=== PATIENT | female | born 1930 | race Caucasian/White ===

== ENCOUNTER → 2017-06-05 | Outpatient (CLI) | payer MEDICARE ==
[~2017-06-05] MED LIST: BIOTCAP PO; D31000CA3 PO; ESTR1TAB PO; FOLI800T PO; FURO20TA PO; LEVO125T4 PO; LISI-519 PO; LORTA5 PO; METH2.5 PO; MOBI7.5T PO; MONT10TA4 PO; NORV2.5T11 PO; PANT40TA3 PO; POTA-267 PO; PRED10 PO; PRED5 PO; VIST25CA PO; [UNRECOGNIZED DRUG - CODE] PO
[2017-06-05 09:43] LABS: AUTOMATED NEUTROPHIL # 5.2 TH/MM3 (1.8-7.7); BASOPHIL % 0.4 % (0.0-2.0); EOSINOPHIL # 0.1 TH/MM3 (0-0.4); EOSINOPHIL % 1.5 % (0.0-4.0); HEMATOCRIT 36.5 % (35.0-46.0); LYMPH % 14.7 % (9.0-44.0); MEAN CELL VOLUME 89.9 FL (80.0-100.0); MEAN CORPUSCULAR HEMOGLOBIN 29.9 PG (27.0-34.0); MEAN CORPUSCULAR HGB CONC 33.3 % (32.0-36.0); MONO % 10.5 % (0.0-8.0); NEUT % 72.9 % (16.0-70.0); PLATELET COUNT 346 TH/MM3 (150-450); RED BLOOD COUNT 4.06 MIL/MM3 (4.00-5.30); RED CELL DISTRIBUTION WIDTH 15.2 % (11.6-17.2); WHITE BLOOD COUNT 7.1 TH/MM3 (4.0-11.0)
[2017-06-05 09:45] LABS: HEMO FLAGS DIFF FINAL; PROTHROMBIN TIME - PATIENT 10.5 SEC (9.8-11.6)
[2017-06-05 10:02] LABS: ANION GAP 7 MEQ/L (5-15); AST (GOT) 12 U/L (15-37); BICARBONATE 29.3 MEQ/L (21.0-32.0); BLOOD UREA NITROGEN 15 MG/DL (7-18); CHLORIDE 105 MEQ/L (98-107); GLOMERULAR FILTRATION RATE 84 ML/MIN (>89); GLUCOSE,FASTING 89 MG/DL (74-99); POTASSIUM 4.3 MEQ/L (3.5-5.1); SODIUM (NA) 141 MEQ/L (136-145)
[2017-06-05 10:06] LABS: ALKALINE PHOSPHATASE 58 U/L (45-117); ALT (GPT) 16 U/L (10-53); TOTAL BILIRUBIN ADULT 0.5 MG/DL (0.2-1.0)
[2017-06-05 11:11] LABS: BLOOD, URINE NEG (NEG); GLUCOSE,URINE NEG (NEG); KETONE, URINE TRACE mg/dL (NEG); MUCUS URINE FEW /lpf (OCC); NITRITE,URINE NEG (NEG); PH, URINE 6.5 (5.0-8.5); URINE COLOR YELLOW (YELLW/STRAW)
[2017-06-05 11:12] LABS: COMMENT (UR) CULT NOT INDICATED; CULTURE IF INDICATED CULT NOT INDICATED
--- NOTE | 2017-06-05 11:56 | RADRPT ---
EXAM DATE/TIME: 06/05/2017 10:32 [place] COMPARISON: No previous studies available for comparison. INDICATIONS : Evaluate for pneumonia, pneumothorax or communicable disease. pre op colon surgery 06-11-17 MEDICAL HISTORY : None. SURGICAL HISTORY : None. ENCOUNTER: Initial ACUITY: 1 day PAIN SCORE: 0/10 LOCATION: Bilateral chest FINDINGS: PA and lateral views of the chest demonstrate the lungs to be symmetrically aerated without evidence of mass, infiltrate or effusion. The cardiomediastinal contours are unremarkable. Osseous structure s are intact. 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 CONCLUSION: No acute disease. Abraham Laguna MD on June 05, 2017 at 11:54 Board Certified Radiologist. This report was verified electronically.
--- NOTE | 2017-06-05 18:48 | EKG ---
Date Performed: 06/05/2017 Time Performed: 09:21:38 PTAGE: 87 years EKG: Sinus rhythm LOW QRS VOLTAGE IN PRECORDIAL LEADS BORDERLINE ECG Compared to prior tracing no significant change PREVIOUS TRACING : 07/14/2003 09.37.14 DOCTOR: Naomy Ontiveros Interpretating Date/Time 06/05/2017 18:47:39
== END ==
LOC: CPRE 08:52
PROVIDERS: ATTEND Colon & Rectal Surgery
DX: Z01.812 Encounter for preprocedural laboratory examination (principal); Z01.810 Encounter for preprocedural cardiovascular examination; Z01.811 Encounter for preprocedural respiratory examination; C20 Malignant neoplasm of rectum; R94.31 Abnormal electrocardiogram [ECG] [EKG]
CPT/HCPCS: 36415; 71020; 80053; 81001; 82378; 85025; 85610; 85730; 93005

== ENCOUNTER 2017-06-11 08:56 | Inpatient (IN) | payer MEDICARE ==
[~2017-06-11] VITALS: Ht 149.9 cm; Wt 56.0 kg
[~2017-06-11 08:56] MED LIST changes: -ESTR1TAB PO; -FURO20TA PO; -LORTA5 PO; -METH2.5 PO; -MOBI7.5T PO; -NORV2.5T11 PO; -POTA-267 PO; -PRED5 PO; -VIST25CA PO; -[UNRECOGNIZED DRUG - CODE] PO
[2017-06-11] MEDS ORDERED: [UNRECOGNIZED DRUG - CODE] PO (11:58)
[2017-06-11] MEDS ORDERED: ONDANSETRON HCL 4 MG/2 ML VIAL IV PUSH ONE (12:00)
[2017-06-11] MEDS ORDERED: PHENYLEPH/NS 1000 MCG/10 ML SYR IV ONE (12:00)
[2017-06-11] MEDS ORDERED: MIDAZOLAM HCL 2 MG/2 ML VIAL IV ONE (12:00)
[2017-06-11] MEDS ORDERED: PROPOFOL 200 MG/20 ML AMP IV ONE (12:00)
[2017-06-11] MEDS ORDERED: ROCURONIUM INJ 50 MG/5 ML SYRINGE IV PUSH ONE (12:00)
[2017-06-11] MEDS ORDERED: SODIUM CHLORID 0.9% 500 ML IV PRN (12:00)
[2017-06-11] MEDS ORDERED: LABETALOL HCL 100 MG/20 ML VIAL IV ONE (12:00)
[2017-06-11] MEDS ORDERED: VECURONIUM BROMIDE 20 MG VIAL IV ONE (12:00)
[2017-06-11] MEDS ORDERED: NEOSTIGMINE 3 MG/3 ML SYR IV ONE (12:00)
[2017-06-11] MEDS ORDERED: CHLORHEXIDINE GLUCONATE 2 % 1 PACK (2 CLOTHS) TOPICAL PRN (12:00)
[2017-06-11] MEDS ORDERED: LACTATED RINGER'S 1000 ML IV PRN (12:00)
[2017-06-11] MEDS ORDERED: POVIDONE IODINE 5% (ANTISEPSIS KIT) 4 APPLICATIONS EACH NARE PRN (12:00)
[2017-06-11] MEDS ORDERED: LIDOCAINE HCL 1% PF 5 ML AMPULE OTHER ONE (12:00)
[2017-06-11] MEDS ORDERED: GLYCOPYRROLATE 1 MG/5 ML SYRINGE IV PUSH ONE (12:00)
[2017-06-11] MEDS ORDERED: DEXAMETHASONE SOD PHOS 4 MG/ML VIAL IV ONE (12:00)
[2017-06-11] MEDS ORDERED: METOPROLOL TARTRATE 25 MG TAB PO PRN (12:00)
[2017-06-11] MEDS ORDERED: DEXT 5%-NACL 0.9% 1000 ML INJ 1,000 ML IV SCH (12:30)
[2017-06-11] MEDS ORDERED: METRONIDAZOLE 500 MG/100 ML ISONTONIC SOLN IV SCH (12:30)
[2017-06-11] MEDS ORDERED: HYDROCORTISONE SOD SUCCINATE 100 MG VIAL ONE (12:49)
[2017-06-11] MEDS ORDERED: VANCOMYCIN 500 MG VIAL ONE (12:53)
[2017-06-11] MEDS ORDERED: methylPREDNISolone SOD SUCC 125 MG/2 ML VIAL ONE (13:46)
[2017-06-11] MEDS ORDERED: ACETAMINOPHEN 1000 MG/100 ML 100 ML IV ONE (13:46)
[2017-06-11] MEDS ORDERED: VANCOMYCIN 500 MG/NS 100 ML IV SCH ×2 (14:00)
--- NOTE | 2017-06-11 14:44 | PD.OP ---
Operative Report Date of Surgery: Jun 11, 2017 Preoperative Diagnosis: Rectal cancer Postoperative Diagnosis: Same Procedure: Cystoscopy with bilateral ureteral catheter placement Anesthesia: JOE Surgeon: Chung Maynard Lime Supervisor(s): None Resident Surgeon: None Operation and Findings: And year-old female with history of rectal cancer admitted to undergo resection by Dr. Ryan. Request for made for bilateral ureteral catheter placement. Patient was brought to the operating room and placed in dorsal lithotomy position. She was prepped and draped in usual sterile fashion, preprocedure antibiotics were given and general endotracheal tube anesthesia was administered. 22 [place] cystoscope was inserted in the bladder cystoscopy did not reveal any abnormalities. The left ureteral orifice was identified and a 5 [place] catheter was inserted up the left ureter without difficulty. This was repeated on the right side without difficulty. A 16 [place] Rasmussen catheter was then inserted and the catheters were secured to the Rasmussen. She tolerated the procedure well. Chung Maynard DO Jun 11, 2017 14:44
[2017-06-11] MEDS ORDERED: ACETAMINOPHEN 325 MG TAB PO PRN (18:30)
[2017-06-11] MEDS ORDERED: ONDANSETRON HCL 4 MG/2 ML VIAL IV PUSH PRN (18:30)
[2017-06-11] MEDS ORDERED: Post-op Orders (for Pharmacy) MISC XX ONE (18:30)
[2017-06-11] MEDS ORDERED: diphenhydrAMINE HCL 50 MG/ML VIAL IV PUSH PRN (18:30)
[2017-06-11] MEDS ORDERED: SODIUM CHLORIDE 0.9% FLUSH 5 ML FLUSH IVF PRN (18:30)
[2017-06-11] MEDS ORDERED: BENZOCAINE 6 MG/MENTHOL 10 MG LOZENGE BUCCAL PRN (18:30)
[2017-06-11] MEDS ORDERED: POTASSIUM CHLOR 40 MEQ PREMIX 100 ML IV PRN (18:30)
[2017-06-11] MEDS ORDERED: ENALAPRILAT 2.5 MG/2 ML VIAL IV PUSH PRN (18:30)
[2017-06-11] MEDS ORDERED: NALOXONE HCL 0.4 MG/ML AMP IV PUSH PRN (18:30)
[2017-06-11] MEDS ORDERED: ENALAPRILAT 1.25 MG/ML VIAL IV PUSH PRN (18:30)
[2017-06-11] MEDS ORDERED: POTASSIUM CHLOR 20 MEQ PREMIX 100 ML IV PRN (18:30)
[2017-06-11] MEDS ORDERED: ACETAMINOPHEN/HYDROcodone 325 MG/5 MG TAB PO PRN (18:30)
[2017-06-11] MEDS ORDERED: DO NOT ADM ANY ANTICOAGULANT DRUGS PRN (18:36)
[2017-06-11] MEDS: D5-NS + KCL 20 MEQ INJ 1,000 ML IV SCH (19:31)
[2017-06-11] MEDS: MORPHINE SULFATE 30 MG/30 ML PCA IV SCH (19:33)
[2017-06-11 20:17] LABS: AUTOMATED NEUTROPHIL # 13.4 TH/MM3 (1.8-7.7); BASOPHIL % 0.1 % (0.0-2.0); HEMATOCRIT 40.1 % (35.0-46.0); HEMO FLAGS DIFF FINAL; LYMPH % 2.3 % (9.0-44.0); LYMPHOCYTE # 0.3 TH/MM3 (1.0-4.8); MEAN CELL VOLUME 90.6 FL (80.0-100.0); MEAN CORPUSCULAR HEMOGLOBIN 28.6 PG (27.0-34.0); MEAN CORPUSCULAR HGB CONC 31.6 % (32.0-36.0); MONO % 3.7 % (0.0-8.0); NEUT % 93.9 % (16.0-70.0); PLATELET COUNT 357 TH/MM3 (150-450); RED BLOOD COUNT 4.43 MIL/MM3 (4.00-5.30); WHITE BLOOD COUNT 14.3 TH/MM3 (4.0-11.0)
[2017-06-11 20:24] LABS: POTASSIUM 3.8 MEQ/L (3.5-5.1)
[2017-06-11 20:30] VITALS: BP 134/69; PULSE 72; RESP 16; TEMP 97.5; O2SAT 95
[2017-06-11 21:00] VITALS: PULSE 74
[2017-06-11] MEDS: SODIUM CHLORIDE 0.9% FLUSH 5 ML FLUSH IVF SCH (21:00)
[2017-06-11] MEDS: PCA - TOTAL MG MORPHINE DELIVERED PER SHIFT SCH (21:08)
[2017-06-11] MEDS: MONTELUKAST SODIUM 10 MG TAB PO SCH (21:48)
[2017-06-11] MEDS: metroNIDAZOLE 500 MG INJ 100 ML IV SCH (21:51)
[2017-06-11] MEDS: methylPREDNISolone SOD SUCC 40 MG/1 ML VIAL IV PUSH SCH (21:51)
[2017-06-11 22:00] VITALS: PULSE 82
[2017-06-11 22:51] VITALS: PULSE 167
[2017-06-11 23:10] VITALS: PULSE 95
[2017-06-11 23:55] VITALS: O2SAT 95
[2017-06-12] VITALS (27 sets, daily range): BP systolic 93–131; BP diastolic 50–70; PULSE 71–95; RESP 16–18; TEMP 97.5–98.2; O2SAT 95–97
[2017-06-12] MEDS ORDERED: VANCOMYCIN INJ 1,000 MG in SODIUM CHLOR 0.9% 250 ML INJ 250 ML IV SCH (01:00)
[2017-06-12] MEDS: D5-NS + KCL 20 MEQ INJ 1,000 ML IV SCH (02:50)
[2017-06-12 05:04] LABS: AUTOMATED NEUTROPHIL # 12.6 TH/MM3 (1.8-7.7); BASOPHIL % 0.2 % (0.0-2.0); HEMATOCRIT 32.8 % (35.0-46.0); HEMO FLAGS DIFF FINAL; LYMPH % 2.7 % (9.0-44.0); LYMPHOCYTE # 0.4 TH/MM3 (1.0-4.8); MEAN CORPUSCULAR HGB CONC 32.2 % (32.0-36.0); MONO % 5.9 % (0.0-8.0); NEUT % 91.2 % (16.0-70.0); PLATELET COUNT 292 TH/MM3 (150-450); RED BLOOD COUNT 3.64 MIL/MM3 (4.00-5.30); RED CELL DISTRIBUTION WIDTH 14.8 % (11.6-17.2); WHITE BLOOD COUNT 13.8 TH/MM3 (4.0-11.0)
[2017-06-12] MEDS: metroNIDAZOLE 500 MG INJ 100 ML IV SCH ×2 (05:11→14:20)
[2017-06-12] MEDS: methylPREDNISolone SOD SUCC 40 MG/1 ML VIAL IV PUSH SCH ×3 (05:11→21:38)
[2017-06-12 05:27] LABS: BICARBONATE 23.2 MEQ/L (21.0-32.0); POTASSIUM 4.5 MEQ/L (3.5-5.1)
[2017-06-12] MEDS: LEVOTHYROXINE SODIUM 125 MCG TAB PO SCH (05:35)
[2017-06-12 05:40] LABS: CALCIUM-PROTEIN CORRECTED 8.3 MG/DL (8.5-10.1)
[2017-06-12] MEDS: PCA - TOTAL MG MORPHINE DELIVERED PER SHIFT SCH ×3 (06:00→22:00)
[2017-06-12] MEDS: SODIUM CHLORIDE 0.9% FLUSH 5 ML FLUSH IVF SCH ×2 (08:34→21:00)
[2017-06-12] MEDS: PANTOPRAZOLE SODIUM 40 MG VIAL IVP SCH (08:34)
[2017-06-12] MEDS: LISINOPRIL 5 MG TAB PO SCH (08:34)
--- NOTE | 2017-06-12 09:19 | MP ---
cc: OG MARINA,DAHIANA HOOVER MD DATE OF SURGERY 06/11/2017 PREOPERATIVE DIAGNOSIS 1. Rectal cancer 2. Umbilical hernia 3. Abdominal wall nevus POSTOPERATIVE DIAGNOSIS 1. Rectal cancer 2. Umbilical hernia 3. Abdominal wall nevus PROCEDURE 1. Robotic low anterior resection with diverting loop ileostomy 2. Umbilical hernia repair 3. Excision of nevus SURGEON Eugenia Ryan MD BONDING EQUIPMENT OPERATOR Juan ANESTHESIA General per ET tube ESTIMATED BLOOD LOSS 100 cc OPERATIVE INDICATIONS The patient is an 87-year-old female with a cancer in her mid rectum. OPERATIVE FINDINGS The patient had a large 6-8 cm tumor in her mid to low rectal actually. There were no visible abnormalities noted within the liver or the remainder of the peritoneal cavity. She had a small 3 cm umbilical hernia easily reducible and a 4 or 5 cm superficial nevus just inside the left anterior superior iliac spine. OPERATIVE COURSE The patient was brought to the operating room, placed in the supine position. After induction of general anesthesia, the patient was placed in Tiago stirrups and all bony prominences were carefully padded. Dr. Maynard then came in and performed cystoscopy and placement of bilateral ureteral catheters, please see his operative note for details. A site was then chosen for the assist port being located just under the right costal margin. A #5 port was placed at this location under direct vision. CO2 insufflation was then undertaken and nothing was noted that would preclude the abdominal approach. The umbilical hernia was then easily visualized and had no sign of any scar tissue or anything else in that area that would interfere with anything. With this finding, we elected to proceed with putting the camera port right through the umbilical hernia. A 1-1/2 cm curvilinear incision was made in the lower part of the umbilicus and the long 10/12 port was placed at this location under direct vision. The right lower quadrant 10/12 port was then placed just inside the right anterior superior iliac spine under direct vision using the laparoscope. The patient was hydroplaned with the head down and to the right and the omentum was brought up-and-over the transverse colon to visualize the liver at this point. The small bowel was brought up and out of the pelvis. It was somewhat slippery and we spent quite a bit of the case pulling it back out of the pelvis. The patient was noted have plenty of descending colon and sigmoid colon and the tumor was visualized a little bit lower than I had expected. The remainder of the ports were placed as follows. The #3 port was placed in line with the umbilicus in the left anterior axillary line and the #2 port was placed just above the umbilical left anterior midclavicular line. The robot was then docked. The sigmoid colon retracted down and to the left and the mesentery on the right was scored. She had many many small ectatic vessels everywhere so there was quite a bit of oozing throughout the dissection. Dissection continued posterior to the vessels, but I was not getting a very good visualization due to little bits of oozing here and there so I elected to proceed with a lateral approach. The lateral adhesions of the sigmoid colon to the lateral peroneal wall was then dissected free using the cautery. Dissection continued in this plane. Eventually we were able to identify the left ureter and sweep it away from the specimen. Dissection then continued posterior to the rectum down to level mid rectum and up and around the right and left side. Eventually we were able to dissect out the vessels very carefully due to the many ectatic side branches. A white load of the Fithian endovascular stapler was placed across the vessels at this level, it was closed, held for 30 seconds, fired and removed. Additional tissue was then divided using a harmonic scalpel until we had free mobility of the sigmoid colon and proximal rectum. Dissection then continued posteriorly down to the level of the pelvic floor and up and around the right and left side anteriorly. The peritoneal reflection was opened and dissection continued down onto the anterior rectum. A finger was then placed into the rectum until we had verify the location of the tumor which was significantly lower than I had previously anticipated at her office visit a month or so ago. The Da Bhupendra stapler was then brought onto the field. This was placed across the rectum 2-3 cm distal to the tumor. The stapler was closed, held for 30 seconds, fired and removed. A second load of the stapler was necessary to transect the bowel. Hemostasis was then obtained with electrocautery. The posterior attachments to the descending colon were then dissected free at this point. The patient was noted have a small serosal tear distal to the ascending colon. This was repaired in an interrupted fashion using 3-0 Vicryl and a small fatty epiploic was then sutured overlaying the repair. The robot was then undocked. An 8-10 cm transverse incision was made in the suprapubic area and using electrocautery dissection was carried down to the fascia of the anterior abdominal wall. This was divided and the bowel. The medial fibers of rectus abdominis were divided and the posterior fascia of the peritoneum was then divided the length of the skin incision. A wound protector was then placed. The proximal stapler in the bowel was grasped, pulled up and out through the incision. A site was then chosen for division of bowel where it lay nicely without tension and the mesentery at this level was dividing and ligated using 0 Vicryl ties. Unfortunately quite a bit of the bowel had a lot of diverticular area. There was not a lot of perfectly healthy bowel, but we did find an area that was relatively free of diverticula. The pursestring stapling device was placed across the proximal bowel so the distal bowel was occluded with Jarred clamp and the bowel was divided sharply. The anvil from the 28 EEA stapler was brought onto the field, but it did not fit into the cut end of the bowel so a 25 EEA stapler was brought onto the field. This was placed in the cut end of the bowel. The previously placed pursestring suture was then secured. There was one small diverticulum which was sutured back around the shaft of the stapler. The 25 EEA stapler was then advanced through the anus and up to the rectal stump without difficulty. The spike was advanced posterior to the stapler, the anvil was to the spike being careful the stapler was not twisted. The stapler was closed, held for 30 seconds, fired and removed thus creating an anterior enterotomy. The resulting enterotomy appeared pink and healthy circumferentially. The anastomotic rings were noted to be complete. A small amount warm normal saline was placed into the pelvis and air was insufflated in the rectum with proximal occlusion until tension was noted at the anastomosis with no sign of any leakage. Noted, the anastomosis lay in a nice orientation with no tension and the hemostasis was obtained in the pelvis using electrocautery. A site was then chosen after discussion, including her age and the more proximal extent of the resection, I did elect to proceed with a temporary diverting loop ileostomy. A site was chosen for the ileostomy approximately 12-15 cm proximal to the ileocecal valve. A defect was created in the mesentery using electrocautery. The posterior fascia at the suprapubic incision was closed in running fashion using #1 PDS and the anterior fascia was closed in a running fashion using #1 PDS. The wound was copiously irrigated warm normal saline and the skin was closed in interrupted subcuticular fashion using 3-0 Vicryl. CO2 insufflation was then resumed and the anastomosis was noted to lay in a nice orientation without tension. The fascia at the right lower quadrant trocar site was then closed using the crossbow stapler and an 0-Vicryl suture. This was held, but not secured. The umbilical hernia was then closed in interrupted fashion using #1 PDS. A site was chosen for the stoma being located 1[address] the umbilicus to the right anterior superior iliac spine. A 1-1/2 cm ellipse of skin was removed sharply and the preperitoneal fat was removed using electrocautery. A 1 cm incision was made in the fascia and the fibers of the rectus abdominis muscle were carefully teased apart. The posterior fascia was then incised the length of the skin incision. The bowel was then grasped and pulled up and out through the stoma being careful that the distal end was in the cephalad position. The distal bowel was then stapled closed using a TA-30 stapling device. The air was desufflated as best possible. The right lower quadrant fascial suture was secured. The wounds were copiously irrigated with warm normal saline and closed with interrupted subcuticular fashion using 3-0 Vicryl. The stoma was then matured in a typical Erica fashion using 3-0 Vicryl. A stomal appliance and sterile dressings were applied. The right ureteral stent was removed. All sponge, needle and sponge counts were correct. The patient was returned to the post anesthesia care in stable condition. MD SUKHWINDER oMrris/MARY /6:33 PM /8:45 AM
--- NOTE | 2017-06-12 09:56 | HHI.PR ---
Subjective Remarks POD#1 s/p robotic LAR/diverting ileostomy, repair umbilical hernia, excision nevus Comfortable, thirsty Objective Vital Signs Date Time Temp Pulse Resp B/P (MAP) Pulse Ox O2 Delivery O2 Flow Rate FiO2 06/12/17 08:30 98.1 78 18 104/56 (72) 96 06/12/17 06:18 93 06/12/17 06:00 16 06/12/17 05:00 89 06/12/17 04:02 95 06/12/17 03:00 95 06/12/17 03:00 98.1 87 16 131/70 (90) 95 06/12/17 02:02 89 06/12/17 01:09 93 06/12/17 00:00 82 06/11/17 23:55 95 Nasal Cannula 2.00 06/11/17 23:10 95 06/11/17 22:51 167 06/11/17 22:00 82 06/11/17 21:08 16 06/11/17 21:05 16 06/11/17 21:00 74 06/11/17 20:30 97.5 72 16 134/69 (90) 95 06/11/17 19:45 98.0 73 20 135/68 (90) 98 Nasal Cannula 2 06/11/17 19:33 18 06/11/17 19:30 75 20 136/67 (90) 97 Nasal Cannula 2 06/11/17 19:15 71 20 134/63 (86) 95 Nasal Cannula 2 06/11/17 19:00 71 20 140/67 (91) 96 Nasal Cannula 2 06/11/17 18:45 79 20 133/68 (89) 97 Nasal Cannula 2 06/11/17 18:37 97.5 79 20 133/70 (91) 97 Nasal Cannula 2 06/11/17 11:30 98.0 85 18 110/62 (78) 95 I/O 06/11/17 06/11/17 06/11/17 06/12/17 06/12/17 06/12/17 07:00 15:00 23:00 07:00 15:00 23:00 Intake Total 1503 ml 2596 ml Output Total 300 ml 525 ml Balance 1203 ml 2071 ml Intake Oral 720 ml IV Total 3 ml 1876 ml Other 1500 ml Output Urine Total 200 ml 525 ml Other 100 ml Result Diagram: 06/12/17 0445 06/12/17 0445 Objective Remarks Abdomen soft, mild distension, tender Dressings c/d/i Stoma pink Assessment and Plan Assessment and Plan Glucose high, change to NS PT consult ET consult Mobilize Clears as tolerated Eugenia Ryan MD Jun 12, 2017 09:56
[2017-06-12] MEDS: NS + KCL 20 MEQ INJ 1,000 ML IV SCH ×2 (10:00→21:39)
--- NOTE | 2017-06-12 16:34 | PD.WCN.NOT ---
Wound Consult Description: Consult for new ileostomy in RLQ per Dr Ryan Communicated with: Patient Additional Information: Patient seen on for Ostomy assessment and teaching Ostomy Type: Ileostomy Surgeon: Eugenia Ryan MD Date of Surgery: Jun 11, 2017 Complete: Other (supplies ordered from [facility]) Educated patient on: Stoma Appliance Additional information Patient seen on for Ostomy assessment and teaching. Stoma is located on the right lower quadrant of the abdomen measuring 1 3/16" indicating that the patient will need an ileostomy appliance in size 1 3/4". Supplies ordered from [facility] for when appliance needs to be changed. Stoma is red, oval, mildly edematous , moist, moderately protruding with lumen noted in center towards 8 o'clock. There is minimal green liquid effluent noted in pouch that was closed to ensure no leaks from the pouch. Wafer is intact and noted without leaks as well. Patient was speaking with Case Management during assessment. Patient will be seen again on Sunday06/13/17 for further teaching and assessment. [facility] Jun 12, 2017 16:34
[2017-06-12] MEDS: HEPARIN SODIUM - SQ 10,000 UNITS/ML VIAL SQ SCH (17:28)
[2017-06-12] MEDS: MORPHINE SULFATE 30 MG/30 ML PCA IV SCH (17:32)
[2017-06-12] MEDS: MONTELUKAST SODIUM 10 MG TAB PO SCH (21:38)
[2017-06-13] VITALS (24 sets, daily range): BP systolic 106–137; BP diastolic 53–69; PULSE 68–111; RESP 14–18; TEMP 97.7–98.5; O2SAT 90–98
[2017-06-13 05:16] LABS: AUTOMATED NEUTROPHIL # 13.7 TH/MM3 (1.8-7.7); BASOPHIL % 0.1 % (0.0-2.0); HEMATOCRIT 33.4 % (35.0-46.0); HEMO FLAGS DIFF FINAL; LYMPH % 3.3 % (9.0-44.0); LYMPHOCYTE # 0.5 TH/MM3 (1.0-4.8); MEAN CELL VOLUME 90.7 FL (80.0-100.0); MEAN CORPUSCULAR HEMOGLOBIN 28.6 PG (27.0-34.0); MEAN CORPUSCULAR HGB CONC 31.5 % (32.0-36.0); MONO % 3.9 % (0.0-8.0); NEUT % 92.7 % (16.0-70.0); PLATELET COUNT 283 TH/MM3 (150-450); RED BLOOD COUNT 3.69 MIL/MM3 (4.00-5.30); RED CELL DISTRIBUTION WIDTH 14.9 % (11.6-17.2); WHITE BLOOD COUNT 14.8 TH/MM3 (4.0-11.0)
[2017-06-13 05:45] LABS: BICARBONATE 23.9 MEQ/L (21.0-32.0)
[2017-06-13] MEDS: LEVOTHYROXINE SODIUM 125 MCG TAB PO SCH (05:48)
[2017-06-13] MEDS: HEPARIN SODIUM - SQ 10,000 UNITS/ML VIAL SQ SCH ×2 (05:48→18:17)
[2017-06-13] MEDS: methylPREDNISolone SOD SUCC 40 MG/1 ML VIAL IV PUSH SCH ×4 (05:48→22:23)
[2017-06-13] MEDS: PCA - TOTAL MG MORPHINE DELIVERED PER SHIFT SCH (06:00)
[2017-06-13] MEDS: NS + KCL 20 MEQ INJ 1,000 ML IV SCH ×2 (06:06→22:23)
--- NOTE | 2017-06-13 07:07 | HHI.PR ---
Subjective Remarks POD#2 s/p robotic LAR/diverting ileostomy, repair umbilical hernia, excision nevus Sore at incision, itchy Objective Vital Signs Date Time Temp Pulse Resp B/P (MAP) Pulse Ox O2 Delivery O2 Flow Rate FiO2 06/13/17 06:00 72 06/13/17 06:00 16 06/13/17 05:00 68 06/13/17 04:00 68 06/13/17 03:00 74 14 107/55 (72) 98 06/13/17 03:00 68 06/13/17 02:00 70 06/13/17 01:00 72 06/13/17 00:00 74 06/12/17 23:00 98.2 75 16 110/55 (73) 97 06/12/17 23:00 80 06/12/17 22:00 74 06/12/17 22:00 16 06/12/17 21:00 78 06/12/17 20:00 78 06/12/17 20:00 97.5 78 16 103/58 (73) 96 06/12/17 19:00 78 06/12/17 18:01 80 06/12/17 17:32 18 06/12/17 17:00 82 06/12/17 16:01 88 06/12/17 15:30 98.1 75 18 102/56 (71) 95 06/12/17 15:00 83 06/12/17 14:00 81 06/12/17 14:00 18 06/12/17 13:00 82 06/12/17 12:01 78 06/12/17 11:45 98.2 71 18 93/50 (64) 96 06/12/17 11:00 74 06/12/17 10:00 74 06/12/17 09:00 74 06/12/17 08:30 98.1 78 18 104/56 (72) 96 06/12/17 08:00 80 I/O 06/12/17 06/12/17 06/12/17 06/13/17 06/13/17 06/13/17 07:00 15:00 23:00 07:00 15:00 23:00 Intake Total 2596 ml 940 ml 690 ml Output Total 525 ml 750 ml 900 ml Balance 2071 ml 190 ml -210 ml Intake Oral 720 ml 840 ml 690 ml IV Total 1876 ml 100 ml Output Urine Total 525 ml 750 ml 600 ml Stool Total 300 ml # Bowel Movements 0 Result Diagram: 06/13/17 0456 06/13/17 0456 Objective Remarks Abdomen soft, mild distension, tender wounds clean Stoma pink No visible rash Assessment and Plan Assessment and Plan Removed stent - remove lopez later today Up in chair D/C Morphine Advance diet Case Management Eugenia Ryan MD Jun 13, 2017 07:07
[2017-06-13] MEDS: SODIUM CHLORIDE 0.9% FLUSH 5 ML FLUSH IVF SCH ×2 (09:00→21:00)
[2017-06-13] MEDS: LISINOPRIL 5 MG TAB PO SCH (09:22)
[2017-06-13] MEDS: PANTOPRAZOLE SODIUM 40 MG VIAL IVP SCH (09:22)
--- NOTE | 2017-06-13 17:25 | PD.WCN.NOT ---
Wound Consult Description: Consult for new ileostomy in [facility] per Dr Ryan Communicated with: Patient Patient daughter Katarina, RN Recommendation: Empty pouch of effluent when 1/3-1/2 full and before bedtime Ensure the pouch is closed to avoid leaks Change appliance every 3-5 days and PRN Additional Information: Patient seen on for Ostomy assessment and teaching. Ostomy Type: Ileostomy Surgeon: Eugenia Ryan MD Date of Surgery: Jun 11, 2017 Complete: Education materials Educated patient on: How often to empty the pouch Opening and closing the pouch When and how to remove the appliance How to cleanse the skin around the stoma Additional information Patient seen on for Ostomy assessment and teaching. Patient was very emotional when her daughter arrived and all the teaching that had been done was reiterated for education purposes. The patient was able to answer and explain most of her daughter questions. Patient demonstrated opening and closing practice supplies provided in the box from [facility]. Stoma noted to right side abdomen is red, oval, moist, moderately protruding, mildly edematous, lumen noted @9 o'clock and functioning with dark green liquid noted to pouch that was emptied by story writer. Patient expressed concern with being able to care for her stoma independently. It was explained to the patient that story writer would be seeing her daily until discharge and that we would be changing it together before she is discharged and would be going over any questions and concerns she may have. Tonia Caraballo [facility] Jun 13, 2017 17:25
[2017-06-13] MEDS: ACETAMINOPHEN/HYDROcodone 325 MG/5 MG TAB PO PRN (18:17)
[2017-06-13] MEDS: MONTELUKAST SODIUM 10 MG TAB PO SCH (22:23)
[2017-06-14] VITALS (29 sets, daily range): BP systolic 127–146; BP diastolic 60–78; PULSE 62–92; RESP 18–20; TEMP 97.3–98.4; O2SAT 93–98
[2017-06-14 05:31] LABS: AUTOMATED NEUTROPHIL # 11.9 TH/MM3 (1.8-7.7); BASOPHIL % 0.2 % (0.0-2.0); HEMATOCRIT 32.9 % (35.0-46.0); HEMO FLAGS DIFF FINAL; LYMPH % 4.6 % (9.0-44.0); LYMPHOCYTE # 0.6 TH/MM3 (1.0-4.8); MEAN CELL VOLUME 89.8 FL (80.0-100.0); MEAN CORPUSCULAR HEMOGLOBIN 29.1 PG (27.0-34.0); MEAN CORPUSCULAR HGB CONC 32.4 % (32.0-36.0); NEUT % 92.2 % (16.0-70.0); PLATELET COUNT 284 TH/MM3 (150-450); RED BLOOD COUNT 3.67 MIL/MM3 (4.00-5.30); RED CELL DISTRIBUTION WIDTH 14.9 % (11.6-17.2); WHITE BLOOD COUNT 12.9 TH/MM3 (4.0-11.0)
[2017-06-14 05:54] LABS: BICARBONATE 25.8 MEQ/L (21.0-32.0); POTASSIUM 5.2 MEQ/L (3.5-5.1)
[2017-06-14] MEDS: LEVOTHYROXINE SODIUM 125 MCG TAB PO SCH (06:38)
[2017-06-14] MEDS: HEPARIN SODIUM - SQ 10,000 UNITS/ML VIAL SQ SCH ×2 (06:38→16:46)
[2017-06-14] MEDS: SODIUM CHLORIDE 0.9% FLUSH 5 ML FLUSH IVF SCH ×2 (09:00→20:22)
[2017-06-14] MEDS: LISINOPRIL 5 MG TAB PO SCH (10:37)
[2017-06-14] MEDS: ACETAMINOPHEN/HYDROcodone 325 MG/5 MG TAB PO PRN ×2 (10:37→20:22)
[2017-06-14] MEDS: methylPREDNISolone SOD SUCC 40 MG/1 ML VIAL IV PUSH SCH ×2 (10:37→23:15)
[2017-06-14] MEDS: PANTOPRAZOLE SODIUM 40 MG VIAL IVP SCH (10:48)
[2017-06-14] MEDS: NS + KCL 20 MEQ INJ 1,000 ML IV SCH (17:29)
--- NOTE | 2017-06-14 18:09 | PD.WCN.NOT ---
Wound Consult Description: Consult for new ileostomy in [facility] per Dr Ryan Communicated with: Patient EllyRN Recommendation: * Occupational Therapy Empty pouch of effluent when 1/3-1/2 full and before bedtime Ensure the pouch is closed to avoid leaks Change appliance every 3-5 days and PRN Additional Information: Patient seen on for ostomy assessment and teaching. Ostomy Type: Ileostomy Surgeon: Eugenia Ryan MD Date of Surgery: Jun 11, 2017 Complete: [facility] ([facility] room with the booklet "What to expect after ileostomy surgery" on her bedside table), Rx (Left on chart), Other (Supplies ordered for ostomy appliance change and available at bedside) Educated patient on: Patient seen on for ostomy teaching and assessment. Stoma is located in the right lower quadrant of the abdomen measuring 1 1/4" red, round, moist, moderately protruding, lumen noted @ 9 o'clock and functioning with green liquid effluent noted to pouch that was emptied by proposal manager writer. Appliance is intact, however will need to be changed tomorrow 06/15/17. Patient states being concern regarding the care associated with the stoma and says that she will need help when she leaves here. Patient cannot demonstrate effectively closing the pouch on her own due to dexterity issues in her fingers. O.T is recommended or will require a rehab vs SNF placement after discharge. Tonia Caraballo [facility] Jun 14, 2017 18:09
[2017-06-14] MEDS: MONTELUKAST SODIUM 10 MG TAB PO SCH (20:22)
[2017-06-15] VITALS (28 sets, daily range): BP systolic 119–149; BP diastolic 58–71; PULSE 61–102; RESP 16–18; TEMP 97.9–98.4; O2SAT 94–97
[2017-06-15] MEDS: LEVOTHYROXINE SODIUM 125 MCG TAB PO SCH (05:36)
[2017-06-15] MEDS: HEPARIN SODIUM - SQ 10,000 UNITS/ML VIAL SQ SCH ×2 (05:37→17:24)
[2017-06-15] MEDS: LISINOPRIL 5 MG TAB PO SCH (09:00)
[2017-06-15] MEDS: SODIUM CHLORIDE 0.9% FLUSH 5 ML FLUSH IVF SCH ×2 (09:00→21:00)
[2017-06-15] MEDS: PANTOPRAZOLE SODIUM 40 MG VIAL IVP SCH (09:00)
--- NOTE | 2017-06-15 09:30 | HHI.PR ---
Subjective Remarks POD#4 s/p robotic LAR/diverting ileostomy, repair umbilical hernia, excision nevus Anxious, comfortable Objective Vital Signs Date Time Temp Pulse Resp B/P (MAP) Pulse Ox O2 Delivery O2 Flow Rate FiO2 06/15/17 06:23 73 06/15/17 05:08 62 06/15/17 04:09 62 06/15/17 03:36 97 Nasal Cannula 2.00 06/15/17 03:36 67 18 146/70 (95) 97 06/15/17 03:00 69 06/15/17 02:07 64 06/15/17 01:00 64 06/15/17 00:00 68 06/14/17 23:36 97.5 70 18 135/67 (89) 98 06/14/17 23:36 98 Blow By 2.00 06/14/17 23:00 74 06/14/17 22:00 70 06/14/17 21:00 68 06/14/17 20:15 97.6 76 18 146/70 (95) 96 06/14/17 20:15 96 Blow By 2.00 06/14/17 20:00 76 06/14/17 19:00 70 06/14/17 18:02 82 06/14/17 17:12 82 06/14/17 16:16 92 06/14/17 15:19 76 06/14/17 15:17 97 Nasal Cannula 2.00 06/14/17 15:17 98.3 73 18 127/60 (82) 97 06/14/17 14:13 80 06/14/17 13:13 91 06/14/17 12:01 80 06/14/17 11:58 84 06/14/17 11:50 97 Room Air 06/14/17 11:50 98.2 80 18 144/67 (92) 97 06/14/17 11:49 18 06/14/17 10:23 94 Room Air 06/14/17 10:14 98.4 77 18 146/78 (100) 93 06/14/17 10:00 84 I/O 06/14/17 06/14/17 06/14/17 06/15/17 06/15/17 06/15/17 07:00 15:00 23:00 07:00 15:00 23:00 Intake Total 685 ml 640 ml 240 ml Output Total 1300 ml 2100 ml 2150 ml Balance -615 ml -1460 ml -1910 ml Intake Oral 180 ml 640 ml 240 ml IV Total 505 ml Output Urine Total 850 ml 900 ml 1100 ml Stool Total 450 ml 1200 ml 1050 ml # Voids 2 Result Diagram: 06/14/1751706/14/17517 Objective Remarks Abdomen soft, mild distension, tender wounds clean Stoma pink Assessment and Plan Assessment and Plan Stoma output too high Add imodium Continue IVF Eugenia Ryan MD Jun 15, 2017 09:30
[2017-06-15] MEDS: ACETAMINOPHEN/HYDROcodone 325 MG/5 MG TAB PO PRN (09:50)
[2017-06-15] MEDS: methylPREDNISolone SOD SUCC 40 MG/1 ML VIAL IV PUSH SCH (12:00)
[2017-06-15] MEDS: LOPERAMIDE HCL 2 MG CAP PO SCH ×2 (12:00→21:57)
[2017-06-15 13:05] LABS: BICARBONATE 24.7 MEQ/L (21.0-32.0); POTASSIUM 4.3 MEQ/L (3.5-5.1)
[2017-06-15] MEDS: NS + KCL 20 MEQ INJ 1,000 ML IV SCH (17:29)
--- NOTE | 2017-06-15 18:34 | PD.WCN.NOT ---
Wound Consult Description: Consult for new ileostomy in RLQ per Dr Ryan Communicated with: Patient HELP DESK SUPERVISOR Recommendation: * Occupational Therapy Empty pouch of effluent when 1/3-1/2 full, before bedtime, and when you wake up Ensure the pouch is closed to avoid leaks Change appliance every 3-5 days and PRN Additional Information: Patient seen on [address] [place] sitting up in chair picking at her dinner. Ostomy Type: Ileostomy Surgeon: Eugenia Ryan MD Date of Surgery: Jun 11, 2017 Complete: [facility] with the booklet "What to expect after ileostomy surgery" on her bedside table), Rx (Left on chart), Other (Supplies ordered for ostomy appliance change and available at bedside) Educated patient on: Eating Additional information Patient states that she "is afraid to eat". It was explained to the patient that she needs nutrition to get stronger. Barrier is intact on lower right abdomen with ~30ml of soft yellow/brown effluent noted in pouch. Spoke with patient at great length regarding the pouch and wafer. Patient is not strong enough at this time to open and close the pouch independently. [facility] Jun 15, 2017 18:34
[2017-06-15] MEDS: MONTELUKAST SODIUM 10 MG TAB PO SCH (21:57)
[2017-06-16] VITALS (27 sets, daily range): BP systolic 111–178; BP diastolic 60–84; PULSE 65–113; RESP 16–18; TEMP 97.8–98.7; O2SAT 94–95
[2017-06-16] MEDS: methylPREDNISolone SOD SUCC 40 MG/1 ML VIAL IV PUSH SCH (01:50)
[2017-06-16] MEDS: HEPARIN SODIUM - SQ 10,000 UNITS/ML VIAL SQ SCH ×2 (05:58→18:08)
[2017-06-16] MEDS: LEVOTHYROXINE SODIUM 125 MCG TAB PO SCH (05:58)
[2017-06-16] MEDS: SODIUM CHLORIDE 0.9% FLUSH 5 ML FLUSH IVF SCH ×2 (09:00→22:35)
[2017-06-16] MEDS: ACETAMINOPHEN/HYDROcodone 325 MG/5 MG TAB PO PRN ×2 (09:08→18:08)
[2017-06-16] MEDS: LOPERAMIDE HCL 2 MG CAP PO SCH ×2 (09:09→22:34)
[2017-06-16] MEDS: PANTOPRAZOLE SODIUM 40 MG VIAL IVP SCH (09:09)
[2017-06-16] MEDS: LISINOPRIL 5 MG TAB PO SCH (09:09)
[2017-06-16] MEDS: NS + KCL 20 MEQ INJ 1,000 ML IV SCH (12:45)
--- NOTE | 2017-06-16 16:04 | EKG ---
Date Performed: 06/16/2017 Time Performed: 09:21:20 PTAGE: 87 years EKG: Sinus rhythm . Poor R wave progression - probable normal variant Low QRS voltages in precordial leads Compared to prior tracing no significant change Borderline ECG PREVIOUS TRACING : 06/05/17 @ 0921 DOCTOR: Reji Ryan Interpretating Date/Time 06/16/2017 16:03:40
[2017-06-16] MEDS: MONTELUKAST SODIUM 10 MG TAB PO SCH (22:34)
[2017-06-17] VITALS (27 sets, daily range): BP systolic 94–134; BP diastolic 54–70; PULSE 66–93; RESP 16–18; TEMP 97.4–98.7; O2SAT 93–98
[2017-06-17] MEDS: LEVOTHYROXINE SODIUM 125 MCG TAB PO SCH (06:38)
[2017-06-17] MEDS: HEPARIN SODIUM - SQ 10,000 UNITS/ML VIAL SQ SCH ×2 (06:38→17:11)
[2017-06-17] MEDS: ACETAMINOPHEN/HYDROcodone 325 MG/5 MG TAB PO PRN ×2 (07:46→19:48)
[2017-06-17] MEDS: SODIUM CHLORIDE 0.9% FLUSH 5 ML FLUSH IVF SCH ×2 (09:00→19:48)
[2017-06-17] MEDS ORDERED: PSYLLIUM FIBER SF/GF 6 GM POWD PKT PO SCH (09:00)
[2017-06-17] MEDS: LOPERAMIDE HCL 2 MG CAP PO SCH ×2 (09:03→20:00)
[2017-06-17] MEDS: LISINOPRIL 5 MG TAB PO SCH (09:03)
[2017-06-17] MEDS: PANTOPRAZOLE SODIUM 40 MG VIAL IVP SCH (09:04)
[2017-06-17] MEDS: NS + KCL 20 MEQ INJ 1,000 ML IV SCH ×2 (09:05→19:48)
[2017-06-17] MEDS: [UNRECOGNIZED DRUG - OTHER] PO SCH ×3 (10:45→17:12)
[2017-06-17] MEDS: METAMUCIL PO SCH ×3 (10:45→17:12)
[2017-06-17] MEDS: MONTELUKAST SODIUM 10 MG TAB PO SCH (20:00)
[2017-06-18] VITALS (20 sets, daily range): BP systolic 97–122; BP diastolic 52–67; PULSE 70–95; RESP 16–18; TEMP 97.5–98.3; O2SAT 94–95
[2017-06-18] MEDS: ACETAMINOPHEN/HYDROcodone 325 MG/5 MG TAB PO PRN ×2 (03:37→13:15)
[2017-06-18] MEDS: LEVOTHYROXINE SODIUM 125 MCG TAB PO SCH (05:50)
[2017-06-18] MEDS: HEPARIN SODIUM - SQ 10,000 UNITS/ML VIAL SQ SCH ×2 (05:50→18:15)
[2017-06-18] MEDS: LOPERAMIDE HCL 2 MG CAP PO SCH (08:13)
[2017-06-18] MEDS: PANTOPRAZOLE SODIUM 40 MG VIAL IVP SCH (08:13)
[2017-06-18] MEDS: LISINOPRIL 5 MG TAB PO SCH (08:13)
[2017-06-18] MEDS: SODIUM CHLORIDE 0.9% FLUSH 5 ML FLUSH IVF SCH (08:14)
[2017-06-18] MEDS: METAMUCIL PO SCH ×3 (08:48→18:00)
[2017-06-18] MEDS: [UNRECOGNIZED DRUG - OTHER] PO SCH ×3 (08:48→18:00)
--- NOTE | 2017-06-18 12:44 | PD.WCN.NOT ---
Wound Consult Description: Consult for new ileostomy in RLQ per Dr Ryan Communicated with: Patient who was attempting to eat lunch Recommendation: * Occupational Therapy Empty pouch of effluent when 1/3-1/2 full, before bedtime, and when you wake up Ensure the pouch is closed to avoid leaks Change appliance every 3-5 days and PRN Additional Information: Patient seen on 4 for ostomy assessment and teaching. Patient was attempting to eat lunch, however was having trouble cutting up her oriental chicken breast. Patient was assisted by senior writer in cutting up her meat in small bite size pieces for consumption. Patient was sitting up in chair during assessment. Ostomy Type: Ileostomy Surgeon: Eugenia Ryan MD Date of Surgery: Jun 11, 2017 Complete: Education materials ([employer] box with educational materials are in patient room with the booklet "What to expect after ileostomy surgery" on her bedside table), Rx (Left on chart), Other (Supplies ordered for ostomy appliance change and available at bedside) Educated patient on: Intake Output of ileostomy Emptying pouch Changing appliance every 3-5 days and PRN Additional information Stoma assessed on right side abdomen is red, oval, moist, moderately protruding , measuring 1 1/4", lumen noted at 9 o'clock and functioning with brown soft effluent noted in pouch. Wafer and pouch are intact. The appliance appears to have been changed over the weekend. Tonia Caraballo [facility] Jun 18, 2017 12:44
--- NOTE | 2017-06-18 16:21 | HHI.PR ---
Subjective Remarks POD#7 s/p robotic LAR/diverting ileostomy, repair umbilical hernia, excision nevus comfortable Objective Vital Signs Date Time Temp Pulse Resp B/P (MAP) Pulse Ox O2 Delivery O2 Flow Rate FiO2 06/18/17 13:00 94 06/18/17 12:00 86 06/18/17 11:00 83 06/18/17 11:00 97.5 89 18 122/67 (85) 94 06/18/17 10:00 90 06/18/17 09:00 90 06/18/17 08:00 84 06/18/17 07:59 97.8 85 18 116/62 (80) 95 06/18/17 07:00 70 06/18/17 06:00 72 06/18/17 05:00 84 06/18/17 04:00 70 06/18/17 03:30 97.9 75 16 97/52 (67) 95 06/18/17 03:00 70 06/18/17 02:00 77 06/18/17 01:00 83 06/18/17 00:00 84 06/17/17 23:00 97.5 83 18 99/56 (70) 93 06/17/17 23:00 81 06/17/17 22:00 90 06/17/17 21:00 88 06/17/17 20:00 86 06/17/17 19:30 98.0 93 18 101/58 (72) 95 06/17/17 19:30 95 Room Air 06/17/17 19:00 89 06/17/17 18:00 84 06/17/17 17:00 86 I/O 06/17/17 06/17/17 06/17/17 06/18/17 06/18/17 06/18/17 07:00 15:00 23:00 07:00 15:00 23:00 Intake Total 420 ml 350 ml 790 ml Output Total 1550 ml 1350 ml 1400 ml Balance -1130 ml -1000 ml -610 ml Intake Oral 420 ml 350 ml 240 ml IV Total 550 ml Output Urine Total 1300 ml 850 ml 1000 ml Stool Total 250 ml 500 ml 400 ml Result Diagram: 06/14/17 0518 06/15/17 1159 Objective Remarks Abdomen soft, nondistended, tender wounds clean Stoma pink, functional Assessment and Plan Assessment and Plan Doing well Ok to transfer to Rehab Eugenia Ryan MD Jun 18, 2017 16:21
[2017-06-18] MEDS ORDERED: HYDR-3516 PO (16:24)
== END 2017-06-18 20:20 | DRG 331 ==
LOC: HSDI 10:47 → HCPC 19:50
PROVIDERS: ADMIT Colon & Rectal Surgery; ATTEND Colon & Rectal Surgery
PROC: 0WQF0ZZ Repair Abdominal Wall, Open Approach (ICD-10-PCS; 2017-06-11)
PROC: 0T9870Z Drainage of Bilateral Ureters with Drainage Device, Via Natural or Artificial Opening (ICD-10-PCS; 2017-06-11)
PROC: 8E0W4CZ Robotic Assisted Procedure of Trunk Region, Percutaneous Endoscopic Approach (ICD-10-PCS; 2017-06-11)
PROC: 0HB7XZZ Excision of Abdomen Skin, External Approach (ICD-10-PCS; 2017-06-11)
PROC: 0D1B0Z4 Bypass Ileum to Cutaneous, Open Approach (ICD-10-PCS; principal; 2017-06-11 13:04)
PROC: 0DTP0ZZ Resection of Rectum, Open Approach (ICD-10-PCS; 2017-06-11 13:04)
DX: C20 Malignant neoplasm of rectum (principal); I48.91 Unspecified atrial fibrillation; M06.9 Rheumatoid arthritis, unspecified; I10 Essential (primary) hypertension; D22.5 Melanocytic nevi of trunk; K42.9 Umbilical hernia without obstruction or gangrene; R73.9 Hyperglycemia, unspecified; E03.9 Hypothyroidism, unspecified; K21.9 Gastro-esophageal reflux disease without esophagitis; Z96.659 Presence of unspecified artificial knee joint; Z96.649 Presence of unspecified artificial hip joint; Z87.891 Personal history of nicotine dependence
CPT/HCPCS: 80048; 84155; 85025; 86850; 86900; 86901; 88305; 88309; 93005; 94150; C1769; C9113; J0131; J1100; J1644; J1720; J2250; J2270; J2370; J2405; J2710; J2920; J2930; J3010; J3370; J3480; J7050; J7120

== ENCOUNTER 2017-08-27 11:52 | Inpatient (IN) | payer MEDICARE ==
[~2017-08-27] VITALS: Ht 149.9 cm; Wt 51.9 kg
[2017-08-27] VITALS (17 sets, daily range): BP systolic 97–144; BP diastolic 57–105; PULSE 79–127; RESP 20–32; TEMP 97.9–98.1; O2SAT 93–98
[~2017-08-27 11:52] MED LIST changes: -BIOTCAP PO; -D31000CA3 PO; -FOLI800T PO; +HYDR-3516 PO
[2017-08-27] MEDS ORDERED: SODIUM CHLORIDE 0.9% FLUSH 10 ML FLUSH IVF PRN (12:15)
--- NOTE | 2017-08-27 12:39 | RADRPT ---
EXAM DATE/TIME: 08/27/2017 12:17 [place] COMPARISON: No previous studies available for comparison. INDICATIONS : Short of breath. MEDICAL HISTORY : unknown SURGICAL HISTORY : Colostomy. ENCOUNTER: Initial ACUITY: 1 day PAIN SCORE: 0/10 LOCATION: Bilateral chest FINDINGS: A single view of the chest demonstrates the lungs to be symmetrically aerated without evidence of mas s, infiltrate or effusion. The cardiomediastinal contours are unremarkable. There is chronic remodel ing and degenerative change at the glenohumeral joints bilaterally. CONCLUSION: 1. No acute cardiothymic process. 2. Chronic change at the glenohumeral joints bilaterally. Nilesh Frye MD on August 27, 2017 at 12:35 Board Certified Radiologist. This report was verified electronically.
[2017-08-27] MEDS ORDERED: CYAN100025 PO (13:24)
[2017-08-27] MEDS ORDERED: VITA100018 PO (13:24)
[2017-08-27] MEDS ORDERED: PROSTAB PO (13:24)
[2017-08-27] MEDS ORDERED: METH2.5T PO (13:24)
[2017-08-27] MEDS ORDERED: MULT1TAB46 PO (13:24)
[2017-08-27] MEDS ORDERED: CALC500C16 CHEW (13:24)
[2017-08-27] MEDS ORDERED: MEGASUS2 PO (13:24)
[2017-08-27] MEDS ORDERED: METO10TA PO (13:24)
[2017-08-27 13:34] LABS: AUTOMATED NEUTROPHIL # 8.9 TH/MM3 (1.8-7.7); BASOPHIL # 0.1 TH/MM3 (0-0.2); BASOPHIL % 0.7 % (0.0-2.0); HEMOGLOBIN 14.6 GM/DL (11.6-15.3); LYMPH % 11.6 % (9.0-44.0); LYMPHOCYTE # 1.3 TH/MM3 (1.0-4.8); MEAN CORPUSCULAR HEMOGLOBIN 30.5 PG (27.0-34.0); MEAN CORPUSCULAR HGB CONC 33.1 % (32.0-36.0); MEAN PLATELET VOLUME 8.6 FL (7.0-11.0); MONO % 6.8 % (0.0-8.0); MONOCYTE # 0.7 TH/MM3 (0-0.9); NEUT % 80.9 % (16.0-70.0); PLATELET COUNT 227 TH/MM3 (150-450); RED BLOOD COUNT 4.79 MIL/MM3 (4.00-5.30); RED CELL DISTRIBUTION WIDTH 20.6 % (11.6-17.2)
[2017-08-27 13:41] LABS: BACTERIA, URINE OCC /hpf; BILIRUBIN, URINE NEG (NEG); BLOOD, URINE NEG (NEG); GLUCOSE,URINE NEG (NEG); KETONE, URINE NEG (NEG); NITRITE,URINE NEG (NEG); SQUAMOUS EPITHELIAL CELL URINE <1 /hpf (0-5); URINE COLOR LIGHT-YELLOW (YELLW/STRAW); URINE LEUKOCYTE ESTERASE LARGE (NEG); WHITE BLOOD CELL CLUMPS OCC
[2017-08-27 13:46] LABS: INTERNATIONAL NORMALIZED RATIO 0.9 RATIO; PROTHROMBIN TIME - PATIENT 9.5 SEC (9.8-11.6)
--- NOTE | 2017-08-27 14:50 | PD ---
HPI Chief Complaint: Respiratory Distress Time Seen by Provider: 12:06 Travel History International Travel<30 days: No Contact w/Intl Traveler<30days: No Traveled to known affect area: No History of Present Illness HPI 87-year-old female with PMH of rheumatoid arthritis, HTN presents [facility] ED [facility] for [facility] of 2 day history of shortness of breath. The patient endorses "mild" intermittent central chest pain. She endorses rare nonproductive cough. She denies palpitations, fevers, chills, abdominal pain, nausea, vomiting, lower extremity edema. She denies cardiac history. She states that she is in rehab after undergoing colectomy with ileostomy in May. Her daughter comes to bedside and states that her mom is unable to care for her ileostomy alone and this is the reason that she has been in rehab. She states that the surgeon plans to reverse the ileostomy soon. PFSH Past Medical History Arthritis: Yes Blood Disorders: No Cancer: Yes (COLON) Cardiovascular Problems: Yes (A FIB IN THE PAST WHEN SEPTIC) Chest Pain: Yes Diminished Hearing: No Endocrine: No Gastrointestinal Disorders: Yes (GERD) GERD: Yes Genitourinary: Yes (GOUT) Hiatal Hernia: No Hypertension: Yes Immune Disorder: No Medical other: Yes (HYPERKALEMIA, WEIGHT LOSS. ) Musculoskeletal: Yes (BACK AND HIP FROM ARTHRITIS) Neurologic: No Psychiatric: No Reproductive: No Respiratory: No Thyroid Disease: Yes ?: Not Menopausal: Yes : 3 Para: 3 Past Surgical History AICD: No Body Medical Devices: UNSURE OF IMPLANTS IN EYES Eye Surgery: Yes (LEFT CATARACT) Gynecologic Surgery: Yes (COMPLETE HYSTERECTOMY) Hysterectomy: Yes Joint Replacement: Yes (LEFT HIP AND TOTAL KNEE ) Oral Surgery: Yes (TONSILLECTOMY) Pacemaker: No Thoracic Surgery: Yes (RIGHT LUMPECTOMY) Other Surgery: Yes (COLOSTOMY ) Social History Alcohol Use: No Tobacco Use: No Substance Use: No Allergies-Medications (Allergen,Severity, Reaction): Coded Allergies: Sulfa (Sulfonamide Antibiotics) (Unverified Allergy, Severe, SWELLING, DIFFICULTY BREATHING, 08/27/17) celecoxib (Unverified Allergy, Severe, 08/27/17) PT IS UNABLE TO RECALL REACTION. penicillin G (Unverified Allergy, Severe, Swelling, 1/29/18) PT REPORTS REACTION WAS 50 YEARS AGO, AND IS UNABLE TO RECALL DETAILS. Uncoded Allergies: TAPE ADHESIVE/ PAPER TAPE OK (Allergy, Severe, BLISTERS, 05/01/06) Reported Meds & Prescriptions Reported Meds & Active Scripts Active Hydrocodone-Acetamin 5-325 mg (Hydrocodone/Acetaminophen) 5 Mg-325 Mg Tablet 1 Tab PO Q6H PRN 10 Days Reported Calcium Carbonate (Antacid) 500 Mg Chew 500 Mg CHEW Q6HR PRN Metoclopramide (Metoclopramide HCl) 10 Mg Tab 10 Mg PO BID Megace ES Liq (Megestrol ES Liq) 625 Mg/5 Ml Susp 400 Mg PO BID Multi Vitamin Daily (Multiple Vitamin) 1 Tab Tab 1 Tab PO DAILY B-12 (Cyanocobalamin) 1,000 Mcg Subl 1,000 Mcg PO DAILY Vitamin D3 (Cholecalciferol) 1,000 Unit Tab 1,000 Units PO DAILY Prosight (Multiple Vitamins W/ Minerals) 5,000-60-30 Tab 1 Tab PO DAILY Methotrexate 2.5 Mg Tab 2.5 Mg PO Q7D Montelukast (Montelukast Sodium) 10 Mg Tab 10 Mg PO HS Prednisone 10 Mg Tab 10 Mg PO DAILY Pantoprazole (Pantoprazole Sodium) 40 Mg Tab 40 Mg PO DAILY Levothyroxine (Levothyroxine Sodium) 125 Mcg Tab 100 Mcg PO DAILY Review of Systems Except as stated in HPI: all other systems reviewed are Neg Physical Exam Narrative GENERAL: Well-nourished, well-developed pleasant elderly white female in no acute distress. SKIN: Focused skin assessment warm/dry. HEAD: Normocephalic. EYES: No scleral icterus. No injection or drainage. NECK: Supple, trachea midline. No JVD or lymphadenopathy. CARDIOVASCULAR: Regular rate and rhythm without murmurs, gallops, or rubs. RESPIRATORY: Breath sounds coarse bilaterally. No accessory muscle use. GASTROINTESTINAL: Abdomen soft, non-tender, nondistended. Well-healed ileostomy site with gas and brown stool in the bag. MUSCULOSKELETAL: No cyanosis, or edema. BACK: Nontender without obvious deformity. No CVA tenderness. Data Data Last Documented VS Vital Signs Date Time Temp Pulse Resp B/P (MAP) Pulse Ox O2 Delivery O2 Flow Rate FiO2 08/27/17 16:45 94 32 103/69 (80) 95 Nasal Cannula 2.00 08/27/17 12:06 98.1 Orders Orders Complete Blood Count With Diff (08/27/17 12:06) Comprehensive Metabolic Panel (08/27/17 12:06) B-Type Natriuretic Peptide (08/27/17 12:06) Act Partial Throm Time (Ptt) (08/27/17 12:06) Prothrombin Time / Inr (Pt) (08/27/17 12:06) Magnesium (Mg) (08/27/17 12:06) Ckmb (Isoenzyme) Profile (08/27/17 12:06) Troponin I (08/27/17 12:06) Urinalysis - C+S If Indicated (08/27/17 12:06) Blood Culture (08/27/17 12:06) Iv Access Insert/Monitor (08/27/17 12:06) Electrocardiogram (08/27/17 12:06) Ecg Monitoring (08/27/17 12:06) Oximetry (08/27/17 12:06) Oxygen Administration (08/27/17 12:06) Chest, Single Ap (08/27/17 12:06) Sodium Chloride 0.9% Flush (Ns Flush) (08/27/17 12:15) Urine Culture (08/27/17 12:45) Ct Pulmonary Angiogram (08/27/17 14:40) Labetalol Inj (Trandate Inj) (08/27/17 15:00) Urinary Catheter Insert/Apply (08/27/17 14:56) Thyroid Stimulating Hormone (08/27/17 12:40) Metoprolol Tartrate Inj (Lopressor Inj) (08/27/17 15:30) Diltiazem Inj (Cardizem Inj) (08/27/17 16:15) Diltiazem Inj (Cardizem Inj) (08/27/17 16:15) Sodium Chloride 0.9% Flush (Ns Flush) (08/27/17 16:15) Consult Cardiology (08/27/17 ) (Hub Use Only)Inp Phy Cons/Ref (08/27/17 ) Ciprofloxacin (Cipro) (08/27/17 16:45) Admit Order (Ed Use Only) (08/27/17 16:48) Labs Laboratory Tests Test 08/27/17 12:40 08/27/17 12:45 08/27/17 15:30 White Blood Count 11.0 TH/MM3 Red Blood Count 4.79 MIL/MM3 Hemoglobin 14.6 GM/DL Hematocrit 44.0 % Mean Corpuscular Volume 92.0 FL Mean Corpuscular Hemoglobin 30.5 PG Mean Corpuscular Hemoglobin Concent 33.1 % Red Cell Distribution Width 20.6 % Platelet Count 227 TH/MM3 Mean Platelet Volume 8.6 FL Neutrophils (%) (Auto) 80.9 % Lymphocytes (%) (Auto) 11.6 % Monocytes (%) (Auto) 6.8 % Eosinophils (%) (Auto) 0.0 % Basophils (%) (Auto) 0.7 % Neutrophils # (Auto) 8.9 TH/MM3 Lymphocytes # (Auto) 1.3 TH/MM3 Monocytes # (Auto) 0.7 TH/MM3 Eosinophils # (Auto) 0.0 TH/MM3 Basophils # (Auto) 0.1 TH/MM3 CBC Comment DIFF FINAL Differential Comment Prothrombin Time 9.5 SEC Prothromb Time International Ratio 0.9 RATIO Activated Partial Thromboplast Time 21.5 SEC B-Type Natriuretic Peptide 20 PG/ML Urine Color LIGHT-YELLOW Urine Turbidity HAZY Urine pH 5.0 Urine Specific [place] 1.006 Urine Protein NEG mg/dL Urine Glucose (UA) NEG mg/dL Urine Ketones NEG mg/dL Urine Occult Blood NEG Urine Nitrite NEG Urine Bilirubin NEG Urine Urobilinogen LESS THAN 2.0 MG/DL Urine Leukocyte Esterase LARGE Urine RBC 1 /hpf Urine WBC 15 /hpf Urine WBC Clumps OCC Urine Squamous Epithelial Cells <1 /hpf Urine Bacteria OCC /hpf Microscopic Urinalysis Comment CATH-CULTURE IND Blood Urea Nitrogen 30 MG/DL Creatinine 0.88 MG/DL Random Glucose 98 MG/DL Total Protein 7.4 GM/DL Albumin 3.1 GM/DL Calcium Level 9.0 MG/DL Magnesium Level 2.1 MG/DL Alkaline Phosphatase 69 U/L Aspartate Amino Transf (AST/SGOT) 90 U/L Alanine Aminotransferase (ALT/SGPT) 206 U/L Total Bilirubin 0.3 MG/DL Sodium Level 142 MEQ/L Potassium Level 3.2 MEQ/L Chloride Level 109 MEQ/L Carbon Dioxide Level 21.1 MEQ/L Anion Gap 12 MEQ/L Estimat Glomerular Filtration Rate 61 ML/MIN Total Creatine Kinase 42 U/L Troponin I 0.05 NG/ML Thyroid Stimulating Hormone 3rd Gen 0.023 uIU/ML MDM Medical Decision Making Medical Screen Exam Complete: Yes Emergency Medical Condition: Yes Differential Diagnosis Pneumonia versus PE versus UTI versus ACS versus arrhythmia versus other Narrative Course 87-year-old female with PMH of rheumatoid arthritis, HTN [facility] of 2 day history of shortness of breath. The patient endorses "mild" intermittent central chest pain. She endorses rare nonproductive cough. She states that she is in rehab after undergoing colectomy with ileostomy in May. Temp 98.1. Pulse 111, respiratory rate 32, O2 sats 96% on 2 L nasal cannula on presentation. Physical exam reveals a nontoxic-appearing white female in no acute distress. Lung sounds are coarse bilaterally but the exam is otherwise unremarkable. IV was established. EKG: Heart rate 111, sinus tach with first-degree AV block. CA interval 239. QRS 70. QTc 357 ms. Normal axis. No acute ST changes. CXR: No acute cardiothymic process. Chronic change of the glenohumeral joints bilaterally. All per radiology read. BNP: 20 Cardiac enzymes: Negative 1 CBC: WBC 11.0. Neutrophil predominant. Hemoglobin 14.6. Hematocrit 44.0. CMP: Potassium 3.2. BUN 30, creatinine 0.88. AST 90, ALT 206. TSH 0.023. INR 0.9. UA: Hazy, large leukocyte esterase, 15 WBCs, occasional clumps, occasional bacteria. Culture pending. During the course of evaluation the patient had several runs of SVT with pulses 250+. Each time this resolved spontaneously. Patient was administered propranolol, metoprolol with no improvement of symptoms. Cardizem bolus and drip was initiated. Consult was placed with the veterinary practitioner, Dr. Meza. CTA pending at this time. I spoke with Dr. Jain, the disassembler product. He requests a liter of normal saline for the patient. He will accept the patient to the ICU. Please see medicine and cardiology notes for disposition. Mindy Zuñiga Aug 27, 2017 14:50
[2017-08-27] MEDS ORDERED: LABETALOL HCL 100 MG/20 ML VIAL IV PUSH ONE (15:00)
--- NOTE | 2017-08-27 15:10 | PD ---
Data Data Last Documented VS Vital Signs Date Time Temp Pulse Resp B/P (MAP) Pulse Ox O2 Delivery O2 Flow Rate FiO2 08/27/17 16:45 94 32 103/69 (80) 95 Nasal Cannula 2.00 08/27/17 12:06 98.1 Orders Orders Complete Blood Count With Diff (08/27/17 12:06) Comprehensive Metabolic Panel (08/27/17 12:06) B-Type Natriuretic Peptide (08/27/17 12:06) Act Partial Throm Time (Ptt) (08/27/17 12:06) Prothrombin Time / Inr (Pt) (08/27/17 12:06) Magnesium (Mg) (08/27/17 12:06) Ckmb (Isoenzyme) Profile (08/27/17 12:06) Troponin I (08/27/17 12:06) Urinalysis - C+S If Indicated (08/27/17 12:06) Blood Culture (08/27/17 12:06) Iv Access Insert/Monitor (08/27/17 12:06) Electrocardiogram (08/27/17 12:06) Ecg Monitoring (08/27/17 12:06) Oximetry (08/27/17 12:06) Oxygen Administration (08/27/17 12:06) Chest, Single Ap (08/27/17 12:06) Sodium Chloride 0.9% Flush (Ns Flush) (08/27/17 12:15) Urine Culture (08/27/17 12:45) Ct Pulmonary Angiogram (08/27/17 14:40) Labetalol Inj (Trandate Inj) (08/27/17 15:00) Urinary Catheter Insert/Apply (08/27/17 14:56) Thyroid Stimulating Hormone (08/27/17 12:40) Metoprolol Tartrate Inj (Lopressor Inj) (08/27/17 15:30) Diltiazem Inj (Cardizem Inj) (08/27/17 16:15) Diltiazem Inj (Cardizem Inj) (08/27/17 16:15) Sodium Chloride 0.9% Flush (Ns Flush) (08/27/17 16:15) Consult Cardiology (08/27/17 ) (Hub Use Only)Inp Phy Cons/Ref (08/27/17 ) Ciprofloxacin (Cipro) (08/27/17 16:45) Admit Order (Ed Use Only) (08/27/17 16:48) Labs Laboratory Tests Test 08/27/17 12:40 08/27/17 12:45 08/27/17 15:30 White Blood Count 11.0 TH/MM3 Red Blood Count 4.79 MIL/MM3 Hemoglobin 14.6 GM/DL Hematocrit 44.0 % Mean Corpuscular Volume 92.0 FL Mean Corpuscular Hemoglobin 30.5 PG Mean Corpuscular Hemoglobin Concent 33.1 % Red Cell Distribution Width 20.6 % Platelet Count 227 TH/MM3 Mean Platelet Volume 8.6 FL Neutrophils (%) (Auto) 80.9 % Lymphocytes (%) (Auto) 11.6 % Monocytes (%) (Auto) 6.8 % Eosinophils (%) (Auto) 0.0 % Basophils (%) (Auto) 0.7 % Neutrophils # (Auto) 8.9 TH/MM3 Lymphocytes # (Auto) 1.3 TH/MM3 Monocytes # (Auto) 0.7 TH/MM3 Eosinophils # (Auto) 0.0 TH/MM3 Basophils # (Auto) 0.1 TH/MM3 CBC Comment DIFF FINAL Differential Comment Prothrombin Time 9.5 SEC Prothromb Time International Ratio 0.9 RATIO Activated Partial Thromboplast Time 21.5 SEC B-Type Natriuretic Peptide 20 PG/ML Urine Color LIGHT-YELLOW Urine Turbidity HAZY Urine pH 5.0 Urine Specific [place] 1.006 Urine Protein NEG mg/dL Urine Glucose (UA) NEG mg/dL Urine Ketones NEG mg/dL Urine Occult Blood NEG Urine Nitrite NEG Urine Bilirubin NEG Urine Urobilinogen LESS THAN 2.0 MG/DL Urine Leukocyte Esterase LARGE Urine RBC 1 /hpf Urine WBC 15 /hpf Urine WBC Clumps OCC Urine Squamous Epithelial Cells <1 /hpf Urine Bacteria OCC /hpf Microscopic Urinalysis Comment CATH-CULTURE IND Blood Urea Nitrogen 30 MG/DL Creatinine 0.88 MG/DL Random Glucose 98 MG/DL Total Protein 7.4 GM/DL Albumin 3.1 GM/DL Calcium Level 9.0 MG/DL Magnesium Level 2.1 MG/DL Alkaline Phosphatase 69 U/L Aspartate Amino Transf (AST/SGOT) 90 U/L Alanine Aminotransferase (ALT/SGPT) 206 U/L Total Bilirubin 0.3 MG/DL Sodium Level 142 MEQ/L Potassium Level 3.2 MEQ/L Chloride Level 109 MEQ/L Carbon Dioxide Level 21.1 MEQ/L Anion Gap 12 MEQ/L Estimat Glomerular Filtration Rate 61 ML/MIN Total Creatine Kinase 42 U/L Troponin I 0.05 NG/ML Thyroid Stimulating Hormone 3rd Gen 0.023 uIU/ML MDM Supervised Visit with CLARK: Yes Narrative Course Patient seen and examined by me, having intermittent runs of SVT, patient given limited doses of atenolol, metoprolol, so in summary control, patient continues to have these intermittent runs, history of recent surgical procedure, chief complaint shortness of breath and a CT PE protocol is indicated. Have added a TSH as a patient is on Synthroid. Dr. martinez his consult to and agrees with starting Cardene drcathy, ultimately discussed with Dr. Jain by Mauro Zuñiga and he will admit the patient. Agree with documentation by PA. Diagnosis Primary Impression: Shortness of breath Additional Impression: SVT (supraventricular tachycardia) Admitting Information Admitting Physician Requests: Admit Condition: Carroll Downing MD Aug 27, 2017 15:10
[2017-08-27] MEDS ORDERED: METOPROLOL TARTRATE 5 MG/5 ML VIAL IV PUSH ONE (15:30)
[2017-08-27] MEDS ORDERED: SODIUM CHLORIDE 0.9% FLUSH 10 ML FLUSH IV FLUSH PRN (16:15)
[2017-08-27] MEDS ORDERED: DILTIAZEM HCL 25 MG/5 ML VIAL IV PUSH ONE (16:15)
[2017-08-27] MEDS ORDERED: DILTIAZEM INJ 125 MG in SODIUM CHLORIDE 0.9% INJ 100 ML IV PRN (16:15)
[2017-08-27 16:17] LABS: ALBUMIN 3.1 GM/DL (3.4-5.0); AST (GOT) 90 U/L (15-37); BICARBONATE 21.1 MEQ/L (21.0-32.0); BLOOD UREA NITROGEN 30 MG/DL (7-18); CHLORIDE 109 MEQ/L (98-107); CREATININE 0.88 MG/DL (0.50-1.00); GLOMERULAR FILTRATION RATE 61 ML/MIN (>89); GLUCOSE,RANDOM 98 MG/DL (74-106); MAGNESIUM 2.1 MG/DL (1.5-2.5); SODIUM (NA) 142 MEQ/L (136-145)
[2017-08-27 16:28] LABS: ALKALINE PHOSPHATASE 69 U/L (45-117); ALT (GPT) 206 U/L (10-53); TOTAL BILIRUBIN ADULT 0.3 MG/DL (0.2-1.0); TOTAL PROTEIN 7.4 GM/DL (6.4-8.2); TROPONIN I 0.05 NG/ML (0.02-0.05)
[2017-08-27] MEDS ORDERED: CIPROFLOXACIN 250 MG TAB PO ONE (16:45)
[2017-08-27] MEDS ORDERED: SODIUM CHLOR 0.9% 1000 ML INJ 1,000 ML IV ONE (17:15)
[2017-08-27] MEDS ORDERED: ACETAMINOPHEN 325 MG TAB PO PRN (17:30)
[2017-08-27] MEDS ORDERED: CHLORHEXIDINE GLUCONATE 2 % 1 PACK (2 CLOTHS) TOP PRN (17:30)
[2017-08-27] MEDS ORDERED: ONDANSETRON HCL 4 MG/2 ML VIAL IV PUSH PRN (17:30)
[2017-08-27] MEDS ORDERED: MISCELLANEOUS NURSING INFORMATION XX SCH (17:30)
--- NOTE | 2017-08-27 17:45 | HHI.HP ---
HPI Service Critical Care Medicine Primary Care Physician Sarai Cornell D.O. Admission Diagnosis Arrhythmia, Dehydration, SVT, UTI ? Diagnosis: Chief Complaint: Cough, congestion Travel History International Travel<30 Days: No Contact w/Intl Traveler <30 Da: No Traveled to Known Affected Are: No History of Present Illness 87 y/o woman was brought in by EMS from her SNF for cough, congestion. She received lasix from EMS. Initial labs and physical exam by my arrival to ED 5 hours later reveals clear lungs, a light bronchitic cough, prerenal azotemia, and poor skin turgor. She has had several episodes of SVT in the ED treated with cardizem and lopressor iv. She is now in sinus rhythm. Discussed in detail with her daughter at the bedside. 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 Eugenia Ryan if she gains some weight and strength. Review of Systems ROS Very thirsty. no chest pain or SOB. Past Family Social History Allergies: Coded Allergies: Sulfa (Sulfonamide Antibiotics) (Unverified Allergy, Severe, SWELLING, DIFFICULTY BREATHING, 08/27/17) celecoxib (Unverified Allergy, Severe, 08/27/17) PT IS UNABLE TO RECALL REACTION. penicillin G (Unverified Allergy, Severe, Swelling, 08/27/17) PT REPORTS REACTION WAS 50 YEARS AGO, AND IS UNABLE TO RECALL DETAILS. Uncoded Allergies: TAPE ADHESIVE/ PAPER TAPE OK (Allergy, Severe, BLISTERS, 05/01/06) Past Medical History Past Medical History Arthritis: Yes Blood Disorders: No Cancer: Yes (COLON) Cardiovascular Problems: Yes (A FIB IN THE PAST WHEN SEPTIC) Chest Pain: Yes Diminished Hearing: No Endocrine: No Gastrointestinal Disorders: Yes (GERD) GERD: Yes Genitourinary: Yes (GOUT) Hiatal Hernia: No Hypertension: Yes Immune Disorder: No Medical other: Yes (HYPERKALEMIA, WEIGHT LOSS. ) Musculoskeletal: Yes (BACK AND HIP FROM ARTHRITIS) Neurologic: No Psychiatric: No Reproductive: No Respiratory: No Thyroid Disease: Yes ?: Not Menopausal: Yes : 3 Para: 3 Past Surgical History AICD: No Body Medical Devices: UNSURE OF IMPLANTS IN EYES Eye Surgery: Yes (LEFT CATARACT) Gynecologic Surgery: Yes (COMPLETE HYSTERECTOMY) Hysterectomy: Yes Joint Replacement: Yes (LEFT HIP AND TOTAL KNEE ) Oral Surgery: Yes (TONSILLECTOMY) Pacemaker: No Thoracic Surgery: Yes (RIGHT LUMPECTOMY) Other Surgery: Yes (COLOSTOMY ) Social History Alcohol Use: No Tobacco Use: No Substance Use: No Allergies-Medications Allergies-Medications (Allergen,Severity, Reaction): Coded Allergies: Sulfa (Sulfonamide Antibiotics) (Unverified Allergy, Severe, SWELLING, DIFFICULTY BREATHING, 08/27/17) celecoxib (Unverified Allergy, Severe, 08/27/17) PT IS UNABLE TO RECALL REACTION. penicillin G (Unverified Allergy, Severe, Swelling, 08/27/17) PT REPORTS REACTION WAS 50 YEARS AGO, AND IS UNABLE TO RECALL DETAILS. Uncoded Allergies: TAPE ADHESIVE/ PAPER TAPE OK (Allergy, Severe, BLISTERS, 05/01/06) Reported Meds & Prescriptions Reported Meds & Active Scripts Active Hydrocodone-Acetamin 5-325 mg (Hydrocodone/Acetaminophen) 5 Mg-325 Mg Tablet 1 Tab PO Q6H PRN 10 Days Reported Calcium Carbonate (Antacid) 500 Mg Chew 500 Mg CHEW Q6HR PRN Metoclopramide (Metoclopramide HCl) 10 Mg Tab 10 Mg PO BID Megace ES Liq (Megestrol ES Liq) 625 Mg/5 Ml Susp 400 Mg PO BID Multi Vitamin Daily (Multiple Vitamin) 1 Tab Tab 1 Tab PO DAILY B-12 (Cyanocobalamin) 1,000 Mcg Subl 1,000 Mcg PO DAILY Vitamin D3 (Cholecalciferol) 1,000 Unit Tab 1,000 Units PO DAILY Prosight (Multiple Vitamins W/ Minerals) 5,000-60-30 Tab 1 Tab PO DAILY Methotrexate 2.5 Mg Tab 2.5 Mg PO Q7D Montelukast (Montelukast Sodium) 10 Mg Tab 10 Mg PO HS Prednisone 10 Mg Tab 10 Mg PO DAILY Pantoprazole (Pantoprazole Sodium) 40 Mg Tab 40 Mg PO DAILY Levothyroxine (Levothyroxine Sodium) 125 Mcg Tab 100 Mcg PO DAILY Physical Exam Vital Signs Vital Signs Date Time Temp Pulse Resp B/P (MAP) Pulse Ox O2 Delivery O2 Flow Rate FiO2 08/27/17 17:00 98 32 105/65 (78) 93 Nasal Cannula 2.00 08/27/17 16:45 94 32 103/69 (80) 95 Nasal Cannula 2.00 08/27/17 16:30 92 26 118/67 (84) 95 Nasal Cannula 2.00 08/27/17 16:13 87 28 127/79 (95) 95 Nasal Cannula 2.00 08/27/17 15:30 100 26 117/77 (90) 94 Nasal Cannula 2.00 08/27/17 15:00 122 28 142/90 (107) 94 Nasal Cannula 2.00 08/27/17 14:00 118 23 144/100 (115) 95 Nasal Cannula 2.00 08/27/17 13:08 127 24 144/105 (118) 95 Nasal Cannula 2.00 08/27/17 12:10 95 Nasal Cannula 2.00 08/27/17 12:10 95 Nasal Cannula 2.00 08/27/17 12:06 111 32 96 Nasal Cannula 2.00 08/27/17 12:06 98.1 111 32 139/72 (94) 95 Nasal Cannula 2.00 08/27/17 12:01 98.1 Physical Exam Gen: Frail appearing, dehydrated elderly woman. Head: Normal. Neck: Supple, airway widely patent. Lungs: Clear, no wheezes or crackles. Rate 12, comfortable. No accessory muscle use. Heart: NL S1S2, occ PMB. Neck veins are flat. Abdomen: Soft, flat, no tenderness. Stoma pink. BS active. Extremities: Warm, dry. Skin: Poor turgor, tents considerably. Neuro: O X 3, alert, cooperative. Wiggles toes and fingers to command. Laboratory Laboratory Tests Test 08/27/17 12:40 08/27/17 12:45 08/27/17 15:30 White Blood Count 11.0 Red Blood Count 4.79 Hemoglobin 14.6 Hematocrit 44.0 Mean Corpuscular Volume 92.0 Mean Corpuscular Hemoglobin 30.5 Mean Corpuscular Hemoglobin Concent 33.1 Red Cell Distribution Width 20.6 Platelet Count 227 Mean Platelet Volume 8.6 Neutrophils (%) (Auto) 80.9 Lymphocytes (%) (Auto) 11.6 Monocytes (%) (Auto) 6.8 Eosinophils (%) (Auto) 0.0 Basophils (%) (Auto) 0.7 Neutrophils # (Auto) 8.9 Lymphocytes # (Auto) 1.3 Monocytes # (Auto) 0.7 Eosinophils # (Auto) 0.0 Basophils # (Auto) 0.1 CBC Comment DIFF FINAL Differential Comment Prothrombin Time 9.5 Prothromb Time International Ratio 0.9 Activated Partial Thromboplast Time 21.5 B-Type Natriuretic Peptide 20 Urine Color LIGHT-YELLOW Urine Turbidity HAZY Urine pH 5.0 Urine Specific [place] 1.006 Urine Protein NEG Urine Glucose (UA) NEG Urine Ketones NEG Urine Occult Blood NEG Urine Nitrite NEG Urine Bilirubin NEG Urine Urobilinogen LESS THAN 2.0 Urine Leukocyte Esterase LARGE Urine RBC 1 Urine WBC 15 Urine WBC Clumps OCC Urine Squamous Epithelial Cells <1 Urine Bacteria OCC Microscopic Urinalysis Comment CATH-CULTURE IND Blood Urea Nitrogen 30 Creatinine 0.88 Random Glucose 98 Total Protein 7.4 Albumin 3.1 Calcium Level 9.0 Magnesium Level 2.1 Alkaline Phosphatase 69 Aspartate Amino Transf (AST/SGOT) 90 Alanine Aminotransferase (ALT/SGPT) 206 Total Bilirubin 0.3 Sodium Level 142 Potassium Level 3.2 Chloride Level 109 Carbon Dioxide Level 21.1 Anion Gap 12 Estimat Glomerular Filtration Rate 61 Total Creatine Kinase 42 Troponin I 0.05 Thyroid Stimulating Hormone 3rd Gen 0.023 Date/Time Source Procedure Growth Status 08/27/17 13:05 Blood Line Aerobic Blood Culture Pending Received 08/27/17 13:05 Blood Line Anaerobic Blood Culture Pending Received 08/27/17 12:45 Urine Catheterized Urine Urine Culture Pending Received Result Diagram: 08/27/17 1240 08/27/17 1530 Caprini VTE Risk Assessment Caprini VTE Risk Assessment: Mod/High Risk (score >= 2) Caprini Risk Assessment Model Point Value = 1 Point Value = 2 Point Value = 3 Point Value = 5 Age 41-60 Minor surgery BMI > 25 kg/m2 Swollen legs Varicose veins or History of unexplained or recurrent spontaneous Oral contraceptives or hormone replacement Sepsis (< 1 month) Serious lung disease, including pneumonia (< 1 month) Abnormal pulmonary function Acute myocardial infarction Congestive heart failure (< 1 month) History of inflammatory bowel disease Medical patient at bed rest Age 61-74 Arthroscopic surgery Major open surgery (> 45 min) Laparoscopic surgery (> 45 min) Malignancy Confined to bed (> 72 hours) Immobilizing plaster cast Central venous access Age >= 75 History of VTE Family history of VTE Factor V Leiden Prothrombin [id number] Lupus anticoagulant Anticardiolipin antibodies Elevated serum homocysteine Heparin-induced thrombocytopenia Other congenital or acquired thrombophilia Stroke (< 1 month) Elective arthroplasty Hip, pelvis, or leg fracture Acute spinal cord injury (< 1 month) Prophylaxis Regimen Total Risk Factor Score Risk Level Prophylaxis Regimen 0-1 Low Early ambulation 2 Moderate Order ONE of the following: *Sequential Compression Device (SCD) *Heparin 5000 units SQ BID 3-4 Higher Order ONE of the following medications: *Heparin 5000 units SQ TID *Enoxaparin/Lovenox 40 mg SQ daily (WT < 150 kg, CrCl > 30 mL/min) *Enoxaparin/Lovenox 30 mg SQ daily (WT < 150 kg, CrCl > 10-29 mL/min) *Enoxaparin/Lovenox 30 mg SQ BID (WT < 150 kg, CrCl > 30 mL/min) AND/OR *Sequential Compression Device (SCD) 5 or more Highest Order ONE of the following medications: *Heparin 5000 units SQ TID (Preferred with Epidurals) *Enoxaparin/Lovenox 40 mg SQ daily (WT < 150 kg, CrCl > 30 mL/min) *Enoxaparin/Lovenox 30 mg SQ daily (WT < 150 kg, CrCl > 10-29 mL/min) *Enoxaparin/Lovenox 30 mg SQ BID (WT < 150 kg, CrCl > 30 mL/min) AND *Sequential Compression Device (SCD) Assessment and Plan Assessment and Plan Assessment: 1. Moderate dehydration. 2. Prerenal azotemia. 3. Paroxysmal SVT/A-fib. 4. Possible UTI. Plan: 1. Hydrate with NS 500 ml. 2. NS iv at 75 ml/hr. 3. Cipro PO. 4. Heparin 5000 q12h. 5. Avoid SCDs - thin skin. 6. Pepcid. 7. Monitor urine output. 8. Repeat lytes. Overall impression: It appears she was found with congestion and received lasix by EMS. Made lots of urine, quantity unknown. She is now quite dehydrated and probably was to begin with. Ileostomy losses, poor appetite. Will gently hydrate tonight, follow urine output, watch heart rhythm is ICU. Trav Garvey MD Aug 27, 2017 17:45
[2017-08-27] MEDS ORDERED: IOHEXOL 350 MG/ML 10 ML VIAL (for RAD DIAG) IVCONTRAST ONE (18:49)
--- NOTE | 2017-08-27 19:09 | RADRPT ---
EXAM DATE/TIME: 08/27/2017 18:14 [facility] COMPARISON: No previous studies available for comparison. INDICATIONS : Shortness of breath today. IV CONTRAST: 70 cc Omnipaque 350 (iohexol) IV RADIATION DOSE: 13.86 CTDIvol (mGy) MEDICAL HISTORY : Cardiovascular disease. Carcinoma, colon. Hypertension. SURGICAL HISTORY : Hysterectomy. lumpectomy ENCOUNTER: Initial ACUITY: 1 day PAIN SCALE: 0/10 LOCATION: Bilateral chest TECHNIQUE: Volumetric scanning of the chest was performed using a pulmonary embolism protocol MIP images were re constructed. Using automated exposure control and adjustment of the mA and/or kV according to patien t size, radiation dose was kept as low as reasonably achievable to obtain optimal diagnostic quality images. DICOM format image data is available electronically for review and comparison. Follow-up recommendations for detected pulmonary nodules are based at a minimum on nodule size and pa tient risk factors according to Fleischner Society Guidelines. FINDINGS: PULMONARY ARTERIES: No filling defects are seen in the pulmonary arteries through the segmental level. LUNGS: Scattered patchy densities are noted within the lower lobes bilaterally consistent with possible mini mal infiltrates. Clinical correlation is recommended. There is no pneumothorax . No concerning pulmo nary nodule is visualized. PLEURAE: There is no pleural thickening or pleural effusion. MEDIASTINUM: There is good visualization of the great vessels of the middle mediastinum. No evidence of mediastin al or hilar adenopathy/mass. MUSCULOSKELETAL: Degenerative changes are noted throughout the thoracic spine. MISCELLANEOUS: The visualized upper abdominal organs demonstrate no acute abnormality. CONCLUSION: 1. No evidence of pulmonary embolism. 2. Scattered patchy densities within the lower lobes bilaterally consistent with possible minimal inf iltrates. Clinical correlation is recommended. 3. Degenerative changes throughout the thoracic spine. Carroll Domingo MD on August 27, 2017 at 19:04 Board Certified Radiologist. This report was verified electronically.
[2017-08-27] MEDS: HEPARIN SODIUM - SQ 10,000 UNITS/ML VIAL SQ SCH (19:22)
[2017-08-27] MEDS: SODIUM CHLOR 0.9% 1000 ML INJ 1,000 ML IV SCH (19:23)
[2017-08-27] MEDS: FAMOTIDINE 20 MG TAB PO SCH (22:00)
[2017-08-27] MEDS: MONTELUKAST SODIUM 10 MG TAB PO SCH (22:00)
[2017-08-27] MEDS: METOCLOPRAMIDE HCL 10 MG TAB PO SCH (22:00)
--- NOTE | 2017-08-27 22:06 | MB ---
cc: ANJELICA MCRAE DATE OF CONSULTATION 08/27/2017 HISTORY OF THE PRESENT ILLNESS Ms. Gupta is an 87-year-old white female with a history of rheumatoid arthritis, hypertension. She presented with shortness of breath and mild substernal chest discomfort and nonproductive cough. She has no previous cardiac history. She underwent a colectomy with ileostomy in May. She had tachycardia in the hospital when she was admitted with sepsis. PAST MEDICAL HISTORY Positive for: 1. Colon cancer. 2. Arthritis. 3. Possible atrial fibrillation. 4. Gastroesophageal reflux disease. 5. Gout. 6. Hypertension. 8. History of eye surgery. 9. Hysterectomy. 10. Left hip surgery. 11. Tonsillectomy. 12. Right lumpectomy. 13. Colostomy. MEDICATIONS Include: 1. Levothyroxine. 2. Pantoprazole. 3. Prednisone. 4. Montelukast. 5. Methotrexate. 6. Prosight. 7. Vitamin D3. 8. B12. 9. Multivitamin. 10. Megace. 11. Metoclopramide. 12. Calcium. 13. Hydrocodone / acetaminophen. ALLERGIES SULFA, CELECOXIB, PENICILLIN, TAPE. SOCIAL HISTORY The patient does not smoke. She does not drink alcohol. FAMILY HISTORY Negative for heart disease. REVIEW OF SYSTEMS Otherwise negative. PHYSICAL EXAMINATION VITAL SIGNS: Blood pressure 105/55, pulse 98 and regular. HEENT: Negative. NECK: 2+ carotid upstrokes. No bruits. LUNGS: Clear. HEART: Regular with no murmur, gallop or rub. ABDOMEN: Soft. No bruits. EXTREMITIES: Without edema. 2+ distal pulses. NEUROLOGIC: Examination is grossly nonfocal. EKG was reviewed and showed normal sinus rhythm with normal axis and intervals. Second EKG showed fast supraventricular tachycardia. LABORATORY DATA Hemoglobin 14.6. Potassium 3.2, creatinine 0.9, AST 90, ALT 206. CK 42. Troponin 0.05. BNP 20. DIAGNOSES 1. Paroxysmal supraventricular tachycardia. 2. Possible pneumonia. 3. Hypertension. 4. Rheumatoid arthritis. DISPOSITION The patient will be started on IV diltiazem bolus and a drip. This can be later switched to p.o. diltiazem short-acting and subsequently long acting. The patient will be treated with antibiotics for possible pneumonia. She will be admitted to ICU for close monitoring. We will obtain serial enzymes and EKGs. I will follow her for cardiology during her hospitalization. MD JUN Call/CHIN /5:22 PM /9:41 PM YU
[2017-08-27] MEDS: CIPROFLOXACIN 250 MG TAB PO SCH (23:33)
[2017-08-28] VITALS (14 sets, daily range): BP systolic 103–126; BP diastolic 60–71; PULSE 64–86; RESP 18–39; TEMP 97.6–97.9; O2SAT 95–98
[2017-08-28] MEDS ORDERED: POTASSIUM CHLOR 40 MEQ PREMIX 100 ML IV PRN ×2
[2017-08-28] MEDS ORDERED: POTASSIUM PHOSPHATE INJ 30 MMOL in SODIUM CHLOR 0.9% 250 ML INJ 250 ML IV PRN ×2
[2017-08-28] MEDS ORDERED: MAGNESIUM SULFATE INJ 4 GM in SODIUM CHLORIDE 0.9% INJ 92 ML IV PRN ×2
[2017-08-28] MEDS ORDERED: MAGNESIUM SULFATE INJ 2 GM in SODIUM CHLORIDE 0.9% INJ 96 ML IV PRN ×2
[2017-08-28] MEDS ORDERED: MAGNESIUM OXIDE 400 MG TAB PO PRN
[2017-08-28] MEDS ORDERED: POTASSIUM PHOSPHATE MONOBASIC 500 MG TAB PO PRN
[2017-08-28] MEDS ORDERED: POTASSIUM CHLORIDE 25 MEQ EFFERVESCENT TAB PO PRN
[2017-08-28] MEDS ORDERED: POTASSIUM PHOSPHATE MONOBASIC 500 MG TAB PO/TUBE PRN
[2017-08-28] MEDS ORDERED: SODIUM PHOSPHATE INJ 30 MMOL in SODIUM CHLOR 0.9% 250 ML INJ 240 ML IV PRN ×2
[2017-08-28] MEDS ORDERED: POTASSIUM CHLOR 20 MEQ PREMIX 100 ML IV PRN
[2017-08-28] MEDS: POTASSIUM CHLOR 20 MEQ PREMIX 100 ML IV PRN ×3 (01:01→05:13)
[2017-08-28] MEDS: CHLORHEXIDINE GLUCONATE 2 % 1 PACK (2 CLOTHS) TOP SCH (02:57)
[2017-08-28 05:00] LABS: AUTOMATED NEUTROPHIL # 5.4 TH/MM3 (1.8-7.7); BASOPHIL % 0.4 % (0.0-2.0); HEMATOCRIT 39.5 % (35.0-46.0); HEMOGLOBIN 13.3 GM/DL (11.6-15.3); LYMPH % 17.8 % (9.0-44.0); LYMPHOCYTE # 1.4 TH/MM3 (1.0-4.8); MEAN CELL VOLUME 90.3 FL (80.0-100.0); MEAN CORPUSCULAR HEMOGLOBIN 30.3 PG (27.0-34.0); MEAN CORPUSCULAR HGB CONC 33.6 % (32.0-36.0); MEAN PLATELET VOLUME 8.8 FL (7.0-11.0); MONO % 13.2 % (0.0-8.0); NEUT % 68.6 % (16.0-70.0); PLATELET COUNT 223 TH/MM3 (150-450); RED BLOOD COUNT 4.37 MIL/MM3 (4.00-5.30); RED CELL DISTRIBUTION WIDTH 20.5 % (11.6-17.2); WHITE BLOOD COUNT 7.9 TH/MM3 (4.0-11.0)
[2017-08-28] MEDS: MEGESTROL ACETATE SUSP 400 MG/10 ML CUP PO SCH ×2 (05:14→16:09)
[2017-08-28] MEDS: LEVOTHYROXINE SODIUM 100 MCG TAB PO SCH (05:14)
[2017-08-28] MEDS: HEPARIN SODIUM - SQ 10,000 UNITS/ML VIAL SQ SCH ×2 (05:14→17:48)
[2017-08-28 05:22] LABS: BICARBONATE 20.6 MEQ/L (21.0-32.0); CALCIUM 8.3 MG/DL (8.5-10.1); CREATININE 0.78 MG/DL (0.50-1.00); MAGNESIUM 2.2 MG/DL (1.5-2.5); PHOSPHORUS 3.2 MG/DL (2.5-4.9)
[2017-08-28] MEDS: CIPROFLOXACIN 250 MG TAB PO SCH ×2 (08:26→21:10)
[2017-08-28] MEDS: SODIUM CHLOR 0.9% 1000 ML INJ 1,000 ML IV SCH ×2 (08:26→19:53)
[2017-08-28] MEDS: FAMOTIDINE 20 MG TAB PO SCH ×2 (08:26→21:10)
[2017-08-28] MEDS: METOCLOPRAMIDE HCL 10 MG TAB PO SCH ×2 (08:26→21:10)
[2017-08-28] MEDS: predniSONE 10 MG TAB PO SCH (08:26)
[2017-08-28] MEDS: CHOLECALCIFEROL (VIT D3) 1000 UNIT TAB PO SCH (08:26)
[2017-08-28] MEDS: PANTOPRAZOLE SOD 40 MG DELAYED RELEASE TAB PO SCH (08:26)
[2017-08-28] MEDS: CYANOCOBALAMIN 1,000 MCG TAB PO SCH (08:26)
[2017-08-28] MEDS: MULTIVITAMIN TAB PO SCH (08:26)
--- NOTE | 2017-08-28 09:20 | HHI.CCPN ---
Subjective Remarks/Hospital Course Hospital Course: 87 y/o woman was brought in by EMS from her SNF for cough, congestion. She received lasix from EMS. Initial labs and physical exam by my arrival to ED 5 hours later reveals clear lungs, a light bronchitic cough, prerenal azotemia, and poor skin turgor. She has had several episodes of SVT in the ED treated with cardizem and lopressor iv. She is now in sinus rhythm. Discussed in detail with her daughter at the bedside. 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 Eugenia Ryan if she gains some weight and strength. Subjective: 08/28: clinically improving. back in NSR. cardizem drip off. patient feels subjectively better. denies complaints. ostomy output still high, but slowing. ROS negative. Objective Vital Signs Date Time Temp Pulse Resp B/P (MAP) Pulse Ox O2 Delivery O2 Flow Rate FiO2 08/28/17 08:34 96 Nasal Cannula 2.00 08/28/17 08:00 75 08/28/17 08:00 97.6 26 125/68 (87) Intake and Output 08/28/17 08/28/17 08/29/17 08:00 16:00 00:00 Intake Total 187.6 ml Output Total 400 ml Balance -212.4 ml Result Diagram: 08/28/1741508/28/17415 Objective Remarks Gen: Frail appearing, dehydrated elderly woman. Head: Normal. Neck: Supple, airway widely patent. Lungs: unlabored. nc o2. Heart: normal rate, regular rhythm. sinus. Abdomen: Soft, flat, no tenderness. Stoma pink. Extremities: Warm, dry. Skin: skin turgor improved. Neuro: O X 3, alert, cooperative. follows commands. A/P Assessment and Plan Assessment: 87yF with dehydration and afib RVR, now resolved. clinically improving. stable for transfer to floor. continue to closely monitor ostomy output and keep mivf today. 1. Moderate dehydration - improving. 2. Prerenal azotemia.- improving. 3. Paroxysmal SVT/A-fib.- resolved. 4. Possible UTI. 5. high ostomy output 6. pain secondary to chronic osteoarthritis. Plan: NS iv at 75 ml/hr. Cipro PO. Heparin 5000 q12h. Avoid SCDs - thin skin. Pepcid. Monitor urine output. tylenol and tramadol prn for pain. d/c cardizem drip. start po cardizem. transfer out of ICU. consult hospitalist. Layo Daniel MD Aug 28, 2017 09:20
[2017-08-28] MEDS: DILTIAZEM HCL 30 MG TAB PO SCH ×3 (10:08→17:48)
[2017-08-28 12:38] LABS: BICARBONATE 18.5 MEQ/L (21.0-32.0); CALCIUM 8.2 MG/DL (8.5-10.1); CREATININE 0.74 MG/DL (0.50-1.00)
--- NOTE | 2017-08-28 13:15 | PD.CARD.PN ---
Subjective Subjective Remarks No recurrent SVT, no CP or SOB Objective Medications Current Medications Medications (Trade) Dose Ordered Sig/Merrick Route Start Time Stop Time Status Last Admin (NS Flush) 2 ml UNSCH PRN IVF 08/27/17 12:15 08/27/17 15:21 Sodium Chloride 1,000 ml @ 75 mls/hr [id number] IV 08/27/17 18:00 08/28/17 08:26 (Tylenol) 650 mg Q6H PRN PO 08/27/17 17:30 08/28/17 10:08 (Pepcid) 20 mg Q12HR PO 08/27/17 21:00 08/28/17 08:26 (Zofran Inj) 2 mg Q6H PRN IV PUSH 08/27/17 17:30 (Duoneb Neb) 1 ampule Q4HR NEB PRN INH 08/27/17 17:30 (Heparin Inj) 5,000 units Q12H SQ 08/27/17 18:00 08/28/17 05:14 Miscellaneous Information 1 [id number] XX 08/27/17 17:30 (Chlorhexidine 2% Cloth) 3 pack Taper DAILY@04 TOP 08/28/17 04:00 08/24/18 03:59 08/28/17 02:57 (Chlorhexidine 2% Cloth) 3 pack UNSCH PRN TOP 08/27/17 17:30 (Vitamin D3) 1,000 units DAILY PO 08/28/17 09:00 08/28/17 08:26 (Synthroid) 100 mcg DAILY@0600 PO 08/28/17 06:00 08/28/17 05:14 (Reglan) 10 mg BID PO 08/27/17 21:00 08/28/17 08:26 (Singulair) 10 mg HS PO 08/27/17 21:00 08/27/17 22:00 (Protonix) 40 mg DAILY PO 08/28/17 09:00 08/28/17 08:26 (Deltasone) 10 mg DAILY PO 08/28/17 09:00 08/28/17 08:26 (Vitamin B12) 1,000 mcg DAILY PO 08/28/17 09:00 08/28/17 08:26 (Megace Liq) 400 mg BIDAC PO 08/28/17 07:00 08/28/17 05:14 (Theragran) 1 tab DAILY PO 08/28/17 09:00 08/28/17 08:26 (Cipro) 250 mg Q12HR PO 08/27/17 21:00 08/28/17 08:26 Potassium Chloride 100 ml @ 50 mls/hr Q2H PRN IV 08/28/17 00:00 Potassium Chloride 100 ml @ 50 mls/hr Q2H PRN IV 08/28/17 00:00 08/28/17 05:13 (K-Lyte Cl Eff) 50 meq UNSCH PRN PO 08/28/17 00:00 Potassium Chloride 100 ml @ 25 mls/hr UNSCH PRN IV 08/28/17 00:00 Potassium Chloride 100 ml @ 50 mls/hr Q2H PRN IV 08/28/17 00:00 Magnesium Sulfate 4 gm/Sodium Chloride 100 ml @ 50 mls/hr UNSCH PRN IV 08/28/17 00:00 (Mag-Ox) 800 mg UNSCH PRN PO 08/28/17 00:00 Magnesium Sulfate 2 gm/Sodium Chloride 100 ml @ 50 mls/hr UNSCH PRN IV 08/28/17 00:00 (K-Phos) 2,000 mg Q4H PRN PO 08/28/17 00:00 Sodium Phosphate 30 mmol/Sodium Chloride 250 ml @ 42 mls/hr UNSCH PRN IV 08/28/17 00:00 (K-Phos) 2,000 mg UNSCH PRN PO/TUBE 08/28/17 00:00 Potassium Phosphate 30 mmol/ Sodium Chloride 260 ml @ 42 mls/hr UNSCH PRN IV 08/28/17 00:00 (Cardizem) 30 mg Q6HR PO 08/28/17 08:30 08/28/17 11:56 (Ultram) 50 mg Q8H PRN PO 08/28/17 09:30 Vital Signs / I&O Vital Signs Date Time Temp Pulse Resp B/P (MAP) Pulse Ox O2 Delivery O2 Flow Rate FiO2 08/28/17 12:00 97.7 70 29 112/64 (80) 95 08/28/17 12:00 70 08/28/17 10:00 72 08/28/17 08:34 96 Nasal Cannula 2.00 08/28/17 08:00 75 08/28/17 08:00 97.6 75 26 125/68 (87) 98 08/28/17 08:00 97 Nasal Cannula 2.00 08/28/17 06:00 70 08/28/17 04:00 70 08/28/17 04:00 97.6 70 39 113/60 (77) 98 08/28/17 02:00 71 08/28/17 00:00 97.8 86 29 103/66 (78) 95 08/28/17 00:00 86 08/27/17 22:00 84 08/27/17 21:28 98 Nasal Cannula 2.00 08/27/17 20:57 97.9 84 20 122/65 (84) 97 08/27/17 20:51 79 08/27/17 19:28 83 30 98/57 (71) 96 Nasal Cannula 2.00 08/27/17 18:00 94 27 97/61 (73) 94 Nasal Cannula 2.00 08/27/17 17:00 98 32 105/65 (78) 93 Nasal Cannula 2.00 08/27/17 16:45 94 32 103/69 (80) 95 Nasal Cannula 2.00 08/27/17 16:30 92 26 118/67 (84) 95 Nasal Cannula 2.00 08/27/17 16:13 87 28 127/79 (95) 95 Nasal Cannula 2.00 08/27/17 15:30 100 26 117/77 (90) 94 Nasal Cannula 2.00 08/27/17 15:00 122 28 142/90 (107) 94 Nasal Cannula 2.00 08/27/17 14:00 118 23 144/100 (115) 95 Nasal Cannula 2.00 I/O 08/27/17 08/27/17 08/27/17 08/28/17 08/28/17 08/28/17 07:00 15:00 23:00 07:00 15:00 23:00 Intake Total 500 ml 187.6 ml Output Total 300 ml 400 ml Balance 200 ml -212.4 ml Intake IV Total 500 ml 187.6 ml Output Urine Total 300 ml 400 ml # Voids 0 # Bowel Movements 0 Physical Exam GENERAL: In NAD. SKIN: Warm and dry. HEAD: Normocephalic. EYES: No scleral icterus. No injection or drainage. NECK: Supple, trachea midline. No JVD or lymphadenopathy. CARDIOVASCULAR: Regular rate and rhythm without murmurs, gallops, or rubs. RESPIRATORY: Breath sounds equal bilaterally. No accessory muscle use. GASTROINTESTINAL: Abdomen soft, non-tender, nondistended. MUSCULOSKELETAL: No cyanosis, or edema. Laboratory Laboratory Tests Test 08/27/17 15:30 08/27/17 18:30 08/27/17 22:00 08/27/17 23:48 Blood Urea Nitrogen 30 MG/DL Creatinine 0.88 MG/DL Random Glucose 98 MG/DL Total Protein 7.4 GM/DL Albumin 3.1 GM/DL Calcium Level 9.0 MG/DL Magnesium Level 2.1 MG/DL Alkaline Phosphatase 69 U/L Aspartate Amino Transf (AST/SGOT) 90 U/L Alanine Aminotransferase (ALT/SGPT) 206 U/L Total Bilirubin 0.3 MG/DL Sodium Level 142 MEQ/L Potassium Level 3.2 MEQ/L Chloride Level 109 MEQ/L Carbon Dioxide Level 21.1 MEQ/L Anion Gap 12 MEQ/L Estimat Glomerular Filtration Rate 61 ML/MIN Total Creatine Kinase 42 U/L Troponin I 0.05 NG/ML 0.08 NG/ML 0.06 NG/ML Thyroxine (T4) 11.9 MCG/DL Thyroid Stimulating Hormone 3rd Gen 0.023 uIU/ML Nasal Screen MRSA (PCR) MRSA DETECTED Lactic Acid Level 1.7 mmol/L Phosphorus Level 3.1 MG/DL Test 08/28/17 04:16 08/28/17 11:59 White Blood Count 7.9 TH/MM3 Red Blood Count 4.37 MIL/MM3 Hemoglobin 13.3 GM/DL Hematocrit 39.5 % Mean Corpuscular Volume 90.3 FL Mean Corpuscular Hemoglobin 30.3 PG Mean Corpuscular Hemoglobin Concent 33.6 % Red Cell Distribution Width 20.5 % Platelet Count 223 TH/MM3 Mean Platelet Volume 8.8 FL Neutrophils (%) (Auto) 68.6 % Lymphocytes (%) (Auto) 17.8 % Monocytes (%) (Auto) 13.2 % Eosinophils (%) (Auto) 0.0 % Basophils (%) (Auto) 0.4 % Neutrophils # (Auto) 5.4 TH/MM3 Lymphocytes # (Auto) 1.4 TH/MM3 Monocytes # (Auto) 1.0 TH/MM3 Eosinophils # (Auto) 0.0 TH/MM3 Basophils # (Auto) 0.0 TH/MM3 CBC Comment DIFF FINAL Differential Comment Blood Urea Nitrogen 29 MG/DL 26 MG/DL Creatinine 0.78 MG/DL 0.74 MG/DL Random Glucose 82 MG/DL 90 MG/DL Calcium Level 8.3 MG/DL 8.2 MG/DL Phosphorus Level 3.2 MG/DL Magnesium Level 2.2 MG/DL Sodium Level 143 MEQ/L 144 MEQ/L Potassium Level 4.9 MEQ/L 4.7 MEQ/L Chloride Level 114 MEQ/L 116 MEQ/L Carbon Dioxide Level 20.6 MEQ/L 18.5 MEQ/L Anion Gap 8 MEQ/L 10 MEQ/L Estimat Glomerular Filtration Rate 70 ML/MIN 74 ML/MIN Lactic Acid Level 1.4 mmol/L Prealbumin 22 MG/DL Imaging Last [address] Angiography 08/27/17 1440 Signed Impressions: Service Date/Time: Sunday, August 27, 2017 18:14 - CONCLUSION: 1. No evidence of pulmonary embolism. 2. Scattered patchy densities within the lower lobes bilaterally consistent with possible minimal infiltrates. Clinical correlation is recommended. 3. Degenerative changes throughout the thoracic spine. Carroll Domingo MD Assessment and Plan Problem List: (1) SVT (supraventricular tachycardia) ICD Codes: I47.1 - Supraventricular tachycardia Status: Acute (2) Pneumonia ICD Codes: J18.9 - Pneumonia, unspecified organism (3) HTN (hypertension) ICD Codes: I10 - Essential (primary) hypertension (4) Rheumatoid arthritis ICD Codes: M06.9 - Rheumatoid arthritis, unspecified Assessment and Plan No recurrent SVT. Continue abxs for suspected pneumonia. Continue diltiazem for SVT control. Continue monitoring. Increase activity. Aníbal Meza MD Aug 28, 2017 13:15
[2017-08-28] MEDS: traMADol HCL 50 MG TAB PO PRN (14:05)
--- NOTE | 2017-08-28 18:29 | PQ ---
Physician Query Response Document PATIENT: MATTY CASE : [id number] ADMIT DATE: 08/27/2017 4:51 PM DISCH DATE: RESPONDING PROVIDER #: agreene QUERY TEXT: Conflicting Documentation Clarification A single documentation of PNEUMONIA appears in the medical record. Please clarify the diagnosis : PN EUMONIA -- Pneumonia present and treated -- Pneumonia not present -- Ruled out -- Other, please specify Please call [facility] @ [facility] [phone] for assistance The patient's Clinical Indicators include: Per Cardiology Consult: DIAGNOSES 2. Possible pneumonia. The patient will be treated with antibiotics for possible pneumonia. 08/27/17 Chest CTA: 2. Scattered patchy densities within the lower lobes bilaterally consistent with p ossible minimal infiltrates. Medications include : Cipro Temp=97.6-98.1, Respiratory Rate= 20-39 Query created by: Raquel Mayo on 08/28/2017 10:56 AM RESPONSE TEXT: The patient has influenza pneumonia/viral pneumonia and is being actively treated. Electronically signed by: Layo Daniel MD 08/28/2017 6:25 PM
[2017-08-28] MEDS: RESP: ALBUTEROL 2.5 MG/IPRATROPIUM 0.5 MG NEB (PRN) INH (21:03)
[2017-08-28] MEDS: MONTELUKAST SODIUM 10 MG TAB PO SCH (21:10)
[2017-08-29] VITALS (12 sets, daily range): BP systolic 114–131; BP diastolic 56–68; PULSE 62–79; RESP 16–34; TEMP 97–99.4; O2SAT 96–99
[2017-08-29] MEDS: DILTIAZEM HCL 30 MG TAB PO SCH ×4 (00:39→17:18)
--- NOTE | 2017-08-29 01:04 | EKG ---
Date Performed: 08/27/2017 Time Performed: 14:46:44 PTAGE: 87 years EKG: SUPRAVENTRICULAR TACHYCARDIA POSSIBLE RIGHT VENTRICULAR CONDUCTION DELAY INFERIOR MYOCARDIA L INFARCTION ABNORMAL ECG PREVIOUS TRACING : 08/27/2017 14.44 Compared to prior tracing, now in SVT DOCTOR: Enrique Whitt Interpretating Date/Time 08/29/2017 01:02:57
--- NOTE | 2017-08-29 01:04 | EKG ---
Date Performed: 08/27/2017 Time Performed: 14:44:45 PTAGE: 87 years EKG: SINUS TACHYCARDIA ABNORMAL RHYTHM ECG INTERPRETATION BASED ON A DEFAULT AGE OF 40 YEARS PREVIOUS TRACING : 08/27/2017 12.17 Since the prior tracing, there has been no significan t change DOCTOR: Enrique Whitt Interpretating Date/Time 08/29/2017 01:03:17
--- NOTE | 2017-08-29 01:18 | EKG ---
Date Performed: 08/27/2017 Time Performed: 12:17:28 PTAGE: 87 years EKG: SINUS TACHYCARDIA WITH FIRST DEGREE AV BLOCK ABNORMAL ECG PREVIOUS TRACING : 08/25/2017 01.20 Compared to prior tracing, rate has increased with 1st deg ree AVB DOCTOR: Enrique Whitt Interpretating Date/Time 08/29/2017 01:16:51
[2017-08-29] MEDS: CHLORHEXIDINE GLUCONATE 2 % 1 PACK (2 CLOTHS) TOP SCH (04:00)
[2017-08-29] MEDS: MEGESTROL ACETATE SUSP 400 MG/10 ML CUP PO SCH ×2 (05:30→15:32)
[2017-08-29] MEDS: LEVOTHYROXINE SODIUM 100 MCG TAB PO SCH (05:30)
[2017-08-29] MEDS: HEPARIN SODIUM - SQ 10,000 UNITS/ML VIAL SQ SCH ×2 (05:31→17:18)
[2017-08-29] MEDS: traMADol HCL 50 MG TAB PO PRN (05:40)
[2017-08-29] MEDS: RESP: ALBUTEROL 2.5 MG/IPRATROPIUM 0.5 MG NEB (PRN) INH (05:54)
[2017-08-29] MEDS: CHOLECALCIFEROL (VIT D3) 1000 UNIT TAB PO SCH (08:43)
[2017-08-29] MEDS: predniSONE 10 MG TAB PO SCH (08:43)
[2017-08-29] MEDS: METOCLOPRAMIDE HCL 10 MG TAB PO SCH ×2 (08:43→21:00)
[2017-08-29] MEDS: FAMOTIDINE 20 MG TAB PO SCH (08:43)
[2017-08-29] MEDS: MULTIVITAMIN TAB PO SCH (08:43)
[2017-08-29] MEDS: CYANOCOBALAMIN 1,000 MCG TAB PO SCH (08:43)
[2017-08-29] MEDS: PANTOPRAZOLE SOD 40 MG DELAYED RELEASE TAB PO SCH (08:43)
[2017-08-29] MEDS: CIPROFLOXACIN 250 MG TAB PO SCH ×2 (08:44→21:00)
--- NOTE | 2017-08-29 16:26 | HHI.PR ---
Subjective Remarks Patient is demonstrating stability of her SVT. Etiology for the SVT could've been related to UTI and pneumonia. No acute complaints from the patient today. Objective Vital Signs Date Time Temp Pulse Resp B/P (MAP) Pulse Ox O2 Delivery O2 Flow Rate FiO2 08/29/17 14:00 75 08/29/17 12:00 99.4 71 20 131/68 (89) 96 08/29/17 12:00 71 08/29/17 10:11 97 Nasal Cannula 2.00 08/29/17 10:00 79 08/29/17 08:00 97.1 77 34 114/56 (75) 96 08/29/17 08:00 77 08/29/17 07:00 97 Nasal Cannula 2.00 08/29/17 06:00 67 08/29/17 04:00 97.7 62 22 114/56 (75) 99 08/29/17 04:00 62 08/29/17 02:00 63 08/29/17 00:00 68 08/29/17 00:00 97.8 68 16 125/65 (85) 98 08/28/17 22:00 65 08/28/17 20:33 96 Nasal Cannula 2.00 08/28/17 20:00 97.9 64 28 120/64 (82) 96 08/28/17 20:00 64 08/28/17 19:00 94 Nasal Cannula 2.00 08/28/17 18:00 65 I/O 08/28/17 08/28/17 08/28/17 08/29/17 08/29/17 08/29/17 07:00 15:00 23:00 07:00 15:00 23:00 Intake Total 187.6 ml 50 ml 360 ml 100 ml 100 ml Output Total 400 ml 875 ml 900 ml Balance -212.4 ml 50 ml -515 ml -800 ml 100 ml Intake Oral 360 ml 100 ml IV Total 187.6 ml 50 ml 100 ml Output Urine Total 400 ml 425 ml 400 ml Stool Total 450 ml 500 ml # Bowel Movements 0 Result Diagram: 08/28/17 0416 08/28/17 1159 Objective Remarks GENERAL: NAD, A&Ox3 HEAD: Normocephalic. NECK: Supple, trachea midline. No lymphadenopathy. EYES: No scleral icterus. No injection or drainage. CARDIOVASCULAR: Regular rate and rhythm without murmurs, gallops, or rubs. RESPIRATORY: Breath sounds equal bilaterally. No accessory muscle use. GASTROINTESTINAL: Abdomen soft, non-tender, nondistended. MUSCULOSKELETAL: No cyanosis, or edema. SKIN: Warm and dry. NEURO: No focal neurological deficitis. Global weakness. A/P Problem List: (1) HTN (hypertension) ICD Code: I10 - Essential (primary) hypertension (2) Pneumonia ICD Code: J18.9 - Pneumonia, unspecified organism (3) Rheumatoid arthritis ICD Code: M06.9 - Rheumatoid arthritis, unspecified (4) SVT (supraventricular tachycardia) ICD Code: I47.1 - Supraventricular tachycardia Status: Acute (5) Shortness of breath ICD Code: R06.02 - Shortness of breath Status: Acute Assessment and Plan 87-year-old female admitted secondary to A. fib RVR, pneumonia, and UTI. A. fib RVR Resolved Follow on telemetry Patient transitioned from IV Cardizem to by mouth Cardizem Pneumonia (questionable) UTI Continue ciprofloxacin Clinically for improvement Prerenal azotemia Dehydration Acute kidney injury Improving IV hydration discontinued Monitor renal function with by mouth hydration Gastro soft reflux disease Continue Pepcid Chronic osteoarthritis Continue Tylenol and tramadol DVT prophylaxis Heparin Discharge planning Potential discharge tomorrow if patient continues to remain stable after transitioned to by mouth Cardizem and cessation of IV fluids. Francisco Javier David MD Aug 29, 2017 16:26
--- NOTE | 2017-08-29 16:58 | PD.CARD.PN ---
Subjective Subjective Remarks No recurrent SVT on dilt, no CP or SOB, anxious Objective Medications Current Medications Medications (Trade) Dose Ordered Sig/Merrick Route Start Time Stop Time Status Last Admin (NS Flush) 2 ml UNSCH PRN IVF 08/27/17 12:15 08/27/17 15:21 (Tylenol) 650 mg Q6H PRN PO 08/27/17 17:30 08/28/17 10:08 (Zofran Inj) 2 mg Q6H PRN IV PUSH 08/27/17 17:30 (Duoneb Neb) 1 ampule Q4HR NEB PRN INH 08/27/17 17:30 08/29/17 05:54 (Heparin Inj) 5,000 units Q12H SQ 08/27/17 18:00 08/29/17 05:31 Miscellaneous Information 1 Q361D XX 08/27/17 17:30 (Chlorhexidine 2% Cloth) 3 pack Taper DAILY@04 TOP 08/28/17 04:00 08/24/18 03:59 08/29/17 04:00 (Chlorhexidine 2% Cloth) 3 pack UNSCH PRN TOP 08/27/17 17:30 (Vitamin D3) 1,000 units DAILY PO 08/28/17 09:00 08/29/17 08:43 (Synthroid) 100 mcg DAILY@0600 PO 08/28/17 06:00 08/29/17 05:30 (Reglan) 10 mg BID PO 08/27/17 21:00 08/29/17 08:43 (Singulair) 10 mg HS PO 08/27/17 21:00 08/28/17 21:10 (Protonix) 40 mg DAILY PO 08/28/17 09:00 08/29/17 08:43 (Deltasone) 10 mg DAILY PO 08/28/17 09:00 08/29/17 08:43 (Vitamin B12) 1,000 mcg DAILY PO 08/28/17 09:00 08/29/17 08:43 (Megace Liq) 400 mg BIDAC PO 08/28/17 07:00 08/29/17 15:32 (Theragran) 1 tab DAILY PO 08/28/17 09:00 08/29/17 08:43 (Cipro) 250 mg Q12HR PO 08/27/17 21:00 08/29/17 08:44 Potassium Chloride 100 ml @ 50 mls/hr Q2H PRN IV 08/28/17 00:00 Potassium Chloride 100 ml @ 50 mls/hr Q2H PRN IV 08/28/17 00:00 08/28/17 05:13 (K-Lyte Cl Eff) 50 meq UNSCH PRN PO 08/28/17 00:00 Potassium Chloride 100 ml @ 25 mls/hr UNSCH PRN IV 08/28/17 00:00 Potassium Chloride 100 ml @ 50 mls/hr Q2H PRN IV 08/28/17 00:00 Magnesium Sulfate 4 gm/Sodium Chloride 100 ml @ 50 mls/hr UNSCH PRN IV 08/28/17 00:00 (Mag-Ox) 800 mg UNSCH PRN PO 08/28/17 00:00 Magnesium Sulfate 2 gm/Sodium Chloride 100 ml @ 50 mls/hr UNSCH PRN IV 08/28/17 00:00 (K-Phos) 2,000 mg Q4H PRN PO 08/28/17 00:00 Sodium Phosphate 30 mmol/Sodium Chloride 250 ml @ 42 mls/hr UNSCH PRN IV 08/28/17 00:00 (K-Phos) 2,000 mg UNSCH PRN PO/TUBE 08/28/17 00:00 Potassium Phosphate 30 mmol/ Sodium Chloride 260 ml @ 42 mls/hr UNSCH PRN IV 08/28/17 00:00 (Cardizem) 30 mg Q6HR PO 08/28/17 08:30 08/29/17 12:34 (Ultram) 50 mg Q8H PRN PO 08/28/17 09:30 08/29/17 05:40 Vital Signs / I&O Vital Signs Date Time Temp Pulse Resp B/P (MAP) Pulse Ox O2 Delivery O2 Flow Rate FiO2 08/29/17 16:00 97.0 75 22 117/60 (79) 98 08/29/17 16:00 75 08/29/17 14:00 75 08/29/17 12:00 99.4 71 20 131/68 (89) 96 08/29/17 12:00 71 08/29/17 10:11 97 Nasal Cannula 2.00 08/29/17 10:00 79 08/29/17 08:00 97.1 77 34 114/56 (75) 96 1/31/18 08:00 77 08/29/17 07:00 97 Nasal Cannula 2.00 08/29/17 06:00 67 08/29/17 04:00 97.7 62 22 114/56 (75) 99 08/29/17 04:00 62 08/29/17 02:00 63 08/29/17 00:00 68 08/29/17 00:00 97.8 68 16 125/65 (85) 98 08/28/17 22:00 65 08/28/17 20:33 96 Nasal Cannula 2.00 08/28/17 20:00 97.9 64 28 120/64 (82) 96 08/28/17 20:00 64 08/28/17 19:00 94 Nasal Cannula 2.00 08/28/17 18:00 65 I/O 08/28/17 08/28/17 08/28/17 08/29/17 08/29/17 08/29/17 07:00 15:00 23:00 07:00 15:00 23:00 Intake Total 187.6 ml 50 ml 360 ml 100 ml 100 ml Output Total 400 ml 875 ml 900 ml Balance -212.4 ml 50 ml -515 ml -800 ml 100 ml Intake Oral 360 ml 100 ml IV Total 187.6 ml 50 ml 100 ml Output Urine Total 400 ml 425 ml 400 ml Stool Total 450 ml 500 ml # Bowel Movements 0 Physical Exam GENERAL: In NAD. SKIN: Warm and dry. HEAD: Normocephalic. EYES: No scleral icterus. No injection or drainage. NECK: Supple, trachea midline. No JVD or lymphadenopathy. CARDIOVASCULAR: Regular rate and rhythm without murmurs, gallops, or rubs. RESPIRATORY: Breath sounds equal bilaterally. No accessory muscle use. GASTROINTESTINAL: Abdomen soft, non-tender, nondistended. MUSCULOSKELETAL: No cyanosis, or edema. Assessment and Plan Problem List: (1) SVT (supraventricular tachycardia) ICD Codes: I47.1 - Supraventricular tachycardia Status: Acute (2) Pneumonia ICD Codes: J18.9 - Pneumonia, unspecified organism (3) HTN (hypertension) ICD Codes: I10 - Essential (primary) hypertension (4) Rheumatoid arthritis ICD Codes: M06.9 - Rheumatoid arthritis, unspecified Assessment and Plan No recurrent SVT, continue antiarrhythmic tx w diltiazem. Continue abxs for suspected pneumonia. Increase activity. OK to transfer out of ICU. Anticipate discharge soon. Aníbal Meza MD Aug 29, 2017 16:58
[2017-08-29] MEDS: MONTELUKAST SODIUM 10 MG TAB PO SCH (21:00)
[2017-08-30] MEDS: DILTIAZEM HCL 30 MG TAB PO SCH ×2 (00:03→06:36)
[2017-08-30 00:35] VITALS: BP 119/61; PULSE 76; RESP 18; TEMP 97.4; O2SAT 95
[2017-08-30] MEDS: CHLORHEXIDINE GLUCONATE 2 % 1 PACK (2 CLOTHS) TOP SCH (03:49)
[2017-08-30 04:55] VITALS: BP 126/79; PULSE 80; RESP 18; TEMP 97.3; O2SAT 92
[2017-08-30] MEDS: LEVOTHYROXINE SODIUM 100 MCG TAB PO SCH (06:36)
[2017-08-30] MEDS: MEGESTROL ACETATE SUSP 400 MG/10 ML CUP PO SCH (06:36)
[2017-08-30] MEDS: HEPARIN SODIUM - SQ 10,000 UNITS/ML VIAL SQ SCH (06:36)
[2017-08-30 08:00] VITALS: BP 121/78; PULSE 77; PULSE 81; RESP 20; TEMP 98; O2SAT 92
[2017-08-30] MEDS: METOCLOPRAMIDE HCL 10 MG TAB PO SCH (09:01)
[2017-08-30] MEDS: PANTOPRAZOLE SOD 40 MG DELAYED RELEASE TAB PO SCH (09:01)
[2017-08-30] MEDS: MULTIVITAMIN TAB PO SCH (09:02)
[2017-08-30] MEDS: CYANOCOBALAMIN 1,000 MCG TAB PO SCH (09:02)
[2017-08-30] MEDS: predniSONE 10 MG TAB PO SCH (09:02)
[2017-08-30] MEDS: CHOLECALCIFEROL (VIT D3) 1000 UNIT TAB PO SCH (09:02)
[2017-08-30] MEDS: CIPROFLOXACIN 250 MG TAB PO SCH (09:02)
--- NOTE | 2017-08-30 10:35 | PD.CARD.PN ---
Subjective Subjective Remarks No recurrent SVT on dilt, no CP or SOB, complaining of perceived lack of attention Objective Medications Current Medications Medications (Trade) Dose Ordered Sig/Merrick Route Start Time Stop Time Status Last Admin (NS Flush) 2 ml UNSCH PRN IVF 08/27/17 12:15 08/27/17 15:21 (Tylenol) 650 mg Q6H PRN PO 08/27/17 17:30 08/28/17 10:08 (Zofran Inj) 2 mg Q6H PRN IV PUSH 08/27/17 17:30 (Duoneb Neb) 1 ampule Q4HR NEB PRN INH 08/27/17 17:30 08/29/17 05:54 (Heparin Inj) 5,000 units Q12H SQ 08/27/17 18:00 08/30/17 06:36 Miscellaneous Information 1 Q361D XX 08/27/17 17:30 (Chlorhexidine 2% Cloth) 3 pack Taper DAILY@04 TOP 08/28/17 04:00 08/24/18 03:59 08/29/17 04:00 (Chlorhexidine 2% Cloth) 3 pack UNSCH PRN TOP 08/27/17 17:30 (Vitamin D3) 1,000 units DAILY PO 08/28/17 09:00 08/30/17 09:02 (Synthroid) 100 mcg DAILY@0600 PO 08/28/17 06:00 08/30/17 06:36 (Reglan) 10 mg BID PO 08/27/17 21:00 08/30/17 09:01 (Singulair) 10 mg HS PO 08/27/17 21:00 08/29/17 21:00 (Protonix) 40 mg DAILY PO 08/28/17 09:00 08/30/17 09:01 (Deltasone) 10 mg DAILY PO 08/28/17 09:00 08/30/17 09:02 (Vitamin B12) 1,000 mcg DAILY PO 08/28/17 09:00 08/30/17 09:02 (Megace Liq) 400 mg BIDAC PO 08/28/17 07:00 08/30/17 06:36 (Theragran) 1 tab DAILY PO 08/28/17 09:00 08/30/17 09:02 (Cipro) 250 mg Q12HR PO 08/27/17 21:00 08/30/17 09:02 Potassium Chloride 100 ml @ 50 mls/hr Q2H PRN IV 08/28/17 00:00 Potassium Chloride 100 ml @ 50 mls/hr Q2H PRN IV 08/28/17 00:00 08/28/17 05:13 (K-Lyte Cl Eff) 50 meq UNSCH PRN PO 08/28/17 00:00 Potassium Chloride 100 ml @ 25 mls/hr UNSCH PRN IV 08/28/17 00:00 Potassium Chloride 100 ml @ 50 mls/hr Q2H PRN IV 08/28/17 00:00 Magnesium Sulfate 4 gm/Sodium Chloride 100 ml @ 50 mls/hr UNSCH PRN IV 08/28/17 00:00 (Mag-Ox) 800 mg UNSCH PRN PO 08/28/17 00:00 Magnesium Sulfate 2 gm/Sodium Chloride 100 ml @ 50 mls/hr UNSCH PRN IV 08/28/17 00:00 (K-Phos) 2,000 mg Q4H PRN PO 08/28/17 00:00 Sodium Phosphate 30 mmol/Sodium Chloride 250 ml @ 42 mls/hr UNSCH PRN IV 08/28/17 00:00 (K-Phos) 2,000 mg UNSCH PRN PO/TUBE 08/28/17 00:00 Potassium Phosphate 30 mmol/ Sodium Chloride 260 ml @ 42 mls/hr UNSCH PRN IV 08/28/17 00:00 (Cardizem) 30 mg Q6HR PO 08/28/17 08:30 08/30/17 06:36 (Ultram) 50 mg Q8H PRN PO 08/28/17 09:30 08/29/17 05:40 Vital Signs / I&O Vital Signs Date Time Temp Pulse Resp B/P (MAP) Pulse Ox O2 Delivery O2 Flow Rate FiO2 08/30/17 08:00 77 08/30/17 04:55 97.3 80 18 126/79 (95) 92 08/30/17 00:35 97.4 76 18 119/61 (80) 95 08/29/17 19:37 97.4 68 18 120/64 (82) 98 08/29/17 18:00 68 08/29/17 16:00 97.0 75 22 117/60 (79) 98 08/29/17 16:00 75 08/29/17 14:00 75 08/29/17 12:00 99.4 71 20 131/68 (89) 96 08/29/17 12:00 71 I/O 08/29/17 08/29/17 08/29/17 08/30/17 08/30/17 08/30/17 07:00 15:00 23:00 07:00 15:00 23:00 Intake Total 100 ml 100 ml 300 ml 120 ml Output Total 900 ml 800 ml 300 ml Balance -800 ml 100 ml -500 ml -180 ml Intake Oral 100 ml 300 ml 120 ml IV Total 100 ml Output Urine Total 400 ml 400 ml Stool Total 500 ml 400 ml 300 ml # Voids 1 2 # Bowel Movements 1 Physical Exam GENERAL: In NAD. SKIN: Warm and dry. HEAD: Normocephalic. EYES: No scleral icterus. No injection or drainage. NECK: Supple, trachea midline. No JVD or lymphadenopathy. CARDIOVASCULAR: Regular rate and rhythm without murmurs, gallops, or rubs. RESPIRATORY: Breath sounds equal bilaterally. No accessory muscle use. GASTROINTESTINAL: Abdomen soft, non-tender, nondistended. MUSCULOSKELETAL: No cyanosis, or edema. Assessment and Plan Problem List: (1) SVT (supraventricular tachycardia) ICD Codes: I47.1 - Supraventricular tachycardia Status: Acute (2) Pneumonia ICD Codes: J18.9 - Pneumonia, unspecified organism (3) HTN (hypertension) ICD Codes: I10 - Essential (primary) hypertension (4) Rheumatoid arthritis ICD Codes: M06.9 - Rheumatoid arthritis, unspecified Assessment and Plan Remains stable, no new cardiac issues. No recurrent SVT, continue antiarrhythmic tx w diltiazem. Continue abxs for suspected pneumonia. Recommend to increase activity, PT. Anticipate discharge soon. Will schedule outpt f/u. Aníbal Meza MD Aug 30, 2017 10:35
[2017-08-30] MEDS ORDERED: TRAM50 PO (10:43)
[2017-08-30] MEDS ORDERED: ACET325T15 PO (10:43)
[2017-08-30] MEDS ORDERED: DILT31TA PO (10:43)
[2017-08-30] MEDS ORDERED: CIPR250T52 PO (10:43)
--- NOTE | 2017-08-30 14:35 | HHI.PR ---
Subjective Remarks Patient seen this morning. Says she feels all right. Denies any chest pain or shortness of breath. no n/v. no dysuria Objective Vital Signs Date Time Temp Pulse Resp B/P (MAP) Pulse Ox O2 Delivery O2 Flow Rate FiO2 08/30/17 08:00 98.0 81 20 121/78 (92) 92 08/30/17 08:00 77 08/30/17 04:55 97.3 80 18 126/79 (95) 92 08/30/17 00:35 97.4 76 18 119/61 (80) 95 08/29/17 19:37 97.4 68 18 120/64 (82) 98 08/29/17 18:00 68 08/29/17 16:00 97.0 75 22 117/60 (79) 98 08/29/17 16:00 75 I/O 08/29/17 08/29/17 08/29/17 08/30/17 08/30/17 08/30/17 07:00 15:00 23:00 07:00 15:00 23:00 Intake Total 100 ml 100 ml 300 ml 120 ml Output Total 900 ml 800 ml 300 ml Balance -800 ml 100 ml -500 ml -180 ml Intake Oral 100 ml 300 ml 120 ml IV Total 100 ml Output Urine Total 400 ml 400 ml Stool Total 500 ml 400 ml 300 ml # Voids 1 2 # Bowel Movements 1 Result Diagram: 08/28/17 0416 08/28/17 1159 Objective Remarks GENERAL: Patient sitting up in bed. Appears comfortable. SKIN: Warm and dry. HEAD: Normocephalic. EYES: No scleral icterus. No injection or drainage. NECK: Supple, trachea midline. No JVD. CARDIOVASCULAR: Regular rate and rhythm without murmurs, gallops, or rubs. RESPIRATORY: Breath sounds equal bilaterally. No accessory muscle use. GASTROINTESTINAL: Abdomen soft, non-tender, nondistended. MUSCULOSKELETAL: No cyanosis, or edema. BACK: Nontender without obvious deformity. No CVA tenderness. A/P Assessment and Plan 87-year-old female admitted secondary to A. fib RVR, pneumonia, and UTI. //A. fib RVR Resolved Follow on telemetry Patient transitioned from IV Cardizem to by mouth Cardizem = No further episodes of SVT on Cardizem. //Pneumonia (questionable) UTI Continue ciprofloxacin Clinically for improvement = Continue on Cipro to complete treatment course. //Prerenal azotemia Dehydration Acute kidney injury Improving IV hydration discontinued = Kidney function stable. //Gastro soft reflux disease //Continue Pepcid //Chronic osteoarthritis Continue Tylenol and tramadol //DVT prophylaxis Heparin Discharge Planning Discharge back to SNF on diltiazem for SVT. Continue Cipro to complete treatment course for UTI. Fabio Galarza MD Aug 30, 2017 14:35
--- NOTE | 2017-08-30 14:36 | HHI.DS ---
Discharge Summary Admission Date Aug 27, 2017 at 16:51 Discharge Date: Aug 30, 2017 Admitting Diagnosis Arrhythmia, Dehydration, SVT, UTI ? (1) SVT (supraventricular tachycardia) ICD Code: I47.1 - Supraventricular tachycardia (2) UTI (urinary tract infection) ICD Code: N39.0 - Urinary tract infection, site not specified Procedures No invasive procedures. Brief History - From Admission 87 y/o woman was brought in by EMS from her SNF for cough, congestion. She received lasix from EMS. Initial labs and physical exam by my arrival to ED 5 hours later reveals clear lungs, a light bronchitic cough, prerenal azotemia, and poor skin turgor. She has had several episodes of SVT in the ED treated with cardizem and lopressor iv. She is now in sinus rhythm. Discussed in detail with her daughter at the bedside. 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 Eugenia Ryan if she gains some weight and strength. CBC/BMP: 08/28/17 0416 08/28/17 1159 Significant Findings Laboratory Tests Test 08/27/17 15:30 08/27/17 18:30 08/27/17 22:00 08/27/17 23:48 Blood Urea Nitrogen 30 MG/DL (7-18) Albumin 3.1 GM/DL (3.4-5.0) Aspartate Amino Transf (AST/SGOT) 90 U/L (15-37) Alanine Aminotransferase (ALT/SGPT) 206 U/L (10-53) Potassium Level 3.2 MEQ/L (3.5-5.1) Chloride Level 109 MEQ/L (98-107) Estimat Glomerular Filtration Rate 61 ML/MIN (>89) Thyroid Stimulating Hormone 3rd Gen 0.023 uIU/ML (0.358-3.740) Troponin I 0.08 NG/ML (0.02-0.05) 0.06 NG/ML (0.02-0.05) Test 08/28/17 04:16 08/28/17 11:59 Red Cell Distribution Width 20.5 % (11.6-17.2) Monocytes (%) (Auto) 13.2 % (0.0-8.0) Monocytes # (Auto) 1.0 TH/MM3 (0-0.9) Blood Urea Nitrogen 29 MG/DL (7-18) 26 MG/DL (7-18) Calcium Level 8.3 MG/DL (8.5-10.1) 8.2 MG/DL (8.5-10.1) Chloride Level 114 MEQ/L (98-107) 116 MEQ/L (98-107) Carbon Dioxide Level 20.6 MEQ/L (21.0-32.0) 18.5 MEQ/L (21.0-32.0) Estimat Glomerular Filtration Rate 70 ML/MIN (>89) 74 ML/MIN (>89) Imaging Last Impressions CT Angiography 08/27/17 1440 Signed Impressions: Service Date/Time: Sunday, August 27, 2017 18:14 - CONCLUSION: 1. No evidence of pulmonary embolism. 2. Scattered patchy densities within the lower lobes bilaterally consistent with possible minimal infiltrates. Clinical correlation is recommended. 3. Degenerative changes throughout the thoracic spine. Carroll Domingo MD Chest X-Ray 08/27/17 1206 Signed Impressions: Service Date/Time: Sunday, August 27, 2017 12:17 - CONCLUSION: 1. No acute cardiothymic process. 2. Chronic change at the glenohumeral joints bilaterally. Nilesh Frye MD Hospital Course CT pulmonary angiogram on admission without any evidence of pulmonary embolism, however bilateral patchy densities, likely secondary to. Patient found to have SVT, for which cardiology was consulted. Patient was started on Cardizem, with no further episodes. She'll be discharged to follow with cardiology. Patient was also found to have UTI, growing Escherichia coli sensitive to ciprofloxacin. Patient will be discharged on ciprofloxacin to complete treatment course. TSH was checked on admission, found to be 0.023, however T4 within normal range. In the acute setting, TSH could represent euthyroid sick. Recommend recheck TSH in one week as outpatient. For problem-based summary from most recent progress note, please see below. 87-year-old female admitted secondary to A. fib RVR, pneumonia, and UTI. //A. fib RVR Resolved Follow on telemetry Patient transitioned from IV Cardizem to by mouth Cardizem = No further episodes of SVT on Cardizem. //Pneumonia (questionable) UTI Continue ciprofloxacin Clinically for improvement = Continue on Cipro to complete treatment course. //Prerenal azotemia Dehydration Acute kidney injury Improving IV hydration discontinued = Kidney function stable. //Gastro soft reflux disease //Continue Pepcid //Chronic osteoarthritis Continue Tylenol and tramadol //DVT prophylaxis Heparin Discharge Planning Discharge back to SNF on diltiazem for SVT. Continue Cipro to complete treatment course for UTI. Pt Condition on Discharge: Good Discharge Disposition: Discharge to SNF Discharge Time: > 30 minutes Discharge Instructions DIET: Follow Instructions for: Heart Healthy Diet Activities you can perform: Regular-No Restrictions Follow up Referrals: Cardiology - 2 Weeks with Aníbal Meza MD Cardiology PCP Follow-up with Sarai Cornell D.o. PCP Follow-up SNF/INTERMEDIATE/[facility] with [facility] ([phone]) New Medications: Acetaminophen (Eq Acetaminophen) 325 Mg Tab 650 MG PO Q6H PRN for PAIN SCALE 1 TO 5 for 30 Days, #240 TAB Ciprofloxacin (Cipro) 250 Mg Tab 250 MG PO Q12HR for Infection for 7 Days, TAB Diltiazem (Cardizem) 30 Mg Tab 30 MG PO Q6HR for HEart for 30 Days, TAB Tramadol (Ultram) 50 Mg Tab 50 MG PO Q8H PRN for PAIN GREATER THAN 5, #20 TAB Continued Medications: Calcium Carbonate (Antacid) (Calcium Carbonate (Antacid)) 500 Mg Chew 500 MG CHEW Q6HR PRN for HEARTBURN, TAB 0 Refills Cholecalciferol (Vitamin D3) 1,000 Unit Tab 1000 UNITS PO DAILY for Nutritional Supplement, #1 BOTTLE 0 Refills Cyanocobalamin (B-12) 1,000 Mcg Subl 1000 MCG PO DAILY for Nutritional Supplement, TAB.SL 0 Refills Levothyroxine (Levothyroxine) 125 Mcg Tab 100 MCG PO DAILY for Thyroid, #30 TAB 0 Refills Megestrol ES Liq (Megace ES Liq) 625 Mg/5 Ml Susp 400 MG PO BID for Improve Appetite, #240 ML 0 Refills Methotrexate (Methotrexate) 2.5 Mg Tab 2.5 MG PO Q7D, TAB 0 Refills Metoclopramide (Metoclopramide) 10 Mg Tab 10 MG PO BID, TAB 0 Refills Montelukast (Montelukast) 10 Mg Tab 10 MG PO HS, #30 TAB 0 Refills Multiple Vitamin (Multi Vitamin Daily) 1 Tab Tab 1 TAB PO DAILY Multiple Vitamins W/ Minerals (Prosight) 5,000-60-30 Tab 1 TAB PO DAILY Pantoprazole (Pantoprazole) 40 Mg Tab 40 MG PO DAILY for Reflux, #30 TAB 0 Refills Prednisone (Prednisone) 10 Mg Tab 10 MG PO DAILY, TAB 0 Refills Discontinued Medications: Hydrocodone/Acetaminophen (Hydrocodone-Acetamin 5-325 mg) 5 Mg-325 Mg Tablet 1 TAB PO Q6H PRN for PAIN SCALE 1 TO 10 for 10 Days, #40 TAB Fabio Galarza MD Aug 30, 2017 14:36
== END 2017-08-30 12:00 | DRG 308 ==
LOC: NEPE 11:52 → NEDA 16:51 → HIME 20:45 → N04A 08-29 19:19
PROVIDERS: ADMIT Internal Medicine; ATTEND Internal Medicine
DX: I47.1 Supraventricular tachycardia (principal); J12.9 Viral pneumonia, unspecified; N17.9 Acute kidney failure, unspecified; N39.0 Urinary tract infection, site not specified; E86.0 Dehydration; I48.91 Unspecified atrial fibrillation; J10.01 Influenza due to other identified influenza virus with the same other identified influenza virus pneumonia; I10 Essential (primary) hypertension; M10.9 Gout, unspecified; I44.0 Atrioventricular block, first degree; M06.9 Rheumatoid arthritis, unspecified; K21.9 Gastro-esophageal reflux disease without esophagitis; M19.90 Unspecified osteoarthritis, unspecified site; Z96.652 Presence of left artificial knee joint; Z96.642 Presence of left artificial hip joint; B96.20 Unspecified Escherichia coli [E. coli] as the cause of diseases classified elsewhere; Z85.038 Personal history of other malignant neoplasm of large intestine; Z93.2 Ileostomy status
CPT/HCPCS: 51702; 71045; 71275; 80048; 80053; 81001; 82550; 83605; 83735; 83880; 84100; 84134; 84436; 84443; 84484; 85025; 85610; 85730; 87040; 87077; 87086; 87186; 87641; 93005; 94150; 94640; 94664; 96374; 96375; J1644; J3480; J7030; J7512; Q9967

== ENCOUNTER 2017-10-01 21:32 | Inpatient (IN) | payer MEDICARE ==
[~2017-10-01] VITALS: Ht 149.9 cm; Wt 50.9 kg
[~2017-10-01 21:32] MED LIST changes: +ACET325T15 PO; +CALC500C16 CHEW; +CIPR250T52 PO; +CYAN100025 PO; +DILT31TA PO; -HYDR-3516 PO; -LISI-519 PO; +MEGASUS2 PO; +METH2.5T PO; +METO10TA PO; +MULT1TAB46 PO; +PROSTAB PO; +TRAM50 PO; +VITA100018 PO
[2017-10-01] MEDS ORDERED: IOHEXOL 350 MG/ML 10 ML VIAL (for RAD DIAG) IVCONTRAST ONE (21:33)
[2017-10-01 21:42] VITALS: BP 145/65; PULSE 79; RESP 16; TEMP 98; O2SAT 97
[2017-10-01] MEDS ORDERED: SODIUM CHLORIDE 0.9% FLUSH 10 ML FLUSH IVF PRN (21:45)
[2017-10-01] MEDS ORDERED: SODIUM CHLOR 0.9% 1000 ML INJ 1,000 ML IV SCH (21:45)
[2017-10-01] MEDS ORDERED: PANTOPRAZOLE INJ 80 MG in SODIUM CHLORIDE 0.9% INJ 35 ML IV ONE (21:45)
--- NOTE | 2017-10-01 21:49 | PD ---
HPI Chief Complaint: GI Complaint Time Seen by Provider: 21:43 Travel History International Travel<30 days: No Contact w/Intl Traveler<30days: No Traveled to known affect area: No History of Present Illness HPI The patient is an 87 year old female who presents to the [facility] emergency department with a history of GI bleed that was noted by her half-way prior to arrival. The patient has a colostomy in place related to a history of colon cancer status post resection. The patient was noted on this shift after 3 PM to have blood in her colostomy bag. Unfortunately, the patient has a history of atrial fibrillation, however there is no evidence that the patient is on any anticoagulation. The patient reports having minimal lower abdominal discomfort on palpation. Otherwise she denies having any pain. On review of systems, the patient denies having any recent fevers, cough, congestion, neck pain, chest pain, shortness of breath, vomiting, urinary symptoms, or neurologic symptoms. PFSH Past Medical History Narrative Medical The patient's past medical history is significant for a history of atrial fibrillation, colon cancer, hypertension, acid reflux, gout, rheumatoid arthritis, and hypothyroid disorder Arthritis: Yes Blood Disorders: No Cancer: Yes (COLON) Cardiovascular Problems: Yes (A FIB IN THE PAST WHEN SEPTIC) Chest Pain: Yes Diminished Hearing: No Endocrine: No Gastrointestinal Disorders: Yes (GERD) GERD: Yes Genitourinary: Yes (GOUT) Hiatal Hernia: No Hypertension: Yes Immune Disorder: No Musculoskeletal: Yes (BACK AND HIP FROM ARTHRITIS) Neurologic: No Psychiatric: No Reproductive: No Respiratory: No Thyroid Disease: Yes Menopausal: Yes : 3 Para: 3 Past Surgical History Narrative Surgical The patient's past surgical history is significant for a left hip replacement, knee replacement, hysterectomy, left eye surgery, colon cancer resection with colostomy placement and a right lumpectomy. AICD: No Body Medical Devices: UNSURE OF IMPLANTS IN EYES Eye Surgery: Yes (LEFT CATARACT) Gynecologic Surgery: Yes (COMPLETE HYSTERECTOMY) Hysterectomy: Yes Joint Replacement: Yes (LEFT HIP AND TOTAL KNEE ) Oral Surgery: Yes (TONSILLECTOMY) Pacemaker: No Thoracic Surgery: Yes (RIGHT LUMPECTOMY) Other Surgery: Yes (COLOSTOMY ) Social History Alcohol Use: No Tobacco Use: No Substance Use: No Allergies-Medications (Allergen,Severity, Reaction): Coded Allergies: Sulfa (Sulfonamide Antibiotics) (Unverified Allergy, Severe, SWELLING, DIFFICULTY BREATHING, 10/01/17) celecoxib (Unverified Allergy, Severe, 10/01/17) PT IS UNABLE TO RECALL REACTION. penicillin G (Unverified Allergy, Severe, Swelling, 10/01/17) PT REPORTS REACTION WAS 50 YEARS AGO, AND IS UNABLE TO RECALL DETAILS. Uncoded Allergies: TAPE ADHESIVE/ PAPER TAPE OK (Allergy, Severe, BLISTERS, 05/01/06) Reported Meds & Prescriptions Reported Meds & Active Scripts Active Cardizem (Diltiazem HCl) 30 Mg Tab 30 Mg PO Q6HR 30 Days Eq Acetaminophen (Acetaminophen) 325 Mg Tab 650 Mg PO Q6H PRN 30 Days Ultram (Tramadol HCl) 50 Mg Tab 50 Mg PO Q8H PRN Reported Methotrexate 2.5 Mg Tab 2.5 Mg PO EVERY SUNDAY Culturelle (Lactobacillus Rhamnosus (GG)) 10 Billion Cell Cap 1 Cap PO DAILY Omeprazole 20 Mg Tab 20 Mg PO DAILY Calcium Carbonate (Antacid) 500 Mg Chew 500 Mg CHEW Q6HR PRN Metoclopramide (Metoclopramide HCl) 10 Mg Tab 10 Mg PO BID Megace ES Liq (Megestrol ES Liq) 625 Mg/5 Ml Susp 400 Mg PO BID B-12 (Cyanocobalamin) 1,000 Mcg Subl 1,000 Mcg PO DAILY Vitamin D3 (Cholecalciferol) 1,000 Unit Tab 1,000 Units PO DAILY Montelukast (Montelukast Sodium) 10 Mg Tab 10 Mg PO HS Prednisone 10 Mg Tab 10 Mg PO DAILY Levothyroxine (Levothyroxine Sodium) 125 Mcg Tab 100 Mcg PO DAILY Review of Systems General / Constitutional: No: Fever Eyes: No: Visual changes HENT: No: Headaches Cardiovascular: No: Chest Pain or Discomfort Respiratory: No: Shortness of Breath Gastrointestinal: Positive: Abdominal Pain, Hematochezia, Changes in Bowel Habits, No: Nausea, Vomiting, Diarrhea Genitourinary: No: Dysuria Musculoskeletal: No: Pain Skin: No Rash Neurologic: No: Weakness, Focal Abnormalities, Change in Mentation, Slurred Speech, Sensory Disturbance Psychiatric: No: Depression Endocrine: No: Polydipsia Hematologic/Lymphatic: No: Easy Bruising Physical Exam Narrative General: The patient is a well-developed well-nourished female in no acute distress. Head and Neck exam: Head is normocephalic atraumatic. Eyes: EOMI, pupils are equal round and reactive to light. Nose: Midline septum with pink mucous membranes Mouth: Dentition unremarkable. Moist mucus membranes. Posterior oropharynx is not erythematous. No tonsillar hypertrophy. Uvula midline. Airway patent. Neck: No palpable lymphadenopathy. No nuchal rigidity. No thyromegaly. Cardiovascular: Regular rate and rhythm without murmurs, gallops, or rubs. Lungs: Clear to auscultation bilaterally. No wheezes, rhonchi, or rales. Abdomen: Soft, colostomy bag in place in the right lower quadrant of the abdomen that is filled with loose stool that is grossly bloody. The patient reports having tenderness on palpation along the lower abdomen bilaterally worse in the right lower quadrant compared to the left. Normal bowel sounds are audible. No guarding, rebound, or rigidity. No tenderness specifically on palpation of her McBurney's point. Negative Santiago sign. Extremities: No clubbing, cyanosis, or edema. 2+ pulses in all 4 extremities. No calf tenderness on palpation. Back: No costovertebral angle tenderness to palpation. Neurologic Exam: Grossly nonfocal Skin Exam: No rash noted. Intact skin that is warm and dry. Data Data Last Documented VS Vital Signs Date Time Temp Pulse Resp B/P (MAP) Pulse Ox O2 Delivery O2 Flow Rate FiO2 10/01/17 23:10 80 18 118/71 (87) 96 Room Air 10/01/17 21:42 98.0 Orders Orders Complete Blood Count With Diff (10/01/17 21:45) Comprehensive Metabolic Panel (10/01/17 21:45) Lipase (10/01/17 21:45) Prothrombin Time / Inr (Pt) (10/01/17 21:45) Act Partial Throm Time (Ptt) (10/01/17 21:45) Urinalysis - C+S If Indicated (10/01/17 21:45) Type And Screen (10/01/17 21:45) Red Blood Cells (Rbc) (10/01/17 21:45) Cath For Specimen (10/01/17 21:45) Ecg Monitoring (10/01/17 21:45) Iv Access Insert/Monitor (10/01/17 21:45) Oximetry (10/01/17 21:45) Sodium Chlor 0.9% 1000 Ml Inj (Ns 1000 M (10/01/17 21:45) Sodium Chloride 0.9% Flush (Ns Flush) (10/01/17 21:45) Sodium Chloride 0.9... W/Pantoprazole In (10/01/17 21:45) Sodium Chloride 0.9... W/Pantoprazole In (10/01/17 21:45) Creatine Kinase (Cpk) (10/01/17 21:45) Ckmb (Isoenzyme) Profile (10/01/17 21:45) Troponin I (10/01/17 21:45) B-Type Natriuretic Peptide (10/01/17 21:45) Enteric Path (Stool) (10/01/17 21:45) C Diff Toxin Pcr (10/01/17 21:45) Chest, Single Ap (10/01/17 21:45) Stool Wbc (Leukocytes) (10/01/17 21:45) Urine Culture (10/01/17 23:37) Ct Abd/Pel W Iv Contrast(Rout) (10/02/17 00:23) Oral Contrast - Adult (10/02/17 00:35) Iohexol 350 Inj (Omnipaque 350 Inj) (10/01/17 21:33) Admit Order (Ed Use Only) (10/02/17 02:34) Labs Laboratory Tests Test 10/01/17 23:10 10/01/17 23:37 White Blood Count 12.5 TH/MM3 Red Blood Count 4.44 MIL/MM3 Hemoglobin 13.7 GM/DL Hematocrit 41.6 % Mean Corpuscular Volume 93.6 FL Mean Corpuscular Hemoglobin 30.8 PG Mean Corpuscular Hemoglobin Concent 32.9 % Red Cell Distribution Width 19.0 % Platelet Count 276 TH/MM3 Mean Platelet Volume 8.2 FL Neutrophils (%) (Auto) 82.1 % Lymphocytes (%) (Auto) 7.6 % Monocytes (%) (Auto) 8.3 % Eosinophils (%) (Auto) 1.7 % Basophils (%) (Auto) 0.3 % Neutrophils # (Auto) 10.3 TH/MM3 Lymphocytes # (Auto) 1.0 TH/MM3 Monocytes # (Auto) 1.0 TH/MM3 Eosinophils # (Auto) 0.2 TH/MM3 Basophils # (Auto) 0.0 TH/MM3 CBC Comment AUTO DIFF Differential Total Cells Counted 100 Neutrophils % (Manual) 80 % Band Neutrophils % 1 % Lymphocytes % 7 % Monocytes % 7 % Neutrophils # (Manual) 10.8 TH/MM3 Metamyelocytes 3 % Promyelocytes 2 % Differential Comment FINAL DIFF MANUAL Platelet Estimate NORMAL Platelet Morphology Comment NORMAL Ovalocytes 1+ Prothrombin Time 9.9 SEC Prothromb Time International Ratio 1.0 RATIO Activated Partial Thromboplast Time 20.7 SEC Blood Urea Nitrogen 29 MG/DL Creatinine 1.19 MG/DL Random Glucose 135 MG/DL Total Protein 6.5 GM/DL Albumin 2.7 GM/DL Calcium Level 8.5 MG/DL Alkaline Phosphatase 45 U/L Aspartate Amino Transf (AST/SGOT) 15 U/L Alanine Aminotransferase (ALT/SGPT) 43 U/L Total Bilirubin 0.2 MG/DL Sodium Level 140 MEQ/L Potassium Level 4.6 MEQ/L Chloride Level 112 MEQ/L Carbon Dioxide Level 21.5 MEQ/L Anion Gap 7 MEQ/L Estimat Glomerular Filtration Rate 43 ML/MIN Total Creatine Kinase 20 U/L Troponin I LESS THAN 0.02 NG/ML B-Type Natriuretic Peptide 14 PG/ML Lipase 287 U/L Urine Color YELLOW Urine Turbidity HAZY Urine pH 5.5 Urine Specific [place] 1.017 Urine Protein TRACE mg/dL Urine Glucose (UA) NEG mg/dL Urine Ketones NEG mg/dL Urine Occult Blood TRACE Urine Nitrite NEG Urine Bilirubin NEG Urine Urobilinogen LESS THAN 2.0 MG/DL Urine Leukocyte Esterase LARGE Urine RBC 2 /hpf Urine WBC 58 /hpf Urine WBC Clumps MOD Urine Squamous Epithelial Cells 2 /hpf Urine Renal Epithelial Cells 1 /hpf Urine Bacteria RARE /hpf Urine Hyaline Casts 6 /lpf Urine Granular Casts 7 /lpf Urine Mucus FEW /lpf Microscopic Urinalysis Comment CULTURE INDICATED Stool C. difficile Toxin (PCR) POSITIVE Stl C. difficile Toxin Epiderm 027 PRESUMPTIVE NEGATIVE MDM Medical Decision Making Medical Screen Exam Complete: Yes Emergency Medical Condition: Yes Medical Record Reviewed: Yes Interpretation(s) Last Impressions Abdomen/Pelvis CT 10/02/17 0023 Signed Impressions: Service Date/Time: Monday, October 02, 2017 02:05 - CONCLUSION: 1. There is a 1.6 cm structure in the left upper quadrant that is isodense to the mesenteric venous structures and appears to arise from a branch of the superior mesenteric vein. 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 2. No other acute finding is identified. Nonacute findings include moderate atherosclerotic disease and small hiatal hernia. Nilesh Ramires MD Chest X-Ray 10/01/17 9812 Signed Impressions: Service Date/Time: Sunday, October 01, 2017 22:08 - CONCLUSION: The lungs are clear. Caesar Osborn MD Differential Diagnosis Colitis, versus diverticulitis, versus diverticulitis, versus AVM malformation, versus colon cancer recurrence Narrative Course During the course of the patient's emergency department visit, the patient's history, examination, and differential diagnosis were reviewed with the patient. The patient was placed on a monitoring manager with oximetry and frequent blood pressure monitoring. The patient had IV access obtained and blood work sent for analysis. The patient was initially provided normal saline at 1 25 mL/h, Protonix 80 mg IV followed by a drip. The patient's laboratory studies were reviewed and remarkable for a white count of 12.5, hemoglobin 13.7, platelets 276 with 80 neutrophils, 1 band, 7 lymphocytes, 7 monocytes, CMP is remarkable for a chloride of 112, BUN 29, creatinine 1.19, glucose 135, initial set of cardiac enzymes within normal limits, BNP 14, lipase 287. PT 9.9, PTT 20.7, urinalysis shows trace occult blood large leukocyte esterase 58 WBCs moderate WBC clumps, rare bacteria, culture indicated. The patient was given Rocephin 1 g IV. The patient's stool studies were positive for C. difficile toxin. The patient was given Flagyl 500 IV per Radiology studies were reviewed and remarkable for a chest x-ray shows that the lungs appear to be clear. CT scan of the abdomen and pelvis shows a 1.6 cm structure in the left upper quadrant that is isodense to the mesenteric venous structures and appears to arise of the branch of the superior mesenteric vein. 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 No other acute findings. The patient's results were discussed with the patient, including the plan of care. I explained that further testing and/ or monitoring is indicated based on the patient's history, examination, and/ or laboratory findings. Therefore, I recommended admission for additional evaluation. The patient expressed understanding and was agreeable with this plan. The patient was admitted to the hospital in stable condition and sent to a bed under the care of the [facility] hospitalist service. Physician Communication Physician Communication The patient's case including history, pertinent physical examination findings, and laboratory studies were discussed with []. It was agreed that the patient would be admitted to the [] hospitalist service. Diagnosis Primary Impression: GI bleed Qualified Codes: K92.2 - Gastrointestinal hemorrhage, unspecified Additional Impressions: UTI (urinary tract infection) Qualified Codes: N39.0 - Urinary tract infection, site not specified C. difficile diarrhea Admitting Information Admitting Physician Requests: Valorie Osuna MD Oct 01, 2017 21:49
--- NOTE | 2017-10-01 22:31 | RADRPT ---
EXAM DATE/TIME: 10/01/2017 22:08 [facility] COMPARISON: CHEST SINGLE AP, August 27, 2017, 12:17. INDICATIONS : Cough. MEDICAL HISTORY : Cardiovascular disease. Carcinoma, colon. Hypertension. SURGICAL HISTORY : Hysterectomy. Lumpectomy ENCOUNTER: Initial ACUITY: 2 days PAIN SCORE: 0/10 LOCATION: Bilateral chest FINDINGS: A single view of the chest demonstrates the lungs to be symmetrically aerated without evidence of mas s, infiltrate or effusion. The cardiomediastinal contours are unremarkable. Stable chronic deformit y of the proximal humerus and glenohumeral joints.. CONCLUSION: The lungs are clear. Caesar Osborn MD on October 01, 2017 at 22:30 Board Certified Radiologist. This report was verified electronically.
[2017-10-01 23:10] VITALS: BP 118/71; PULSE 80; RESP 18; O2SAT 96
[2017-10-01 23:50] LABS: AUTOMATED NEUTROPHIL # 10.3 TH/MM3 (1.8-7.7); BASOPHIL % 0.3 % (0.0-2.0); EOSINOPHIL # 0.2 TH/MM3 (0-0.4); EOSINOPHIL % 1.7 % (0.0-4.0); HEMATOCRIT 41.6 % (35.0-46.0); HEMOGLOBIN 13.7 GM/DL (11.6-15.3); LYMPH % 7.6 % (9.0-44.0); MEAN CELL VOLUME 93.6 FL (80.0-100.0); MEAN CORPUSCULAR HEMOGLOBIN 30.8 PG (27.0-34.0); MEAN CORPUSCULAR HGB CONC 32.9 % (32.0-36.0); MEAN PLATELET VOLUME 8.2 FL (7.0-11.0); MONO % 8.3 % (0.0-8.0); NEUT % 82.1 % (16.0-70.0); PLATELET COUNT 276 TH/MM3 (150-450); RED BLOOD COUNT 4.44 MIL/MM3 (4.00-5.30); WHITE BLOOD COUNT 12.5 TH/MM3 (4.0-11.0)
[2017-10-02] VITALS (8 sets, daily range): BP systolic 114–133; BP diastolic 58–67; PULSE 69–94; RESP 14–20; TEMP 96.9; O2SAT 92–98
[2017-10-02] LABS: BACTERIA, URINE RARE /hpf; BILIRUBIN, URINE NEG (NEG); BLOOD, URINE TRACE (NEG); GLUCOSE,URINE NEG (NEG); HYALINE CAST, URINE 6 /lpf (RARE); KETONE, URINE NEG (NEG); MUCUS URINE FEW /lpf (OCC); NITRITE,URINE NEG (NEG); PH, URINE 5.5 (5.0-8.5); RENAL EPITHELIAL CELLS 1 /hpf; SQUAMOUS EPITHELIAL CELL URINE 2 /hpf (0-5); URINE COLOR YELLOW (YELLW/STRAW); URINE LEUKOCYTE ESTERASE LARGE (NEG); WHITE BLOOD CELL CLUMPS MOD
[2017-10-02 00:05] LABS: PROTHROMBIN TIME - PATIENT 9.9 SEC (9.8-11.6)
[2017-10-02] MEDS: PANTOPRAZOLE INJ 80 MG in SODIUM CHLORIDE 0.9% INJ 100 ML IV SCH ×2 (00:14→08:39)
[2017-10-02 00:16] LABS: ALBUMIN 2.7 GM/DL (3.4-5.0); ALT (GPT) 43 U/L (10-53); AST (GOT) 15 U/L (15-37); BICARBONATE 21.5 MEQ/L (21.0-32.0); BLOOD UREA NITROGEN 29 MG/DL (7-18); CALCIUM 8.5 MG/DL (8.5-10.1); CHLORIDE 112 MEQ/L (98-107); CREATININE 1.19 MG/DL (0.50-1.00); GLOMERULAR FILTRATION RATE 43 ML/MIN (>89); GLUCOSE,RANDOM 135 MG/DL (74-106); SODIUM (NA) 140 MEQ/L (136-145)
[2017-10-02 00:17] LABS: BANDS 1 % (0-6); LYMPHOCYTES 7 % (9-44); METAMYELOCYTES 3 % (0-1); MONOCYTES 7 % (0-8); NEUTROPHIL # MANUAL DIFF 10.8 TH/MM3 (1.8-7.7); POLYS (SEG NEUTROPHILS) 80 % (16-70); PROMYELOCYTES 2 % (0-0)
[2017-10-02 00:18] LABS: OVALOCYTES 1+ (NORMAL)
[2017-10-02 00:20] LABS: ALKALINE PHOSPHATASE 45 U/L (45-117); TOTAL BILIRUBIN ADULT 0.2 MG/DL (0.2-1.0); TOTAL PROTEIN 6.5 GM/DL (6.4-8.2); TROPONIN I LESS THAN 0.02 NG/ML (0.02-0.05)
[2017-10-02] MEDS ORDERED: CULT10CA4 PO (01:34)
[2017-10-02] MEDS ORDERED: OMEP20TA93 PO (01:34)
[2017-10-02] MEDS ORDERED: METH2.5T PO (01:34)
--- NOTE | 2017-10-02 02:30 | RADRPT ---
EXAM DATE/TIME: 10/02/2017 02:05 [facility] COMPARISON: CT PULMONARY ANGIOGRAM, August 27, 2017, 18:14. INDICATIONS : Abdomen pain with blood in stool. IV CONTRAST: 100 cc Omnipaque 350 (iohexol) IV ORAL CONTRAST: Prescribed oral contrast ingested. RADIATION DOSE: 6.97 CTDIvol (mGy) MEDICAL HISTORY : Cardiovascular disease. Hypertension. Carcinoma, colon.GERD SURGICAL HISTORY : Colostomy. Appendectomy.Hysterectomy. ENCOUNTER: Initial ACUITY: 1 day PAIN SCALE: 5/10 LOCATION: Bilateral abdomen TECHNIQUE: Volumetric scanning of the abdomen and pelvis was performed. Using automated exposure control and ad justment of the mA and/or kV according to patient size, radiation dose was kept as low as reasonably achievable to obtain optimal diagnostic quality images. DICOM format image data is available electro nically for review and comparison. FINDINGS: LOWER LUNGS: The visualized lower lungs are clear. LIVER: There is an incidental 5 mm low-density lesion in the right lobe that is too small to characterize. There is no dilation of the biliary tree. No calcified gallstones. SPLEEN: Normal size without lesion. PANCREAS: No acute abnormality. KIDNEYS: Normal in size and shape. There is no mass, stone or hydronephrosis. ADRENAL GLANDS: Within normal limits. VASCULAR: There is no aortic aneurysm. There is moderate atherosclerotic disease. There is an ovoid density adj acent to the fourth portion of the duodenum and abutting a branch of the superior mesenteric vein. It measures 1.6 cm and is isodense to the venous structures. BOWEL/MESENTERY: The stomach, small bowel, and colon demonstrate no acute abnormality. A small hiatal hernia is prese nt. There is sigmoid diverticulosis. Surgical staple line is present in the rectum. There is a right lower quadrant ileostomy. There is no free intraperitoneal air or fluid. ABDOMINAL WALL: There is a right lower quadrant ileostomy. RETROPERITONEUM: There is no lymphadenopathy. BLADDER: Not well visualized secondary to beam hardening artifact but no definite abnormality is seen. REPRODUCTIVE: Uterus is absent. Pelvic structures are partially obscured by artifact. INGUINAL: There is no lymphadenopathy or hernia. MUSCULOSKELETAL: There are degenerative changes of the lumbar spine. Severe right hip joint osteoarthritis is present. There is left hip hardware related to total hip arthroplasty. CONCLUSION: 1. There is a 1.6 cm structure in the left upper quadrant that is isodense to the mesenteric venous s tructures and appears to arise from a branch of the superior mesenteric vein. 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 2. No other acute finding is identified. Nonacute findings include moderate atherosclerotic disease a nd small hiatal hernia. Nilesh Ramires MD on October 02, 2017 at 2:21 Board Certified Radiologist. This report was verified electronically.
[2017-10-02] MEDS ORDERED: SODIUM CHLORIDE 0.9% FLUSH 10 ML FLUSH IV FLUSH PRN (03:00)
[2017-10-02] MEDS ORDERED: ONDANSETRON HCL 4 MG/2 ML VIAL IV PUSH PRN (03:00)
[2017-10-02] MEDS ORDERED: metroNIDAZOLE 500 MG INJ 100 ML IV ONE (03:00)
[2017-10-02] MEDS ORDERED: cefTRIAXone INJ 1,000 MG in SODIUM CHLORIDE 0.9% INJ 100 ML IV ONE (03:00)
[2017-10-02] MEDS: SODIUM CHLOR 0.9% 1000 ML INJ 1,000 ML IV SCH ×2 (04:28→17:19)
[2017-10-02 05:28] LABS: HEMATOCRIT 39.4 % (35.0-46.0)
--- NOTE | 2017-10-02 08:57 | PD.CONS ---
HPI History of Present Illness This is a 87 year old with hx colon ca 1 y ago s/p colectomy and colostomy who presented from her NH after blood was seen in her colostomy bag. She cannot tell me about her stool but admits there was "alot of blood" in the colostomy bag yesterday noted by her nurse. She is not aware of any blood in the stool today. SHe admits occasional abd pain but denies any currently. Denies n/v, difficulty eating, decreased appetite. She admits recent weakness and back pain. NO fevers. She has no idea if she has had antibiotics recently. She has been trying to put on weight so she can have a colostomy reversal. Dr Ryan did her last colonoscopy but she cannot tell me any further details. Poor historian. (Wendie Haq) PFSH Past Medical History colon ca AF Past Surgical History colostomy left hip and knee replacements hysterectomy (Wendie Haq) Coded Allergies: Sulfa (Sulfonamide Antibiotics) (Unverified Allergy, Severe, SWELLING, DIFFICULTY BREATHING, 10/01/17) celecoxib (Unverified Allergy, Severe, 10/01/17) PT IS UNABLE TO RECALL REACTION. penicillin G (Unverified Allergy, Severe, Swelling, 10/01/17) PT REPORTS REACTION WAS 50 YEARS AGO, AND IS UNABLE TO RECALL DETAILS. Uncoded Allergies: TAPE ADHESIVE/ PAPER TAPE OK (Allergy, Severe, BLISTERS, 05/01/06) Family History heart problems Social History no toxic habits at this time (Wendie Haq) Review of Systems Constitutional: COMPLAINS OF: Fatigue, DENIES: Fever Endocrine: DENIES: Polydipsia Eyes: DENIES: Blurred vision Ears, nose, mouth, throat: COMPLAINS OF: Hearing loss Respiratory: DENIES: Cough Cardiovascular: DENIES: Chest pain Gastrointestinal: DENIES: Abdominal pain, Black stools, Nausea, Vomiting, Anorexia Musculoskeletal: COMPLAINS OF: Joint pain, Back pain Integumentary: DENIES: Rash Hematologic/lymphatic: DENIES: Lymphadenopathy Neurologic: DENIES: Headache Psychiatric: DENIES: Confusion (Wendie Haq) GI Exam Vitals I&O Vital Signs Date Time Temp Pulse Resp B/P (MAP) Pulse Ox O2 Delivery O2 Flow Rate FiO2 10/02/17 07:00 94 20 119/67 (84) 98 Room Air 10/01/17 23:10 80 18 118/71 (87) 96 Room Air 10/01/17 21:42 98.0 79 16 145/65 (91) 97 I/O 10/01/17 10/01/17 10/01/17 10/02/17 10/02/17 10/02/17 07:00 15:00 23:00 07:00 15:00 23:00 Intake Total 135 ml Balance 135 ml Intake IV Total 135 ml Imaging Last Impressions Abdomen/Pelvis CT 10/02/17 0023 Signed Impressions: Service Date/Time: Monday, October 02, 2017 02:05 - CONCLUSION: 1. There is a 1.6 cm structure in the left upper quadrant that is isodense to the mesenteric venous structures and appears to arise from a branch of the superior mesenteric vein. 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 2. No other acute finding is identified. Nonacute findings include moderate atherosclerotic disease and small hiatal hernia. Nilesh Ramires MD Chest X-Ray 10/01/17 0210 Signed Impressions: Service Date/Time: Sunday, October 01, 2017 22:08 - CONCLUSION: The lungs are clear. Caesar Osborn MD Laboratory Test 10/01/17 23:10 10/01/17 23:37 10/02/17 04:40 White Blood Count 12.5 TH/MM3 Red Blood Count 4.44 MIL/MM3 Hemoglobin 13.7 GM/DL 13.0 GM/DL Hematocrit 41.6 % 39.4 % Mean Corpuscular Volume 93.6 FL Mean Corpuscular Hemoglobin 30.8 PG Mean Corpuscular Hemoglobin Concent 32.9 % Red Cell Distribution Width 19.0 % Platelet Count 276 TH/MM3 Mean Platelet Volume 8.2 FL Neutrophils (%) (Auto) 82.1 % Lymphocytes (%) (Auto) 7.6 % Monocytes (%) (Auto) 8.3 % Eosinophils (%) (Auto) 1.7 % Basophils (%) (Auto) 0.3 % Neutrophils # (Auto) 10.3 TH/MM3 Lymphocytes # (Auto) 1.0 TH/MM3 Monocytes # (Auto) 1.0 TH/MM3 Eosinophils # (Auto) 0.2 TH/MM3 Basophils # (Auto) 0.0 TH/MM3 CBC Comment AUTO DIFF Differential Total Cells Counted 100 Neutrophils % (Manual) 80 % Band Neutrophils % 1 % Lymphocytes % 7 % Monocytes % 7 % Neutrophils # (Manual) 10.8 TH/MM3 Metamyelocytes 3 % Promyelocytes 2 % Differential Comment FINAL DIFF MANUAL Platelet Estimate NORMAL Platelet Morphology Comment NORMAL Ovalocytes 1+ Prothrombin Time 9.9 SEC Prothromb Time International Ratio 1.0 RATIO Activated Partial Thromboplast Time 20.7 SEC Blood Urea Nitrogen 29 MG/DL Creatinine 1.19 MG/DL Random Glucose 135 MG/DL Total Protein 6.5 GM/DL Albumin 2.7 GM/DL Calcium Level 8.5 MG/DL Alkaline Phosphatase 45 U/L Aspartate Amino Transf (AST/SGOT) 15 U/L Alanine Aminotransferase (ALT/SGPT) 43 U/L Total Bilirubin 0.2 MG/DL Sodium Level 140 MEQ/L Potassium Level 4.6 MEQ/L Chloride Level 112 MEQ/L Carbon Dioxide Level 21.5 MEQ/L Anion Gap 7 MEQ/L Estimat Glomerular Filtration Rate 43 ML/MIN Total Creatine Kinase 20 U/L Troponin I LESS THAN 0.02 NG/ML B-Type Natriuretic Peptide 14 PG/ML Lipase 287 U/L Urine Color YELLOW Urine Turbidity HAZY Urine pH 5.5 Urine Specific [place] 1.017 Urine Protein TRACE mg/dL Urine Glucose (UA) NEG mg/dL Urine Ketones NEG mg/dL Urine Occult Blood TRACE Urine Nitrite NEG Urine Bilirubin NEG Urine Urobilinogen LESS THAN 2.0 MG/DL Urine Leukocyte Esterase LARGE Urine RBC 2 /hpf Urine WBC 58 /hpf Urine WBC Clumps MOD Urine Squamous Epithelial Cells 2 /hpf Urine Renal Epithelial Cells 1 /hpf Urine Bacteria RARE /hpf Urine Hyaline Casts 6 /lpf Urine Granular Casts 7 /lpf Urine Mucus FEW /lpf Microscopic Urinalysis Comment CULTURE INDICATED Stool C. difficile Toxin (PCR) POSITIVE Stl C. difficile Toxin Epiderm 027 PRESUMPTIVE NEGATIVE Date/Time Source Procedure Growth Status 10/01/17 23:37 Stool Stool Stool Pus (ERVIN) - Final RARE WBC Complete 10/01/17 23:37 Urine Clean Catch Urine Culture Pending Received Physical Examination HEENT: PERRL; normocephalic; atraumatic; no jaundice. CHEST: diminished CARDIAC: RRR ABDOMEN: Soft, nondistended, nontender; no hepatosplenomegaly; bowel sounds are present in all four quadrants.brown stool in colostomy EXTREMITIES: No clubbing, cyanosis, or edema. SKIN: Normal; no rash; no jaundice. STAFFING RECRUITER: No focal deficits; alert and oriented times three. (Wendie Haq) Assessment and Plan Plan ASSESSMENT - blood in colostomy - onset yesterday, none since. HH WNL. likely 2/2 c diff. She is pending a colostomy reversal with Dr Ryan - leukocytosis - mild elevation on admission, likely 2/2 c diff PLAN - continue flagyl - monitor HH - monitor WBC - consider outpt colonoscopy - [facility] pt seen by myself and Dr Avila and this note is on his behalf (Wendie Haq) Physician Comments Seen and examined with saran Granado as above. Will follow up with you, please notify us for active bleeding. Thank you for the consult. (Maria A Avila MD) Wendie Haq Oct 02, 2017 08:57 Maria A Avila MD Oct 02, 2017 11:37
[2017-10-02] MEDS: SODIUM CHLORIDE 0.9% FLUSH 10 ML FLUSH IV FLUSH SCH ×2 (09:00→20:57)
[2017-10-02 10:08] LABS: HEMATOCRIT 35.6 % (35.0-46.0)
[2017-10-02] MEDS: metroNIDAZOLE 500 MG INJ 100 ML IV SCH ×2 (12:02→20:57)
[2017-10-02] MEDS ORDERED: PANTOPRAZOLE SOD 20 MG DELAYED RELEASE TAB PO SCH (14:45)
[2017-10-02] MEDS ORDERED: traMADol HCL 50 MG TAB PO PRN (14:45)
[2017-10-02] MEDS: LEVOTHYROXINE SODIUM 100 MCG TAB PO SCH (15:06)
[2017-10-02] MEDS: predniSONE 10 MG TAB PO SCH (15:06)
[2017-10-02] MEDS: DILTIAZEM HCL 30 MG TAB PO SCH ×2 (15:57→16:58)
[2017-10-02 16:55] LABS: HEMATOCRIT 34.9 % (35.0-46.0); HEMOGLOBIN 11.5 GM/DL (11.6-15.3)
[2017-10-02] MEDS: PANTOPRAZOLE SODIUM 40 MG VIAL IV PUSH SCH (17:00)
--- NOTE | 2017-10-02 17:06 | HHI.HP ---
HPI Service [facility] Primary Care Physician Sarai Cornell D.O. Admission Diagnosis GI Bleed Diagnoses: Travel History International Travel<30 Days: No Contact w/Intl Traveler <30 Da: No Traveled to Known Affected Are: No History of Present Illness 87-year-old female with a history of SVT on last admission, hypothyroidism, colon cancer status post colectomy with colostomy. She is brought into the ER by EMS with acute onset vague, constant epigastric, sharp abdominal pain last night which has resolved about 5 hours ago. She also presented with acute bright red blood per colostomy around 9 PM. This has resolved as well. She denies any chest pain or shortness of breath. She denies any fevers or chills. She does report feeling chronically cold. Patient is due to have a colostomy reversed by Dr. Eugenia Ryan if she can gain some weight and strength. Review of Systems Except as stated in HPI: all other systems reviewed are Neg Past Family Social History Past Medical History Colon cancer with resection and colostomy SVT on last admission.. Not on anticoagulation. GERD Chronic rheumatoid arthritis Hypothyroidism Past Surgical History Cataract surgery Hysterectomy Left hip and knee replacement Tonsillectomy Right breast lumpectomy Partial colectomy Reported Medications Reported Meds & Active Scripts Active Cardizem (Diltiazem HCl) 30 Mg Tab 30 Mg PO Q6HR 30 Days Eq Acetaminophen (Acetaminophen) 325 Mg Tab 650 Mg PO Q6H PRN 30 Days Ultram (Tramadol HCl) 50 Mg Tab 50 Mg PO Q8H PRN Reported Methotrexate 2.5 Mg Tab 2.5 Mg PO EVERY SUNDAY Culturelle (Lactobacillus Rhamnosus (GG)) 10 Billion Cell Cap 1 Cap PO DAILY Omeprazole 20 Mg Tab 20 Mg PO DAILY Calcium Carbonate (Antacid) 500 Mg Chew 500 Mg CHEW Q6HR PRN Metoclopramide (Metoclopramide HCl) 10 Mg Tab 10 Mg PO BID Megace ES Liq (Megestrol ES Liq) 625 Mg/5 Ml Susp 400 Mg PO BID B-12 (Cyanocobalamin) 1,000 Mcg Subl 1,000 Mcg PO DAILY Vitamin D3 (Cholecalciferol) 1,000 Unit Tab 1,000 Units PO DAILY Montelukast (Montelukast Sodium) 10 Mg Tab 10 Mg PO HS Prednisone 10 Mg Tab 10 Mg PO DAILY Levothyroxine (Levothyroxine Sodium) 125 Mcg Tab 100 Mcg PO DAILY Allergies: Coded Allergies: Sulfa (Sulfonamide Antibiotics) (Unverified Allergy, Severe, SWELLING, DIFFICULTY BREATHING, 10/01/17) celecoxib (Unverified Allergy, Severe, 10/01/17) PT IS UNABLE TO RECALL REACTION. penicillin G (Unverified Allergy, Severe, Swelling, 10/01/17) PT REPORTS REACTION WAS 50 YEARS AGO, AND IS UNABLE TO RECALL DETAILS. Uncoded Allergies: TAPE ADHESIVE/ PAPER TAPE OK (Allergy, Severe, BLISTERS, 05/01/06) Family History Reviewed with the patient and found to be currently noncontributory. Social History Non-smoker. Nondrinker. Denies illicit drugs. Physical Exam Vital Signs Vital Signs Date Time Temp Pulse Resp B/P (MAP) Pulse Ox O2 Delivery O2 Flow Rate FiO2 10/02/17 15:00 82 14 114/60 (78) 98 Room Air 10/02/17 13:00 78 16 114/60 (78) 98 Room Air 10/02/17 11:00 89 20 133/61 (85) 98 Room Air 10/02/17 09:00 85 16 121/63 (82) 97 Room Air 10/02/17 07:00 94 20 119/67 (84) 98 Room Air 10/01/17 23:10 80 18 118/71 (87) 96 Room Air 10/01/17 21:42 98.0 79 16 145/65 (91) 97 Physical Exam GENERAL: This is a well-nourished, well-developed patient, in no apparent distress. Alert and oriented 4. SKIN: No rashes, ecchymoses or lesions. Cool and dry. HEAD: Atraumatic. Normocephalic. No temporal or scalp tenderness. EYES: Pupils equal round and reactive. Extraocular motions intact. No scleral icterus. No injection or drainage. ENT: Nose without bleeding, purulent drainage or septal hematoma. Throat without erythema, tonsillar hypertrophy or exudate. Uvula midline. Airway patent. NECK: Trachea midline. No JVD or lymphadenopathy. Supple, nontender, no meningeal signs. CARDIOVASCULAR: Regular rate and rhythm without murmurs, gallops, or rubs. RESPIRATORY: Clear to auscultation. Breath sounds equal bilaterally. No wheezes , rales, or rhonchi. GASTROINTESTINAL: Abdomen soft, non-tender, nondistended. Colostomy at midline. No surrounding erythema. No blood in stool. MUSCULOSKELETAL: Extremities without clubbing, cyanosis, or edema. No joint tenderness, effusion, or edema noted. No calf tenderness. Negative Homans sign bilaterally. NEUROLOGICAL: Awake and alert. Cranial nerves II through XII intact. Motor and sensory grossly within normal limits. Five out of 5 muscle strength in all muscle groups. Normal speech. Laboratory Laboratory Tests Test 10/01/17 23:10 10/01/17 23:37 10/02/17 04:40 10/02/17 09:30 White Blood Count 12.5 Red Blood Count 4.44 Hemoglobin 13.7 13.0 12.0 Hematocrit 41.6 39.4 35.6 Mean Corpuscular Volume 93.6 Mean Corpuscular Hemoglobin 30.8 Mean Corpuscular Hemoglobin Concent 32.9 Red Cell Distribution Width 19.0 Platelet Count 276 Mean Platelet Volume 8.2 Neutrophils (%) (Auto) 82.1 Lymphocytes (%) (Auto) 7.6 Monocytes (%) (Auto) 8.3 Eosinophils (%) (Auto) 1.7 Basophils (%) (Auto) 0.3 Neutrophils # (Auto) 10.3 Lymphocytes # (Auto) 1.0 Monocytes # (Auto) 1.0 Eosinophils # (Auto) 0.2 Basophils # (Auto) 0.0 CBC Comment AUTO DIFF Differential Total Cells Counted 100 Neutrophils % (Manual) 80 Band Neutrophils % 1 Lymphocytes % 7 Monocytes % 7 Neutrophils # (Manual) 10.8 Metamyelocytes 3 Promyelocytes 2 Differential Comment FINAL DIFF MANUAL Platelet Estimate NORMAL Platelet Morphology Comment NORMAL Ovalocytes 1+ Prothrombin Time 9.9 Prothromb Time International Ratio 1.0 Activated Partial Thromboplast Time 20.7 Blood Urea Nitrogen 29 Creatinine 1.19 Random Glucose 135 Total Protein 6.5 Albumin 2.7 Calcium Level 8.5 Alkaline Phosphatase 45 Aspartate Amino Transf (AST/SGOT) 15 Alanine Aminotransferase (ALT/SGPT) 43 Total Bilirubin 0.2 Sodium Level 140 Potassium Level 4.6 Chloride Level 112 Carbon Dioxide Level 21.5 Anion Gap 7 Estimat Glomerular Filtration Rate 43 Total Creatine Kinase 20 Troponin I LESS THAN 0.02 B-Type Natriuretic Peptide 14 Lipase 287 Urine Color YELLOW Urine Turbidity HAZY Urine pH 5.5 Urine Specific [place] 1.017 Urine Protein TRACE Urine Glucose (UA) NEG Urine Ketones NEG Urine Occult Blood TRACE Urine Nitrite NEG Urine Bilirubin NEG Urine Urobilinogen LESS THAN 2.0 Urine Leukocyte Esterase LARGE Urine RBC 2 Urine WBC 58 Urine WBC Clumps MOD Urine Squamous Epithelial Cells 2 Urine Renal Epithelial Cells 1 Urine Bacteria RARE Urine Hyaline Casts 6 Urine Granular Casts 7 Urine Mucus FEW Microscopic Urinalysis Comment CULTURE INDICATED Stool C. difficile Toxin (PCR) POSITIVE Stl C. difficile Toxin Epiderm 027 PRESUMPTIVE NEGATIVE Test 10/02/17 16:09 Hemoglobin 11.5 Hematocrit 34.9 Date/Time Source Procedure Growth Status 10/01/17 23:37 Stool Stool Stool Pus (ERVIN) - Final RARE WBC Complete 10/01/17 23:37 Urine Clean Catch Urine Culture - Preliminary IMMATURE GROWTH - REINCUBATE Resulted Result Diagram: 10/02/17 1609 10/01/17 2310 Imaging Last Impressions Abdomen/Pelvis CT 10/02/17 0023 Signed Impressions: Service Date/Time: Monday, October 02, 2017 02:05 - CONCLUSION: 1. There is a 1.6 cm structure in the left upper quadrant that is isodense to the mesenteric venous structures and appears to arise from a branch of the superior mesenteric vein. 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 2. No other acute finding is identified. Nonacute findings include moderate atherosclerotic disease and small hiatal hernia. Nilesh Ramires MD Chest X-Ray 10/01/17 5567 Signed Impressions: Service Date/Time: Sunday, October 01, 2017 22:08 - CONCLUSION: The lungs are clear. Caesar Osborn MD Capcristiani VTE Risk Assessment Caprini VTE Risk Assessment: Mod/High Risk (score >= 2) VTE Pharm Contraindication: High risk for bleeding Caprini Risk Assessment Model Point Value = 1 Point Value = 2 Point Value = 3 Point Value = 5 Age 41-60 Minor surgery BMI > 25 kg/m2 Swollen legs Varicose veins or History of unexplained or recurrent spontaneous Oral contraceptives or hormone replacement Sepsis (< 1 month) Serious lung disease, including pneumonia (< 1 month) Abnormal pulmonary function Acute myocardial infarction Congestive heart failure (< 1 month) History of inflammatory bowel disease Medical patient at bed rest Age 61-74 Arthroscopic surgery Major open surgery (> 45 min) Laparoscopic surgery (> 45 min) Malignancy Confined to bed (> 72 hours) Immobilizing plaster cast Central venous access Age >= 75 History of VTE Family history of VTE Factor V Leiden Prothrombin [id number] Lupus anticoagulant Anticardiolipin antibodies Elevated serum homocysteine Heparin-induced thrombocytopenia Other congenital or acquired thrombophilia Stroke (< 1 month) Elective arthroplasty Hip, pelvis, or leg fracture Acute spinal cord injury (< 1 month) Prophylaxis Regimen Total Risk Factor Score Risk Level Prophylaxis Regimen 0-1 Low Early ambulation 2 Moderate Order ONE of the following: *Sequential Compression Device (SCD) *Heparin 5000 units SQ BID 3-4 Higher Order ONE of the following medications: *Heparin 5000 units SQ TID *Enoxaparin/Lovenox 40 mg SQ daily (WT < 150 kg, CrCl > 30 mL/min) *Enoxaparin/Lovenox 30 mg SQ daily (WT < 150 kg, CrCl > 10-29 mL/min) *Enoxaparin/Lovenox 30 mg SQ BID (WT < 150 kg, CrCl > 30 mL/min) AND/OR *Sequential Compression Device (SCD) 5 or more Highest Order ONE of the following medications: *Heparin 5000 units SQ TID (Preferred with Epidurals) *Enoxaparin/Lovenox 40 mg SQ daily (WT < 150 kg, CrCl > 30 mL/min) *Enoxaparin/Lovenox 30 mg SQ daily (WT < 150 kg, CrCl > 10-29 mL/min) *Enoxaparin/Lovenox 30 mg SQ BID (WT < 150 kg, CrCl > 30 mL/min) AND *Sequential Compression Device (SCD) Assessment and Plan Assessment and Plan //C. difficile colitis = Gastroenterology following. Continue metronidazole. Appreciate GI assistance. 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 Hemoglobin stable at 12.0. Continue to monitor. = GI following. Appreciate assistance. //Possible UTI. 56 white blood cells on urinalysis. Continue ceftriaxone. Follow-up cultures and sensitivities. //History of SVT. Continue diltiazem. Patient is not on anticoagulation. //Chronic prednisone use. Continue prednisone //Chronic malnutrition. Continue Megace. //Chronic hypothyroidism. Continue levothyroxine. Recently with very low TSH. Recheck TSH. //Chronic arthritis. Hold methotrexate while in the hospital Discussed Condition With Patient, nurse Physician Certification 2 Midnight Certification Type: Admission for Inpatient Services Order for Inpatient Services The services are ordered in accordance with Medicare regulations or non- Medicare payer requirements, as applicable. In the case of services not specified as inpatient-only, they are appropriately provided as inpatient services in accordance with the 2-midnight benchmark. Estimated LOS (days): 2 days is the estimated time the patient will need to remain in the hospital, assuming treatment plan goals are met and no additional complications. Post-Hospital Plan: Not yet determined Fabio Galarza MD Oct 02, 2017 17:06
[2017-10-02] MEDS: MEGESTROL ACETATE SUSP 400 MG/10 ML CUP PO SCH (20:56)
[2017-10-02] MEDS: MONTELUKAST SODIUM 10 MG TAB PO SCH (20:57)
[2017-10-03] VITALS: BP 131/64; PULSE 77; RESP 16; TEMP 96.8; O2SAT 93
[2017-10-03] MEDS: DILTIAZEM HCL 30 MG TAB PO SCH ×4 (00:16→18:05)
[2017-10-03] MEDS: metroNIDAZOLE 500 MG INJ 100 ML IV SCH ×3 (02:35→20:33)
[2017-10-03] MEDS: cefTRIAXone INJ 1,000 MG in SODIUM CHLORIDE 0.9% INJ 100 ML IV SCH (02:35)
[2017-10-03] MEDS: LEVOTHYROXINE SODIUM 100 MCG TAB PO SCH (04:18)
[2017-10-03 07:19] LABS: AUTOMATED NEUTROPHIL # 8.7 TH/MM3 (1.8-7.7); BASOPHIL % 0.3 % (0.0-2.0); EOSINOPHIL % 0.4 % (0.0-4.0); HEMATOCRIT 35.1 % (35.0-46.0); HEMOGLOBIN 11.8 GM/DL (11.6-15.3); LYMPH % 5.2 % (9.0-44.0); LYMPHOCYTE # 0.5 TH/MM3 (1.0-4.8); MEAN CELL VOLUME 93.7 FL (80.0-100.0); MEAN CORPUSCULAR HEMOGLOBIN 31.4 PG (27.0-34.0); MEAN CORPUSCULAR HGB CONC 33.5 % (32.0-36.0); MEAN PLATELET VOLUME 8.1 FL (7.0-11.0); MONO % 6.1 % (0.0-8.0); MONOCYTE # 0.6 TH/MM3 (0-0.9); PLATELET COUNT 225 TH/MM3 (150-450); RED BLOOD COUNT 3.74 MIL/MM3 (4.00-5.30); RED CELL DISTRIBUTION WIDTH 18.7 % (11.6-17.2); WHITE BLOOD COUNT 9.9 TH/MM3 (4.0-11.0)
[2017-10-03 07:43] LABS: BICARBONATE 18.4 MEQ/L (21.0-32.0); CALCIUM 7.1 MG/DL (8.5-10.1); CREATININE 0.58 MG/DL (0.50-1.00)
[2017-10-03 07:56] LABS: TOTAL PROTEIN 5.4 GM/DL (6.4-8.2)
[2017-10-03 08:00] VITALS: BP 119/67; PULSE 75; RESP 18; TEMP 97.6; O2SAT 93
[2017-10-03 08:08] LABS: BANDS 1 % (0-6); LYMPHOCYTES 3 % (9-44); MONOCYTES 3 % (0-8); MYELOCYTES 3 % (0-0); NEUTROPHIL # MANUAL DIFF 9.3 TH/MM3 (1.8-7.7); POLYS (SEG NEUTROPHILS) 90 % (16-70)
[2017-10-03 08:09] LABS: KERATOCYTES OCC (NORMAL)
[2017-10-03] MEDS: SODIUM CHLORIDE 0.9% FLUSH 10 ML FLUSH IV FLUSH SCH ×2 (08:43→20:33)
[2017-10-03] MEDS: MEGESTROL ACETATE SUSP 400 MG/10 ML CUP PO SCH ×2 (08:43→20:34)
[2017-10-03] MEDS: PANTOPRAZOLE SODIUM 40 MG VIAL IV PUSH SCH ×2 (08:43→20:34)
[2017-10-03] MEDS: predniSONE 10 MG TAB PO SCH (08:43)
[2017-10-03] MEDS: SODIUM CHLOR 0.9% 1000 ML INJ 1,000 ML IV SCH ×2 (08:44→20:34)
[2017-10-03 12:00] VITALS: BP 126/60; PULSE 73; RESP 19; TEMP 96.1; O2SAT 93
--- NOTE | 2017-10-03 12:26 | HHI.PR ---
Subjective Remarks Follow-up C. difficile enteritis/Lower GI bleeding 10/03/17-patient seen and examined, currently no blood in colostomy. Pleasant and alert and oriented x 3. Afebrile Objective Vitals Vital Signs Date Time Temp Pulse Resp B/P (MAP) Pulse Ox O2 Delivery O2 Flow Rate FiO2 10/03/17 08:00 97.6 75 18 119/67 (84) 93 10/03/17 00:00 96.8 77 16 131/64 (86) 93 10/02/17 20:00 96.9 78 16 121/60 (80) 92 10/02/17 19:30 10/02/17 19:12 69 18 124/63 (83) 97 Room Air 10/02/17 17:00 76 14 118/58 (78) 97 Room Air 10/02/17 15:00 82 14 114/60 (78) 98 Room Air 10/02/17 13:00 78 16 114/60 (78) 98 Room Air I/O 10/02/17 10/02/17 10/02/17 10/03/17 10/03/17 10/03/17 07:00 15:00 23:00 07:00 15:00 23:00 Intake Total 135 ml 220 ml 100 ml Output Total 350 ml Balance 135 ml 220 ml -350 ml 100 ml Intake IV Total 135 ml 220 ml 100 ml Output Stool Total 350 ml # Voids 2 # Bowel Movements 1 Result Diagram: 10/03/17 0611 10/03/17 0611 Imaging Last Impressions Abdomen/Pelvis CT 10/02/17 0023 Signed Impressions: Service Date/Time: Monday, October 02, 2017 02:05 - CONCLUSION: 1. There is a 1.6 cm structure in the left upper quadrant that is isodense to the mesenteric venous structures and appears to arise from a branch of the superior mesenteric vein. 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 2. No other acute finding is identified. Nonacute findings include moderate atherosclerotic disease and small hiatal hernia. Nilesh Ramires MD Chest X-Ray 10/01/17 7521 Signed Impressions: Service Date/Time: Sunday, October 01, 2017 22:08 - CONCLUSION: The lungs are clear. Caesar Osborn MD Objective Remarks GENERAL: NAD SKIN: Warm and dry. HEAD: Normocephalic. EYES: No scleral icterus. No injection or drainage. NECK: Supple, trachea midline. No JVD or lymphadenopathy. CARDIOVASCULAR:Irreg Regular rate and rhythm without murmurs, gallops, or rubs. RESPIRATORY: Breath sounds equal bilaterally. No accessory muscle use. GASTROINTESTINAL: Abdomen soft, non-tender, nondistended. colostomy in place with no visible gross blood MUSCULOSKELETAL: No cyanosis, or edema. BACK: Nontender without obvious deformity. No CVA tenderness. A/P Problem List: (1) GI bleed ICD Code: K92.2 - Gastrointestinal hemorrhage, unspecified Status: Acute (2) C. difficile diarrhea ICD Code: A04.72 - Enterocolitis due to Clostridium difficile, not specified as recurrent Status: Acute Assessment and Plan 87 years old female with 1-C. difficile colitis Currently on metronidazole. Appreciate GI assistance. 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 D/c ceftriaxone as urine culture negative History of SVT. Continue diltiazem. Patient is not on anticoagulation. Chronic prednisone use. Continue prednisone Chronic malnutrition. Continue Megace. Chronic hypothyroidism. Continue levothyroxine. Recently with very low TSH. Recheck TSH. Chronic arthritis. Hold methotrexate while in the hospital Problem Qualifiers (1) GI bleed: Qualified Codes: K92.2 - Gastrointestinal hemorrhage, unspecified Jacques Mendoza MD Oct 03, 2017 12:26
--- NOTE | 2017-10-03 15:53 | HHI.GIFU ---
Subjective Remarks Pt resting in bed. c/o that I turned her TV volume down. Mild abd tenderness. Tolerating diet. NO blood in colostomy. (Wendie Haq) Objective Vitals I&O Vital Signs Date Time Temp Pulse Resp B/P (MAP) Pulse Ox O2 Delivery O2 Flow Rate FiO2 10/03/17 12:00 96.1 73 19 126/60 (82) 93 10/03/17 08:00 97.6 75 18 119/67 (84) 93 10/03/17 00:00 96.8 77 16 131/64 (86) 93 10/02/17 20:00 96.9 78 16 121/60 (80) 92 10/02/17 19:30 10/02/17 19:12 69 18 124/63 (83) 97 Room Air 10/02/17 17:00 76 14 118/58 (78) 97 Room Air I/O 10/02/17 10/02/17 10/02/17 10/03/17 10/03/17 10/03/17 07:00 15:00 23:00 07:00 15:00 23:00 Intake Total 135 ml 220 ml 100 ml Output Total 350 ml Balance 135 ml 220 ml -350 ml 100 ml Intake IV Total 135 ml 220 ml 100 ml Output Stool Total 350 ml # Voids 2 # Bowel Movements 1 Laboratory Laboratory Tests Test 10/02/17 16:09 10/02/17 22:41 10/03/17 06:11 Hemoglobin 11.5 12.0 11.8 Hematocrit 34.9 36.0 35.1 White Blood Count 9.9 Red Blood Count 3.74 Mean Corpuscular Volume 93.7 Mean Corpuscular Hemoglobin 31.4 Mean Corpuscular Hemoglobin Concent 33.5 Red Cell Distribution Width 18.7 Platelet Count 225 Mean Platelet Volume 8.1 Neutrophils (%) (Auto) 88.0 Lymphocytes (%) (Auto) 5.2 Monocytes (%) (Auto) 6.1 Eosinophils (%) (Auto) 0.4 Basophils (%) (Auto) 0.3 Neutrophils # (Auto) 8.7 Lymphocytes # (Auto) 0.5 Monocytes # (Auto) 0.6 Eosinophils # (Auto) 0.0 Basophils # (Auto) 0.0 CBC Comment AUTO DIFF Differential Total Cells Counted 100 Neutrophils % (Manual) 90 Band Neutrophils % 1 Lymphocytes % 3 Monocytes % 3 Neutrophils # (Manual) 9.3 Myelocytes 3 Differential Comment FINAL DIFF MANUAL Platelet Estimate NORMAL Platelet Morphology Comment NORMAL Keratocytes OCC Blood Urea Nitrogen 18 Creatinine 0.58 Random Glucose 81 Total Protein 5.4 Calcium Level 7.1 Sodium Level 144 Potassium Level 3.7 Chloride Level 114 Carbon Dioxide Level 18.4 Anion Gap 12 Estimat Glomerular Filtration Rate 98 Protein Corrected Calcium 8.0 Thyroid Stimulating Hormone 3rd Gen 0.054 Date/Time Source Procedure Growth Status 10/01/17 23:37 Stool Stool Stool Pus (ERVIN) - Final RARE WBC Complete 10/01/17 23:37 Urine Clean Catch Urine Culture - Final 10-50,000 CFU/ML MIXED GRAM POSITIVE ... Complete Imaging Last Impressions Abdomen/Pelvis CT 10/02/17 0023 Signed Impressions: Service Date/Time: Monday, October 02, 2017 02:05 - CONCLUSION: 1. There is a 1.6 cm structure in the left upper quadrant that is isodense to the mesenteric venous structures and appears to arise from a branch of the superior mesenteric vein. 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 2. No other acute finding is identified. Nonacute findings include moderate atherosclerotic disease and small hiatal hernia. Nilesh Ramires MD Chest X-Ray 10/01/172 Signed Impressions: Service Date/Time: Sunday, October 01, 2017 22:08 - CONCLUSION: The lungs are clear. Caesar Osborn MD Physical Exam HEENT: PERRL; normocephalic; atraumatic; no jaundice. CHEST: CTA CARDIAC: RRR ABDOMEN: Soft, nondistended, mild diffuse TTP; no hepatosplenomegaly; bowel sounds are present in all four quadrants. soft green and brown stool colostomy EXTREMITIES: No clubbing, cyanosis, or edema. SKIN: Normal; no rash; no jaundice. HEALTH DATA ADMINISTRATOR: alert (Wendie Haq [employer]) Assessment and Plan Plan ASSESSMENT - blood in colostomy - onset yesterday, none since. HH WNL. likely 2/2 c diff. She is pending a colostomy reversal with Dr Ryan - leukocytosis - mild elevation on admission, likely 2/2 c diff 10/03/17 WBC trending down. no blood colostomy. HH WNL. PLAN - continue flagyl - monitor HH - monitor WBC - outpt colonoscopy - notify GI of active bleeding - TERZEA - GI will sign. please reconsult if needed pt seen by myself and Dr Avila and this note is on his behalf (Wendie Haq) Physician Comments As above, no bleeding since admission. Please notify us if needed again. (Maria A Avila MD) Wendie Haq Oct 03, 2017 15:53 Maria A Avila MD Oct 04, 2017 07:01
[2017-10-03 16:00] VITALS: BP 134/67; PULSE 83; RESP 17; TEMP 96.6; O2SAT 94
[2017-10-03 20:00] VITALS: BP 118/59; PULSE 72; RESP 18; TEMP 96.3; O2SAT 93
[2017-10-03] MEDS: MONTELUKAST SODIUM 10 MG TAB PO SCH (20:34)
[2017-10-04] VITALS: BP 115/60; PULSE 64; RESP 20; TEMP 97.2; O2SAT 93
[2017-10-04] MEDS: DILTIAZEM HCL 30 MG TAB PO SCH ×3 (00:33→13:03)
[2017-10-04] MEDS: metroNIDAZOLE 500 MG INJ 100 ML IV SCH ×2 (02:45→13:03)
[2017-10-04] MEDS: cefTRIAXone INJ 1,000 MG in SODIUM CHLORIDE 0.9% INJ 100 ML IV SCH (02:45)
[2017-10-04] MEDS: LEVOTHYROXINE SODIUM 100 MCG TAB PO SCH (04:57)
[2017-10-04 08:00] VITALS: BP 111/57; PULSE 61; RESP 16; TEMP 96.7; O2SAT 94
[2017-10-04] MEDS: PANTOPRAZOLE SODIUM 40 MG VIAL IV PUSH SCH (09:44)
[2017-10-04] MEDS: SODIUM CHLORIDE 0.9% FLUSH 10 ML FLUSH IV FLUSH SCH (09:44)
[2017-10-04] MEDS: predniSONE 10 MG TAB PO SCH (09:44)
[2017-10-04] MEDS: MEGESTROL ACETATE SUSP 400 MG/10 ML CUP PO SCH (09:44)
[2017-10-04] MEDS ORDERED: TRAM50 PO (10:43)
[2017-10-04] MEDS ORDERED: METR-1 PO (10:43)
[2017-10-04 12:00] VITALS: BP 128/59; PULSE 61; RESP 17; TEMP 97.3; O2SAT 95
--- NOTE | 2017-10-04 12:10 | HHI.PR ---
Subjective Remarks Follow-up C. difficile enteritis/Lower GI bleeding 10/03/17-patient seen and examined, currently no blood in colostomy. Pleasant and alert and oriented x 3. Afebrile 10/04/17-patient seen and examined, states she can eat a bigger portion.would like to stay one more day. NO bleeding in colostomy Objective Vitals Vital Signs Date Time Temp Pulse Resp B/P (MAP) Pulse Ox O2 Delivery O2 Flow Rate FiO2 10/04/17 08:00 96.7 61 16 111/57 (75) 94 10/04/17 00:00 97.2 64 20 115/60 (78) 93 10/03/17 20:00 96.3 72 18 118/59 (78) 93 10/03/17 16:00 96.6 83 17 134/67 (89) 94 I/O 10/03/17 10/03/17 10/03/17 10/04/17 10/04/17 10/04/17 06:59 14:59 22:59 06:59 14:59 22:59 Intake Total 100 ml 580 ml 340 ml Output Total 350 ml 475 ml 400 ml Balance -350 ml 100 ml 105 ml -60 ml Intake Oral 480 ml 240 ml IV Total 100 ml 100 ml 100 ml Output Urine Total 400 ml Stool Total 350 ml 475 ml # Voids 2 3 3 Result Diagram: 10/03/17 0611 10/03/17 0611 Imaging Last Impressions Abdomen/Pelvis CT 10/02/17 0023 Signed Impressions: Service Date/Time: Monday, October 02, 2017 02:05 - CONCLUSION: 1. There is a 1.6 cm structure in the left upper quadrant that is isodense to the mesenteric venous structures and appears to arise from a branch of the superior mesenteric vein. 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 2. No other acute finding is identified. Nonacute findings include moderate atherosclerotic disease and small hiatal hernia. Nilesh Ramires MD Chest X-Ray 10/01/17 [id number] Signed Impressions: Service Date/Time: Sunday, October 01, 2017 22:08 - CONCLUSION: The lungs are clear. Caesar Osborn MD Objective Remarks GENERAL: NAD SKIN: Warm and dry. HEAD: Normocephalic. EYES: No scleral icterus. No injection or drainage. NECK: Supple, trachea midline. No JVD or lymphadenopathy. CARDIOVASCULAR:Irreg Regular rate and rhythm without murmurs, gallops, or rubs. RESPIRATORY: Breath sounds equal bilaterally. No accessory muscle use. GASTROINTESTINAL: Abdomen soft, non-tender, nondistended. colostomy in place with no visible gross blood MUSCULOSKELETAL: No cyanosis, or edema. BACK: Nontender without obvious deformity. No CVA tenderness. Procedures None A/P Problem List: (1) GI bleed ICD Code: K92.2 - Gastrointestinal hemorrhage, unspecified Status: Acute (2) C. difficile diarrhea ICD Code: A04.72 - Enterocolitis due to Clostridium difficile, not specified as recurrent Status: Acute Assessment and Plan 87 years old female with 1-C. difficile colitis-Improving Currently on metronidazole. Appreciate GI assistance. 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 D/c ceftriaxone as urine culture negative History of SVT. Continue diltiazem. Patient is not on anticoagulation. Chronic prednisone use. Continue prednisone Chronic malnutrition. Continue Megace. Chronic hypothyroidism. Continue levothyroxine. Recently with very low TSH. Recheck TSH in 4-6 weeks. Chronic arthritis. Hold methotrexate while in the hospital Problem Qualifiers (1) GI bleed: Qualified Codes: K92.2 - Gastrointestinal hemorrhage, unspecified Jacques Mendoza MD Oct 04, 2017 12:09
--- NOTE | 2017-10-04 12:14 | HHI.DS ---
Discharge Summary Admission Date Oct 02, 2017 at 02:58 Discharge Date: Oct 04, 2017 Admitting Diagnosis GI Bleed (1) GI bleed ICD Code: K92.2 - Gastrointestinal hemorrhage, unspecified Status: Acute (2) C. difficile diarrhea ICD Code: A04.72 - Enterocolitis due to Clostridium difficile, not specified as recurrent Status: Acute Procedures None Brief History - From Admission 87-year-old female with a history of SVT on last admission, hypothyroidism, colon cancer status post colectomy with colostomy. She is brought into the ER by EMS with acute onset vague, constant epigastric, sharp abdominal pain last night which has resolved about 5 hours ago. She also presented with acute bright red blood per colostomy around 9 PM. This has resolved as well. She denies any chest pain or shortness of breath. She denies any fevers or chills. She does report feeling chronically cold. Patient is due to have a colostomy reversed by Dr. Eugenia Ryan if she can gain some weight and strength. CBC/BMP: 10/03/17 0611 10/03/17 0611 Significant Findings Laboratory Tests Test 10/01/17 23:10 10/01/17 23:37 10/02/17 04:40 10/02/17 09:30 White Blood Count 12.5 TH/MM3 (4.0-11.0) Red Cell Distribution Width 19.0 % (11.6-17.2) Neutrophils (%) (Auto) 82.1 % (16.0-70.0) Lymphocytes (%) (Auto) 7.6 % (9.0-44.0) Monocytes (%) (Auto) 8.3 % (0.0-8.0) Neutrophils # (Auto) 10.3 TH/MM3 (1.8-7.7) Monocytes # (Auto) 1.0 TH/MM3 (0-0.9) Neutrophils % (Manual) 80 % (16-70) Lymphocytes % 7 % (9-44) Neutrophils # (Manual) 10.8 TH/MM3 (1.8-7.7) Metamyelocytes 3 % (0-1) Promyelocytes 2 % (0-0) Ovalocytes 1+ (NORMAL) Activated Partial Thromboplast Time 20.7 SEC (24.3-30.1) Blood Urea Nitrogen 29 MG/DL (7-18) Creatinine 1.19 MG/DL (0.50-1.00) Random Glucose 135 MG/DL (74-106) Albumin 2.7 GM/DL (3.4-5.0) Chloride Level 112 MEQ/L (98-107) Estimat Glomerular Filtration Rate 43 ML/MIN (>89) Total Creatine Kinase 20 U/L (26-192) Troponin I LESS THAN 0.02 NG/ML Urine Turbidity HAZY (CLEAR) Urine Occult Blood TRACE (NEG) Urine Leukocyte Esterase LARGE (NEG) Urine WBC 58 /hpf (0-5) Urine WBC Clumps MOD (NONE) Urine Bacteria RARE /hpf (NONE) Urine Mucus FEW /lpf (OCC) Stool C. difficile Toxin (PCR) POSITIVE (NEGATIVE) Test 10/02/17 16:09 10/02/17 22:41 10/03/17 06:11 Hemoglobin 11.5 GM/DL (11.6-15.3) Hematocrit 34.9 % (35.0-46.0) Red Blood Count 3.74 MIL/MM3 (4.00-5.30) Red Cell Distribution Width 18.7 % (11.6-17.2) Neutrophils (%) (Auto) 88.0 % (16.0-70.0) Lymphocytes (%) (Auto) 5.2 % (9.0-44.0) Neutrophils # (Auto) 8.7 TH/MM3 (1.8-7.7) Lymphocytes # (Auto) 0.5 TH/MM3 (1.0-4.8) Neutrophils % (Manual) 90 % (16-70) Lymphocytes % 3 % (9-44) Neutrophils # (Manual) 9.3 TH/MM3 (1.8-7.7) Myelocytes 3 % (0-0) Keratocytes OCC (NORMAL) Total Protein 5.4 GM/DL (6.4-8.2) Calcium Level 7.1 MG/DL (8.5-10.1) Chloride Level 114 MEQ/L (98-107) Carbon Dioxide Level 18.4 MEQ/L (21.0-32.0) Protein Corrected Calcium 8.0 MG/DL (8.5-10.1) Thyroid Stimulating Hormone 3rd Gen 0.054 uIU/ML (0.358-3.740) Imaging Last Impressions Abdomen/Pelvis CT 10/02/17 0023 Signed Impressions: Service Date/Time: Monday, October 02, 2017 02:05 - CONCLUSION: 1. There is a 1.6 cm structure in the left upper quadrant that is isodense to the mesenteric venous structures and appears to arise from a branch of the superior mesenteric vein. 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 2. No other acute finding is identified. Nonacute findings include moderate atherosclerotic disease and small hiatal hernia. Nilesh Ramires MD Chest X-Ray 10/01/17 8214 Signed Impressions: Service Date/Time: Sunday, October 01, 2017 22:08 - CONCLUSION: The lungs are clear. Caesar Osborn MD PE at Discharge GENERAL: NAD SKIN: Warm and dry. HEAD: Normocephalic. EYES: No scleral icterus. No injection or drainage. NECK: Supple, trachea midline. No JVD or lymphadenopathy. CARDIOVASCULAR:Irreg Regular rate and rhythm without murmurs, gallops, or rubs. RESPIRATORY: Breath sounds equal bilaterally. No accessory muscle use. GASTROINTESTINAL: Abdomen soft, non-tender, nondistended. colostomy in place with no visible gross blood MUSCULOSKELETAL: No cyanosis, or edema. BACK: Nontender without obvious deformity. No CVA tenderness. Hospital Course While in the hospital, patient was treated for: 1-C. difficile colitis Treated with metronidazole. Appreciate GI assistance. 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 Initially on ceftriaxone however discontinue as urine culture was negative History of SVT. Treated with diltiazem. Patient is not on anticoagulation. Chronic prednisone use. Continue prednisone Chronic malnutrition. Continued on Megace. Chronic hypothyroidism. Continued on levothyroxine. Recently with very low TSH. Recheck TSH in 4-6 weeks. Chronic arthritis. Held methotrexate while she was in the hospital Pt Condition on Discharge: Good Discharge Disposition: Discharge to SNF Discharge Time: > 30 minutes Discharge Instructions DIET: Follow Instructions for: As Tolerated, No Restrictions Activities you can perform: Regular-No Restrictions Follow up Referrals: Gastroenterology - 2 Weeks with Maria A Avila MD PCP Follow-up - 2-3 Days New Medications: Metronidazole (Flagyl) 500 Mg Tab 500 MG PO TID for Infection, #42 TAB 0 Refills Tramadol (Ultram) 50 Mg Tab 50 MG PO Q8H PRN for PAIN, #10 TAB 0 Refills Continued Medications: Acetaminophen (Eq Acetaminophen) 325 Mg Tab 650 MG PO Q6H PRN for PAIN SCALE 1 TO 5 for 30 Days, #240 TAB Calcium Carbonate (Antacid) (Calcium Carbonate (Antacid)) 500 Mg Chew 500 MG CHEW Q6HR PRN for HEARTBURN, TAB 0 Refills Cholecalciferol (Vitamin D3) 1,000 Unit Tab 1000 UNITS PO DAILY for Nutritional Supplement, #1 BOTTLE 0 Refills Cyanocobalamin (B-12) 1,000 Mcg Subl 1000 MCG PO DAILY for Nutritional Supplement, TAB.SL 0 Refills Diltiazem (Cardizem) 30 Mg Tab 30 MG PO Q6HR for HEart for 30 Days, TAB Lactobacillus Rhamnosus (GG) (Culturelle) 10 Billion Cell Cap 1 CAP PO DAILY for Nutritional Supplement, CAP 0 Refills Levothyroxine (Levothyroxine) 125 Mcg Tab 100 MCG PO DAILY for Thyroid, #30 TAB 0 Refills Megestrol ES Liq (Megace ES Liq) 625 Mg/5 Ml Susp 400 MG PO BID for Improve Appetite, #240 ML 0 Refills Methotrexate (Methotrexate) 2.5 Mg Tab 2.5 MG PO every sunday, TAB 0 Refills Metoclopramide (Metoclopramide) 10 Mg Tab 10 MG PO BID, TAB 0 Refills Montelukast (Montelukast) 10 Mg Tab 10 MG PO HS, #30 TAB 0 Refills Omeprazole (Omeprazole) 20 Mg Tab 20 MG PO DAILY, #30 TAB 0 Refills Prednisone (Prednisone) 10 Mg Tab 10 MG PO DAILY, TAB 0 Refills Tramadol (Ultram) 50 Mg Tab 50 MG PO Q8H PRN for PAIN GREATER THAN 5, #20 TAB Jacques Mendoza MD Oct 04, 2017 12:14
== END 2017-10-04 15:14 | DRG 372 ==
LOC: NEPE 21:32 → NEDA 10-02 02:35 → OBSVTOIN 10-02 02:58 → NEDH 10-02 07:11 → N07A 10-02 19:35
PROVIDERS: ADMIT Hospitalist; ATTEND Hospitalist
DX: A04.72 Enterocolitis due to Clostridium difficile, not specified as recurrent (principal); K92.2 Gastrointestinal hemorrhage, unspecified; E46 Unspecified protein-calorie malnutrition; I72.8 Aneurysm of other specified arteries; N39.0 Urinary tract infection, site not specified; I48.91 Unspecified atrial fibrillation; I47.1 Supraventricular tachycardia; I10 Essential (primary) hypertension; E03.9 Hypothyroidism, unspecified; M10.9 Gout, unspecified; K21.9 Gastro-esophageal reflux disease without esophagitis; M06.9 Rheumatoid arthritis, unspecified; M19.90 Unspecified osteoarthritis, unspecified site; M54.9 Dorsalgia, unspecified; Z96.659 Presence of unspecified artificial knee joint; Z96.642 Presence of left artificial hip joint; Z90.49 Acquired absence of other specified parts of digestive tract; Z85.038 Personal history of other malignant neoplasm of large intestine; Z93.3 Colostomy status; Z79.52 Long term (current) use of systemic steroids
CPT/HCPCS: 71045; 74177; 80048; 80053; 81001; 82550; 83690; 83880; 84155; 84443; 84484; 85007; 85014; 85018; 85027; 85610; 85730; 86850; 86900; 86901; 86920; 87086; 87205; 87493; 87506; 96365; 99285; C9113; J0696; J7030; J7512; P9612; Q9967

== ENCOUNTER 2017-10-15 10:52 | Inpatient (IN) | payer MEDICARE ==
[2017-10-15] VITALS (7 sets, daily range): BP systolic 123–153; BP diastolic 72–77; PULSE 79–98; RESP 8–19; TEMP 97.6–98; O2SAT 96–97
[~2017-10-15] VITALS: Ht 149.9 cm; Wt 58.1 kg
[~2017-10-15 10:52] MED LIST changes: -CIPR250T52 PO; +CULT10CA4 PO; +FLOR250C PO; -MEGASUS2 PO; -MULT1TAB46 PO; +OMEP20TA93 PO; -PANT40TA3 PO; -PROSTAB PO
[2017-10-15] MEDS ORDERED: DEXT 5%-NACL 0.9% 1000 ML INJ 1,000 ML IV SCH (12:00)
[2017-10-15] MEDS ORDERED: PROPOFOL 200 MG/20 ML AMP IV ONE (12:00)
[2017-10-15] MEDS ORDERED: GLYCOPYRROLATE 1 MG/5 ML SYRINGE IV PUSH ONE (12:00)
[2017-10-15] MEDS ORDERED: ONDANSETRON HCL 4 MG/2 ML VIAL IV PUSH ONE (12:00)
[2017-10-15] MEDS ORDERED: LIDOCAINE HCL 1% PF 5 ML SYRINGE OTHER ONE (12:00)
[2017-10-15] MEDS ORDERED: PHENYLEPH/NS 1000 MCG/10 ML SYR IV ONE (12:00)
[2017-10-15] MEDS ORDERED: ROCURONIUM INJ 50 MG/5 ML SYRINGE IV PUSH ONE (12:00)
[2017-10-15] MEDS ORDERED: ceFAZolin 2 GM PREMIX 50 ML IV ONE (12:00)
[2017-10-15] MEDS ORDERED: METRONIDAZOLE 500 MG/100 ML ISONTONIC SOLN IV ONE (12:00)
[2017-10-15] MEDS ORDERED: NEOSTIGMINE 5 MG/5 ML SYRINGE IV PUSH ONE (12:00)
[2017-10-15] MEDS ORDERED: DEXAMETHASONE SOD PHOS 4 MG/ML VIAL IV ONE (12:00)
[2017-10-15] MEDS ORDERED: LACTATED RINGER'S 1000 ML IV PRN (12:15)
[2017-10-15] MEDS ORDERED: POVIDONE IODINE 5% (ANTISEPSIS KIT) 4 APPLICATIONS EACH NARE PRN (12:15)
[2017-10-15] MEDS ORDERED: CHLORHEXIDINE GLUCONATE 2 % 1 PACK (2 CLOTHS) TOPICAL PRN (12:15)
[2017-10-15] MEDS ORDERED: METOPROLOL TARTRATE 25 MG TAB PO PRN (12:15)
[2017-10-15] MEDS ORDERED: SODIUM CHLORID 0.9% 500 ML IV PRN (12:15)
[2017-10-15] MEDS ORDERED: PROSTAB PO (12:21)
[2017-10-15] MEDS ORDERED: MEGE40SU PO (12:21)
[2017-10-15] MEDS ORDERED: APLI5INJ2 I-DERMAL (12:24)
[2017-10-15] MEDS ORDERED: ACETAMINOPHEN 1000 MG/100 ML 100 ML IV ONE (13:19)
[2017-10-15] MEDS ORDERED: LIDOCAINE 0.5%/EPINEPHrine 1:200,000 SOLN 50 ML VIAL ONE (13:25)
[2017-10-15] MEDS ORDERED: DO NOT ADM ANY ANTICOAGULANT DRUGS PRN (15:15)
[2017-10-15] MEDS ORDERED: *morphine SULFATE 4 MG/ML PERIprocedure ONLY ONE ×2 (15:20→15:31)
[2017-10-15] MEDS ORDERED: ACETAMINOPHEN/HYDROcodone 325 MG/5 MG TAB PO PRN (15:30)
[2017-10-15] MEDS ORDERED: ACETAMINOPHEN 325 MG TAB PO PRN (15:30)
[2017-10-15] MEDS ORDERED: ENALAPRILAT 1.25 MG/ML VIAL IV PUSH PRN (15:30)
[2017-10-15] MEDS ORDERED: BENZOCAINE 6 MG/MENTHOL 10 MG LOZENGE BUCCAL PRN (15:30)
[2017-10-15] MEDS ORDERED: POTASSIUM CHLOR 40 MEQ PREMIX 100 ML IV PRN (15:30)
[2017-10-15] MEDS ORDERED: NALOXONE HCL 0.4 MG/ML AMP IV PUSH PRN (15:30)
[2017-10-15] MEDS ORDERED: diphenhydrAMINE HCL 50 MG/ML VIAL IV PUSH PRN (15:30)
[2017-10-15] MEDS ORDERED: POTASSIUM CHLOR 20 MEQ PREMIX 100 ML IV PRN (15:30)
[2017-10-15] MEDS ORDERED: ONDANSETRON HCL 4 MG/2 ML VIAL IV PUSH PRN (15:30)
[2017-10-15] MEDS ORDERED: ENALAPRILAT 2.5 MG/2 ML VIAL IV PUSH PRN (15:30)
[2017-10-15] MEDS ORDERED: MORPHINE SULFATE 30 MG/30 ML PCA IV SCH (15:30)
[2017-10-15] MEDS ORDERED: Post-op Orders (for Pharmacy) XX ONE (15:30)
[2017-10-15] MEDS ORDERED: HYDROmorphone HCL PF 2 MG/ML VIAL ONE ×3 (15:53→16:39)
[2017-10-15 16:05] LABS: AUTOMATED NEUTROPHIL # 11.2 TH/MM3 (1.8-7.7); BASOPHIL % 0.3 % (0.0-2.0); EOSINOPHIL # 0.1 TH/MM3 (0-0.4); EOSINOPHIL % 0.9 % (0.0-4.0); HEMATOCRIT 39.3 % (35.0-46.0); HEMOGLOBIN 12.9 GM/DL (11.6-15.3); LYMPH % 9.6 % (9.0-44.0); LYMPHOCYTE # 1.3 TH/MM3 (1.0-4.8); MEAN CELL VOLUME 94.7 FL (80.0-100.0); MEAN CORPUSCULAR HEMOGLOBIN 31.2 PG (27.0-34.0); MEAN CORPUSCULAR HGB CONC 32.9 % (32.0-36.0); MONOCYTE # 0.9 TH/MM3 (0-0.9); NEUT % 82.2 % (16.0-70.0); PLATELET COUNT 211 TH/MM3 (150-450); RED BLOOD COUNT 4.15 MIL/MM3 (4.00-5.30); RED CELL DISTRIBUTION WIDTH 18.4 % (11.6-17.2); WHITE BLOOD COUNT 13.6 TH/MM3 (4.0-11.0)
--- NOTE | 2017-10-15 16:20 | MP ---
[facility] DATE OF [facility]PERATION: PREOPERATIVE DIAGNOSIS: Rectal cancer, status post resection. POSTOPERATIVE DIAGNOSIS: Rectal cancer, status post resection. PROCEDURE PERFORMED: Resection with reanastomosis of ileostomy. SURGEON: Eugenia Ryan MD HOME INSURANCE AGENT: Juan. ANESTHESIA: General per ET tube. ESTIMATED BLOOD LOSS: 50 mL OPERATIVE INDICATIONS: The patient is a 87-year-old female who is about 3 months out from a low anterior resection with diverting loop ileostomy. She comes to the hospital for a resection reanastomosis. OPERATIVE COURSE: The patient was brought to the operating room, placed in the supine position. After induction of general anesthesia, the skin of the anterior abdominal wall was prepped and draped in the usual sterile fashion after closure of the ileostomy using 3-0 Vicryl. A transverse lenticular incision was then placed, performed using a scalpel. Using electrocautery, dissection was carried down to the fascia of the anterior abdominal wall. The stoma was then cleared of the fascia circumferentially until we were able to prolapse the ileostomy out through the skin incision. Some small areas of adhesions were dissected using electrocautery. Site was then chosen for proximal and distal division of the bowel. A window was made in the mesentery using electrocautery and the ARLENE 55 stapler was placed across the bowel. This was closed and fired. The free mesentery was serially divided and ligated using 0 Vicryl ties. The antimesenteric corners of the staple line were then removed. One limb of the gastrointestinal stapler was placed on each limb of the bowel. This was closed on the antimesenteric border and fired, thus creating an enterotomy. The resulting enterotomy was closed transversely using the TX 60 stapling device. The anastomosis was palpated and found to be widely patent. A simple stay suture was placed at the distal end of the anastomosis using 3-0 Vicryl. The mesenteric defect was closed in a running fashion using 3-0 Vicryl and a small amount of bleeding along the edge of the mesentery was controlled using electrocautery. The anastomosis was gently prolapsed back down into the peritoneal cavity and the omentum was brought down over the anastomosis. The posterior fascia of the anterior abdominal wall was closed in a running fashion using #1 PDS. The anterior fascia was closed in a running fashion using #1 PDS. The wound was copiously irrigated with warm normal saline and the skin was closed in a running subcuticular fashion using 3-0 Vicryl. A sterile dressing was then applied. All sponge, needle and instrument counts were correct and the patient was returned to the Postanesthesia Care Unit in stable condition. MD SUKHWINDER Morris/NATHALIE , 03:24 PM , 04:18 PM
[2017-10-15 16:23] LABS: BICARBONATE 20.3 MEQ/L (21.0-32.0); CALCIUM 7.9 MG/DL (8.5-10.1); CREATININE 0.69 MG/DL (0.50-1.00)
[2017-10-15] MEDS: D5-NS + KCL 20 MEQ INJ 1,000 ML IV SCH (17:00)
[2017-10-15 17:03] LABS: OVALOCYTES 1+ (NORMAL)
[2017-10-15] MEDS: DILTIAZEM HCL 30 MG TAB PO SCH (18:00)
[2017-10-15] MEDS: MONTELUKAST SODIUM 10 MG TAB PO SCH (21:02)
[2017-10-15] MEDS: MEGESTROL ACETATE SUSP 400 MG/10 ML CUP PO SCH (21:02)
[2017-10-15] MEDS: metroNIDAZOLE 500 MG INJ 100 ML IV SCH (21:54)
[2017-10-15] MEDS: PCA - TOTAL MG MORPHINE DELIVERED PER SHIFT SCH ×2 (22:01→22:04)
[2017-10-16] VITALS (29 sets, daily range): BP systolic 107–140; BP diastolic 55–88; PULSE 62–109; RESP 16–19; TEMP 97.6–98.2; O2SAT 92–100
[2017-10-16] MEDS: DILTIAZEM HCL 30 MG TAB PO SCH ×5 (00:17→23:38)
[2017-10-16] MEDS: D5-NS + KCL 20 MEQ INJ 1,000 ML IV SCH ×3 (00:18→11:41)
[2017-10-16 04:06] LABS: AUTOMATED NEUTROPHIL # 11.4 TH/MM3 (1.8-7.7); BASOPHIL % 0.1 % (0.0-2.0); HEMATOCRIT 37.8 % (35.0-46.0); HEMOGLOBIN 12.2 GM/DL (11.6-15.3); LYMPH % 1.3 % (9.0-44.0); LYMPHOCYTE # 0.2 TH/MM3 (1.0-4.8); MEAN CELL VOLUME 95.6 FL (80.0-100.0); MEAN CORPUSCULAR HEMOGLOBIN 30.9 PG (27.0-34.0); MEAN CORPUSCULAR HGB CONC 32.3 % (32.0-36.0); MEAN PLATELET VOLUME 8.4 FL (7.0-11.0); MONO % 4.1 % (0.0-8.0); MONOCYTE # 0.5 TH/MM3 (0-0.9); NEUT % 94.5 % (16.0-70.0); PLATELET COUNT 244 TH/MM3 (150-450); RED BLOOD COUNT 3.95 MIL/MM3 (4.00-5.30); RED CELL DISTRIBUTION WIDTH 17.9 % (11.6-17.2)
[2017-10-16 04:41] LABS: BICARBONATE 20.1 MEQ/L (21.0-32.0); CALCIUM 7.4 MG/DL (8.5-10.1); CREATININE 0.76 MG/DL (0.50-1.00)
[2017-10-16 05:08] LABS: CALCIUM-PROTEIN CORRECTED 8.1 MG/DL (8.5-10.1); TOTAL PROTEIN 5.8 GM/DL (6.4-8.2)
[2017-10-16] MEDS: metroNIDAZOLE 500 MG INJ 100 ML IV SCH ×2 (05:43→16:01)
[2017-10-16] MEDS: LEVOTHYROXINE SODIUM 100 MCG TAB PO SCH (05:43)
[2017-10-16] MEDS: PCA - TOTAL MG MORPHINE DELIVERED PER SHIFT SCH ×3 (05:43→22:00)
[2017-10-16] MEDS ORDERED: NON-FORMULARY DRUG (Omeprazole 20 MG) PO SCH (09:00)
[2017-10-16] MEDS: predniSONE 10 MG TAB PO SCH (09:28)
[2017-10-16] MEDS: PANTOPRAZOLE SODIUM 40 MG VIAL IVP SCH (09:32)
[2017-10-16] MEDS: MEGESTROL ACETATE SUSP 400 MG/10 ML CUP PO SCH ×2 (09:32→21:09)
[2017-10-16] MEDS: HEPARIN SODIUM - SQ 10,000 UNITS/ML VIAL SQ SCH (14:54)
[2017-10-16] MEDS ORDERED: NS + KCL 20 MEQ INJ 1,000 ML IV SCH (17:15)
--- NOTE | 2017-10-16 17:15 | HHI.PR ---
Subjective Remarks POD#1 s/p resection/reanastomosis ileostomy comfortable Objective Vital Signs Date Time Temp Pulse Resp B/P (MAP) Pulse Ox O2 Delivery O2 Flow Rate FiO2 10/16/17 16:00 78 10/16/17 15:14 96 Room Air 10/16/17 15:13 98.2 78 16 111/55 (73) 96 10/16/17 15:00 78 10/16/17 14:00 82 10/16/17 13:00 78 10/16/17 12:00 76 10/16/17 11:37 97.6 75 16 117/79 (92) 93 10/16/17 11:00 91 10/16/17 10:00 82 10/16/17 09:00 86 10/16/17 08:00 100 2.50 10/16/17 07:45 92 Nasal Cannula 2.00 10/16/17 07:30 98.0 109 19 140/88 (105) 100 10/16/17 07:00 69 10/16/17 06:00 69 10/16/17 05:43 16 10/16/17 05:00 70 10/16/17 04:00 79 10/16/17 03:57 96 Nasal Cannula 2.50 10/16/17 03:00 97.7 77 16 130/87 (101) 99 10/16/17 03:00 74 10/16/17 02:00 75 10/16/17 01:00 79 10/16/17 00:00 80 10/15/17 23:00 96 Nasal Cannula 2.50 10/15/17 23:00 79 10/15/17 23:00 98.0 81 12 123/72 (89) 96 10/15/17 22:04 10 10/15/17 22:01 10 10/15/17 22:00 82 10/15/17 21:00 84 10/15/17 20:00 97 Nasal Cannula 2.50 10/15/17 20:00 88 10/15/17 19:15 97.9 92 8 153/77 (102) 97 10/15/17 19:00 98 10/15/17 19:00 8 10/15/17 18:08 97.6 87 14 144/77 (99) 96 10/15/17 17:40 90 16 93 Nasal Cannula 3 Humidified 10/15/17 17:21 14 I/O 10/15/17 10/15/17 10/15/17 10/16/17 10/16/17 10/16/17 07:00 15:00 23:00 07:00 15:00 23:00 Intake Total 990 ml 480 ml Output Total 50 ml 400 ml Balance 940 ml 80 ml Intake Oral 40 ml 480 ml IV Total 150 ml Other 800 ml Output Urine Total 400 ml Estimated Blood Loss 50 ml Result Diagram: 10/16/17 0255 10/16/17 0255 Objective Remarks Abdomen soft, mild distension Wound slight serosanguinous drainage, slight inferior erythema Assessment and Plan Assessment and Plan Mobilize Decrease IVF Remove glucose from IVF Discharge planning - patient will need inpatient rehab Eugenia Ryan MD Oct 16, 2017 17:15
[2017-10-16] MEDS: MONTELUKAST SODIUM 10 MG TAB PO SCH (21:09)
[2017-10-17] VITALS (12 sets, daily range): BP systolic 123–139; BP diastolic 60–70; PULSE 57–96; RESP 18–22; TEMP 97.2–99.1; O2SAT 93–99
[2017-10-17] MEDS: HEPARIN SODIUM - SQ 10,000 UNITS/ML VIAL SQ SCH ×2 (02:57→16:17)
[2017-10-17 04:57] LABS: AUTOMATED NEUTROPHIL # 9.6 TH/MM3 (1.8-7.7); BASOPHIL % 0.1 % (0.0-2.0); EOSINOPHIL % 0.2 % (0.0-4.0); HEMATOCRIT 31.7 % (35.0-46.0); HEMOGLOBIN 10.5 GM/DL (11.6-15.3); LYMPH % 4.9 % (9.0-44.0); LYMPHOCYTE # 0.5 TH/MM3 (1.0-4.8); MEAN CELL VOLUME 94.3 FL (80.0-100.0); MEAN CORPUSCULAR HEMOGLOBIN 31.4 PG (27.0-34.0); MEAN CORPUSCULAR HGB CONC 33.3 % (32.0-36.0); MEAN PLATELET VOLUME 8.5 FL (7.0-11.0); MONO % 8.3 % (0.0-8.0); MONOCYTE # 0.9 TH/MM3 (0-0.9); NEUT % 86.5 % (16.0-70.0); PLATELET COUNT 222 TH/MM3 (150-450); RED BLOOD COUNT 3.36 MIL/MM3 (4.00-5.30); RED CELL DISTRIBUTION WIDTH 17.9 % (11.6-17.2); WHITE BLOOD COUNT 11.1 TH/MM3 (4.0-11.0)
[2017-10-17 05:40] LABS: CALCIUM 7.4 MG/DL (8.5-10.1); CREATININE 0.45 MG/DL (0.50-1.00)
[2017-10-17] MEDS: PCA - TOTAL MG MORPHINE DELIVERED PER SHIFT SCH ×3 (06:00→22:00)
[2017-10-17 06:08] LABS: CALCIUM-PROTEIN CORRECTED 8.5 MG/DL (8.5-10.1); TOTAL PROTEIN 5.1 GM/DL (6.4-8.2)
[2017-10-17] MEDS: LEVOTHYROXINE SODIUM 100 MCG TAB PO SCH (06:30)
[2017-10-17] MEDS: DILTIAZEM HCL 30 MG TAB PO SCH ×3 (06:30→17:13)
--- NOTE | 2017-10-17 07:16 | HHI.PR ---
Subjective Remarks POD#2 s/p resection/reanastomosis ileostomy comfortable Objective Vital Signs Date Time Temp Pulse Resp B/P (MAP) Pulse Ox O2 Delivery O2 Flow Rate FiO2 10/17/17 06:00 64 10/17/17 06:00 18 10/17/17 05:06 57 10/17/17 04:02 58 10/17/17 03:00 68 10/17/17 03:00 98.0 72 134/61 (85) 99 10/17/17 02:00 62 10/17/17 01:00 66 10/17/17 00:00 62 10/16/17 23:00 62 10/16/17 23:00 97.8 67 118/59 (78) 97 10/16/17 22:00 62 10/16/17 22:00 16 10/16/17 21:00 64 10/16/17 20:00 70 10/16/17 19:32 96 21 10/16/17 19:00 72 10/16/17 19:00 98.0 69 107/55 (72) 96 10/16/17 18:00 78 10/16/17 17:00 70 10/16/17 16:00 78 10/16/17 15:14 96 Room Air 10/16/17 15:13 98.2 78 16 111/55 (73) 96 10/16/17 15:00 78 10/16/17 14:00 82 10/16/17 13:00 78 10/16/17 12:00 76 10/16/17 11:37 97.6 75 16 117/79 (92) 93 10/16/17 11:00 91 10/16/17 10:00 82 10/16/17 09:00 86 10/16/17 08:00 100 2.50 10/16/17 07:45 92 Nasal Cannula 2.00 10/16/17 07:30 98.0 109 19 140/88 (105) 100 I/O 10/16/17 10/16/17 10/16/17 10/17/17 10/17/17 10/17/17 07:00 15:00 23:00 07:00 15:00 23:00 Intake Total 480 ml 1440 ml 618 ml Output Total 400 ml 275 ml Balance 80 ml 1440 ml 343 ml Intake Oral 480 ml 1440 ml 240 ml IV Total 378 ml Output Urine Total 400 ml 275 ml # Voids 6 1 Result Diagram: 10/17/1742910/17/17429 Objective Remarks Abdomen soft, mild distension Wound clean Assessment and Plan Assessment and Plan D/C tele Transfer to [facility] Await bowel function Will be ready for transfer to Rehab by Sunday Eugenia Ryan MD Oct 17, 2017 07:16
[2017-10-17] MEDS: MEGESTROL ACETATE SUSP 400 MG/10 ML CUP PO SCH ×2 (08:50→22:09)
[2017-10-17] MEDS: PANTOPRAZOLE SODIUM 40 MG VIAL IVP SCH (08:50)
[2017-10-17] MEDS: predniSONE 10 MG TAB PO SCH (08:50)
[2017-10-17] MEDS: MONTELUKAST SODIUM 10 MG TAB PO SCH (22:10)
[2017-10-18] VITALS: BP 137/68; PULSE 76; RESP 20; TEMP 96.1; O2SAT 98
[2017-10-18] MEDS: DILTIAZEM HCL 30 MG TAB PO SCH ×4 (00:35→17:42)
[2017-10-18] MEDS: HEPARIN SODIUM - SQ 10,000 UNITS/ML VIAL SQ SCH ×2 (00:39→13:06)
[2017-10-18 04:00] VITALS: BP 131/78; PULSE 75; RESP 20; TEMP 96.6; O2SAT 98
[2017-10-18] MEDS: PCA - TOTAL MG MORPHINE DELIVERED PER SHIFT SCH (06:00)
[2017-10-18] MEDS: LEVOTHYROXINE SODIUM 100 MCG TAB PO SCH (06:19)
[2017-10-18 08:00] VITALS: BP_SYST 138; BP_SYST 141; BP_DIAS 70; BP_DIAS 76; PULSE 69; PULSE 83; RESP 18; TEMP 97.6; O2SAT 97; O2SAT 99
[2017-10-18] MEDS: MEGESTROL ACETATE SUSP 400 MG/10 ML CUP PO SCH ×2 (08:15→20:43)
[2017-10-18] MEDS: predniSONE 10 MG TAB PO SCH (08:15)
[2017-10-18] MEDS: PANTOPRAZOLE SODIUM 40 MG VIAL IVP SCH (08:15)
[2017-10-18 08:32] LABS: AUTOMATED NEUTROPHIL # 8.8 TH/MM3 (1.8-7.7); BASOPHIL % 0.2 % (0.0-2.0); EOSINOPHIL # 0.1 TH/MM3 (0-0.4); EOSINOPHIL % 0.8 % (0.0-4.0); HEMATOCRIT 36.1 % (35.0-46.0); HEMOGLOBIN 11.9 GM/DL (11.6-15.3); LYMPH % 8.8 % (9.0-44.0); LYMPHOCYTE # 0.9 TH/MM3 (1.0-4.8); MEAN CELL VOLUME 95.5 FL (80.0-100.0); MEAN CORPUSCULAR HEMOGLOBIN 31.5 PG (27.0-34.0); MEAN PLATELET VOLUME 8.8 FL (7.0-11.0); MONO % 7.6 % (0.0-8.0); MONOCYTE # 0.8 TH/MM3 (0-0.9); NEUT % 82.6 % (16.0-70.0); PLATELET COUNT 254 TH/MM3 (150-450); RED BLOOD COUNT 3.78 MIL/MM3 (4.00-5.30); RED CELL DISTRIBUTION WIDTH 18.6 % (11.6-17.2); WHITE BLOOD COUNT 10.7 TH/MM3 (4.0-11.0)
[2017-10-18 08:48] LABS: BICARBONATE 23.2 MEQ/L (21.0-32.0); CALCIUM 7.8 MG/DL (8.5-10.1); CREATININE 0.42 MG/DL (0.50-1.00)
--- NOTE | 2017-10-18 10:45 | HHI.PR ---
Subjective Remarks POD#3 s/p resection/reanastomosis ileostomy comfortable Objective Vital Signs Date Time Temp Pulse Resp B/P (MAP) Pulse Ox O2 Delivery O2 Flow Rate FiO2 10/18/17 06:00 18 10/18/17 04:00 96.6 75 20 131/78 (95) 98 10/18/17 00:00 96.1 76 20 137/68 (91) 98 10/17/17 22:00 18 10/17/17 21:13 21 10/17/17 20:00 97.2 68 22 139/64 (89) 96 10/17/17 14:00 24 10/17/17 13:00 99.1 10/17/17 11:00 96 20 123/70 (87) 96 I/O 10/17/17 10/17/17 10/17/17 10/18/17 10/18/17 10/18/17 07:00 15:00 23:00 07:00 15:00 23:00 Intake Total 618 ml 480 ml 360 ml 800 ml Output Total 275 ml 500 ml Balance 343 ml 480 ml -140 ml 800 ml Intake Oral 240 ml 480 ml 360 ml IV Total 378 ml 800 ml Output Urine Total 275 ml 500 ml # Voids 1 # Bowel Movements 1 1 Result Diagram: 10/18/17 0631 10/18/17 0631 Objective Remarks Abdomen soft, mild distension Wound clean Assessment and Plan Assessment and Plan HL IV d/c [employer] Ready for transfer to Rehab tomorrow Eugenia Ryan MD Oct 18, 2017 10:45
[2017-10-18 12:00] VITALS: BP 127/71; PULSE 80; RESP 18; TEMP 97.9; O2SAT 93
[2017-10-18 16:00] VITALS: BP 124/73; PULSE 78; RESP 16; TEMP 97.5; O2SAT 95
[2017-10-18 20:00] VITALS: BP 123/81; PULSE 82; RESP 18; TEMP 95.9; O2SAT 94
[2017-10-18] MEDS: MONTELUKAST SODIUM 10 MG TAB PO SCH (20:43)
[2017-10-19] VITALS: BP 137/67; PULSE 74; RESP 20; TEMP 97; O2SAT 97
[2017-10-19] MEDS: DILTIAZEM HCL 30 MG TAB PO SCH ×3 (01:02→13:40)
[2017-10-19] MEDS: HEPARIN SODIUM - SQ 10,000 UNITS/ML VIAL SQ SCH ×2 (01:02→13:39)
[2017-10-19 04:00] VITALS: BP 140/83; PULSE 97; RESP 20; TEMP 97.6; O2SAT 95
[2017-10-19] MEDS: LEVOTHYROXINE SODIUM 100 MCG TAB PO SCH (06:24)
[2017-10-19 08:00] VITALS: BP 131/60; PULSE 83; RESP 18; TEMP 97.2; O2SAT 98
[2017-10-19] MEDS: predniSONE 10 MG TAB PO SCH (08:53)
[2017-10-19] MEDS: PANTOPRAZOLE SODIUM 40 MG VIAL IVP SCH (08:53)
[2017-10-19] MEDS: MEGESTROL ACETATE SUSP 400 MG/10 ML CUP PO SCH (08:53)
[2017-10-19 12:00] VITALS: BP 128/66; PULSE 82; RESP 18; TEMP 97.9; O2SAT 96
--- NOTE | 2017-10-19 13:07 | HHI.PR ---
Subjective Remarks POD#4 s/p resection/reanastomosis ileostomy comfortable, anxious Objective Vital Signs Date Time Temp Pulse Resp B/P (MAP) Pulse Ox O2 Delivery O2 Flow Rate FiO2 10/19/17 08:00 97.2 83 18 131/60 (83) 98 10/19/17 04:00 97.6 97 20 140/83 (102) 95 10/19/17 00:00 97.0 74 20 137/67 (90) 97 10/18/17 20:00 95.9 82 18 123/81 (95) 94 10/18/17 16:00 97.5 78 16 124/73 (90) 95 I/O 10/18/17 10/18/17 10/18/17 10/19/17 10/19/17 10/19/17 07:00 15:00 23:00 07:00 15:00 23:00 Intake Total 360 ml 800 ml 840 ml 220 ml Output Total 500 ml 400 ml 400 ml Balance -140 ml 800 ml 440 ml -180 ml Intake Oral 360 ml 840 ml 220 ml IV Total 800 ml Output Urine Total 500 ml 400 ml 400 ml # Bowel Movements 1 2 1 Result Diagram: 10/18/17 0631 10/18/17 0631 Objective Remarks Abdomen soft, nondistended, tender Wound clean Assessment and Plan Assessment and Plan Doing well Rehab when bed available Eugenia Ryan MD Oct 19, 2017 13:07
[2017-10-19] MEDS ORDERED: HYDR-3516 PO (13:09)
[2017-10-19 16:00] VITALS: BP 130/70; PULSE 82; RESP 20; TEMP 97.7; O2SAT 95
== END 2017-10-19 16:43 | DRG 331 ==
LOC: HSDI 10:52 → HCPC 18:21 → HCIS 10-17 10:59 → N07B 10-17 18:45
PROVIDERS: ADMIT Colon & Rectal Surgery; ATTEND Colon & Rectal Surgery
PROC: 0DBB0ZZ Excision of Ileum, Open Approach (ICD-10-PCS; principal; 2017-10-15 14:01)
DX: Z43.2 Encounter for attention to ileostomy (principal); I10 Essential (primary) hypertension; K21.9 Gastro-esophageal reflux disease without esophagitis; E03.9 Hypothyroidism, unspecified; Z85.048 Personal history of other malignant neoplasm of rectum, rectosigmoid junction, and anus; Z86.14 Personal history of Methicillin resistant Staphylococcus aureus infection; Z88.0 Allergy status to penicillin; Z88.2 Allergy status to sulfonamides; Z96.649 Presence of unspecified artificial hip joint; Z96.659 Presence of unspecified artificial knee joint
CPT/HCPCS: 80048; 84155; 85025; 86850; 86900; 86901; 87641; 88304; 88305; 94150; C9113; J0131; J0690; J1100; J1170; J1644; J2270; J2370; J2405; J2710; J3010; J3480; J7512

== ENCOUNTER 2017-10-21 15:38 | Inpatient (IN) | payer MEDICARE ==
[~2017-10-21] VITALS: Ht 149.9 cm; Wt 64.0 kg
[~2017-10-21 15:38] MED LIST changes: +APLI5INJ2 I-DERMAL; +HYDR-3516 PO; +MEGE40SU PO; +PROSTAB PO
[2017-10-21] MEDS ORDERED: SODIUM CHLORIDE 0.9% FLUSH 10 ML FLUSH IV FLUSH PRN ×3 (15:45→21:30)
[2017-10-21 15:57] VITALS: BP 139/63; PULSE 117; RESP 20; TEMP 98.9; O2SAT 90
[2017-10-21 16:01] VITALS: O2SAT 95
[2017-10-21] MEDS ORDERED: SODIUM CHLOR 0.9% 1000 ML INJ 1,000 ML IV SCH (16:12)
[2017-10-21] MEDS ORDERED: ONDANSETRON HCL 4 MG/2 ML VIAL IVP ONE (16:15)
[2017-10-21] MEDS ORDERED: MORPHINE SULFATE 4 MG/ML INJ IV PUSH ONE (16:15)
--- NOTE | 2017-10-21 16:20 | PD ---
Data Data Last Documented VS Vital Signs Date Time Temp Pulse Resp B/P (MAP) Pulse Ox O2 Delivery O2 Flow Rate FiO2 10/21/17 18:30 132 10/21/17 17:01 20 98 Nasal Cannula 2.00 10/21/17 15:57 98.9 Orders Orders Complete Blood Count With Diff (10/21/17 15:45) Comprehensive Metabolic Panel (10/21/17 15:45) Lipase (10/21/17 15:45) Lactic Acid (10/21/17 15:45) Prothrombin Time / Inr (Pt) (10/21/17 15:45) Act Partial Throm Time (Ptt) (10/21/17 15:45) Urinalysis - C+S If Indicated (10/21/17 15:45) Iv Access Insert/Monitor (10/21/17 15:45) Ecg Monitoring (10/21/17 15:45) Oximetry (10/21/17 15:45) Sodium Chloride 0.9% Flush (Ns Flush) (10/21/17 15:45) Ct Abd/Pel W Iv Contrast(Rout) (10/21/17 16:12) Morphine Inj (Morphine Inj) (10/21/17 16:15) Ondansetron Inj (Zofran Inj) (10/21/17 16:15) Sodium Chlor 0.9% 1000 Ml Inj (Ns 1000 M (10/21/17 16:12) Sodium Chloride 0.9% Flush (Ns Flush) (10/21/17 16:15) Electrocardiogram (10/21/17 16:12) Chest, Single Ap (10/21/17 16:12) Creatine Kinase (Cpk) (10/21/17 16:12) Troponin I (10/21/17 16:12) Urine Culture (10/21/17 16:20) Iohexol 350 Inj (Omnipaque 350 Inj) (10/21/17 17:56) Adenosine Inj (Adenocard Inj) (10/21/17 18:09) Vancomycin Inj (Vancomycin Inj) (10/21/17 18:30) Aztreonam Inj (Azactam Inj) (10/21/17 18:30) Blood Culture (10/21/17 18:17) Insert Ng Tube (10/21/17 18:23) Sodium Chlor 0.9% 1000 Ml Inj (Ns 1000 M (10/21/17 18:30) D5-Lr + Kcl 20 Meq Inj (D5-Lr + Kcl 20 M (10/21/17 18:30) Insert Ng Tube (10/21/17 18:29) Urinary Catheter Management RENAE.Q8H (10/21/17 18:29) Admit Order (Ed Use Only) (10/21/17 18:35) Labs Laboratory Tests Test 10/21/17 16:00 10/21/17 16:20 White Blood Count 19.9 TH/MM3 Red Blood Count 4.05 MIL/MM3 Hemoglobin 13.2 GM/DL Hematocrit 38.0 % Mean Corpuscular Volume 93.9 FL Mean Corpuscular Hemoglobin 32.5 PG Mean Corpuscular Hemoglobin Concent 34.6 % Red Cell Distribution Width 18.0 % Platelet Count 290 TH/MM3 Mean Platelet Volume 8.8 FL Neutrophils (%) (Auto) 94.0 % Lymphocytes (%) (Auto) 1.3 % Monocytes (%) (Auto) 4.5 % Eosinophils (%) (Auto) 0.0 % Basophils (%) (Auto) 0.2 % Neutrophils # (Auto) 18.7 TH/MM3 Lymphocytes # (Auto) 0.3 TH/MM3 Monocytes # (Auto) 0.9 TH/MM3 Eosinophils # (Auto) 0.0 TH/MM3 Basophils # (Auto) 0.0 TH/MM3 CBC Comment DIFF FINAL Differential Comment Prothrombin Time 10.5 SEC Prothromb Time International Ratio 1.0 RATIO Activated Partial Thromboplast Time 18.3 SEC Blood Urea Nitrogen 22 MG/DL Creatinine 0.77 MG/DL Random Glucose 160 MG/DL Total Protein 6.3 GM/DL Albumin 2.9 GM/DL Calcium Level 9.1 MG/DL Alkaline Phosphatase 37 U/L Aspartate Amino Transf (AST/SGOT) 17 U/L Alanine Aminotransferase (ALT/SGPT) 10 U/L Total Bilirubin 0.4 MG/DL Sodium Level 140 MEQ/L Potassium Level 4.2 MEQ/L Chloride Level 101 MEQ/L Carbon Dioxide Level 30.3 MEQ/L Anion Gap 9 MEQ/L Estimat Glomerular Filtration Rate 71 ML/MIN Lactic Acid Level 2.1 mmol/L Total Creatine Kinase 42 U/L Troponin I 0.05 NG/ML Lipase 93 U/L Urine Color YELLOW Urine Turbidity HAZY Urine pH 6.0 Urine Specific Thornton 1.035 Urine Protein 30 mg/dL Urine Glucose (UA) NEG mg/dL Urine Ketones TRACE mg/dL Urine Occult Blood SMALL Urine Nitrite NEG Urine Bilirubin NEG Urine Urobilinogen 2.0 MG/DL Urine Leukocyte Esterase LARGE Urine RBC 6 /hpf Urine WBC 19 /hpf Urine Squamous Epithelial Cells 2 /hpf Urine Transitional Epithelial Cells 4 /hpf Urine Mucus FEW /lpf Microscopic Urinalysis Comment CULTURE INDICATED MDM Supervised Visit with CLARK: Yes Narrative Course I, Dr. Evans, have reviewed the advance practice practitioner's documentation and am in agreement, met with the patient face to face, made the diagnosis, and the medical decision making was done by me. *My assessment and Findings: Patient seen and examined by me in addition to Arabella Manuel, significantly distended abdomen high suspicion for small bowel obstruction confirmed on CAT scan, Dr. Chavez is here seen the patient as well, requesting G-tube and so past the patient had large amount of fluid removed from her abdomen. Intermittently having runs of SVT in the 200s, while preparing for adenosine bolus she actually converted spontaneously twice. She also appears ill and toxic. This reason the patient was discussed with Dr. Damon for admission to the intensive care unit. Diagnosis Primary Impression: Small bowel obstruction Admitting Information Admitting Physician Requests: Admit Condition: Carroll Downing MD Oct 21, 2017 16:20
[2017-10-21 16:28] LABS: AUTOMATED NEUTROPHIL # 18.7 TH/MM3 (1.8-7.7); BASOPHIL % 0.2 % (0.0-2.0); HEMOGLOBIN 13.2 GM/DL (11.6-15.3); LYMPH % 1.3 % (9.0-44.0); LYMPHOCYTE # 0.3 TH/MM3 (1.0-4.8); MEAN CELL VOLUME 93.9 FL (80.0-100.0); MEAN CORPUSCULAR HEMOGLOBIN 32.5 PG (27.0-34.0); MEAN CORPUSCULAR HGB CONC 34.6 % (32.0-36.0); MEAN PLATELET VOLUME 8.8 FL (7.0-11.0); MONO % 4.5 % (0.0-8.0); MONOCYTE # 0.9 TH/MM3 (0-0.9); PLATELET COUNT 290 TH/MM3 (150-450); RED BLOOD COUNT 4.05 MIL/MM3 (4.00-5.30); WHITE BLOOD COUNT 19.9 TH/MM3 (4.0-11.0)
--- NOTE | 2017-10-21 16:35 | RADRPT ---
EXAM DATE/TIME: 10/21/2017 16:19 [place] COMPARISON: CT ABDOMEN & PELVIS W CONTRAST, October 02, 2017, 2:05. CHEST SINGLE AP, October 01, 2017, 22:08. INDICATIONS : Short of breath MEDICAL HISTORY : Cardiovascular disease. Hypertension. Carcinoma, colon.GERD SURGICAL HISTORY : Colostomy. Appendectomy.Hysterectomy ENCOUNTER: Initial ACUITY: 1 day PAIN SCORE: 0/10 LOCATION: cranial FINDINGS: A single view of the chest demonstrates the lungs to be symmetrically aerated without evidence of mas s, infiltrate or effusion. The cardiomediastinal contours are unremarkable. There is chronic degener ative change at the glenohumeral joints bilaterally.. CONCLUSION: No acute disease. Nilesh Frye MD on October 21, 2017 at 16:31 Board Certified Radiologist. This report was verified electronically.
[2017-10-21 16:39] LABS: ALBUMIN 2.9 GM/DL (3.4-5.0); ALT (GPT) 10 U/L (10-53); AST (GOT) 17 U/L (15-37); BICARBONATE 30.3 MEQ/L (21.0-32.0); BLOOD UREA NITROGEN 22 MG/DL (7-18); CALCIUM 9.1 MG/DL (8.5-10.1); CHLORIDE 101 MEQ/L (98-107); CREATININE 0.77 MG/DL (0.50-1.00); GLOMERULAR FILTRATION RATE 71 ML/MIN (>89); GLUCOSE,RANDOM 160 MG/DL (74-106); SODIUM (NA) 140 MEQ/L (136-145)
[2017-10-21 16:41] LABS: PROTHROMBIN TIME - PATIENT 10.5 SEC (9.8-11.6)
[2017-10-21 16:42] LABS: ALKALINE PHOSPHATASE 37 U/L (45-117); TOTAL BILIRUBIN ADULT 0.4 MG/DL (0.2-1.0); TOTAL PROTEIN 6.3 GM/DL (6.4-8.2)
[2017-10-21 16:45] LABS: BLOOD, URINE SMALL (NEG); GLUCOSE,URINE NEG (NEG); KETONE, URINE TRACE mg/dL (NEG); MUCUS URINE FEW /lpf (OCC); NITRITE,URINE NEG (NEG); SQUAMOUS EPITHELIAL CELL URINE 2 /hpf (0-5); TRANSITIONAL EPI CELLS, URINE 4 /hpf; URINE COLOR YELLOW (YELLW/STRAW); URINE LEUKOCYTE ESTERASE LARGE (NEG)
[2017-10-21 16:47] LABS: BILIRUBIN, URINE NEG (NEG)
--- NOTE | 2017-10-21 16:49 | PD ---
HPI Chief Complaint: GI Complaint Time Seen by Provider: 15:58 Travel History International Travel<30 days: No Contact w/Intl Traveler<30days: No Traveled to known affect area: No History of Present Illness HPI 87-year-old female presents to the emergency department for evaluation of abdominal pain, diarrhea, vomiting. Patient states she has been having intermittent abdominal pain since she had her ileostomy closure on October 15, [address] Eugenia Ryan. She states she started vomiting this afternoon, brownish vomit. Patient has past medical history of SVT, hypothyroidism, colon cancer. Patient states her current pain is 5/10 to the mid abdomen, aching without radiation. During my physical, the patient states she felt like she was going to pass out. Her heart rate was 235. EKG was obtained, heart rate was in the 130s, sinus tachycardia. She is now in the 110s. No exacerbating or alleviating factors. Moderate severity PFSH Past Medical History Arthritis: Yes (RA) Blood Disorders: No Heart Rhythm Problems: Yes Cancer: Yes (COLON CA) Cardiovascular Problems: Yes (Afib when pt was septic) High Cholesterol: No Chest Pain: Yes Congestive Heart Failure: No Diabetes: No Diminished Hearing: No Endocrine: No Gastrointestinal Disorders: Yes (COLON CANCER) GERD: Yes Genitourinary: No Hepatitis: No Hiatal Hernia: No Hypertension: Yes Immune Disorder: No Medical other: No Musculoskeletal: Yes (RA) Neurologic: No Psychiatric: No Reproductive: No Respiratory: No Thyroid Disease: Yes (hypothyroid) Influenza Vaccination: No (refuses) Menopausal: Yes : 3 Para: 3 Past Surgical History Abdominal Surgery: No AICD: No Arteriovenous Shunt: No Cardiac Surgery: No Ear Surgery: No Endocrine Surgery: No Eye Surgery: Yes (LEFT CATARACT) Genitourinary Surgery: No Gynecologic Surgery: Yes (COMPLETE HYSTERECTOMY) Hysterectomy: Yes Insulin Pump: No Joint Replacement: Yes (LEFT HIP AND TOTAL Left KNEE ) Oral Surgery: Yes (TONSILLECTOMY) Pacemaker: No Thoracic Surgery: Yes (RIGHT LUMPECTOMY) Other Surgery: Yes (COLOSTOMY ) Social History Alcohol Use: No Tobacco Use: No Substance Use: No Allergies-Medications (Allergen,Severity, Reaction): Coded Allergies: Sulfa (Sulfonamide Antibiotics) (Unverified Allergy, Severe, SWELLING, DIFFICULTY BREATHING, 10/21/17) celecoxib (Unverified Allergy, Severe, 10/21/17) PT IS UNABLE TO RECALL REACTION. penicillin G (Unverified Allergy, Severe, Swelling, 10/21/17) PT REPORTS REACTION WAS 50 YEARS AGO, AND IS UNABLE TO RECALL DETAILS. Uncoded Allergies: TAPE ADHESIVE/ PAPER TAPE OK (Allergy, Severe, BLISTERS, 05/01/06) Reported Meds & Prescriptions Reported Meds & Active Scripts Active Hydrocodone-Acetamin 5-325 mg (Hydrocodone/Acetaminophen) 5 Mg-325 Mg Tablet 1 Tab PO Q6H PRN 5 Days Cardizem (Diltiazem HCl) 30 Mg Tab 30 Mg PO Q6HR 30 Days Eq Acetaminophen (Acetaminophen) 325 Mg Tab 650 Mg PO Q6H PRN 30 Days Reported Multiple Vitamin 1 Tab 1 Tab PO DAILY Methotrexate 2.5 Mg Tab 2.5 Mg PO EVERY SUNDAY Culturelle (Lactobacillus Rhamnosus (GG)) 10 Billion Cell Cap 1 Cap PO DAILY Omeprazole 20 Mg Tab 20 Mg PO DAILY Calcium Carbonate (Antacid) 500 Mg Chew 500 Mg CHEW Q6HR PRN Metoclopramide (Metoclopramide HCl) 10 Mg Tab 10 Mg PO BID B-12 (Cyanocobalamin) 1,000 Mcg Subl 1,000 Mcg PO DAILY Vitamin D3 (Cholecalciferol) 1,000 Unit Tab 1,000 Units PO EVERY OTHER DAY Montelukast (Montelukast Sodium) 10 Mg Tab 10 Mg PO HS Prednisone 10 Mg Tab 10 Mg PO DAILY Levothyroxine (Levothyroxine Sodium) 125 Mcg Tab 100 Mcg PO DAILY Review of Systems Except as stated in HPI: all other systems reviewed are Neg Physical Exam Narrative GENERAL: Well-nourished, well-developed elderly female patient, afebrile. SKIN: Focused skin assessment warm/dry. HEAD: Normocephalic. Atraumatic. EYES: No scleral icterus. No injection or drainage. NECK: Supple, trachea midline. No JVD or lymphadenopathy. CARDIOVASCULAR: Regular rate and rhythm without murmurs, gallops, or rubs. RESPIRATORY: Breath sounds equal bilaterally. No accessory muscle use. GASTROINTESTINAL: Abdomen soft and distended. Incision appears well without drainage or surrounding erythema. She has generalized tenderness to palpation, hypoactive bowel sounds. MUSCULOSKELETAL: No cyanosis, or edema. BACK: Nontender without obvious deformity. No CVA tenderness. Data Data Last Documented VS Vital Signs Date Time Temp Pulse Resp B/P (MAP) Pulse Ox O2 Delivery O2 Flow Rate FiO2 10/21/17 18:30 132 10/21/17 17:01 20 98 Nasal Cannula 2.00 10/21/17 15:57 98.9 Orders Orders Complete Blood Count With Diff (10/21/17 15:45) Comprehensive Metabolic Panel (10/21/17 15:45) Lipase (10/21/17 15:45) Lactic Acid (10/21/17 15:45) Prothrombin Time / Inr (Pt) (10/21/17 15:45) Act Partial Throm Time (Ptt) (10/21/17 15:45) Urinalysis - C+S If Indicated (10/21/17 15:45) Iv Access Insert/Monitor (10/21/17 15:45) Ecg Monitoring (10/21/17 15:45) Oximetry (10/21/17 15:45) Sodium Chloride 0.9% Flush (Ns Flush) (10/21/17 15:45) Ct Abd/Pel W Iv Contrast(Rout) (10/21/17 16:12) Morphine Inj (Morphine Inj) (10/21/17 16:15) Ondansetron Inj (Zofran Inj) (10/21/17 16:15) Sodium Chlor 0.9% 1000 Ml Inj (Ns 1000 M (10/21/17 16:12) Sodium Chloride 0.9% Flush (Ns Flush) (10/21/17 16:15) Electrocardiogram (10/21/17 16:12) Chest, Single Ap (10/21/17 16:12) Creatine Kinase (Cpk) (10/21/17 16:12) Troponin I (10/21/17 16:12) Urine Culture (10/21/17 16:20) Iohexol 350 Inj (Omnipaque 350 Inj) (10/21/17 17:56) Adenosine Inj (Adenocard Inj) (10/21/17 18:09) Vancomycin Inj (Vancomycin Inj) (10/21/17 18:30) Aztreonam Inj (Azactam Inj) (10/21/17 18:30) Blood Culture (10/21/17 18:17) Insert Ng Tube (10/21/17 18:23) Sodium Chlor 0.9% 1000 Ml Inj (Ns 1000 M (10/21/17 18:30) D5-Lr + Kcl 20 Meq Inj (D5-Lr + Kcl 20 M (10/21/17 18:30) Insert Ng Tube (10/21/17 18:29) Urinary Catheter Management RENAE.Q8H (10/21/17 18:29) Admit Order (Ed Use Only) (10/21/17 18:35) Labs Laboratory Tests Test 10/21/17 16:00 10/21/17 16:20 White Blood Count 19.9 TH/MM3 Red Blood Count 4.05 MIL/MM3 Hemoglobin 13.2 GM/DL Hematocrit 38.0 % Mean Corpuscular Volume 93.9 FL Mean Corpuscular Hemoglobin 32.5 PG Mean Corpuscular Hemoglobin Concent 34.6 % Red Cell Distribution Width 18.0 % Platelet Count 290 TH/MM3 Mean Platelet Volume 8.8 FL Neutrophils (%) (Auto) 94.0 % Lymphocytes (%) (Auto) 1.3 % Monocytes (%) (Auto) 4.5 % Eosinophils (%) (Auto) 0.0 % Basophils (%) (Auto) 0.2 % Neutrophils # (Auto) 18.7 TH/MM3 Lymphocytes # (Auto) 0.3 TH/MM3 Monocytes # (Auto) 0.9 TH/MM3 Eosinophils # (Auto) 0.0 TH/MM3 Basophils # (Auto) 0.0 TH/MM3 CBC Comment DIFF FINAL Differential Comment Prothrombin Time 10.5 SEC Prothromb Time International Ratio 1.0 RATIO Activated Partial Thromboplast Time 18.3 SEC Blood Urea Nitrogen 22 MG/DL Creatinine 0.77 MG/DL Random Glucose 160 MG/DL Total Protein 6.3 GM/DL Albumin 2.9 GM/DL Calcium Level 9.1 MG/DL Alkaline Phosphatase 37 U/L Aspartate Amino Transf (AST/SGOT) 17 U/L Alanine Aminotransferase (ALT/SGPT) 10 U/L Total Bilirubin 0.4 MG/DL Sodium Level 140 MEQ/L Potassium Level 4.2 MEQ/L Chloride Level 101 MEQ/L Carbon Dioxide Level 30.3 MEQ/L Anion Gap 9 MEQ/L Estimat Glomerular Filtration Rate 71 ML/MIN Lactic Acid Level 2.1 mmol/L Total Creatine Kinase 42 U/L Troponin I 0.05 NG/ML Lipase 93 U/L Urine Color YELLOW Urine Turbidity HAZY Urine pH 6.0 Urine Specific [place] 1.035 Urine Protein 30 mg/dL Urine Glucose (UA) NEG mg/dL Urine Ketones TRACE mg/dL Urine Occult Blood SMALL Urine Nitrite NEG Urine Bilirubin NEG Urine Urobilinogen 2.0 MG/DL Urine Leukocyte Esterase LARGE Urine RBC 6 /hpf Urine WBC 19 /hpf Urine Squamous Epithelial Cells 2 /hpf Urine Transitional Epithelial Cells 4 /hpf Urine Mucus FEW /lpf Microscopic Urinalysis Comment CULTURE INDICATED MDM Medical Decision Making Medical Screen Exam Complete: Yes Emergency Medical Condition: Yes Medical Record Reviewed: Yes Differential Diagnosis Bowel obstruction versus diverticulitis versus infection versus colitis Narrative Course 87-year-old female presents to the emergency department for evaluation abdominal pain, diarrhea, vomiting. She recently had ileostomy takedown. EKG, CBC, CMP, lipase, lactic acid, CK, troponin, PTT, PT/INR, UA ordered and pending. CT abdomen/pelvis with IV contrast is ordered and pending. Patient is given morphine 4 mg IV, Zofran 4 mg IV, normal saline 1 L IV bolus. EKG shows sinus tachycardia, heart rate 119, no acute ST changes. Patient had another run of SVT, HR 235. She did come down before adenosine was given, but vagal maneuvers were unsuccessful. CBC shows leukocytosis 19.9. CMP shows BUN 22, glucose 160. Lipase is 93. Lactic acid is 2.1. CK is 42. Troponin is 0.05. Coag showed no acute abnormality. UA shows large leukocyte esterase, [address] of the abdomen/ pelvis shows suspected small bowel stricture with dilation of the small bowel to the level of anastomosis suture in the distal small bowel. There is debris within the small bowel at this region in the small bowel beyond the anastomosis is decompressed. Mild hiatal hernia. Sigmoid colon diverticula. There is anastomosis sutures seen in the rectum just beyond the sigmoid colon diverticula. Mild left pleural effusion. Consolidation at the posterior right lung base. Dr. Chavez, colorectal surgeon is at bedside. He recommends NG tube, second liter normal saline IV bolus. Patient meets sepsis criteria. She is allergic to penicillin. Therefore, she is started on vancomycin and is Azactam. Patient is admitted to emergency medcl emt, Dr. Damon. Sepsis Criteria SIRS Criteria (2 or more): Heart rate over 90, WBC > 73557, < 4000 or > 10% bands Sepsis Criteria (SIRS+source): Infect source susp/known Severe Sepsis (+one): Lactate >2 Diagnosis Primary Impression: Small bowel obstruction Additional Impressions: Pneumonia Qualified Codes: J18.1 - Lobar pneumonia, unspecified organism UTI (urinary tract infection) Qualified Codes: N30.00 - Acute cystitis without hematuria Sepsis Qualified Codes: A41.9 - Sepsis, unspecified organism Admitting Information Admitting Physician Requests: Arabella Grubbs Oct 21, 2017 16:49
[2017-10-21 17:01] VITALS: BP 183/89; PULSE 113; RESP 20; O2SAT 98
[2017-10-21 17:05] LABS: TROPONIN I 0.05 NG/ML (0.02-0.05)
[2017-10-21] MEDS ORDERED: IOHEXOL 350 MG/ML 10 ML VIAL (for RAD DIAG) IVCONTRAST ONE (17:56)
[2017-10-21] MEDS ORDERED: ADENOSINE IV SOLN 3 MG/ML 2 ML VIAL ONE ×2 (18:09→20:31)
--- NOTE | 2017-10-21 18:10 | RADRPT ---
EXAM DATE/TIME: 10/21/2017 17:47 [facility] COMPARISON: CT ABDOMEN & PELVIS W CONTRAST, October 02, 2017, 2:05. INDICATIONS : Nausea,vomiting diarrhea since ileostomy reversal 1 week ago. IV CONTRAST: 100 cc Omnipaque 350 (iohexol) IV ORAL CONTRAST: No oral contrast ingested. RADIATION DOSE: 16.43 CTDIvol (mGy) MEDICAL HISTORY : Cardiovascular disease. Hypertension. Colon ca,RA, osteoarthritis SURGICAL HISTORY : Appendectomy. Hysterectomy.R lumpectomy, ileostomy reversal. ENCOUNTER: Initial ACUITY: 3 days PAIN SCALE: 6/10 LOCATION: diffuse abdomen TECHNIQUE: Volumetric scanning of the abdomen and pelvis was performed. Using automated exposure control and ad justment of the mA and/or kV according to patient size, radiation dose was kept as low as reasonably achievable to obtain optimal diagnostic quality images. DICOM format image data is available electro nically for review and comparison. FINDINGS: LOWER LUNGS: There is a mild left pleural effusion. There is consolidation seen at the right lung base. LIVER: Homogeneous density without lesion. There is no dilation of the biliary tree. No calcified gallston es. SPLEEN: Normal size without lesion. PANCREAS: Within normal limits. KIDNEYS: Normal in size and shape. There is no mass, stone or hydronephrosis. ADRENAL GLANDS: Within normal limits. VASCULAR: There is no aortic aneurysm. There is a enhancing 1.4 cm mass seen adjacent to the SMV likely related to a focal venous aneurysm. This is unchanged. BOWEL/MESENTERY: There is dilatation of the stomach and the small bowel. There is a bowel anastomosis sutures seen in the right lower quadrant. There appears to be debris within the small bowel in this region. The more distal small bowel beyond the anastomosis appears decompressed. The patient is status post reversal o f a previous seen ileostomy. There is a mild hiatal hernia present. There is a suture line seen at th e rectum. There are scattered colonic diverticula in the sigmoid region. There is mild ascites seen a round the liver and in the pelvis. ABDOMINAL WALL: Within normal limits. RETROPERITONEUM: There is no lymphadenopathy. BLADDER: No wall thickening or mass. REPRODUCTIVE: The patient is status post hysterectomy. INGUINAL: There is no lymphadenopathy or hernia. MUSCULOSKELETAL: There is degenerative change in the lumbar spine. There is a left hip prosthesis. CONCLUSION: 1. Suspected small bowel structure with dilatation of the small bowel to the level of anastomosis sut ure and the distal small bowel. There is debris within the small bowel at this region in the small chayito wel beyond the anastomosis is decompressed. 2. Mild hiatal hernia. 3. Sigmoid colon diverticula. There is an anastomosis sutures seen in the rectum just beyond the sigm oid colon diverticula. 4. Mild left pleural effusion. 5. Consolidation at the posterior right lung base. Nilesh Frye MD on October 21, 2017 at 17:58 Board Certified Radiologist. This report was verified electronically.
[2017-10-21 18:30] VITALS: PULSE 132
[2017-10-21] MEDS ORDERED: AZTREONAM INJ 2,000 MG in SODIUM CHLORIDE 0.9% INJ 100 ML IV ONE (18:30)
[2017-10-21] MEDS ORDERED: SODIUM CHLOR 0.9% 1000 ML INJ 1,000 ML IV ONE (18:30)
[2017-10-21] MEDS ORDERED: VANCOMYCIN INJ 1,000 MG in SODIUM CHLOR 0.9% 250 ML INJ 250 ML IV ONE (18:30)
--- NOTE | 2017-10-21 19:03 | HHI.HP ---
[facility] Service Critical Care Medicine Primary Care Physician Varghese Galindo MD (Paul) Admission Diagnosis small bowel obstruction, uti, pneumonia, SVT, sepsis Diagnosis: (1) Rheumatoid arthritis Diagnosis: Secondary (2) SVT (supraventricular tachycardia) Diagnosis: Secondary (3) UTI (urinary tract infection) Diagnosis: Secondary (4) HTN (hypertension) Diagnosis: Secondary (5) Rectal cancer Diagnosis: Secondary (6) Dehydration Diagnosis: Secondary (7) Ileus Diagnosis: Principal Travel History International Travel<30 Days: No Contact w/Intl Traveler <30 Da: No Traveled to Known Affected Are: No History of Present Illness 87 yo WF with past medical history of hypothyroidism, rheumatoid arthritis on chronic methotrexate and prednisone, GERD. She was diagnosed with rectal cancer and underwent low anterior resection 06/11/[address] Ryan. She is currently postop day #6 from ileostomy reversal 10/15/[address] Ryan. She was discharged 10/19/17 to [facility]. She developed abdominal distension and had 2-3 episodes of emesis today, nonbloody nonbilious. Her daughter states she is incontinent of urine and stool and has continued to have loose bowel movements. Patient complains of some aching abdominal pain in mid abdomen but states currently the nasal cannula is what is causing her the most discomfort. She is afebrile with temperature of 98.9. WBC is 19.9. Lactic acid 2.1. Creatinine 0.77 (baseline 0.45). Review of Systems Constitutional: DENIES: Fever, Chills Eyes: DENIES: Diplopia Ears, nose, mouth, throat: COMPLAINS OF: Hearing loss Respiratory: DENIES: Cough Cardiovascular: DENIES: Chest pain, Syncope, Orthopnea Gastrointestinal: COMPLAINS OF: Abdominal pain, Nausea, Vomiting, Anorexia Genitourinary: COMPLAINS OF: Urinary incontinence Musculoskeletal: COMPLAINS OF: Joint pain, Muscle aches, Stiffness Hematologic/lymphatic: COMPLAINS OF: Bruising Neurologic: DENIES: Headache Psychiatric: DENIES: Confusion Past Family Social History Allergies: Coded Allergies: Sulfa (Sulfonamide Antibiotics) (Unverified Allergy, Severe, SWELLING, DIFFICULTY BREATHING, 10/21/17) celecoxib (Unverified Allergy, Severe, 10/21/17) PT IS UNABLE TO RECALL REACTION. penicillin G (Unverified Allergy, Severe, Swelling, 10/21/17) PT REPORTS REACTION WAS 50 YEARS AGO, AND IS UNABLE TO RECALL DETAILS. Uncoded Allergies: TAPE ADHESIVE/ PAPER TAPE OK (Allergy, Severe, BLISTERS, 05/01/06) Past Medical History Rheumatoid arthritis Hypothyroidism SVT GERD Rectal cancer Past Surgical History Cataract resection Hysterectomy Left total hip replacement Left knee replacement Tonsillectomy Right breast lumpectomy Low anterior resection with diverting ileostomy Ileostomy reversal 10/15/17 Reported Medications Methotrexate 2.5 mg by mouth every Sunday Cardizem 30 g by mouth every 6 hours Hydrocodone/Tylenol 5/325 one tab by mouth every 6 hours as needed for pain Calcium carbonate 500 mg every 6 hours as needed for heartburn Montelukast 10 mill grams by mouth daily at bedtime Omeprazole 20 mg by mouth daily Reglan 10 mill grams by mouth twice a day Lactobacillus one By mouth daily Prednisone 10 mg daily Levothyroxin 100 shruthi grams by mouth daily B-12 1000 g by mouth daily Vitamin D3 for all 1000 units by mouth every other day Multivitamin 1 tab by mouth daily Family History Father - had a Stroke at age 35 and at age 49 of DC Mother - valve replacement age 75. at age 85. Social History She was transferred here from [facility] She denies history of tobacco alcohol or illicit drug use. Physical Exam Vital Signs Vital Signs Date Time Temp Pulse Resp B/P (MAP) Pulse Ox O2 Delivery O2 Flow Rate FiO2 10/21/17 17:01 113 20 183/89 (120) 98 Nasal Cannula 2.00 10/21/17 16:01 95 Nasal Cannula 2.00 10/21/17 15:57 98.9 117 20 139/63 (88) 90 Room Air Physical Exam GENERAL: Elderly female who is sitting up in the ED stretcher watching television. SKIN: Warm and dry, adequately perfused. There are ecchymoses on the dorsum of bilateral arms and lateral aspect of right thigh. HEAD: Normocephalic. EYES: Pupils equal and round, 2 mm reactive. No scleral icterus. No injection or drainage. ENT: No nasal bleeding or discharge. Mucous membranes dry NECK: Trachea midline. Jugular veins are flat. CARDIOVASCULAR: Tachycardic, generally regular with an occasional premature beat. No murmurs rubs or gallops. RESPIRATORY: Mildly tachypneic with shallow respirations and no accessory muscle use.. Clear to auscultation. Breath sounds equal bilaterally. GASTROINTESTINAL: Abdomen is distended and tympanitic without bowel sounds. There is some mild tenderness in mid abdomen without rebound or guarding. Steri- strips are in place over prior ileostomy site in right abdomen with wound edges approximated. no drainage. MUSCULOSKELETAL: Extremities without clubbing, cyanosis, or edema. She has joint deformities of hands consistent with rheumatoid arthritis. NEUROLOGICAL: Awake and alert. No obvious cranial nerve deficits. Motor grossly within normal limits, moving all extremities without focal deficit. Normal speech. Laboratory Laboratory Tests Test 10/21/17 16:00 10/21/17 16:20 White Blood Count 19.9 Red Blood Count 4.05 Hemoglobin 13.2 Hematocrit 38.0 Mean Corpuscular Volume 93.9 Mean Corpuscular Hemoglobin 32.5 Mean Corpuscular Hemoglobin Concent 34.6 Red Cell Distribution Width 18.0 Platelet Count 290 Mean Platelet Volume 8.8 Neutrophils (%) (Auto) 94.0 Lymphocytes (%) (Auto) 1.3 Monocytes (%) (Auto) 4.5 Eosinophils (%) (Auto) 0.0 Basophils (%) (Auto) 0.2 Neutrophils # (Auto) 18.7 Lymphocytes # (Auto) 0.3 Monocytes # (Auto) 0.9 Eosinophils # (Auto) 0.0 Basophils # (Auto) 0.0 CBC Comment DIFF FINAL Differential Comment Prothrombin Time 10.5 Prothromb Time International Ratio 1.0 Activated Partial Thromboplast Time 18.3 Blood Urea Nitrogen 22 Creatinine 0.77 Random Glucose 160 Total Protein 6.3 Albumin 2.9 Calcium Level 9.1 Alkaline Phosphatase 37 Aspartate Amino Transf (AST/SGOT) 17 Alanine Aminotransferase (ALT/SGPT) 10 Total Bilirubin 0.4 Sodium Level 140 Potassium Level 4.2 Chloride Level 101 Carbon Dioxide Level 30.3 Anion Gap 9 Estimat Glomerular Filtration Rate 71 Lactic Acid Level 2.1 Total Creatine Kinase 42 Troponin I 0.05 Lipase 93 Urine Color YELLOW Urine Turbidity HAZY Urine pH 6.0 Urine Specific [place] 1.035 Urine Protein 30 Urine Glucose (UA) NEG Urine Ketones TRACE Urine Occult Blood SMALL Urine Nitrite NEG Urine Bilirubin NEG Urine Urobilinogen 2.0 Urine Leukocyte Esterase LARGE Urine RBC 6 Urine WBC 19 Urine Squamous Epithelial Cells 2 Urine Transitional Epithelial Cells 4 Urine Mucus FEW Microscopic Urinalysis Comment CULTURE INDICATED Date/Time Source Procedure Growth Status 10/21/17 16:20 Urine Clean Catch Urine Culture Pending Received Result Diagram: 10/21/17 1600 10/21/17 1600 Caprini VTE Risk Assessment Caprini VTE Risk Assessment: Mod/High Risk (score >= 2) Caprini Risk Assessment Model Point Value = 1 Point Value = 2 Point Value = 3 Point Value = 5 Age 41-60 Minor surgery BMI > 25 kg/m2 Swollen legs Varicose veins or History of unexplained or recurrent spontaneous Oral contraceptives or hormone replacement Sepsis (< 1 month) Serious lung disease, including pneumonia (< 1 month) Abnormal pulmonary function Acute myocardial infarction Congestive heart failure (< 1 month) History of inflammatory bowel disease Medical patient at bed rest Age 61-74 Arthroscopic surgery Major open surgery (> 45 min) Laparoscopic surgery (> 45 min) Malignancy Confined to bed (> 72 hours) Immobilizing plaster cast Central venous access Age >= 75 History of VTE Family history of VTE Factor V Leiden Prothrombin [id number] Lupus anticoagulant Anticardiolipin antibodies Elevated serum homocysteine Heparin-induced thrombocytopenia Other congenital or acquired thrombophilia Stroke (< 1 month) Elective arthroplasty Hip, pelvis, or leg fracture Acute spinal cord injury (< 1 month) Prophylaxis Regimen Total Risk Factor Score Risk Level Prophylaxis Regimen 0-1 Low Early ambulation 2 Moderate Order ONE of the following: *Sequential Compression Device (SCD) *Heparin 5000 units SQ BID 3-4 Higher Order ONE of the following medications: *Heparin 5000 units SQ TID *Enoxaparin/Lovenox 40 mg SQ daily (WT < 150 kg, CrCl > 30 mL/min) *Enoxaparin/Lovenox 30 mg SQ daily (WT < 150 kg, CrCl > 10-29 mL/min) *Enoxaparin/Lovenox 30 mg SQ BID (WT < 150 kg, CrCl > 30 mL/min) AND/OR *Sequential Compression Device (SCD) 5 or more Highest Order ONE of the following medications: *Heparin 5000 units SQ TID (Preferred with Epidurals) *Enoxaparin/Lovenox 40 mg SQ daily (WT < 150 kg, CrCl > 30 mL/min) *Enoxaparin/Lovenox 30 mg SQ daily (WT < 150 kg, CrCl > 10-29 mL/min) *Enoxaparin/Lovenox 30 mg SQ BID (WT < 150 kg, CrCl > 30 mL/min) AND *Sequential Compression Device (SCD) Assessment and Plan Problem List: (1) Rheumatoid arthritis ICD Code: M06.9 - Rheumatoid arthritis, unspecified Status: Chronic (2) HTN (hypertension) ICD Code: I10 - Essential (primary) hypertension Status: Chronic (3) SVT (supraventricular tachycardia) ICD Code: I47.1 - Supraventricular tachycardia Status: Chronic (4) UTI (urinary tract infection) ICD Code: N39.0 - Urinary tract infection, site not specified Status: Acute (5) Rectal cancer ICD Code: C20 - Malignant neoplasm of rectum Status: Resolved (6) Dehydration ICD Code: E86.0 - Dehydration Status: Acute (7) Ileus ICD Code: K56.7 - Ileus, unspecified Status: Acute Assessment and Plan NEURO: Pain secondary to rheumatoid arthritis Ofirmev scheduled 1 g IV every 6 hours in effort to minimize opioid requirement where possible. Morphine prn breakthrough. RESP: Nasal cannula wean as tolerated Incentive spirometry every hour awake Chest x-ray 10/21/17 CV: SVT Intermittent SVT in the emergency department. Spontaneously converted on a couple of occasions. Did receive adenosine 6 mg IV 2 doses. She previously has been managed on Cardizem. She may not have been absorbing this due to her ileus. At this point will place on Cardizem drip due to short half life. Would consider transition to metoprolol IV when fluid resuscitated if BP will tolerate. Potassium is normal. Will check magnesium. GI: rectal cancer s/p low anterior resection and diverting ileostomy. Now POD#6 from ileostomy reversal. Ileus GERD NG tube to low intermittent wall suction. CT abdomen pelvis 10/21 - Dilation of stomach and small bowel. Small bowel distal to anastamosis is decompressed. Colorectal surgery following. FEN/RENAL: Dehydration Urinary incontinence Rasmussen inserted to maintain accurate I/O while resuscitating. Remove in am if stable ID: Rheumatoid arthritis UTI, present on admission penicillin allergy Hold methotrexate Follow-up blood and urine cultures. Received aztreonam in the ED. Will continue. HEME: Rectal cancer status post low anterior resection and diverting ileostomy. Now s/ p ileostomy reversal and anastomosis 10/15/17 (Dr. Ryan) Pathology 06/11/17 - high grade poorly differentiated adenocarcinoma, focally intubating muscularis propria. Resection margins negative for malignancy. Lymph nodes negative. Has not received chemo. Monitor CBC. ENDO: Chronic prednisone use Hypothyroidism TSH low. Hold synthroid for now. Recheck 10/25 consider initiation of synthroid IV. PROPH: SCDs and Lovenox 40 mg subcutaneous daily for DVT prophylaxis. Protonix 40 mg IV daily for stress ulcer prophylaxis and history of GERD ACCESS: Peripheral IV providing adequate access at this time. Discussed with Dr. Chavez Level III H&P Problem Qualifiers (1) UTI (urinary tract infection): (2) HTN (hypertension): Qualified Codes: I10 - Essential (primary) hypertension Cortney Damon MD Oct 21, 2017 19:03
--- NOTE | 2017-10-21 19:07 | RADRPT ---
EXAM DATE/TIME: 10/21/2017 18:43 [place] COMPARISON: No previous studies available for comparison. INDICATIONS : Nasogastric tube placement. MEDICAL HISTORY : Cardiovascular disease. Hypertension Rheumatoid arthritis. Colon Ca SURGICAL HISTORY : Appendectomy. Hysterectomy. Rt Lumpectomy ENCOUNTER: Subsequent ACUITY: 1 day PAIN SCORE: 10/10 LOCATION: Entire body FINDINGS: Nasogastric tube across the GE junction. Persistent gastric distention of proximal small bowel. The contrast in the bladder. CONCLUSION: Nasogastric tube across the GE junction Dami Cuevas MD FACR on October 21, 2017 at 18:59 Board Certified Radiologist. This report was verified electronically.
--- NOTE | 2017-10-21 19:10 | MB ---
cc: Reji Chavez MD DATE: 10/21/2017 HISTORY OF PRESENT ILLNESS: This is an 87-year-old who is 6 days status post ileostomy reversal. The patient is 4 months status post low anterior resection for rectal cancer with a low anastomosis and diverting ileostomy. The patient has been in a [facility] setting and today, she was noted to have moderate volume emesis and abdominal distention. The patient has continued to pass stool. She is complaining of some steady abdominal aching, but no clear cramping. She denies fever. She has been noted to have SVT in the emergency room with intermittent heart rates in the 200 range. Her blood pressure is 180 systolic. PAST MEDICAL HISTORY: Includes rheumatoid arthritis, hypertension, COPD. MEDICATIONS: Include methotrexate, Cardizem and prednisone. PHYSICAL EXAMINATION: GENERAL: She is alert without distress. SKIN: Warm and dry. RESPIRATORY: Respirations are acceptable, but she has some slight shortness of breath secondary to abdominal distention and underlying lung disease. ABDOMEN: Markedly distended with some mild tenderness secondary to distention. RECTAL: She does have some loose stool in the rectal vault without blood. LABORATORY DATA: White blood cell count is 19,000, hemoglobin 13, platelets 290. Coagulation studies are normal. Electrolytes are normal. CT scanning shows marked distention of the stomach and small bowel without free air. Distention appears to extend to the area of the anastomosis with a short segment of collapsed small bowel joining the cecum. There is air and stool in the colon. ASSESSMENT: Ileus, supraventricular tachycardia, chronic obstructive pulmonary disease. PLAN: The patient will receive a fluid bolus of 2000 mL and maintenance IV fluid at 150 mL an hour. NG tube will be placed to suction. She will be given antibiotics for her UTI. She is admitted to the ICU to monitor her and treat her episodes of SVT. MD JARRED Spain/URIAH , 06:39 PM , 07:10 PM
[2017-10-21] MEDS ORDERED: MULTTAB67 PO (19:36)
[2017-10-21 20:00] VITALS: BP 146/75; PULSE 114; RESP 18; O2SAT 97
[2017-10-21] MEDS ORDERED: DILTIAZEM INJ 125 MG in SODIUM CHLORIDE 0.9% INJ 100 ML IV PRN (21:00)
[2017-10-21] MEDS ORDERED: MAGNESIUM SULFATE INJ 4 GM in SODIUM CHLORIDE 0.9% INJ 92 ML IV PRN (21:00)
[2017-10-21] MEDS ORDERED: MAGNESIUM OXIDE 400 MG TAB PO PRN (21:00)
[2017-10-21] MEDS ORDERED: POTASSIUM CHLORIDE 25 MEQ EFFERVESCENT TAB PO PRN (21:00)
[2017-10-21] MEDS ORDERED: POTASSIUM CHLOR 40 MEQ PREMIX 100 ML IV PRN ×2 (21:00)
[2017-10-21] MEDS ORDERED: ADENOSINE IV SOLN 3 MG/ML 2 ML VIAL IV PUSH ONE ×2 (21:00)
[2017-10-21] MEDS ORDERED: POTASSIUM PHOSPHATE MONOBASIC 500 MG TAB PO/TUBE PRN (21:00)
[2017-10-21] MEDS ORDERED: POTASSIUM PHOSPHATE MONOBASIC 500 MG TAB PO PRN (21:00)
[2017-10-21] MEDS ORDERED: MAGNESIUM SULFATE INJ 2 GM in SODIUM CHLORIDE 0.9% INJ 96 ML IV PRN (21:00)
[2017-10-21] MEDS ORDERED: ACETAMINOPHEN 1000 MG/100 ML 100 ML IV PRN (21:00)
[2017-10-21] MEDS ORDERED: DILTIAZEM HCL 25 MG/5 ML VIAL IV PUSH ONE (21:00)
[2017-10-21] MEDS ORDERED: MORPHINE SULFATE 2 MG/ML INJ IV PUSH PRN (21:00)
[2017-10-21] MEDS ORDERED: POTASSIUM CHLOR 20 MEQ PREMIX 100 ML IV PRN ×2 (21:00)
[2017-10-21] MEDS ORDERED: POTASSIUM PHOSPHATE INJ 30 MMOL in SODIUM CHLOR 0.9% 250 ML INJ 250 ML IV PRN (21:00)
[2017-10-21] MEDS ORDERED: SODIUM PHOSPHATE INJ 30 MMOL in SODIUM CHLOR 0.9% 250 ML INJ 240 ML IV PRN (21:00)
[2017-10-21] MEDS ORDERED: ONDANSETRON HCL 4 MG/2 ML VIAL IV PUSH PRN (21:30)
[2017-10-21] MEDS ORDERED: BISACODYL 10 MG SUPP RECTAL PRN (21:30)
[2017-10-21] MEDS ORDERED: RESP: ALBUTEROL 2.5 MG/3 ML NEB (PRN) INH (21:30)
[2017-10-21] MEDS ORDERED: CHLORHEXIDINE GLUCONATE 2 % 1 PACK (2 CLOTHS) TOP PRN (21:30)
[2017-10-21] MEDS ORDERED: SENNOSIDES 8.6 MG TAB PO PRN (21:30)
[2017-10-21] MEDS ORDERED: MISCELLANEOUS NURSING INFORMATION XX SCH (21:30)
[2017-10-21] MEDS ORDERED: LACTULOSE SYRUP 20 GM/30 ML CUP PO PRN (21:30)
[2017-10-21] MEDS ORDERED: MAGNESIUM HYDROXIDE SUSP 30 ML CUP PO PRN (21:30)
[2017-10-21] MEDS: MORPHINE SULFATE 4 MG/ML INJ IV PUSH PRN (21:44)
[2017-10-21] MEDS: D5-LR + KCL 20 MEQ INJ 1,000 ML IV SCH (21:59)
[2017-10-21 22:00] VITALS: BP_SYST 114; BP_SYST 117; BP_DIAS 62; BP_DIAS 73; PULSE 0; PULSE 110; RESP 16; TEMP 97.8; O2SAT 96; O2SAT 97
[2017-10-21] MEDS ORDERED: methylPREDNISolone SOD SUCC 40 MG/1 ML VIAL IV PUSH SCH (22:00)
[2017-10-21] MEDS ORDERED: ENOXAPARIN SODIUM 40 MG/0.4 ML SYRINGE SQ SCH (22:00)
[2017-10-21] MEDS ORDERED: DILTIAZEM HCL 50 MG/10 ML VIAL IV ONE (22:00)
[2017-10-22] VITALS (13 sets, daily range): BP systolic 99–156; BP diastolic 53–74; PULSE 71–105; RESP 16–25; TEMP 97.3–99; O2SAT 96–99
[2017-10-22 01:11] LABS: MAGNESIUM 2.4 MG/DL (1.5-2.5); PHOSPHORUS 2.5 MG/DL (2.5-4.9)
[2017-10-22] MEDS: methylPREDNISolone SOD SUCC 40 MG/1 ML VIAL IV PUSH SCH ×3 (01:17→23:52)
[2017-10-22] MEDS: ENOXAPARIN SODIUM 40 MG/0.4 ML SYRINGE SQ SCH ×2 (01:17→23:52)
[2017-10-22] MEDS: AZTREONAM INJ 1,000 MG in SODIUM CHLORIDE 0.9% INJ 100 ML IV SCH ×3 (01:18→18:02)
[2017-10-22] MEDS: ACETAMINOPHEN 1000 MG/100 ML 100 ML IV SCH ×4 (03:35→21:07)
[2017-10-22] MEDS: CHLORHEXIDINE GLUCONATE 2 % 1 PACK (2 CLOTHS) TOP SCH (04:00)
[2017-10-22 05:54] LABS: ALBUMIN 2.2 GM/DL (3.4-5.0); AST (GOT) 16 U/L (15-37); BICARBONATE 30.4 MEQ/L (21.0-32.0); BLOOD UREA NITROGEN 18 MG/DL (7-18); CALCIUM 8.1 MG/DL (8.5-10.1); CHLORIDE 106 MEQ/L (98-107); CREATININE 0.58 MG/DL (0.50-1.00); GLOMERULAR FILTRATION RATE 98 ML/MIN (>89); GLUCOSE,RANDOM 137 MG/DL (74-106); MAGNESIUM 2.3 MG/DL (1.5-2.5); SODIUM (NA) 143 MEQ/L (136-145)
[2017-10-22 05:55] LABS: ALT (GPT) 9 U/L (10-53); PHOSPHORUS 2.9 MG/DL (2.5-4.9)
[2017-10-22 05:58] LABS: ALKALINE PHOSPHATASE 28 U/L (45-117); TOTAL BILIRUBIN ADULT 0.3 MG/DL (0.2-1.0); TOTAL PROTEIN 5.1 GM/DL (6.4-8.2)
[2017-10-22 06:22] LABS: AUTOMATED NEUTROPHIL # 10.1 TH/MM3 (1.8-7.7); EOSINOPHIL % 0.1 % (0.0-4.0); HEMATOCRIT 33.8 % (35.0-46.0); LYMPH % 3.3 % (9.0-44.0); LYMPHOCYTE # 0.4 TH/MM3 (1.0-4.8); MEAN CELL VOLUME 96.3 FL (80.0-100.0); MEAN CORPUSCULAR HEMOGLOBIN 31.4 PG (27.0-34.0); MEAN CORPUSCULAR HGB CONC 32.6 % (32.0-36.0); MEAN PLATELET VOLUME 9.2 FL (7.0-11.0); MONO % 7.8 % (0.0-8.0); MONOCYTE # 0.9 TH/MM3 (0-0.9); NEUT % 88.8 % (16.0-70.0); PLATELET COUNT 245 TH/MM3 (150-450); RED CELL DISTRIBUTION WIDTH 18.6 % (11.6-17.2); WHITE BLOOD COUNT 11.4 TH/MM3 (4.0-11.0)
[2017-10-22] MEDS: D5-LR + KCL 20 MEQ INJ 1,000 ML IV SCH ×4 (07:50→14:30)
[2017-10-22] MEDS: PANTOPRAZOLE SODIUM 40 MG VIAL IV PUSH SCH (08:27)
[2017-10-22] MEDS: DOCUSATE SODIUM 50 MG/SENNA 8.6 MG TAB PO SCH ×2 (08:27→21:09)
[2017-10-22] MEDS: SODIUM CHLORIDE 0.9% FLUSH 10 ML FLUSH IV FLUSH SCH ×2 (08:27→21:00)
--- NOTE | 2017-10-22 14:40 | HHI.PR ---
Subjective Remarks Ileus, left arm cellulitis c/o's NGT, otherwise comfortable Objective Vital Signs Date Time Temp Pulse Resp B/P (MAP) Pulse Ox O2 Delivery O2 Flow Rate FiO2 10/22/17 12:16 75 110/60 10/22/17 12:00 71 10/22/17 12:00 98.4 71 25 104/56 (72) 98 10/22/17 10:00 78 10/22/17 10:00 78 10/22/17 08:00 98.2 78 16 111/59 (76) 96 10/22/17 08:00 78 10/22/17 08:00 78 10/22/17 07:00 96 Nasal Cannula 2.00 10/22/17 06:00 77 10/22/17 04:00 105 10/22/17 04:00 97.3 79 18 99/53 (68) 98 10/22/17 00:00 97.8 105 18 108/58 (75) 96 10/22/17 00:00 100 10/21/17 22:23 10/21/17 22:00 96 Nasal Cannula 2.00 10/21/17 22:00 97.8 110 16 114/62 (79) 97 10/21/17 22:00 110 16 117/73 (88) 96 Nasal Cannula 2.00 10/21/17 22:00 110 10/21/17 22:00 0 10/21/17 20:00 114 18 146/75 (98) 97 Nasal Cannula 2.00 10/21/17 18:30 132 10/21/17 17:01 113 20 183/89 (120) 98 Nasal Cannula 2.00 10/21/17 16:01 95 Nasal Cannula 2.00 10/21/17 15:57 98.9 117 20 139/63 (88) 90 Room Air I/O 10/21/17 10/21/17 10/21/17 10/22/17 10/22/17 10/22/17 07:00 15:00 23:00 07:00 15:00 23:00 Intake Total 100 ml 1200 ml Output Total 2500 ml 500 ml Balance -2500 ml -400 ml 1200 ml Intake IV Total 100 ml 1200 ml Output Urine Total 200 ml 400 ml Gastric Drainage Total 300 ml Emesis 200 ml Drainage Total 1800 ml 100 ml # Bowel Movements 0 Result Diagram: 10/22/17 0509 10/22/17 0509 Objective Remarks Left arm erythematous, edematous, mildly tender proximal extent of cellulitus marked with pen at 14:30 Abdomen soft, nontender, mild distension Assessment and Plan Assessment and Plan Ileus bowel movement this am NGT decreasing Add Reglan, continue NGT Cellulitis Stat Vanco Stat ID consult Eugenia Ryan MD Oct 22, 2017 14:40
[2017-10-22] MEDS ORDERED: VANCOMYCIN 1,000 MG/NS 250 ML IV STA ×2 (14:45)
[2017-10-22] MEDS: METOCLOPRAMIDE HCL 10 MG/2 ML VIAL IV PUSH SCH ×2 (15:00→21:08)
--- NOTE | 2017-10-22 15:44 | PD.ID.CON ---
History of Present Illness Service ID Consult Requested By Dr. Eugenia Ryan Reason for Consult Evaluation and management of left hand, forearm and arm cellulitis Primary Care Physician Varghese Galindo MD (Paul) Diagnoses: History of Present Illness Ms. Gupta is an 87 y/o CF with PMHx of hypothyroidism, rheumatoid arthritis on chronic methotrexate and prednisone, GERD. She was diagnosed with rectal cancer and underwent low anterior resection 06/11/[address] Ryan. She is currently postop day #6 from ileostomy reversal 10/15/[address] Ryan. She was discharged 10/19/17 to [facility]. She developed abdominal distension and had 2-3 episodes of emesis today, nonbloody nonbilious. Her daughter states she is incontinent of urine and stool and has continued to have loose bowel movements. Patient complained of some aching abdominal pain in mid abdomen upon admission. She is afebrile with temperature of 98.9. WBC is 19.9. Lactic acid 2.1. Creatinine 0.77 (baseline 0.45). Patient was seen by Critical Care over night and recd some empiric antibiotics. was called due to concern for ileus related sepsis. I received a call from for a stat consult for left upper extremity cellulitis concern for worsening infection. Upon discussion with daughter it appears patient has prior MRSA infection in her left lower extremity. Patient is seen by Dr. Bush at [facility] few months back. She also goes on to report that 2-3 days prior to admission she noticed an area of redness on the left inner aspect of the left elbow which has progressively gotten worse and at this point her entire left upper extremity appears to be swollen and edematous. She also notices that the arm is now progressively more erythematous. There is no reported pain or tenderness to suggest necrotizing fasciitis-like process. At the time of my evaluation patient is in the ISC.She has a ID band in her left wrist on the side of infection. She also has a small bore peripheral IV around the wrist. Patient is currently not on any pressors her urine output is good. She has no fevers, no rash no diarrhea. Upon discussion with Dr. Ryan it appears that there is no plan for surgery for ileus at the present time given the left upper extremity cellulitis which appears to be more concerning. Infectious disease is consulted for evaluation and management of left upper extremity cellulitis. Review of Systems ROS Limitations: Poor Historian Past Family Social History Allergies: Coded Allergies: Sulfa (Sulfonamide Antibiotics) (Unverified Allergy, Severe, SWELLING, DIFFICULTY BREATHING, 10/21/17) celecoxib (Unverified Allergy, Severe, 10/21/17) PT IS UNABLE TO RECALL REACTION. penicillin G (Unverified Allergy, Severe, Swelling, 10/21/17) PT REPORTS REACTION WAS 50 YEARS AGO, AND IS UNABLE TO RECALL DETAILS. Uncoded Allergies: TAPE ADHESIVE/ PAPER TAPE OK (Allergy, Severe, BLISTERS, 05/01/06) Past Medical History Rheumatoid arthritis Hypothyroidism SVT GERD Rectal cancer Past Surgical History Cataract resection Hysterectomy Left total hip replacement Left knee replacement Tonsillectomy Right breast lumpectomy Low anterior resection with diverting ileostomy Ileostomy reversal 10/15/17 Reported Medications Reported Meds & Active Scripts Active Hydrocodone-Acetamin 5-325 mg (Hydrocodone/Acetaminophen) 5 Mg-325 Mg Tablet 1 Tab PO Q6H PRN 5 Days Cardizem (Diltiazem HCl) 30 Mg Tab 30 Mg PO Q6HR 30 Days Eq Acetaminophen (Acetaminophen) 325 Mg Tab 650 Mg PO Q6H PRN 30 Days Reported Multiple Vitamin 1 Tab 1 Tab PO DAILY Methotrexate 2.5 Mg Tab 2.5 Mg PO EVERY SUNDAY Culturelle (Lactobacillus Rhamnosus (GG)) 10 Billion Cell Cap 1 Cap PO DAILY Omeprazole 20 Mg Tab 20 Mg PO DAILY Calcium Carbonate (Antacid) 500 Mg Chew 500 Mg CHEW Q6HR PRN Metoclopramide (Metoclopramide HCl) 10 Mg Tab 10 Mg PO BID B-12 (Cyanocobalamin) 1,000 Mcg Subl 1,000 Mcg PO DAILY Vitamin D3 (Cholecalciferol) 1,000 Unit Tab 1,000 Units PO EVERY OTHER DAY Montelukast (Montelukast Sodium) 10 Mg Tab 10 Mg PO HS Prednisone 10 Mg Tab 10 Mg PO DAILY Levothyroxine (Levothyroxine Sodium) 125 Mcg Tab 100 Mcg PO DAILY Active Ordered Medications Current Medications Medications (Trade) Dose Ordered Sig/Merrick Route Start Time Stop Time Status Last Admin Potassium Cl/ Dextrose/Lact Ringer's 1,000 ml @ 150 mls/hr Q6H40M IV 10/21/17 18:30 10/22/17 08:40 Potassium Chloride 100 ml @ 50 mls/hr Q2H PRN IV 10/21/17 21:00 Potassium Chloride 100 ml @ 50 mls/hr Q2H PRN IV 10/21/17 21:00 (K-Lyte Cl Eff) 50 meq UNSCH PRN PO 10/21/17 21:00 Potassium Chloride 100 ml @ 25 mls/hr UNSCH PRN IV 10/21/17 21:00 Potassium Chloride 100 ml @ 50 mls/hr Q2H PRN IV 10/21/17 21:00 Magnesium Sulfate 4 gm/Sodium Chloride 100 ml @ 50 mls/hr UNSCH PRN IV 10/21/17 21:00 (Mag-Ox) 800 mg UNSCH PRN PO 10/21/17 21:00 Magnesium Sulfate 2 gm/Sodium Chloride 100 ml @ 50 mls/hr UNSCH PRN IV 10/21/17 21:00 (K-Phos) 2,000 mg Q4H PRN PO 10/21/17 21:00 Sodium Phosphate 30 mmol/Sodium Chloride 250 ml @ 42 mls/hr UNSCH PRN IV 10/21/17 21:00 (K-Phos) 2,000 mg UNSCH PRN PO/TUBE 10/21/17 21:00 Potassium Phosphate 30 mmol/ Sodium Chloride 260 ml @ 42 mls/hr UNSCH PRN IV 10/21/17 21:00 Diltiazem HCl 125 mg/Sodium Chloride 125 ml @ 5 mls/hr TITRATE PRN IV 10/21/17 21:00 10/22/17 12:16 (Morphine Inj) 4 mg Q3H PRN IV PUSH 10/21/17 21:00 10/21/17 21:44 (Morphine Inj) 2 mg Q3H PRN IV PUSH 10/21/17 21:00 (NS Flush) 2 ml UNSCH PRN IV FLUSH 10/21/17 21:30 (NS Flush) 2 ml BID IV FLUSH 10/22/17 09:00 10/22/17 08:27 (Protonix Inj) 40 mg DAILY IV PUSH 10/22/17 09:00 10/22/17 08:27 (Zofran Inj) 4 mg Q6H PRN IV PUSH 10/21/17 21:30 (Albuterol Neb) 2.5 mg Q2HR NEB PRN INH 10/21/17 21:30 Miscellaneous Information 1 Q361D XX 10/21/17 21:30 (Chlorhexidine 2% Cloth) 3 pack Taper DAILY@04 TOP 10/22/17 04:00 10/18/18 03:59 (Chlorhexidine 2% Cloth) 3 pack UNSCH PRN TOP 10/21/17 21:30 (Natacha-Colace) 1 tab BID PO 10/22/17 09:00 (Milk Of Magnesia Liq) 30 ml Q12H PRN PO 10/21/17 21:30 (Senokot) 17.2 mg Q12H PRN PO 10/21/17 21:30 (Dulcolax Supp) 10 mg DAILY PRN RECTAL 10/21/17 21:30 (Lactulose Liq) 30 ml DAILY PRN PO 10/21/17 21:30 Aztreonam 1000 mg/ Sodium Chloride 100 ml @ 200 mls/hr Q8H IV 10/22/17 02:00 10/22/17 10:19 Acetaminophen 100 ml @ 400 mls/hr Q6H IV 10/22/17 03:00 10/22/17 15:00 (SoluMEDROL INJ) 20 mg Q12H IV PUSH 10/22/17 01:00 10/22/17 13:06 (Lovenox Inj) 40 mg Q24H SQ 10/22/17 01:00 10/22/17 01:17 (Reglan Inj) 10 mg Q8HR IV PUSH 10/22/17 15:00 10/22/17 15:00 Pharmacy Profile Note 0 ml @ 0 mls/hr UNSCH OTHER 10/22/17 16:00 Family History Father - had a Stroke at age 35 and at age [address] Mother - valve replacement age 75. at age 85. Social History She was transferred here from [facility]. daughter lives in area and visiting patient. She denies history of tobacco alcohol or illicit drug use. Physical Exam Vital Signs Vital Signs Date Time Temp Pulse Resp B/P (MAP) Pulse Ox O2 Delivery O2 Flow Rate FiO2 10/22/17 12:16 75 110/60 10/22/17 12:00 71 10/22/17 12:00 98.4 71 25 104/56 (72) 98 10/22/17 10:00 78 10/22/17 10:00 78 10/22/17 08:00 98.2 78 16 111/59 (76) 96 10/22/17 08:00 78 10/22/17 08:00 78 10/22/17 07:00 96 Nasal Cannula 2.00 10/22/17 06:00 77 10/22/17 04:00 105 10/22/17 04:00 97.3 79 18 99/53 (68) 98 10/22/17 00:00 97.8 105 18 108/58 (75) 96 10/22/17 00:00 100 10/21/17 22:23 10/21/17 22:00 96 Nasal Cannula 2.00 10/21/17 22:00 97.8 110 16 114/62 (79) 97 10/21/17 22:00 110 16 117/73 (88) 96 Nasal Cannula 2.00 10/21/17 22:00 110 10/21/17 22:00 0 10/21/17 20:00 114 18 146/75 (98) 97 Nasal Cannula 2.00 10/21/17 18:30 132 10/21/17 17:01 113 20 183/89 (120) 98 Nasal Cannula 2.00 10/21/17 16:01 95 Nasal Cannula 2.00 10/21/17 15:57 98.9 117 20 139/63 (88) 90 Room Air Physical Exam GENERAL: This is a well-nourished, well-developed patient, in no apparent distress. SKIN: Multiple areas of ecchymosis noted. Cool and dry. HEAD: Atraumatic. Normocephalic. No temporal or scalp tenderness. EYES: Pupils equal round and reactive. Extraocular motions intact. No scleral icterus. No injection or drainage. ENT: Nose without bleeding, purulent drainage or septal hematoma. Throat without erythema, tonsillar hypertrophy or exudate. Uvula midline. Airway patent. NECK: Trachea midline. Supple, nontender, no meningeal signs. CARDIOVASCULAR: Regular rate and rhythm without murmurs, gallops, or rubs. RESPIRATORY: Clear to auscultation. Breath sounds equal bilaterally. No wheezes , rales, or rhonchi. GASTROINTESTINAL: Abdomen soft, non-tender, nondistended. MUSCULOSKELETAL: Multiple joints of upper and lower extremity with changes suggestive of chronic arthritis(note patient has prior history of rheumatoid arthritis). Patient's entire left upper extremity is edematous, erythematous with induration noted. Bullous-appearing lesions on the left arm noted. Minimal warmth. No pain or tenderness out of proportion to other clinical findings. No obvious gas cutaneously noted. NEUROLOGICAL: Awake and alert. Nonfocal exam Psych cooperative IV line sites with no evidence of infection. Laboratory Laboratory Tests Test 10/21/17 16:00 10/21/17 16:20 10/21/17 22:05 10/21/17 22:52 White Blood Count 19.9 Red Blood Count 4.05 Hemoglobin 13.2 Hematocrit 38.0 Mean Corpuscular Volume 93.9 Mean Corpuscular Hemoglobin 32.5 Mean Corpuscular Hemoglobin Concent 34.6 Red Cell Distribution Width 18.0 Platelet Count 290 Mean Platelet Volume 8.8 Neutrophils (%) (Auto) 94.0 Lymphocytes (%) (Auto) 1.3 Monocytes (%) (Auto) 4.5 Eosinophils (%) (Auto) 0.0 Basophils (%) (Auto) 0.2 Neutrophils # (Auto) 18.7 Lymphocytes # (Auto) 0.3 Monocytes # (Auto) 0.9 Eosinophils # (Auto) 0.0 Basophils # (Auto) 0.0 CBC Comment DIFF FINAL Differential Comment Prothrombin Time 10.5 Prothromb Time International Ratio 1.0 Activated Partial Thromboplast Time 18.3 Blood Urea Nitrogen 22 Creatinine 0.77 Random Glucose 160 Total Protein 6.3 Albumin 2.9 Calcium Level 9.1 Alkaline Phosphatase 37 Aspartate Amino Transf (AST/SGOT) 17 Alanine Aminotransferase (ALT/SGPT) 10 Total Bilirubin 0.4 Sodium Level 140 Potassium Level 4.2 Chloride Level 101 Carbon Dioxide Level 30.3 Anion Gap 9 Estimat Glomerular Filtration Rate 71 Lactic Acid Level 2.1 0.8 Phosphorus Level 2.5 Magnesium Level 2.4 Total Creatine Kinase 42 Troponin I 0.05 Lipase 93 Thyroid Stimulating Hormone 3rd Gen 0.031 Urine Color YELLOW Urine Turbidity HAZY Urine pH 6.0 Urine Specific [place] 1.035 Urine Protein 30 Urine Glucose (UA) NEG Urine Ketones TRACE Urine Occult Blood SMALL Urine Nitrite NEG Urine Bilirubin NEG Urine Urobilinogen 2.0 Urine Leukocyte Esterase LARGE Urine RBC 6 Urine WBC 19 Urine Squamous Epithelial Cells 2 Urine Transitional Epithelial Cells 4 Urine Mucus FEW Microscopic Urinalysis Comment CULTURE INDICATED Nasal Screen MRSA (PCR) MRSA DETECTED Test 10/22/17 05:09 White Blood Count 11.4 Red Blood Count 3.50 Hemoglobin 11.0 Hematocrit 33.8 Mean Corpuscular Volume 96.3 Mean Corpuscular Hemoglobin 31.4 Mean Corpuscular Hemoglobin Concent 32.6 Red Cell Distribution Width 18.6 Platelet Count 245 Mean Platelet Volume 9.2 Neutrophils (%) (Auto) 88.8 Lymphocytes (%) (Auto) 3.3 Monocytes (%) (Auto) 7.8 Eosinophils (%) (Auto) 0.1 Basophils (%) (Auto) 0.0 Neutrophils # (Auto) 10.1 Lymphocytes # (Auto) 0.4 Monocytes # (Auto) 0.9 Eosinophils # (Auto) 0.0 Basophils # (Auto) 0.0 CBC Comment DIFF FINAL Differential Comment Blood Urea Nitrogen 18 Creatinine 0.58 Random Glucose 137 Total Protein 5.1 Albumin 2.2 Calcium Level 8.1 Phosphorus Level 2.9 Magnesium Level 2.3 Alkaline Phosphatase 28 Aspartate Amino Transf (AST/SGOT) 16 Alanine Aminotransferase (ALT/SGPT) 9 Total Bilirubin 0.3 Sodium Level 143 Potassium Level 4.3 Chloride Level 106 Carbon Dioxide Level 30.4 Anion Gap 7 Estimat Glomerular Filtration Rate 98 Lactic Acid Level 1.0 Date/Time Source Procedure Growth Status 10/21/17 18:00 Blood Peripheral Aerobic Blood Culture - Preliminary NO GROWTH IN 1 DAY Resulted 10/21/17 18:00 Blood Peripheral Anaerobic Blood Culture - Preliminary NO GROWTH IN 1 DAY Resulted 10/21/17 16:20 Urine Clean Catch Urine Culture - Preliminary IMMATURE GROWTH - REINCUBATE Resulted Result Diagram: 10/22/17 0509 10/22/17 0509 Imaging Last Impressions Chest X-Ray 10/21/17 1612 Signed Impressions: Service Date/Time: Saturday, October 21, 2017 16:19 - CONCLUSION: No acute disease. Nilesh Frye MD Abdomen/Pelvis CT 10/21/17 161 Signed Impressions: Service Date/Time: Saturday, October 21, 2017 17:47 - CONCLUSION: 1. Suspected small bowel structure with dilatation of the small bowel to the level of anastomosis suture and the distal small bowel. There is debris within the small bowel at this region in the small bowel beyond the anastomosis is decompressed. 2. Mild hiatal hernia. 3. Sigmoid colon diverticula. There is an anastomosis sutures seen in the rectum just beyond the sigmoid colon diverticula. 4. Mild left pleural effusion. 5. Consolidation at the posterior right lung base. Nilesh Frye MD Abdomen X-Ray 10/21/17 0000 Signed Impressions: Service Date/Time: Saturday, October 21, 2017 18:43 - CONCLUSION: Nasogastric tube across the GE junction Dami Cuevas MD FACR Assessment and Plan Assessment and Plan Possible sepsis in an immunocompromised patient. Ileus Left upper extremity cellulitis possible abscess History of rectal cancer, status post low anterior resection June 11, [address] Ryan. Status post ileostomy reversal on October 15, [address] Ryan. Rheumatoid arthritis Rheumatoid arthritis on immune suppressants(methotrexate and prednisone) Penicillin allergy Sulfa allergy Recommendations Continue aztreonam Continue vancomycin target trough 10-15 for cellulitis Remove PIV and ID band from left wrist area. Elevate left UE. CT of the entire upper extremity to look for any evidence of abscess and rule out necrotizing fasciitis Clinically does not appear to be necrotizing fasciitis as she has no pain or tenderness in the left upper extremity and no subcutaneous emphysema. Orthopedic consult: May need drainage of abscess for source control. Follow cultures Follow clinically Discussed with RN Discussed with patient's daughter as well as patient in the room. Brandie Carnes MD Oct 22, 2017 15:44
[2017-10-22] MEDS ORDERED: Vancomycin Consult Pharmacy 1 EA OTHER SCH (16:00)
[2017-10-22] MEDS ORDERED: BENZOCAINE-MENTHOL (SUGAR FREE) 15 MG-3.6 MG LOZENGE BUCCAL PRN (18:45)
--- NOTE | 2017-10-22 18:59 | HHI.CCPN ---
Subjective Remarks/Hospital Course 10/21: 87 yo WF with past medical history of hypothyroidism, rheumatoid arthritis on chronic methotrexate and prednisone, GERD. She was diagnosed with rectal cancer and underwent low anterior resection 06/11/[address] Ryan. She is currently postop day #6 from ileostomy reversal 10/15/[address] Ryan. She was discharged 10/19/17 to [facility]. She developed abdominal distension and had 2-3 episodes of emesis today, nonbloody nonbilious. Her daughter states she is incontinent of urine and stool and has continued to have loose bowel movements. Patient complains of some aching abdominal pain in mid abdomen but states currently the nasal cannula is what is causing her the most discomfort. She is afebrile with temperature of 98.9. WBC is 19.9. Lactic acid 2.1. Creatinine 0.77 (baseline 0.45). 10/22: Resting in bed currently. Developed increasing redness and swelling over left upper extremity extending up to almost the shoulder. Elevating left UE has helped decrease swelling over the last few hours. ID evaluated patient and ordered CT left upper extremity for further evaluation. Not in any acute distress. Abdomen remains distended with vague abdominal discomfort. Objective Vital Signs Date Time Temp Pulse Resp B/P (MAP) Pulse Ox O2 Delivery O2 Flow Rate FiO2 10/22/17 18:00 91 10/22/17 16:00 99.0 18 140/72 (94) 96 10/22/17 07:00 Nasal Cannula 2.00 Intake and Output 10/22/17 10/22/17 10/23/17 08:00 16:00 00:00 Intake Total 100 ml 1200 ml 350 ml Output Total 500 ml 550 ml Balance -400 ml 1200 ml -200 ml Result Diagram: 10/22/17 0509 10/22/17 0509 Objective Remarks GENERAL: Elderly female who is sitting up in the ED stretcher watching television. SKIN: Warm and dry, adequately perfused. There are ecchymoses on the dorsum of bilateral arms and lateral aspect of right thigh. HEAD: Normocephalic. EYES: Pupils equal and round, 2 mm reactive. No scleral icterus. No injection or drainage. ENT: No nasal bleeding or discharge. Mucous membranes dry NECK: Trachea midline. Jugular veins are flat. CARDIOVASCULAR: Tachycardic, generally regular with an occasional premature beat. No murmurs rubs or gallops. RESPIRATORY: Mildly tachypneic with shallow respirations and no accessory muscle use.. Clear to auscultation. Breath sounds equal bilaterally. GASTROINTESTINAL: Abdomen is distended and tympanitic without bowel sounds. There is some mild tenderness in mid abdomen without rebound or guarding. Steri- strips are in place over prior ileostomy site in right abdomen with wound edges approximated. no drainage. MUSCULOSKELETAL: Left upper extremity with swelling, erythema and warmth, left radial pulse palpable very well. She has joint deformities of hands consistent with rheumatoid arthritis. NEUROLOGICAL: Awake and alert. No obvious cranial nerve deficits. Motor grossly within normal limits, moving all extremities without focal deficit. Normal speech. A/P Problem List: (1) Rheumatoid arthritis ICD Code: M06.9 - Rheumatoid arthritis, unspecified Status: Chronic (2) HTN (hypertension) ICD Code: I10 - Essential (primary) hypertension Status: Chronic (3) SVT (supraventricular tachycardia) ICD Code: I47.1 - Supraventricular tachycardia Status: Chronic (4) UTI (urinary tract infection) ICD Code: N39.0 - Urinary tract infection, site not specified Status: Acute (5) Rectal cancer ICD Code: C20 - Malignant neoplasm of rectum Status: Resolved (6) Dehydration ICD Code: E86.0 - Dehydration Status: Acute (7) Ileus ICD Code: K56.7 - Ileus, unspecified Status: Acute Assessment and Plan NEURO: Pain secondary to rheumatoid arthritis Ofirmev scheduled 1 g IV every 6 hours in effort to minimize opioid requirement where possible. Morphine prn breakthrough. RESP: Nasal cannula wean as tolerated Incentive spirometry every hour awake Chest x-ray 10/21/17 CV: SVT Intermittent SVT in the emergency department. Spontaneously converted on a couple of occasions. Did receive adenosine 6 mg IV 2 doses. She previously has been managed on Cardizem. She may not have been absorbing this due to her ileus. At this point will place on Cardizem drip due to short half life. Would consider transition to metoprolol IV when fluid resuscitated if BP will tolerate. GI: rectal cancer s/p low anterior resection and diverting ileostomy. Now POD#6 from ileostomy reversal. Ileus GERD NG tube to low intermittent wall suction. CT abdomen pelvis 10/21 - Dilation of stomach and small bowel. Small bowel distal to anastamosis is decompressed. Colorectal surgery following. FEN/RENAL: Dehydration Urinary incontinence Rasmussen inserted to maintain accurate I/O while resuscitating. Remove in am if stable ID: Rheumatoid arthritis UTI, present on admission Left upper extremity cellulitis penicillin allergy Hold methotrexate Follow-up blood and urine cultures. Received aztreonam in the ED. Will continue. IV vancomycin initiated on 10/22 for left upper extremity cellulitis. ID consulted. Awaiting CT left upper extremity for further evaluation. HEME: Rectal cancer status post low anterior resection and diverting ileostomy. Now s/ p ileostomy reversal and anastomosis 10/15/17 (Dr. Ryan) Pathology 06/11/17 - high grade poorly differentiated adenocarcinoma, focally intubating muscularis propria. Resection margins negative for malignancy. Lymph nodes negative. Has not received chemo. Monitor CBC. ENDO: Chronic prednisone use Hypothyroidism TSH low. Hold synthroid for now. Recheck 10/25 consider initiation of synthroid IV. PROPH: SCDs and Lovenox 40 mg subcutaneous daily for DVT prophylaxis. Protonix 40 mg IV daily for stress ulcer prophylaxis and history of GERD ACCESS: Peripheral IV providing adequate access at this time. d/w patient's daughter at bedside Problem Qualifiers (1) HTN (hypertension): Qualified Codes: I10 - Essential (primary) hypertension (2) UTI (urinary tract infection): Ton Carnes MD Oct 22, 2017 18:59
[2017-10-22] MEDS ORDERED: IOHEXOL 350 MG/ML 10 ML VIAL (for RAD DIAG) IVCONTRAST ONE (22:33)
--- NOTE | 2017-10-22 22:57 | RADRPT ---
EXAM DATE/TIME: 10/22/2017 22:22 [facility] COMPARISON: No previous studies available for comparison. INDICATIONS : Abscess verses cellulitis left arm. IV CONTRAST: 96 cc Omnipaque 350 (iohexol) IV ; Cumulative dose for multiple exams. RADIATION DOSE: 12.33 CTDIvol (mGy) ; Combined studies MEDICAL HISTORY : Carcinoma, colon. Hypertension. SURGICAL HISTORY : None. ENCOUNTER: Initial ACUITY: 1 day PAIN SCALE: 3/10 LOCATION: Left arm TECHNIQUE: Volumetric scanning of the forearm was performed. Using automated exposure control and adjustment of the mA and/or kV according to patient size, radiation dose was kept as low as reasonably achievable to obtain optimal diagnostic quality images. DICOM format image data is available electronically fo r review and comparison. FINDINGS: There is extensive subcutaneous edema and soft tissue swelling of the forearm especially anteriorly. Lateral aspect of the proximal forearm show multiple locules of air in the subcutaneous tissues likel y representing a linear area of abscess formation. This would not be amenable to percutaneous drainag e. Fluid surrounding the locules of air measure less than a centimeter in diameter. No bony destructi ve changes identified. CONCLUSION: 1. Extensive cellulitis of the forearm especially anteriorly with soft tissue swelling and edema. 2. Multiple locules of air in the soft tissues along the lateral aspect of the proximal forearm super ficial to the radius likely representing a linear abscess formation although fluid does not measure m ore than a centimeter in diameter and is not related to percutaneous drainage. Garrick Ramirez MD on October 22, 2017 at 22:48 Board Certified Radiologist. This report was verified electronically.
--- NOTE | 2017-10-22 22:59 | RADRPT ---
EXAM DATE/TIME: 10/22/2017 22:22 [facility] COMPARISON: No previous studies available for comparison. INDICATIONS : Abscess verses cellulitis left arm. IV CONTRAST: 96 cc Omnipaque 350 (iohexol) IV ; Cumulative dose for multiple exams. RADIATION DOSE: CTDIvol (mGy) ; Combined studies MEDICAL HISTORY : Hypertension. Carcinoma, colon. SURGICAL HISTORY : None. ENCOUNTER: Initial ACUITY: 1 day PAIN SCALE: 3/10 LOCATION: Left arm TECHNIQUE: Volumetric scanning of the humerus was performed. Using automated exposure control and adjustment of the mA and/or kV according to patient size, radiation dose was kept as low as reasonably achievable to obtain optimal diagnostic quality images. DICOM format image data is available electronically for review and comparison. FINDINGS: There is advanced chronic arthropathy at the shoulder joint a small joint effusion. There is also flu id around the long head biceps tendon. There is extensive subcutaneous edema along the arm especially the lateral aspect several small locul es of air anterior to the distal humerus without significant associated loculated abscess formation. CONCLUSION: 1. Extensive soft tissue edema and swelling of the arm especially posteriorly. Also multiple small lo cules of air anterior to the distal humerus. No loculated or drainable fluid collections are seen. Garrick Ramirez MD on October 22, 2017 at 22:54 Board Certified Radiologist. This report was verified electronically.
--- NOTE | 2017-10-22 23:09 | RADRPT ---
EXAM DATE/TIME: 10/22/2017 22:22 [place] COMPARISON: No previous studies available for comparison. INDICATIONS : Abscess verses cellulitis left arm. IV CONTRAST: 96 cc Omnipaque 350 (iohexol) IV ; Cumulative dose for multiple exams. RADIATION DOSE: 12.33 CTDIvol (mGy) ; Combined studies MEDICAL HISTORY : Carcinoma, colon. Hypertension. SURGICAL HISTORY : None. ENCOUNTER: Initial ACUITY: 1 day PAIN SCALE: 3/10 LOCATION: Left arm TECHNIQUE: Volumetric scanning of the hand was performed. Using automated exposure control and adjustment of th e mA and/or kV according to patient size, radiation dose was kept as low as reasonably achievable to obtain optimal diagnostic quality images. DICOM format image data is available electronically for re view and comparison. FINDINGS: There is a soft tissue swelling in the left hand. No discrete or drainable fluid collections to sugge st abscess. No acute bony abnormalities identified. CONCLUSION: 1. Soft tissue swelling in the left hand. No discrete abscess. No acute bony abnormalities. Garrick Ramirez MD on October 22, 2017 at 23:05 Board Certified Radiologist. This report was verified electronically.
[2017-10-23] VITALS (13 sets, daily range): BP systolic 142–153; BP diastolic 70–95; PULSE 74–90; RESP 14–19; TEMP 98–99; O2SAT 98–100
--- NOTE | 2017-10-23 00:27 | EKG ---
Date Performed: 10/21/2017 Time Performed: 16:12:54 PTAGE: 87 years EKG: SINUS TACHYCARDIA LOW QRS VOLTAGE IN PRECORDIAL LEADS ABNORMAL RHYTHM ECG PREVIOUS TRACING : 10/21/2017 16.08 DOCTOR: Torri Goff Interpretating Date/Time 10/23/2017 00:14:16
[2017-10-23] MEDS: CLINDAMYCIN INJ 600 MG in SODIUM CHLORIDE 0.9% INJ 100 ML IV SCH ×3 (01:00→17:00)
[2017-10-23] MEDS: AZTREONAM INJ 1,000 MG in SODIUM CHLORIDE 0.9% INJ 100 ML IV SCH ×3 (02:00→18:00)
[2017-10-23] MEDS: CHLORHEXIDINE GLUCONATE 2 % 1 PACK (2 CLOTHS) TOP SCH (04:00)
[2017-10-23] MEDS: ACETAMINOPHEN 1000 MG/100 ML 100 ML IV SCH ×4 (04:29→21:35)
[2017-10-23] MEDS: D5-LR + KCL 20 MEQ INJ 1,000 ML IV SCH ×3 (04:38→21:35)
[2017-10-23] MEDS: METOCLOPRAMIDE HCL 10 MG/2 ML VIAL IV PUSH SCH ×3 (06:29→21:36)
[2017-10-23] MEDS: PANTOPRAZOLE SODIUM 40 MG VIAL IV PUSH SCH (09:00)
[2017-10-23] MEDS: SODIUM CHLORIDE 0.9% FLUSH 10 ML FLUSH IV FLUSH SCH ×2 (09:00→21:35)
[2017-10-23] MEDS: DOCUSATE SODIUM 50 MG/SENNA 8.6 MG TAB PO SCH ×2 (09:00→21:36)
--- NOTE | 2017-10-23 09:18 | HHI.PR ---
Subjective Remarks Ileus, left arm cellulitis c/o's NGT, otherwise comfortable Objective Vital Signs Date Time Temp Pulse Resp B/P (MAP) Pulse Ox O2 Delivery O2 Flow Rate FiO2 10/23/17 08:00 75 10/23/17 08:00 98.7 75 14 146/95 (112) 100 10/23/17 07:00 96 Nasal Cannula 2.00 10/23/17 06:00 75 10/23/17 04:00 75 10/23/17 04:00 98.7 75 14 146/95 (112) 100 10/23/17 02:00 80 10/23/17 00:00 80 10/23/17 00:00 99.0 75 16 150/74 (99) 99 10/22/17 22:00 75 10/22/17 21:56 99 2.00 10/22/17 20:00 80 10/22/17 20:00 96 Nasal Cannula 2.00 10/22/17 20:00 98.7 72 16 156/74 (101) 99 10/22/17 18:00 91 10/22/17 16:00 99.0 74 18 140/72 (94) 96 10/22/17 16:00 71 10/22/17 14:00 78 10/22/17 12:16 75 110/60 10/22/17 12:00 71 10/22/17 12:00 98.4 71 25 104/56 (72) 98 10/22/17 10:00 78 10/22/17 10:00 78 I/O 10/22/17 10/22/17 10/22/17 10/23/17 10/23/17 10/23/17 07:00 15:00 23:00 07:00 15:00 23:00 Intake Total 100 ml 1200 ml 350 ml 304 ml Output Total 500 ml 550 ml 550 ml Balance -400 ml 1200 ml -200 ml -246 ml Intake IV Total 100 ml 1200 ml 350 ml 304 ml Output Urine Total 400 ml 350 ml 450 ml Gastric Drainage Total 200 ml 100 ml Drainage Total 100 ml # Bowel Movements 0 1 1 Result Diagram: 10/22/17 0509 10/22/17 0509 Objective Remarks Left arm erythema unchanged, significantly less edematous, mildly tender proximal extent of cellulitus unchanged Abdomen soft, nontender, mild distension Assessment and Plan Assessment and Plan 2 BMs yesterday clamp NGT, d/c if residual low Cellulitis Improved Continue antibiotics, elevation Eugenia Ryan MD Oct 23, 2017 09:18
[2017-10-23] MEDS ORDERED: BENZOCAINE 20% ORAL SPR 60 ML CAN OROPHARYNG PRN (10:00)
--- NOTE | 2017-10-23 10:02 | PD.CONS ---
HPI Service Orthopedic Surgeons Consult Requested By Reason for Consult LUE cellulitis Primary Care Physician Varghese Galindo MD (Paul) Admission Diagnosis small bowel obstruction, uti, pneumonia, SVT, sepsis Diagnoses: (1) Rheumatoid arthritis Diagnosis: Secondary (2) SVT (supraventricular tachycardia) Diagnosis: Secondary (3) UTI (urinary tract infection) Diagnosis: Secondary (4) HTN (hypertension) Diagnosis: Secondary (5) Rectal cancer Diagnosis: Secondary (6) Dehydration Diagnosis: Secondary (7) Ileus Diagnosis: Principal Chief Complaint: LUE swelling/pain History of Present Illness 87 y/o F with PMHx of hypothyroidism, rheumatoid arthritis on chronic methotrexate and prednisone, GERD. She was diagnosed with rectal cancer and underwent low anterior resection 06/11/[address] Ryan. She is currently postop day #6 from ileostomy reversal 10/15/[address] Ryan. She was discharged 10/19/[address] [facility]. She developed abdominal distension and had 2-3 episodes of emesis today, nonbloody nonbilious. Patient has prior MRSA infection in her left lower extremity. Patient is seen by Dr. Bsuh at [facility] few months back. At this time, patient has erythema and edema throughout her left upper extremity. She has minimal pain at rest. She allows gentle passive range of motion with mild discomfort. Per nursing and Dr. Damon, her arm appears improved since yesterday. Review of Systems Constitutional: DENIES: Fever Endocrine: DENIES: Polyuria Eyes: DENIES: Blurred vision Ears, nose, mouth, throat: DENIES: Throat pain Respiratory: DENIES: Cough Cardiovascular: DENIES: Chest pain Gastrointestinal: COMPLAINS OF: Abdominal pain Genitourinary: DENIES: Abnormal vaginal bleeding Musculoskeletal: COMPLAINS OF: Muscle aches, DENIES: Joint pain, Joint Swelling Integumentary: COMPLAINS OF: Abnormal pigmentation (erythema about left upper extremity) Hematologic/lymphatic: DENIES: Bruising Immunologic/allergic: DENIES: Eczema Neurologic: DENIES: Abnormal gait Psychiatric: DENIES: Anxiety Past Family Social History Past Medical History Rheumatoid arthritis on methotrexate and prednisone Hypothyroidism SVT GERD Rectal cancer Past Surgical History Cataract resection Hysterectomy Left total hip replacement Left knee replacement Tonsillectomy Right breast lumpectomy Low anterior resection with diverting ileostomy Ileostomy reversal 10/15/17 Reported Medications Please see full chart On methotrexate and prednisone Allergies: Coded Allergies: Sulfa (Sulfonamide Antibiotics) (Unverified Allergy, Severe, SWELLING, DIFFICULTY BREATHING, 10/21/17) celecoxib (Unverified Allergy, Severe, 10/21/17) PT IS UNABLE TO RECALL REACTION. penicillin G (Unverified Allergy, Severe, Swelling, 10/21/17) PT REPORTS REACTION WAS 50 YEARS AGO, AND IS UNABLE TO RECALL DETAILS. Uncoded Allergies: TAPE ADHESIVE/ PAPER TAPE OK (Allergy, Severe, BLISTERS, 05/01/06) Active Ordered Medications Current Medications Medications (Trade) Dose Ordered Sig/Merrick Route Start Time Stop Time Status Last Admin Potassium Cl/ Dextrose/Lact Ringer's 1,000 ml @ 125 mls/hr Q8H IV 10/21/17 18:30 10/23/17 04:38 Potassium Chloride 100 ml @ 50 mls/hr Q2H PRN IV 10/21/17 21:00 Potassium Chloride 100 ml @ 50 mls/hr Q2H PRN IV 10/21/17 21:00 (K-Lyte Cl Eff) 50 meq UNSCH PRN PO 10/21/17 21:00 Potassium Chloride 100 ml @ 25 mls/hr UNSCH PRN IV 10/21/17 21:00 Potassium Chloride 100 ml @ 50 mls/hr Q2H PRN IV 10/21/17 21:00 Magnesium Sulfate 4 gm/Sodium Chloride 100 ml @ 50 mls/hr UNSCH PRN IV 10/21/17 21:00 (Mag-Ox) 800 mg UNSCH PRN PO 10/21/17 21:00 Magnesium Sulfate 2 gm/Sodium Chloride 100 ml @ 50 mls/hr UNSCH PRN IV 10/21/17 21:00 (K-Phos) 2,000 mg Q4H PRN PO 10/21/17 21:00 Sodium Phosphate 30 mmol/Sodium Chloride 250 ml @ 42 mls/hr UNSCH PRN IV 10/21/17 21:00 (K-Phos) 2,000 mg UNSCH PRN PO/TUBE 10/21/17 21:00 Potassium Phosphate 30 mmol/ Sodium Chloride 260 ml @ 42 mls/hr UNSCH PRN IV 10/21/17 21:00 Diltiazem HCl 125 mg/Sodium Chloride 125 ml @ 5 mls/hr TITRATE PRN IV 10/21/17 21:00 10/22/17 12:16 (Morphine Inj) 4 mg Q3H PRN IV PUSH 10/21/17 21:00 10/21/17 21:44 (Morphine Inj) 2 mg Q3H PRN IV PUSH 10/21/17 21:00 (NS Flush) 2 ml UNSCH PRN IV FLUSH 10/21/17 21:30 (NS Flush) 2 ml BID IV FLUSH 10/22/17 09:00 10/23/17 09:00 (Protonix Inj) 40 mg DAILY IV PUSH 10/22/17 09:00 10/23/17 09:00 (Zofran Inj) 4 mg Q6H PRN IV PUSH 10/21/17 21:30 (Albuterol Neb) 2.5 mg Q2HR NEB PRN INH 10/21/17 21:30 Miscellaneous Information 1 Q361D XX 10/21/17 21:30 (Chlorhexidine 2% Cloth) 3 pack Taper DAILY@04 TOP 10/22/17 04:00 10/18/18 03:59 (Chlorhexidine 2% Cloth) 3 pack UNSCH PRN TOP 10/21/17 21:30 (Natacha-Colace) 1 tab BID PO 10/22/17 09:00 10/23/17 09:00 (Milk Of Magnesia Liq) 30 ml Q12H PRN PO 10/21/17 21:30 (Senokot) 17.2 mg Q12H PRN PO 10/21/17 21:30 (Dulcolax Supp) 10 mg DAILY PRN RECTAL 10/21/17 21:30 (Lactulose Liq) 30 ml DAILY PRN PO 10/21/17 21:30 Aztreonam 1000 mg/ Sodium Chloride 100 ml @ 200 mls/hr Q8H IV 10/22/17 02:00 10/23/17 09:40 Acetaminophen 100 ml @ 400 mls/hr Q6H IV 10/22/17 03:00 10/23/17 09:00 (SoluMEDROL INJ) 20 mg Q12H IV PUSH 10/22/17 01:00 10/22/17 23:52 (Lovenox Inj) 40 mg Q24H SQ 10/22/17 01:00 10/22/17 23:52 (Reglan Inj) 10 mg Q8HR IV PUSH 10/22/17 15:00 10/23/17 06:29 Pharmacy Profile Note 0 ml @ 0 mls/hr UNSCH OTHER 10/22/17 16:00 Vancomycin HCl 1000 mg/Sodium Chloride 250 ml @ 250 mls/hr Q24H IV 10/23/17 14:00 Miscellaneous Information SPECIFIC LAB TO BE MY... ONCE ONCE .XX 10/23/17 13:45 10/23/17 13:46 (Cepacol Extra [place] (Sugar Free)) 1 lozenge Q4HR PRN BUCCAL 10/22/17 18:45 Clindamycin Phosphate 600 mg/ Sodium Chloride 104 ml @ 208 mls/hr Q8H IV 10/23/17 01:00 10/23/17 01:00 (Hurricaine 20% Oral Spr) 1 spray Q1HR PRN OROPHARYNG 10/23/17 10:00 Reported Meds & Active Scripts Active Hydrocodone-Acetamin 5-325 mg (Hydrocodone/Acetaminophen) 5 Mg-325 Mg Tablet 1 Tab PO Q6H PRN 5 Days Cardizem (Diltiazem HCl) 30 Mg Tab 30 Mg PO Q6HR 30 Days Eq Acetaminophen (Acetaminophen) 325 Mg Tab 650 Mg PO Q6H PRN 30 Days Reported Multiple Vitamin 1 Tab 1 Tab PO DAILY Methotrexate 2.5 Mg Tab 2.5 Mg PO EVERY SUNDAY Culturelle (Lactobacillus Rhamnosus (GG)) 10 Billion Cell Cap 1 Cap PO DAILY Omeprazole 20 Mg Tab 20 Mg PO DAILY Calcium Carbonate (Antacid) 500 Mg Chew 500 Mg CHEW Q6HR PRN Metoclopramide (Metoclopramide HCl) 10 Mg Tab 10 Mg PO BID B-12 (Cyanocobalamin) 1,000 Mcg Subl 1,000 Mcg PO DAILY Vitamin D3 (Cholecalciferol) 1,000 Unit Tab 1,000 Units PO EVERY OTHER DAY Montelukast (Montelukast Sodium) 10 Mg Tab 10 Mg PO HS Prednisone 10 Mg Tab 10 Mg PO DAILY Levothyroxine (Levothyroxine Sodium) 125 Mcg Tab 100 Mcg PO DAILY Family History Noncontributory Social History Denies tobacco use Physical Exam Vital Signs Vital Signs Date Time Temp Pulse Resp B/P (MAP) Pulse Ox O2 Delivery O2 Flow Rate FiO2 10/23/17 08:00 75 10/23/17 08:00 98.7 75 14 146/95 (112) 100 10/23/17 07:00 96 Nasal Cannula 2.00 10/23/17 06:00 75 10/23/17 04:00 75 10/23/17 04:00 98.7 75 14 146/95 (112) 100 10/23/17 02:00 80 10/23/17 00:00 80 10/23/17 00:00 99.0 75 16 150/74 (99) 99 10/22/17 22:00 75 10/22/17 21:56 99 2.00 10/22/17 20:00 80 10/22/17 20:00 96 Nasal Cannula 2.00 10/22/17 20:00 98.7 72 16 156/74 (101) 99 10/22/17 18:00 91 10/22/17 16:00 99.0 74 18 140/72 (94) 96 10/22/17 16:00 71 10/22/17 14:00 78 10/22/17 12:16 75 110/60 10/22/17 12:00 71 10/22/17 12:00 98.4 71 25 104/56 (72) 98 10/22/17 10:00 78 10/22/17 10:00 78 Physical Exam Awake, alert, no acute distress Normocephalic Pupils equal No JVD Moist mucous membranes. NG tube in place, clamped currently Nonlabored respirations Regular rate Soft abdomen LUE: Erythema about left upper extremity from wrist to shoulder. This does not appear to be increased from previous markings. Mild edema about the left upper extremity. No significant tenderness palpation about the extremity. Allows gentle passive range of motion of elbow and wrist. Chronic hand deformities from rheumatoid arthritis. Neurovascularly intact distally. Brisk cap refill Right upper extremity: No significant tenderness palpation, deformities or erythema. Full active range of motion throughout. Sensation intact. Brisk cap refill BLE: No significant tenderness palpation, deformities or erythema. Allows gentle range of motion throughout. Her vascular intact distally. Brisk cap refill. Negative Homans. Erythema about left upper extremity Normal affect Laboratory Date/Time Source Procedure Growth Status 10/21/17 18:00 Blood Peripheral Aerobic Blood Culture - Preliminary NO GROWTH IN 1 DAY Resulted 10/21/17 18:00 Blood Peripheral Anaerobic Blood Culture - Preliminary NO GROWTH IN 1 DAY Resulted 10/21/17 16:20 Urine Clean Catch Urine Culture - Preliminary IMMATURE GROWTH - REINCUBATE Resulted Result Diagram: 10/22/17 0509 10/22/17 0509 Imaging Last 48 hours Impressions Upper Extremity CT 10/22/17 0000 Signed Impressions: Service Date/Time: Sunday, October 22, 2017 22:22 - CONCLUSION: 1. Extensive cellulitis of the forearm especially anteriorly with soft tissue swelling and edema. 2. Multiple locules of air in the soft tissues along the lateral aspect of the proximal forearm superficial to the radius likely representing a linear abscess formation although fluid does not measure more than a centimeter in diameter and is not related to percutaneous drainage. Garrick Ramirez MD Upper Extremity CT 10/22/17 0000 Signed Impressions: Service Date/Time: Sunday, October 22, 2017 22:22 - CONCLUSION: 1. Extensive soft tissue edema and swelling of the arm especially posteriorly. Also multiple small locules of air anterior to the distal humerus. No loculated or drainable fluid collections are seen. Garrick Ramirez MD Chest X-Ray 10/21/17 1612 Signed Impressions: Service Date/Time: Saturday, October 21, 2017 16:19 - CONCLUSION: No acute disease. Nilesh Frye MD Abdomen/Pelvis CT 10/21/17 1612 Signed Impressions: Service Date/Time: Saturday, October 21, 2017 17:47 - CONCLUSION: 1. Suspected small bowel structure with dilatation of the small bowel to the level of anastomosis suture and the distal small bowel. There is debris within the small bowel at this region in the small bowel beyond the anastomosis is decompressed. 2. Mild hiatal hernia. 3. Sigmoid colon diverticula. There is an anastomosis sutures seen in the rectum just beyond the sigmoid colon diverticula. 4. Mild left pleural effusion. 5. Consolidation at the posterior right lung base. Nilesh Frye MD Assessment & Plan Assessment and Plan 87-year-old female with concave medical history with recent reversal of ileostomy with concern for left upper extremity cellulitis and infection At this time, per nursing and Dr. Damon and Dr. Carnes, the left upper extremity appears improved today compared to yesterday. She is clinically stable, not requiring pressors, and does not appear to be progressing in terms of erythema and edema. With this in mind, I do believe this is unlikely to be necrotizing fasciitis. This appears to be mostly a significant cellulitis which is responding appropriately to antibiotics. Patient is not interested in any type of surgery at this time for her left upper extremity. I would recommend close monitoring and continued medical management with elevation and IV antibiotics. Should her symptoms worsen significantly, she could require surgical intervention but at this time I would not recommend this. Adriana Irving MD Oct 23, 2017 10:02
[2017-10-23] MEDS: methylPREDNISolone SOD SUCC 40 MG/1 ML VIAL IV PUSH SCH (13:00)
[2017-10-23] MEDS ORDERED: PHARMACY ORDERED LAB ONE (13:45)
[2017-10-23] MEDS: VANCOMYCIN 1,000 MG/NS 250 ML IV SCH ×2 (14:00)
--- NOTE | 2017-10-23 15:09 | HHI.CCPN ---
Subjective Remarks/Hospital Course 10/21: 87 yo WF with past medical history of hypothyroidism, rheumatoid arthritis on chronic methotrexate and prednisone, GERD. She was diagnosed with rectal cancer and underwent low anterior resection 06/11/[address] Ryan. She is currently postop day #6 from ileostomy reversal 10/15/[address] Ryan. She was discharged 10/19/17 to [facility]. She developed abdominal distension and had 2-3 episodes of emesis today, nonbloody nonbilious. Her daughter states she is incontinent of urine and stool and has continued to have loose bowel movements. Patient complains of some aching abdominal pain in mid abdomen but states currently the nasal cannula is what is causing her the most discomfort. She is afebrile with temperature of 98.9. WBC is 19.9. Lactic acid 2.1. Creatinine 0.77 (baseline 0.45). 10/22: Resting in bed currently. Developed increasing redness and swelling over left upper extremity extending up to almost the shoulder. Elevating left UE has helped decrease swelling over the last few hours. ID evaluated patient and ordered CT left upper extremity for further evaluation. Not in any acute distress. Abdomen remains distended with vague abdominal discomfort. 10/23: Resting comfortably. Had 2 bowel movements last night. Left upper extremity with decreasing swelling. Objective Vital Signs Date Time Temp Pulse Resp B/P (MAP) Pulse Ox O2 Delivery O2 Flow Rate FiO2 10/23/17 12:00 75 10/23/17 12:00 98.7 14 146/95 (112) 100 10/23/17 07:00 Nasal Cannula 2.00 Intake and Output 10/23/17 10/23/17 10/24/17 08:00 16:00 00:00 Intake Total 304 ml Output Total 550 ml Balance -246 ml Result Diagram: 10/22/17 0509 10/22/17 0509 Objective Remarks GENERAL: Elderly female who is laying in bed not in any acute distress. SKIN: Warm and dry, adequately perfused. There are ecchymoses on the dorsum of bilateral arms and lateral aspect of right thigh. HEAD: Normocephalic. EYES: Pupils equal and round, 2 mm reactive. No scleral icterus. No injection or drainage. ENT: No nasal bleeding or discharge. Mucous membranes dry NECK: Trachea midline. Jugular veins are flat. CARDIOVASCULAR: Tachycardic, generally regular with an occasional premature beat. No murmurs rubs or gallops. RESPIRATORY: Mildly tachypneic with shallow respirations and no accessory muscle use.. Clear to auscultation. Breath sounds equal bilaterally. GASTROINTESTINAL: Abdomen is distended and tympanitic without bowel sounds. There is some mild tenderness in mid abdomen without rebound or guarding. Steri- strips are in place over prior ileostomy site in right abdomen with wound edges approximated. no drainage. MUSCULOSKELETAL: Left upper extremity with swelling, erythema and warmth, left radial pulse palpable very well. She has joint deformities of hands consistent with rheumatoid arthritis. NEUROLOGICAL: Awake and alert. No obvious cranial nerve deficits. Motor grossly within normal limits, moving all extremities without focal deficit. Normal speech. A/P Problem List: (1) Rheumatoid arthritis ICD Code: M06.9 - Rheumatoid arthritis, unspecified Status: Chronic (2) HTN (hypertension) ICD Code: I10 - Essential (primary) hypertension Status: Chronic (3) SVT (supraventricular tachycardia) ICD Code: I47.1 - Supraventricular tachycardia Status: Chronic (4) UTI (urinary tract infection) ICD Code: N39.0 - Urinary tract infection, site not specified Status: Acute (5) Rectal cancer ICD Code: C20 - Malignant neoplasm of rectum Status: Resolved (6) Dehydration ICD Code: E86.0 - Dehydration Status: Acute (7) Ileus ICD Code: K56.7 - Ileus, unspecified Status: Acute Assessment and Plan NEURO: Pain secondary to rheumatoid arthritis Ofirmev scheduled 1 g IV every 6 hours in effort to minimize opioid requirement where possible. Morphine prn breakthrough. RESP: Nasal cannula wean as tolerated Incentive spirometry every hour awake Chest x-ray 10/21/17 CV: SVT Intermittent SVT in the emergency department. Spontaneously converted on a couple of occasions. Did receive adenosine 6 mg IV 2 doses. She previously has been managed on Cardizem. She may not have been absorbing this due to her ileus. Resume by mouth Cardizem. Off Cardizem drip currently. Would consider transition to metoprolol IV when fluid resuscitated if BP will tolerate. GI: rectal cancer s/p low anterior resection and diverting ileostomy. Now POD#6 from ileostomy reversal. Ileus GERD NG tube clamped per CRS.. CT abdomen pelvis 10/21 - Dilation of stomach and small bowel. Small bowel distal to anastamosis is decompressed. Colorectal surgery following. FEN/RENAL: Dehydration Urinary incontinence Rasmussen inserted to maintain accurate I/O while resuscitating. ID: Rheumatoid arthritis UTI, present on admission Left upper extremity cellulitis penicillin allergy Hold methotrexate Follow-up blood and urine cultures. Received aztreonam in the ED. Will continue. IV vancomycin initiated on 10/22 for left upper extremity cellulitis. ID consulted and following. Started on IV Clindamycin 10/23. CT left upper extremity reviewed. Ortho consult noted. HEME: Rectal cancer status post low anterior resection and diverting ileostomy. Now s/ p ileostomy reversal and anastomosis 10/15/17 (Dr. Ryan) Pathology 06/11/17 - high grade poorly differentiated adenocarcinoma, focally intubating muscularis propria. Resection margins negative for malignancy. Lymph nodes negative. Has not received chemo. Monitor CBC. ENDO: Chronic prednisone use Hypothyroidism TSH low. Hold synthroid for now. Recheck 10/25 consider initiation of synthroid IV. PROPH: SCDs and Lovenox 40 mg subcutaneous daily for DVT prophylaxis. Protonix 40 mg IV daily for stress ulcer prophylaxis and history of GERD ACCESS: Peripheral IV providing adequate access at this time. Consult and transfer to hospitalist service for further medical management. Further recommendations per ID, colorectal surgery and orthopedics. Critical care signing off at this time, please reconsult if needed. Problem Qualifiers (1) HTN (hypertension): Qualified Codes: I10 - Essential (primary) hypertension (2) UTI (urinary tract infection): Ton Carnes MD Oct 23, 2017 15:09
--- NOTE | 2017-10-23 21:56 | HHI.IDPN ---
Subjective Subjective Remarks Ms. Gupta is an 87 y/o CF with PMHx of hypothyroidism, rheumatoid arthritis on chronic methotrexate and prednisone, GERD. She was diagnosed with rectal cancer and underwent low anterior resection 06/11/[address] Ryan. She is currently postop day #6 from ileostomy reversal 10/15/[address] Ryan. She was discharged 10/19/17 to [facility]. She developed abdominal distension and had 2-3 episodes of emesis today, nonbloody nonbilious. Her daughter states she is incontinent of urine and stool and has continued to have loose bowel movements. Patient complained of some aching abdominal pain in mid abdomen upon admission. She is afebrile with temperature of 98.9. WBC is 19.9. Lactic acid 2.1. Creatinine 0.77 (baseline 0.45). Patient was seen by Critical Care over night and recd some empiric antibiotics. was called due to concern for ileus related sepsis. I received a call from for a stat consult for left upper extremity cellulitis concern for worsening infection. Upon discussion with daughter it appears patient has prior MRSA infection in her left lower extremity. Patient is seen by Dr. Bush at [facility] few months back. She also goes on to report that 2-3 days prior to admission she noticed an area of redness on the left inner aspect of the left elbow which has progressively gotten worse and at this point her entire left upper extremity appears to be swollen and edematous. She also notices that the arm is now progressively more erythematous. There is no reported pain or tenderness to suggest necrotizing fasciitis-like process. At the time of my evaluation patient is in the ISC.She has a ID band in her left wrist on the side of infection. She also has a small bore peripheral IV around the wrist. Patient is currently not on any pressors her urine output is good. She has no fevers, no rash no diarrhea. Upon discussion with Dr. Ryan it appears that there is no plan for surgery for ileus at the present time given the left upper extremity cellulitis which appears to be more concerning. Infectious disease is consulted for evaluation and management of left upper extremity cellulitis. Delayed entry patient seen at ~ 2:15 pm earlier today. Overnight events reviewed. No fevers No generalized rash No diarrhea LUE remarkably improved overnight. Antibiotics Clinda IV Vanco IV Azactam IV Lines Line sites with no e.o infection. Past Medical History reviewed. Allergies: Coded Allergies: Sulfa (Sulfonamide Antibiotics) (Unverified Allergy, Severe, SWELLING, DIFFICULTY BREATHING, 10/21/17) celecoxib (Unverified Allergy, Severe, 10/21/17) PT IS UNABLE TO RECALL REACTION. penicillin G (Unverified Allergy, Severe, Swelling, 10/21/17) PT REPORTS REACTION WAS 50 YEARS AGO, AND IS UNABLE TO RECALL DETAILS. Uncoded Allergies: TAPE ADHESIVE/ PAPER TAPE OK (Allergy, Severe, BLISTERS, 05/01/06) Objective . Vital Signs Date Time Temp Pulse Resp B/P (MAP) Pulse Ox O2 Delivery O2 Flow Rate FiO2 10/23/17 18:18 75 10/23/17 16:00 98.0 80 16 153/80 (104) 98 10/23/17 16:00 75 10/23/17 14:00 75 10/23/17 12:00 75 10/23/17 12:00 98.7 75 16 152/71 (98) 100 10/23/17 10:00 75 10/23/17 08:00 75 10/23/17 08:00 98.7 75 14 150/70 (96) 100 10/23/17 07:00 96 Nasal Cannula 2.00 10/23/17 06:00 75 10/23/17 04:00 75 10/23/17 04:00 98.7 75 14 146/95 (112) 100 10/23/17 02:00 80 10/23/17 00:00 80 10/23/17 00:00 99.0 75 16 150/74 (99) 99 10/22/17 22:00 75 10/22/17 21:56 99 2.00 10/23/17 10/23/17 10/24/17 14:59 22:59 06:59 Intake Total 0 ml Output Total 310 ml Balance -310 ml Intake Oral 0 ml Output Urine Total 300 ml Gastric Drainage Total 10 ml # Bowel Movements 2 . Laboratory Tests Test 10/22/17 05:09 White Blood Count 11.4 TH/MM3 Red Blood Count 3.50 MIL/MM3 Hemoglobin 11.0 GM/DL Hematocrit 33.8 % Mean Corpuscular Volume 96.3 FL Mean Corpuscular Hemoglobin 31.4 PG Mean Corpuscular Hemoglobin Concent 32.6 % Red Cell Distribution Width 18.6 % Platelet Count 245 TH/MM3 Mean Platelet Volume 9.2 FL Neutrophils (%) (Auto) 88.8 % Lymphocytes (%) (Auto) 3.3 % Monocytes (%) (Auto) 7.8 % Eosinophils (%) (Auto) 0.1 % Basophils (%) (Auto) 0.0 % Neutrophils # (Auto) 10.1 TH/MM3 Lymphocytes # (Auto) 0.4 TH/MM3 Monocytes # (Auto) 0.9 TH/MM3 Eosinophils # (Auto) 0.0 TH/MM3 Basophils # (Auto) 0.0 TH/MM3 CBC Comment DIFF FINAL Differential Comment Laboratory Tests Test 10/21/17 22:05 10/22/17 05:09 Lactic Acid Level 0.8 mmol/L 1.0 mmol/L Blood Urea Nitrogen 18 MG/DL Creatinine 0.58 MG/DL Random Glucose 137 MG/DL Total Protein 5.1 GM/DL Albumin 2.2 GM/DL Calcium Level 8.1 MG/DL Phosphorus Level 2.9 MG/DL Magnesium Level 2.3 MG/DL Alkaline Phosphatase 28 U/L Aspartate Amino Transf (AST/SGOT) 16 U/L Alanine Aminotransferase (ALT/SGPT) 9 U/L Total Bilirubin 0.3 MG/DL Sodium Level 143 MEQ/L Potassium Level 4.3 MEQ/L Chloride Level 106 MEQ/L Carbon Dioxide Level 30.4 MEQ/L Anion Gap 7 MEQ/L Estimat Glomerular Filtration Rate 98 ML/MIN Microbiology Date/Time Source Procedure Growth Status 10/21/17 18:00 Blood Peripheral Aerobic Blood Culture - Preliminary NO GROWTH IN 2 DAYS Resulted 10/21/17 18:00 Blood Peripheral Anaerobic Blood Culture - Preliminary NO GROWTH IN 2 DAYS Resulted 10/21/17 17:52 Blood Peripheral Aerobic Blood Culture - Preliminary NO GROWTH IN 2 DAYS Resulted 10/21/17 17:52 Blood Peripheral Anaerobic Blood Culture - Preliminary NO GROWTH IN 2 DAYS Resulted 10/21/17 16:20 Urine Clean Catch Urine Culture - Preliminary Group D Enterococcus Resulted Imaging Last Impressions Upper Extremity CT 10/22/17 0000 Signed Impressions: Service Date/Time: Sunday, October 22, 2017 22:22 - CONCLUSION: 1. Soft tissue swelling in the left hand. No discrete abscess. No acute bony abnormalities. Garrick Ramirez MD Chest X-Ray 10/21/17 1612 Signed Impressions: Service Date/Time: Saturday, October 21, 2017 16:19 - CONCLUSION: No acute disease. Nilesh Frye MD Abdomen/Pelvis CT 10/21/172 Signed Impressions: Service Date/Time: Saturday, October 21, 2017 17:47 - CONCLUSION: 1. Suspected small bowel structure with dilatation of the small bowel to the level of anastomosis suture and the distal small bowel. There is debris within the small bowel at this region in the small bowel beyond the anastomosis is decompressed. 2. Mild hiatal hernia. 3. Sigmoid colon diverticula. There is an anastomosis sutures seen in the rectum just beyond the sigmoid colon diverticula. 4. Mild left pleural effusion. 5. Consolidation at the posterior right lung base. Nilesh Frye MD Abdomen X-Ray 10/21/17 0000 Signed Impressions: Service Date/Time: Saturday, October 21, 2017 18:43 - CONCLUSION: Nasogastric tube across the GE junction Dami Cuevas MD FACR Physical Exam GENERAL: This is a well-nourished, well-developed patient, in no apparent distress. SKIN: Multiple areas of ecchymosis noted. Cool and dry. HEAD: Atraumatic. Normocephalic. No temporal or scalp tenderness. EYES: Pupils equal round and reactive. Extraocular motions intact. No scleral icterus. No injection or drainage. ENT: Nose without bleeding, purulent drainage or septal hematoma. Throat without erythema, tonsillar hypertrophy or exudate. Uvula midline. Airway patent. NECK: Trachea midline. Supple, nontender, no meningeal signs. CARDIOVASCULAR: Regular rate and rhythm without murmurs, gallops, or rubs. RESPIRATORY: Clear to auscultation. Breath sounds equal bilaterally. No wheezes , rales, or rhonchi. GASTROINTESTINAL: Abdomen soft, non-tender, nondistended. MUSCULOSKELETAL: Multiple joints of upper and lower extremity with changes suggestive of chronic arthritis(note patient has prior history of rheumatoid arthritis). Patient's entire left upper extremity is edematous, erythematous with induration noted. Bullous-appearing lesions on the left arm noted. Minimal warmth. No pain or tenderness out of proportion to other clinical findings. No obvious gas cutaneously noted. Overall appears clinically improved today. NEUROLOGICAL: Awake and alert. Nonfocal exam Psych cooperative IV line sites with no evidence of infection. Assessment & Plan Remarks Possible sepsis in an immunocompromised patient. Ileus Left upper extremity cellulitis possible abscess History of rectal cancer, status post low anterior resection June 11, [address] Ryan. Status post ileostomy reversal on October 15, [address] Ryan. Rheumatoid arthritis Rheumatoid arthritis on immune suppressants(methotrexate and prednisone) Penicillin allergy Sulfa allergy Recommendations Continue aztreonam Continue vancomycin target trough 10-15 for cellulitis DC Clinda (no clinical suspicion of Necrotizing fascitis, just extensive cellulitis of large area. Places high risk of Cdiff: weighing risk benefit will DC clinda today. Elevate left UE. JL wrap LUE. CT of the entire upper extremity reviewed. Ortho consult appreciate recs Follow cultures Follow clinically Discussed with RN Discussed with [facility] [place] . Brandie Carnes MD Oct 23, 2017 21:56
[2017-10-24] VITALS (12 sets, daily range): BP systolic 121–180; BP diastolic 59–80; PULSE 66–96; RESP 16–20; TEMP 97.2–98.4; O2SAT 94–100
[2017-10-24] MEDS: ENOXAPARIN SODIUM 40 MG/0.4 ML SYRINGE SQ SCH (01:25)
[2017-10-24] MEDS: AZTREONAM INJ 1,000 MG in SODIUM CHLORIDE 0.9% INJ 100 ML IV SCH ×3 (01:26→18:00)
[2017-10-24] MEDS: methylPREDNISolone SOD SUCC 40 MG/1 ML VIAL IV PUSH SCH ×2 (01:26→13:00)
[2017-10-24] MEDS: MORPHINE SULFATE 4 MG/ML INJ IV PUSH PRN ×2 (02:04→09:12)
[2017-10-24] MEDS: ACETAMINOPHEN 1000 MG/100 ML 100 ML IV SCH ×4 (03:26→22:19)
[2017-10-24] MEDS: CHLORHEXIDINE GLUCONATE 2 % 1 PACK (2 CLOTHS) TOP SCH (03:27)
[2017-10-24] MEDS: D5-LR + KCL 20 MEQ INJ 1,000 ML IV SCH ×3 (04:38→21:38)
[2017-10-24] MEDS: METOCLOPRAMIDE HCL 10 MG/2 ML VIAL IV PUSH SCH ×3 (05:53→22:20)
[2017-10-24 07:19] LABS: AUTOMATED NEUTROPHIL # 7.3 TH/MM3 (1.8-7.7); BASOPHIL % 0.1 % (0.0-2.0); EOSINOPHIL % 0.2 % (0.0-4.0); HEMATOCRIT 30.6 % (35.0-46.0); LYMPH % 3.5 % (9.0-44.0); LYMPHOCYTE # 0.3 TH/MM3 (1.0-4.8); MEAN CELL VOLUME 96.7 FL (80.0-100.0); MEAN CORPUSCULAR HEMOGLOBIN 31.5 PG (27.0-34.0); MEAN CORPUSCULAR HGB CONC 32.6 % (32.0-36.0); MEAN PLATELET VOLUME 8.8 FL (7.0-11.0); MONO % 2.2 % (0.0-8.0); MONOCYTE # 0.2 TH/MM3 (0-0.9); PLATELET COUNT 275 TH/MM3 (150-450); RED BLOOD COUNT 3.16 MIL/MM3 (4.00-5.30); RED CELL DISTRIBUTION WIDTH 17.9 % (11.6-17.2); WHITE BLOOD COUNT 7.8 TH/MM3 (4.0-11.0)
[2017-10-24 07:38] LABS: AST (GOT) 14 U/L (15-37); BICARBONATE 26.8 MEQ/L (21.0-32.0); BLOOD UREA NITROGEN 15 MG/DL (7-18); CALCIUM 7.7 MG/DL (8.5-10.1); CHLORIDE 110 MEQ/L (98-107); CREATININE 0.38 MG/DL (0.50-1.00); GLOMERULAR FILTRATION RATE 159 ML/MIN (>89); GLUCOSE,RANDOM 91 MG/DL (74-106); SODIUM (NA) 143 MEQ/L (136-145)
--- NOTE | 2017-10-24 07:38 | PD.ORT.PN ---
Subjective Subjective Remarks Patient resting comfortable this morning. States her pain is well-controlled. Objective Vitals Vital Signs Date Time Temp Pulse Resp B/P (MAP) Pulse Ox O2 Delivery O2 Flow Rate FiO2 10/24/17 07:00 98 Nasal Cannula 2.00 10/24/17 06:00 70 10/24/17 04:00 69 10/24/17 04:00 98.3 66 16 180/76 (110) 100 10/24/17 03:56 20 10/24/17 02:09 14 10/24/17 02:00 74 10/24/17 00:00 85 10/24/17 00:00 98.4 69 19 158/77 (104) 100 10/23/17 22:00 88 10/23/17 20:00 98.3 74 19 142/84 (103) 98 10/23/17 20:00 90 10/23/17 19:43 99 Nasal Cannula 2.00 10/23/17 19:00 99 Nasal Cannula 2.00 10/23/17 18:18 75 10/23/17 16:00 98.0 80 16 153/80 (104) 98 10/23/17 16:00 75 10/23/17 14:00 75 10/23/17 12:00 75 10/23/17 12:00 98.7 75 16 152/71 (98) 100 10/23/17 10:00 75 10/23/17 08:00 75 10/23/17 08:00 98.7 75 14 150/70 (96) 100 I/O 10/23/17 10/23/17 10/23/17 10/24/17 10/24/17 10/24/17 07:00 15:00 23:00 07:00 15:00 23:00 Intake Total 304 ml 204 ml 200 ml Output Total 550 ml 310 ml 750 ml Balance -246 ml -106 ml -550 ml Intake Oral 0 ml IV Total 304 ml 204 ml 200 ml Output Urine Total 450 ml 300 ml 750 ml Gastric Drainage Total 100 ml 10 ml # Bowel Movements 1 2 2 Result Diagram: 10/24/17 0539 10/22/17 0509 Objective Remarks awake, alert, no acute distress Left upper extremity: Erythema remains in place without any significant increase. Significant decrease in edema. Patient has mild tenderness to palpation but overall minimal discomfort in the left upper extremity. Patient appears neurovascularly intact distally. Assessment & Plan Assessment and Plan 87-year-old female with concave medical history with recent reversal of ileostomy with concern for left upper extremity cellulitis and infection At this time, patient continues to have improvement in her symptoms and swelling. She is clinically stable, not requiring pressors, and does not appear to be progressing in terms of erythema and edema, in fact improving. With this in mind, I do believe this is unlikely to be necrotizing fasciitis. This appears to be mostly a significant cellulitis which is responding appropriately to antibiotics. Patient is not interested in any type of surgery at this time for her left upper extremity. I would recommend close monitoring and continued medical management with elevation and IV antibiotics. Should her symptoms worsen significantly, she could require surgical intervention but at this time I would not recommend this. Adriana Irving MD Oct 24, 2017 07:38
[2017-10-24 07:39] LABS: ALT (GPT) 10 U/L (10-53)
[2017-10-24 07:41] LABS: ALKALINE PHOSPHATASE 27 U/L (45-117); TOTAL BILIRUBIN ADULT 0.2 MG/DL (0.2-1.0); TOTAL PROTEIN 4.7 GM/DL (6.4-8.2)
[2017-10-24] MEDS: PANTOPRAZOLE SODIUM 40 MG VIAL IV PUSH SCH (09:11)
[2017-10-24] MEDS: SODIUM CHLORIDE 0.9% FLUSH 10 ML FLUSH IV FLUSH SCH ×2 (09:11→21:00)
[2017-10-24] MEDS: DOCUSATE SODIUM 50 MG/SENNA 8.6 MG TAB PO SCH ×2 (09:12→21:00)
--- NOTE | 2017-10-24 13:34 | HHI.PR ---
Subjective Remarks Pt seen at 9AM. C/O pain 'everywhere". No Nor V. Multiple soft BMs Objective Vital Signs Date Time Temp Pulse Resp B/P (MAP) Pulse Ox O2 Delivery O2 Flow Rate FiO2 10/24/17 10:06 72 10/24/17 09:17 20 10/24/17 08:41 80 10/24/17 08:20 99 Nasal Cannula 2.00 10/24/17 08:00 98.4 75 20 164/80 (108) 100 10/24/17 07:00 98 Nasal Cannula 2.00 10/24/17 06:00 70 10/24/17 04:00 69 10/24/17 04:00 98.3 66 16 180/76 (110) 100 10/24/17 03:56 20 10/24/17 02:00 74 10/24/17 00:00 85 10/24/17 00:00 98.4 69 19 158/77 (104) 100 10/23/17 22:00 88 10/23/17 20:00 98.3 74 19 142/84 (103) 98 10/23/17 20:00 90 10/23/17 19:43 99 Nasal Cannula 2.00 10/23/17 19:00 99 Nasal Cannula 2.00 10/23/17 18:18 75 10/23/17 16:00 98.0 80 16 153/80 (104) 98 10/23/17 16:00 75 10/23/17 14:00 75 I/O 10/23/17 10/23/17 10/23/17 10/24/17 10/24/17 10/24/17 07:00 15:00 23:00 07:00 15:00 23:00 Intake Total 304 ml 204 ml 200 ml Output Total 550 ml 310 ml 750 ml Balance -246 ml -106 ml -550 ml Intake Oral 0 ml IV Total 304 ml 204 ml 200 ml Output Urine Total 450 ml 300 ml 750 ml Gastric Drainage Total 100 ml 10 ml # Bowel Movements 1 2 2 Result Diagram: 10/24/1739 10/24/17 0539 Objective Remarks VS-S Abd: soft,non tender Assessment and Plan Assessment and Plan Stable. Ileus resolving Start diet. F/U AxR in AM. OK to transfer from CRS standpoint. Appreciate ID and Ortho help Nilesh Paniagua MD Oct 24, 2017 13:34
[2017-10-24] MEDS: VANCOMYCIN 1,000 MG/NS 250 ML IV SCH ×2 (14:00)
--- NOTE | 2017-10-24 15:48 | HHI.IDPN ---
Subjective Subjective Remarks Ms. Gupta is an 87 y/o CF with PMHx of hypothyroidism, rheumatoid arthritis on chronic methotrexate and prednisone, GERD. She was diagnosed with rectal cancer and underwent low anterior resection 06/11/[address] Ryan. She is currently postop day #6 from ileostomy reversal 10/15/[address] Ryan. She was discharged 10/19/17 to [facility]. She developed abdominal distension and had 2-3 episodes of emesis today, nonbloody nonbilious. Her daughter states she is incontinent of urine and stool and has continued to have loose bowel movements. Patient complained of some aching abdominal pain in mid abdomen upon admission. She is afebrile with temperature of 98.9. WBC is 19.9. Lactic acid 2.1. Creatinine 0.77 (baseline 0.45). Patient was seen by Critical Care over night and recd some empiric antibiotics. was called due to concern for ileus related sepsis. I received a call from for a stat consult for left upper extremity cellulitis concern for worsening infection. Upon discussion with daughter it appears patient has prior MRSA infection in her left lower extremity. Patient is seen by Dr. Bush at [facility] few months back. She also goes on to report that 2-3 days prior to admission she noticed an area of redness on the left inner aspect of the left elbow which has progressively gotten worse and at this point her entire left upper extremity appears to be swollen and edematous. She also notices that the arm is now progressively more erythematous. There is no reported pain or tenderness to suggest necrotizing fasciitis-like process. At the time of my evaluation patient is in the ISC.She has a ID band in her left wrist on the side of infection. She also has a small bore peripheral IV around the wrist. Patient is currently not on any pressors her urine output is good. She has no fevers, no rash no diarrhea. Upon discussion with Dr. Ryan it appears that there is no plan for surgery for ileus at the present time given the left upper extremity cellulitis which appears to be more concerning. Infectious disease is consulted for evaluation and management of left upper extremity cellulitis. Overnight events reviewed. No fevers No generalized rash No diarrhea LUE continuing to improve. Antibiotics Vanco IV Azactam IV Lines Line sites with no e.o infection. Past Medical History reviewed. Allergies: Coded Allergies: Sulfa (Sulfonamide Antibiotics) (Unverified Allergy, Severe, SWELLING, DIFFICULTY BREATHING, 10/21/17) celecoxib (Unverified Allergy, Severe, 10/21/17) PT IS UNABLE TO RECALL REACTION. penicillin G (Unverified Allergy, Severe, Swelling, 10/21/17) PT REPORTS REACTION WAS 50 YEARS AGO, AND IS UNABLE TO RECALL DETAILS. Uncoded Allergies: TAPE ADHESIVE/ PAPER TAPE OK (Allergy, Severe, BLISTERS, 05/01/06) Objective . Vital Signs Date Time Temp Pulse Resp B/P (MAP) Pulse Ox O2 Delivery O2 Flow Rate FiO2 10/24/17 14:00 72 10/24/17 12:00 98.0 80 18 158/70 (99) 99 10/24/17 12:00 88 10/24/17 10:06 72 10/24/17 09:17 20 10/24/17 08:41 80 10/24/17 08:20 99 Nasal Cannula 2.00 10/24/17 08:00 98.4 75 20 164/80 (108) 100 10/24/17 07:00 98 Nasal Cannula 2.00 10/24/17 06:00 70 10/24/17 04:00 69 10/24/17 04:00 98.3 66 16 180/76 (110) 100 10/24/17 03:56 20 10/24/17 02:00 74 10/24/17 00:00 85 10/24/17 00:00 98.4 69 19 158/77 (104) 100 10/23/17 22:00 88 10/23/17 20:00 98.3 74 19 142/84 (103) 98 10/23/17 20:00 90 10/23/17 19:43 99 Nasal Cannula 2.00 10/23/17 19:00 99 Nasal Cannula 2.00 10/23/17 18:18 75 10/23/17 16:00 98.0 80 16 153/80 (104) 98 10/23/17 16:00 75 . Laboratory Tests Test 10/24/17 05:39 White Blood Count 7.8 TH/MM3 Red Blood Count 3.16 MIL/MM3 Hemoglobin 10.0 GM/DL Hematocrit 30.6 % Mean Corpuscular Volume 96.7 FL Mean Corpuscular Hemoglobin 31.5 PG Mean Corpuscular Hemoglobin Concent 32.6 % Red Cell Distribution Width 17.9 % Platelet Count 275 TH/MM3 Mean Platelet Volume 8.8 FL Neutrophils (%) (Auto) 94.0 % Lymphocytes (%) (Auto) 3.5 % Monocytes (%) (Auto) 2.2 % Eosinophils (%) (Auto) 0.2 % Basophils (%) (Auto) 0.1 % Neutrophils # (Auto) 7.3 TH/MM3 Lymphocytes # (Auto) 0.3 TH/MM3 Monocytes # (Auto) 0.2 TH/MM3 Eosinophils # (Auto) 0.0 TH/MM3 Basophils # (Auto) 0.0 TH/MM3 CBC Comment DIFF FINAL Differential Comment Laboratory Tests Test 10/24/17 05:39 Blood Urea Nitrogen 15 MG/DL Creatinine 0.38 MG/DL Random Glucose 91 MG/DL Total Protein 4.7 GM/DL Albumin 2.0 GM/DL Calcium Level 7.7 MG/DL Alkaline Phosphatase 27 U/L Aspartate Amino Transf (AST/SGOT) 14 U/L Alanine Aminotransferase (ALT/SGPT) 10 U/L Total Bilirubin 0.2 MG/DL Sodium Level 143 MEQ/L Potassium Level 4.2 MEQ/L Chloride Level 110 MEQ/L Carbon Dioxide Level 26.8 MEQ/L Anion Gap 6 MEQ/L Estimat Glomerular Filtration Rate 159 ML/MIN Microbiology Date/Time Source Procedure Growth Status 10/21/17 18:00 Blood Peripheral Aerobic Blood Culture - Preliminary NO GROWTH IN 3 DAYS Resulted 10/21/17 18:00 Blood Peripheral Anaerobic Blood Culture - Preliminary NO GROWTH IN 3 DAYS Resulted 10/21/17 17:52 Blood Peripheral Aerobic Blood Culture - Preliminary NO GROWTH IN 3 DAYS Resulted 10/21/17 17:52 Blood Peripheral Anaerobic Blood Culture - Preliminary NO GROWTH IN 3 DAYS Resulted 10/21/17 16:20 Urine Clean Catch Urine Culture - Preliminary Group D Enterococcus Resulted Imaging Last Impressions Upper Extremity CT 10/22/17 0000 Signed Impressions: Service Date/Time: Sunday, October 22, 2017 22:22 - CONCLUSION: 1. Soft tissue swelling in the left hand. No discrete abscess. No acute bony abnormalities. Garrick Ramirez MD Chest X-Ray 10/21/17 1612 Signed Impressions: Service Date/Time: Saturday, October 21, 2017 16:19 - CONCLUSION: No acute disease. Nilesh Frye MD Abdomen/Pelvis CT 10/21/17 1612 Signed Impressions: Service Date/Time: Saturday, October 21, 2017 17:47 - CONCLUSION: 1. Suspected small bowel structure with dilatation of the small bowel to the level of anastomosis suture and the distal small bowel. There is debris within the small bowel at this region in the small bowel beyond the anastomosis is decompressed. 2. Mild hiatal hernia. 3. Sigmoid colon diverticula. There is an anastomosis sutures seen in the rectum just beyond the sigmoid colon diverticula. 4. Mild left pleural effusion. 5. Consolidation at the posterior right lung base. Nilesh Frye MD Abdomen X-Ray 10/21/17 0000 Signed Impressions: Service Date/Time: Saturday, October 21, 2017 18:43 - CONCLUSION: Nasogastric tube across the GE junction Dami Cuevas MD FACR Physical Exam GENERAL: This is a well-nourished, well-developed patient, in no apparent distress. SKIN: Multiple areas of ecchymosis noted. Cool and dry. HEAD: Atraumatic. Normocephalic. No temporal or scalp tenderness. EYES: Pupils equal round and reactive. Extraocular motions intact. No scleral icterus. No injection or drainage. ENT: Nose without bleeding, purulent drainage or septal hematoma. Throat without erythema, tonsillar hypertrophy or exudate. Uvula midline. Airway patent. NECK: Trachea midline. Supple, nontender, no meningeal signs. CARDIOVASCULAR: Regular rate and rhythm without murmurs, gallops, or rubs. RESPIRATORY: Clear to auscultation. Breath sounds equal bilaterally. No wheezes , rales, or rhonchi. GASTROINTESTINAL: Abdomen soft, non-tender, nondistended. MUSCULOSKELETAL: Multiple joints of upper and lower extremity with changes suggestive of chronic arthritis(note patient has prior history of rheumatoid arthritis). Patient's entire left upper extremity is edematous, erythematous with induration noted. No pain or tenderness out of proportion to other clinical findings. No obvious gas cutaneously noted. Overall appears clinically improved today. NEUROLOGICAL: Awake and alert. Nonfocal exam Psych cooperative IV line sites with no evidence of infection. Assessment & Plan Remarks Possible sepsis in an immunocompromised patient. Ileus resolved: has had multiple BMs. Tolerated diet. Left upper extremity cellulitis. Group D Enterococcus in urine: asymptomatic but will likely be covered with Vanco IV. Clinically stable. History of rectal cancer, status post low anterior resection June 11, [address] Ryan. Status post ileostomy reversal on October 15, [address] Ryan. Rheumatoid arthritis Rheumatoid arthritis on immune suppressants(methotrexate and prednisone) Penicillin allergy Sulfa allergy Recommendations Continue Aztreonam IV Continue vancomycin target trough 10-15 for cellulitis Elevate left UE. JL wrap LUE. Follow cultures Follow clinically Discussed with RN No family in room. Brandie Carnes MD Oct 24, 2017 15:48
--- NOTE | 2017-10-24 18:22 | HHI.PR ---
Addendum to Inpatient Note Addendum Reason: Additional Documentation Additional Information Based on criteria patient had sepsis present on admission Ton Carnes MD Oct 24, 2017 18:22
--- NOTE | 2017-10-24 19:24 | HHI.PR ---
Subjective Remarks NOT SEEN Objective Vitals Vital Signs Date Time Temp Pulse Resp B/P (MAP) Pulse Ox O2 Delivery O2 Flow Rate FiO2 10/24/17 16:00 98.0 85 20 153/69 (97) 98 10/24/17 14:00 72 10/24/17 12:00 98.0 80 18 158/70 (99) 99 10/24/17 12:00 88 10/24/17 10:06 72 10/24/17 09:17 20 10/24/17 08:41 80 10/24/17 08:20 99 Nasal Cannula 2.00 10/24/17 08:00 98.4 75 20 164/80 (108) 100 10/24/17 07:00 98 Nasal Cannula 2.00 10/24/17 06:00 70 10/24/17 04:00 69 10/24/17 04:00 98.3 66 16 180/76 (110) 100 10/24/17 03:56 20 10/24/17 02:00 74 10/24/17 00:00 85 10/24/17 00:00 98.4 69 19 158/77 (104) 100 10/23/17 22:00 88 10/23/17 20:00 98.3 74 19 142/84 (103) 98 10/23/17 20:00 90 10/23/17 19:43 99 Nasal Cannula 2.00 I/O 10/23/17 10/23/17 10/23/17 10/24/17 10/24/17 10/24/17 07:00 15:00 23:00 07:00 15:00 23:00 Intake Total 304 ml 204 ml 200 ml 240 ml Output Total 550 ml 310 ml 750 ml 800 ml Balance -246 ml -106 ml -550 ml -560 ml Intake Oral 0 ml 240 ml IV Total 304 ml 204 ml 200 ml Output Urine Total 450 ml 300 ml 750 ml 800 ml Gastric Drainage Total 100 ml 10 ml # Bowel Movements 1 2 2 1 Result Diagram: 10/24/17 0539 10/24/17 0539 Imaging Last Impressions Upper Extremity CT 10/22/17 0000 Signed Impressions: Service Date/Time: Sunday, October 22, 2017 22:22 - CONCLUSION: 1. Soft tissue swelling in the left hand. No discrete abscess. No acute bony abnormalities. Garrick Ramirez MD Chest X-Ray 10/21/172 Signed Impressions: Service Date/Time: Saturday, October 21, 2017 16:19 - CONCLUSION: No acute disease. Nilesh Frye MD Abdomen/Pelvis CT 10/21/17 1612 Signed Impressions: Service Date/Time: Saturday, October 21, 2017 17:47 - CONCLUSION: 1. Suspected small bowel structure with dilatation of the small bowel to the level of anastomosis suture and the distal small bowel. There is debris within the small bowel at this region in the small bowel beyond the anastomosis is decompressed. 2. Mild hiatal hernia. 3. Sigmoid colon diverticula. There is an anastomosis sutures seen in the rectum just beyond the sigmoid colon diverticula. 4. Mild left pleural effusion. 5. Consolidation at the posterior right lung base. Nilesh Frye MD Abdomen X-Ray 10/21/17 0000 Signed Impressions: Service Date/Time: Saturday, October 21, 2017 18:43 - CONCLUSION: Nasogastric tube across the GE junction Dami Cuevas MD FACR Objective Remarks GENERAL: Elderly female who is laying in bed not in any acute distress. SKIN: Warm and dry, adequately perfused. There are ecchymoses on the dorsum of bilateral arms and lateral aspect of right thigh. HEAD: Normocephalic. EYES: Pupils equal and round, 2 mm reactive. No scleral icterus. No injection or drainage. ENT: No nasal bleeding or discharge. Mucous membranes dry NECK: Trachea midline. Jugular veins are flat. CARDIOVASCULAR: Tachycardic, generally regular with an occasional premature beat. No murmurs rubs or gallops. RESPIRATORY: Mildly tachypneic with shallow respirations and no accessory muscle use.. Clear to auscultation. Breath sounds equal bilaterally. GASTROINTESTINAL: Abdomen is distended and tympanitic without bowel sounds. There is some mild tenderness in mid abdomen without rebound or guarding. Steri- strips are in place over prior ileostomy site in right abdomen with wound edges approximated. no drainage. MUSCULOSKELETAL: Left upper extremity with swelling, erythema and warmth, left radial pulse palpable very well. She has joint deformities of hands consistent with rheumatoid arthritis. NEUROLOGICAL: Awake and alert. No obvious cranial nerve deficits. Motor grossly within normal limits, moving all extremities without focal deficit. Normal speech. A/P Problem List: (1) Rheumatoid arthritis ICD Code: M06.9 - Rheumatoid arthritis, unspecified Status: Chronic (2) SVT (supraventricular tachycardia) ICD Code: I47.1 - Supraventricular tachycardia Status: Chronic (3) UTI (urinary tract infection) ICD Code: N39.0 - Urinary tract infection, site not specified Status: Acute (4) HTN (hypertension) ICD Code: I10 - Essential (primary) hypertension Status: Chronic (5) Rectal cancer ICD Code: C20 - Malignant neoplasm of rectum Status: Resolved (6) Dehydration ICD Code: E86.0 - Dehydration Status: Acute (7) Ileus ICD Code: K56.7 - Ileus, unspecified Status: Acute Assessment and Plan NEURO: Pain secondary to rheumatoid arthritis Ofirmev scheduled 1 g IV every 6 hours in effort to minimize opioid requirement where possible. Morphine prn breakthrough. RESP: Nasal cannula wean as tolerated Incentive spirometry every hour awake Chest x-ray 10/21/17 CV: SVT Intermittent SVT in the emergency department. Spontaneously converted on a couple of occasions. Did receive adenosine 6 mg IV 2 doses. She previously has been managed on Cardizem. She may not have been absorbing this due to her ileus. Resume by mouth Cardizem. Off Cardizem drip currently. Would consider transition to metoprolol IV when fluid resuscitated if BP will tolerate. GI: rectal cancer s/p low anterior resection and diverting ileostomy. Now POD#6 from ileostomy reversal. Ileus GERD NG tube clamped per CRS.. CT abdomen pelvis 10/21 - Dilation of stomach and small bowel. Small bowel distal to anastamosis is decompressed. Colorectal surgery following. FEN/RENAL: Dehydration Urinary incontinence Rasmussen inserted to maintain accurate I/O while resuscitating. ID: Rheumatoid arthritis UTI, present on admission Left upper extremity cellulitis penicillin allergy Hold methotrexate Follow-up blood and urine cultures. Received aztreonam in the ED. Will continue. IV vancomycin initiated on 10/22 for left upper extremity cellulitis. ID consulted and following. Started on IV Clindamycin 10/23. CT left upper extremity reviewed. Ortho consult noted. HEME: Rectal cancer status post low anterior resection and diverting ileostomy. Now s/ p ileostomy reversal and anastomosis 10/15/17 (Dr. Ryan) Pathology 06/11/17 - high grade poorly differentiated adenocarcinoma, focally intubating muscularis propria. Resection margins negative for malignancy. Lymph nodes negative. Has not received chemo. Monitor CBC. ENDO: Chronic prednisone use Hypothyroidism TSH low. Hold synthroid for now. Recheck 10/25 consider initiation of synthroid IV. PROPH: SCDs and Lovenox 40 mg subcutaneous daily for DVT prophylaxis. Protonix 40 mg IV daily for stress ulcer prophylaxis and history of GERD ACCESS: Peripheral IV providing adequate access at this time. Problem Qualifiers (1) UTI (urinary tract infection): (2) HTN (hypertension): Qualified Codes: I10 - Essential (primary) hypertension Ba Rhodes MD Oct 24, 2017 19:24
--- NOTE | 2017-10-24 20:10 | HHI.PR ---
Subjective Remarks therte is mild abdominal pain passing gas denies nausea or vomting afebrile left upper extremity edema improving Objective Vitals Vital Signs Date Time Temp Pulse Resp B/P (MAP) Pulse Ox O2 Delivery O2 Flow Rate FiO2 10/24/17 16:00 98.0 85 20 153/69 (97) 98 10/24/17 14:00 72 10/24/17 12:00 98.0 80 18 158/70 (99) 99 10/24/17 12:00 88 10/24/17 10:06 72 10/24/17 09:17 20 10/24/17 08:41 80 10/24/17 08:20 99 Nasal Cannula 2.00 10/24/17 08:00 98.4 75 20 164/80 (108) 100 10/24/17 07:00 98 Nasal Cannula 2.00 10/24/17 06:00 70 10/24/17 04:00 69 10/24/17 04:00 98.3 66 16 180/76 (110) 100 10/24/17 03:56 20 10/24/17 02:00 74 10/24/17 00:00 85 10/24/17 00:00 98.4 69 19 158/77 (104) 100 10/23/17 22:00 88 I/O 10/23/17 10/23/17 10/23/17 10/24/17 10/24/17 10/24/17 06:59 14:59 22:59 06:59 14:59 22:59 Intake Total 304 ml 204 ml 200 ml 240 ml Output Total 550 ml 310 ml 750 ml 800 ml Balance -246 ml -106 ml -550 ml -560 ml Intake Oral 0 ml 240 ml IV Total 304 ml 204 ml 200 ml Output Urine Total 450 ml 300 ml 750 ml 800 ml Gastric Drainage Total 100 ml 10 ml # Bowel Movements 1 2 2 1 Result Diagram: 10/24/17 0539 10/24/17 0539 Imaging Last 72 hours Impressions Upper Extremity CT 10/22/17 0000 Signed Impressions: Service Date/Time: Sunday, October 22, 2017 22:22 - CONCLUSION: 1. Soft tissue swelling in the left hand. No discrete abscess. No acute bony abnormalities. Garrick Ramirez MD Upper Extremity CT 10/22/17 0000 Signed Impressions: Service Date/Time: Sunday, October 22, 2017 22:22 - CONCLUSION: 1. Extensive cellulitis of the forearm especially anteriorly with soft tissue swelling and edema. 2. Multiple locules of air in the soft tissues along the lateral aspect of the proximal forearm superficial to the radius likely representing a linear abscess formation although fluid does not measure more than a centimeter in diameter and is not related to percutaneous drainage. Garrick Ramirez MD Upper Extremity CT 10/22/17 0000 Signed Impressions: Service Date/Time: Sunday, October 22, 2017 22:22 - CONCLUSION: 1. Extensive soft tissue edema and swelling of the arm especially posteriorly. Also multiple small locules of air anterior to the distal humerus. No loculated or drainable fluid collections are seen. Garrick Ramirez MD Medications and IVs Current Medications Medications (Trade) Dose Ordered Sig/Merrick Route Start Time Stop Time Status Last Admin Potassium Cl/ Dextrose/Lact Ringer's 1,000 ml @ 65 mls/hr [id number] IV 10/21/17 18:30 10/24/17 12:38 Potassium Chloride 100 ml @ 50 mls/hr Q2H PRN IV 10/21/17 21:00 Potassium Chloride 100 ml @ 50 mls/hr Q2H PRN IV 10/21/17 21:00 (K-Lyte Cl Eff) 50 meq UNSCH PRN PO 10/21/17 21:00 Potassium Chloride 100 ml @ 25 mls/hr UNSCH PRN IV 10/21/17 21:00 Potassium Chloride 100 ml @ 50 mls/hr Q2H PRN IV 10/21/17 21:00 Magnesium Sulfate 4 gm/Sodium Chloride 100 ml @ 50 mls/hr UNSCH PRN IV 10/21/17 21:00 (Mag-Ox) 800 mg UNSCH PRN PO 10/21/17 21:00 Magnesium Sulfate 2 gm/Sodium Chloride 100 ml @ 50 mls/hr UNSCH PRN IV 10/21/17 21:00 (K-Phos) 2,000 mg Q4H PRN PO 10/21/17 21:00 Sodium Phosphate 30 mmol/Sodium Chloride 250 ml @ 42 mls/hr UNSCH PRN IV 10/21/17 21:00 (K-Phos) 2,000 mg UNSCH PRN PO/TUBE 10/21/17 21:00 Potassium Phosphate 30 mmol/ Sodium Chloride 260 ml @ 42 mls/hr UNSCH PRN IV 10/21/17 21:00 Diltiazem HCl 125 mg/Sodium Chloride 125 ml @ 5 mls/hr TITRATE PRN IV 10/21/17 21:00 10/22/17 12:16 (Morphine Inj) 4 mg Q3H PRN IV PUSH 10/21/17 21:00 10/24/17 09:12 (Morphine Inj) 2 mg Q3H PRN IV PUSH 10/21/17 21:00 10/24/17 10:10 (NS Flush) 2 ml UNSCH PRN IV FLUSH 10/21/17 21:30 (NS Flush) 2 ml BID IV FLUSH 10/22/17 09:00 10/24/17 09:11 (Protonix Inj) 40 mg DAILY IV PUSH 10/22/17 09:00 10/24/17 09:11 (Zofran Inj) 4 mg Q6H PRN IV PUSH 10/21/17 21:30 (Albuterol Neb) 2.5 mg Q2HR NEB PRN INH 10/21/17 21:30 Miscellaneous Information 1 [id number] XX 10/21/17 21:30 (Chlorhexidine 2% Cloth) 3 pack Taper DAILY@04 TOP 10/22/17 04:00 10/18/18 03:59 10/24/17 03:27 (Chlorhexidine 2% Cloth) 3 pack UNSCH PRN TOP 10/21/17 21:30 (Natacha-Colace) 1 tab BID PO 10/22/17 09:00 10/24/17 09:12 (Milk Of Magnesia Liq) 30 ml Q12H PRN PO 10/21/17 21:30 (Senokot) 17.2 mg Q12H PRN PO 10/21/17 21:30 (Dulcolax Supp) 10 mg DAILY PRN RECTAL 10/21/17 21:30 (Lactulose Liq) 30 ml DAILY PRN PO 10/21/17 21:30 Aztreonam 1000 mg/ Sodium Chloride 100 ml @ 200 mls/hr Q8H IV 10/22/17 02:00 10/24/17 18:00 Acetaminophen 100 ml @ 400 mls/hr Q6H IV 10/22/17 03:00 10/24/17 15:00 (SoluMEDROL INJ) 20 mg Q12H IV PUSH 10/22/17 01:00 10/24/17 13:00 (Lovenox Inj) 40 mg Q24H SQ 10/22/17 01:00 10/24/17 01:25 (Reglan Inj) 10 mg Q8HR IV PUSH 10/22/17 15:00 10/24/17 14:00 Pharmacy Profile Note 0 ml @ 0 mls/hr UNSCH OTHER 10/22/17 16:00 Vancomycin HCl 1000 mg/Sodium Chloride 250 ml @ 250 mls/hr Q24H IV 10/23/17 14:00 10/24/17 14:00 (Cepacol Extra [place] (Sugar Free)) 1 lozenge Q4HR PRN BUCCAL 10/22/17 18:45 (Hurricaine 20% Oral Spr) 1 spray Q1HR PRN OROPHARYNG 10/23/17 10:00 (Bactroban Nasal 2% Oint) 1 applic BID EACH NARE 10/24/17 21:00 10/31/17 20:59 A/P Problem List: (1) Rheumatoid arthritis ICD Code: M06.9 - Rheumatoid arthritis, unspecified Status: Chronic (2) SVT (supraventricular tachycardia) ICD Code: I47.1 - Supraventricular tachycardia Status: Chronic (3) UTI (urinary tract infection) ICD Code: N39.0 - Urinary tract infection, site not specified Status: Acute (4) HTN (hypertension) ICD Code: I10 - Essential (primary) hypertension Status: Chronic (5) Rectal cancer ICD Code: C20 - Malignant neoplasm of rectum Status: Resolved (6) Dehydration ICD Code: E86.0 - Dehydration Status: Acute (7) Ileus ICD Code: K56.7 - Ileus, unspecified Status: Acute Assessment and Plan Pain secondary to rheumatoid arthritis Ofirmev scheduled 1 g IV every 6 hours in effort to minimize opioid requirement where possible. Morphine prn breakthrough. RESP: Nasal cannula wean as tolerated Incentive spirometry every hour awake Chest x-ray 10/21/17 CV: SVT Intermittent SVT in the emergency department. Spontaneously converted on a couple of occasions. Did receive adenosine 6 mg IV 2 doses. She previously has been managed on Cardizem. She may not have been absorbing this due to her ileus. Resume by mouth Cardizem. Off Cardizem drip currently. Would consider transition to metoprolol IV when fluid resuscitated if BP will tolerate. GI: rectal cancer s/p low anterior resection and diverting ileostomy. POD #8 from ileostomy reversal. Ileus GERD NG tube clamped per CRS.. CT abdomen pelvis 10/21 - Dilation of stomach and small bowel. Small bowel distal to anastamosis is decompressed. Colorectal surgery following 10/24 it is resolving. Recommended starting diet. Follow-up abdominal x-ray in a.m. FEN/RENAL: Dehydration Urinary incontinence Rasmussen inserted to maintain accurate I/O while resuscitating. ID: Rheumatoid arthritis UTI, present on admission Left upper extremity cellulitis penicillin allergy Hold methotrexate Follow-up blood and urine cultures. Received aztreonam in the ED. Will continue. IV vancomycin initiated on 10/22 for left upper extremity cellulitis. ID consulted and following. Started on IV Clindamycin 10/23. CT left upper extremity reviewed. Ortho consult noted. HEME: Rectal cancer status post low anterior resection and diverting ileostomy. Now s/ p ileostomy reversal and anastomosis 10/15/17 (Dr. Ryan) Pathology 06/11/17 - high grade poorly differentiated adenocarcinoma, focally intubating muscularis propria. Resection margins negative for malignancy. Lymph nodes negative. Has not received chemo. Monitor CBC. ENDO: Chronic prednisone use Hypothyroidism TSH low. Hold synthroid for now. Recheck 10/25 consider initiation of synthroid IV. PROPH: SCDs and Lovenox 40 mg subcutaneous daily for DVT prophylaxis. Protonix 40 mg IV daily for stress ulcer prophylaxis and history of GERD ACCESS: Peripheral IV providing adequate access at this time. Problem Qualifiers (1) UTI (urinary tract infection): (2) HTN (hypertension): Qualified Codes: I10 - Essential (primary) hypertension Wu Samuels MD Oct 24, 2017 20:10
[2017-10-24] MEDS: MUPIROCIN 2% OINT 1 APPLIC/GM SYR EACH NARE SCH (22:18)
--- NOTE | 2017-10-24 22:18 | RADRPT ---
EXAM DATE/TIME: 10/24/2017 21:34 [facility] COMPARISON: No previous studies available for comparison. INDICATIONS : Left arm swelling. MEDICAL HISTORY : Hypothyroidism. Hypertension. Gastroesophageal reflux disease. Glasses. Atrial fibrillation. Arthriti s. Colon cancer. MRSA. SURGICAL HISTORY : Tonsillectomy. Appendectomy. Hysterectomy. Left cataract surgery. Right lumpectomy. Hiatal hernia. J oint replacement. ENCOUNTER: Initial ACUITY: 1 day PAIN SCORE: 6/10 LOCATION: Left arm. FINDINGS: There is thrombus in the left basilic vein. The basilic vein appears enlarged suggesting this is acut e. There is spontaneous flow documented in the brachial, cephalic, axillary, and subclavian veins. T hese vessels are compressible and augmentation response is documented. The flow is phasic with respi ration. Direction of flow in the jugular vein is caudal. CONCLUSION: Acute appearing thrombus in the left basilic vein. The remaining venous structures appear patent. Nilesh Frye MD on October 24, 2017 at 22:15 Board Certified Radiologist. This report was verified electronically.
[2017-10-25] MEDS: ENOXAPARIN SODIUM 40 MG/0.4 ML SYRINGE SQ SCH ×2 (01:08→23:59)
[2017-10-25] MEDS: methylPREDNISolone SOD SUCC 40 MG/1 ML VIAL IV PUSH SCH ×3 (01:09→23:58)
[2017-10-25] MEDS: AZTREONAM INJ 1,000 MG in SODIUM CHLORIDE 0.9% INJ 100 ML IV SCH (01:39)
[2017-10-25] MEDS: CHLORHEXIDINE GLUCONATE 2 % 1 PACK (2 CLOTHS) TOP SCH (03:34)
[2017-10-25] MEDS: ACETAMINOPHEN 1000 MG/100 ML 100 ML IV SCH ×4 (03:35→21:28)
[2017-10-25] MEDS: POTASSIUM CHLORIDE INJ 20 MEQ in DEXTROSE 5%-LACTATED RING INJ 1,000 ML IV SCH ×2 (04:42→20:03)
[2017-10-25] MEDS: METOCLOPRAMIDE HCL 10 MG/2 ML VIAL IV PUSH SCH ×3 (06:12→21:29)
[2017-10-25 08:00] VITALS: BP 134/64; PULSE 85; RESP 20; TEMP 97.5; O2SAT 91
[2017-10-25] MEDS: DOCUSATE SODIUM 50 MG/SENNA 8.6 MG TAB PO SCH ×2 (09:00→21:00)
[2017-10-25] MEDS: SODIUM CHLORIDE 0.9% FLUSH 10 ML FLUSH IV FLUSH SCH ×2 (09:00→21:28)
--- NOTE | 2017-10-25 10:09 | HHI.IDPN ---
Subjective Subjective Remarks Ms. Gupta is an 87 y/o CF with PMHx of hypothyroidism, rheumatoid arthritis on chronic methotrexate and prednisone, GERD. She was diagnosed with rectal cancer and underwent low anterior resection 06/11/[address] Ryan. She is currently postop day #6 from ileostomy reversal 10/15/[address] Ryan. She was discharged 10/19/17 to [facility]. She developed abdominal distension and had 2-3 episodes of emesis today, nonbloody nonbilious. Her daughter states she is incontinent of urine and stool and has continued to have loose bowel movements. Patient complained of some aching abdominal pain in mid abdomen upon admission. She is afebrile with temperature of 98.9. WBC is 19.9. Lactic acid 2.1. Creatinine 0.77 (baseline 0.45). Patient was seen by Critical Care over night and recd some empiric antibiotics. was called due to concern for ileus related sepsis. I received a call from for a stat consult for left upper extremity cellulitis concern for worsening infection. Upon discussion with daughter it appears patient has prior MRSA infection in her left lower extremity. Patient is seen by Dr. Bush at [facility] few months back. She also goes on to report that 2-3 days prior to admission she noticed an area of redness on the left inner aspect of the left elbow which has progressively gotten worse and at this point her entire left upper extremity appears to be swollen and edematous. She also notices that the arm is now progressively more erythematous. There is no reported pain or tenderness to suggest necrotizing fasciitis-like process. At the time of my evaluation patient is in the ISC.She has a ID band in her left wrist on the side of infection. She also has a small bore peripheral IV around the wrist. Patient is currently not on any pressors her urine output is good. She has no fevers, no rash no diarrhea. Upon discussion with Dr. Ryan it appears that there is no plan for surgery for ileus at the present time given the left upper extremity cellulitis which appears to be more concerning. Infectious disease is consulted for evaluation and management of left upper extremity cellulitis. Overnight events reviewed. No fevers No generalized rash No diarrhea LUE close to elbow she has a fluid filled large blister. It is not warm to touch. Antibiotics Vanco IV Azactam IV Lines Line sites with no e.o infection. Past Medical History reviewed. Allergies: Coded Allergies: Sulfa (Sulfonamide Antibiotics) (Unverified Allergy, Severe, SWELLING, DIFFICULTY BREATHING, 10/21/17) celecoxib (Unverified Allergy, Severe, 10/21/17) PT IS UNABLE TO RECALL REACTION. penicillin G (Unverified Allergy, Severe, Swelling, 10/21/17) PT REPORTS REACTION WAS 50 YEARS AGO, AND IS UNABLE TO RECALL DETAILS. Uncoded Allergies: TAPE ADHESIVE/ PAPER TAPE OK (Allergy, Severe, BLISTERS, 05/01/06) Objective . Vital Signs Date Time Temp Pulse Resp B/P (MAP) Pulse Ox O2 Delivery O2 Flow Rate FiO2 10/25/17 08:00 97.5 85 20 134/64 (87) 91 10/25/17 04:43 18 10/24/17 20:00 97.2 96 20 121/59 (79) 94 10/24/17 19:00 95 Room Air 10/24/17 16:00 98.0 85 20 153/69 (97) 98 10/24/17 14:00 72 10/24/17 12:00 98.0 80 18 158/70 (99) 99 10/24/17 12:00 88 . Laboratory Tests Test 10/24/17 05:39 White Blood Count 7.8 TH/MM3 Red Blood Count 3.16 MIL/MM3 Hemoglobin 10.0 GM/DL Hematocrit 30.6 % Mean Corpuscular Volume 96.7 FL Mean Corpuscular Hemoglobin 31.5 PG Mean Corpuscular Hemoglobin Concent 32.6 % Red Cell Distribution Width 17.9 % Platelet Count 275 TH/MM3 Mean Platelet Volume 8.8 FL Neutrophils (%) (Auto) 94.0 % Lymphocytes (%) (Auto) 3.5 % Monocytes (%) (Auto) 2.2 % Eosinophils (%) (Auto) 0.2 % Basophils (%) (Auto) 0.1 % Neutrophils # (Auto) 7.3 TH/MM3 Lymphocytes # (Auto) 0.3 TH/MM3 Monocytes # (Auto) 0.2 TH/MM3 Eosinophils # (Auto) 0.0 TH/MM3 Basophils # (Auto) 0.0 TH/MM3 CBC Comment DIFF FINAL Differential Comment Laboratory Tests Test 10/24/17 05:39 10/25/17 06:27 Blood Urea Nitrogen 15 MG/DL Creatinine 0.38 MG/DL Random Glucose 91 MG/DL Total Protein 4.7 GM/DL Albumin 2.0 GM/DL Calcium Level 7.7 MG/DL Alkaline Phosphatase 27 U/L Aspartate Amino Transf (AST/SGOT) 14 U/L Alanine Aminotransferase (ALT/SGPT) 10 U/L Total Bilirubin 0.2 MG/DL Sodium Level 143 MEQ/L Potassium Level 4.2 MEQ/L Chloride Level 110 MEQ/L Carbon Dioxide Level 26.8 MEQ/L Anion Gap 6 MEQ/L Estimat Glomerular Filtration Rate 159 ML/MIN Thyroid Stimulating Hormone 3rd Gen 0.154 uIU/ML Imaging Last Impressions Upper Extremity CT 10/22/17 0000 Signed Impressions: Service Date/Time: Sunday, October 22, 2017 22:22 - CONCLUSION: 1. Soft tissue swelling in the left hand. No discrete abscess. No acute bony abnormalities. Garrick Ramirez MD Chest X-Ray 10/21/17 1612 Signed Impressions: Service Date/Time: Saturday, October 21, 2017 16:19 - CONCLUSION: No acute disease. Nilesh Frye MD Abdomen/Pelvis CT 10/21/17 1612 Signed Impressions: Service Date/Time: Saturday, October 21, 2017 17:47 - CONCLUSION: 1. Suspected small bowel structure with dilatation of the small bowel to the level of anastomosis suture and the distal small bowel. There is debris within the small bowel at this region in the small bowel beyond the anastomosis is decompressed. 2. Mild hiatal hernia. 3. Sigmoid colon diverticula. There is an anastomosis sutures seen in the rectum just beyond the sigmoid colon diverticula. 4. Mild left pleural effusion. 5. Consolidation at the posterior right lung base. Nilesh Frye MD Abdomen X-Ray 10/21/17 0000 Signed Impressions: Service Date/Time: Saturday, October 21, 2017 18:43 - CONCLUSION: Nasogastric tube across the GE junction Dami Cuevas MD FACR Physical Exam GENERAL: This is a well-nourished, well-developed patient, in no apparent distress. SKIN: Multiple areas of ecchymosis noted. Cool and dry. HEAD: Atraumatic. Normocephalic. No temporal or scalp tenderness. EYES: Pupils equal round and reactive. Extraocular motions intact. No scleral icterus. No injection or drainage. ENT: Nose without bleeding, purulent drainage or septal hematoma. Throat without erythema, tonsillar hypertrophy or exudate. Uvula midline. Airway patent. NECK: Trachea midline. Supple, nontender, no meningeal signs. CARDIOVASCULAR: Regular rate and rhythm without murmurs, gallops, or rubs. RESPIRATORY: Clear to auscultation. Breath sounds equal bilaterally. No wheezes , rales, or rhonchi. GASTROINTESTINAL: Abdomen soft, non-tender, nondistended. MUSCULOSKELETAL: Multiple joints of upper and lower extremity with changes suggestive of chronic arthritis(note patient has prior history of rheumatoid arthritis). LUE close to elbow she has a fluid filled large blister. It is not warm to touch. Overall appears clinically improved today. NEUROLOGICAL: Awake and alert. Nonfocal exam Psych cooperative IV line sites with no evidence of infection. Assessment & Plan Remarks Possible sepsis in an immunocompromised patient. Ileus resolved: has had multiple BMs. Tolerated diet. Left upper extremity cellulitis. Group D Enterococcus in urine: asymptomatic but will likely be covered with Vanco IV. Clinically stable. History of rectal cancer, status post low anterior resection June 11, [address] Ryan. Status post ileostomy reversal on October 15, [address] Ryan. Rheumatoid arthritis Rheumatoid arthritis on immune suppressants(methotrexate and prednisone) Penicillin allergy Sulfa allergy Recommendations DC Aztreonam IV Continue vancomycin target trough 10-15 for cellulitis. LUE close to elbow she has a fluid filled large blister. It is not warm to touch. Please have ortho follow up to see if this needs drainage. Elevate left UE. JL wrap LUE. Follow cultures Follow clinically Discussed with RN No family in room. Brandie Carnes MD Oct 25, 2017 10:09
--- NOTE | 2017-10-25 10:48 | RADRPT ---
EXAM DATE/TIME: 10/25/2017 10:25 [place] COMPARISON: No previous studies available for comparison. INDICATIONS : Ileus MEDICAL HISTORY : Carcinoma, colon. Hypertension SURGICAL HISTORY : reversal of ileostomy ENCOUNTER: Initial ACUITY: 3 days PAIN SCORE: 0/10 LOCATION: Bilateral abdomen FINDINGS: There are some mildly to moderately dilated loops of small bowel in the midabdomen. The colon is nond ilated. There are a few air-fluid levels. CONCLUSION: Mild to moderately dilated loops of small bowel in the midabdomen. The seen with a small bowel ileus versus partial small bowel obstruction. Abraham Laguna MD on October 25, 2017 at 10:44 Board Certified Radiologist. This report was verified electronically.
[2017-10-25] MEDS: MUPIROCIN 2% OINT 1 APPLIC/GM SYR EACH NARE SCH ×2 (11:20→21:28)
[2017-10-25] MEDS: PANTOPRAZOLE SODIUM 40 MG VIAL IV PUSH SCH (11:23)
[2017-10-25 12:00] VITALS: BP 115/74; PULSE 90; RESP 19; TEMP 97.9; O2SAT 95
[2017-10-25] MEDS: VANCOMYCIN 1,000 MG/NS 250 ML IV SCH ×2 (13:37)
--- NOTE | 2017-10-25 15:20 | PD.ORT.PN ---
Subjective Subjective Remarks Patient resting comfortable this morning. States her pain is well-controlled. Objective Vitals Vital Signs Date Time Temp Pulse Resp B/P (MAP) Pulse Ox O2 Delivery O2 Flow Rate FiO2 10/25/17 12:00 97.9 90 19 115/74 (88) 95 10/25/17 08:00 97.5 85 20 134/64 (87) 91 10/25/17 04:43 18 10/24/17 20:00 97.2 96 20 121/59 (79) 94 10/24/17 19:00 95 Room Air 10/24/17 16:00 98.0 85 20 153/69 (97) 98 I/O 10/24/17 10/24/17 10/24/17 10/25/17 10/25/17 10/25/17 07:00 15:00 23:00 07:00 15:00 23:00 Intake Total 200 ml 240 ml 2200 ml Output Total 750 ml 800 ml Balance -550 ml -560 ml 2200 ml Intake Oral 240 ml IV Total 200 ml 2200 ml Output Urine Total 750 ml 800 ml # Bowel Movements 2 1 2 Result Diagram: 10/24/17 0539 10/24/17 0539 Imaging Last 24 hours Impressions Abdomen X-Ray 10/25/17 0000 Signed Impressions: Service Date/Time: September 10:25 - CONCLUSION: Mild to moderately dilated loops of small bowel in the midabdomen. The seen with a small bowel ileus versus partial small bowel obstruction. Abraham Laguna MD Objective Remarks awake, alert, no acute distress Left upper extremity: Erythema and edema appears to be significantly improved from previously. Edema still remains in posterior elbow but no fluctuance. Patient has full active range of motion of elbow without discomfort. Patient has mild tenderness to palpation but overall minimal discomfort in the left upper extremity. Patient appears neurovascularly intact distally. Assessment & Plan Assessment and Plan 87-year-old female with concave medical history with recent reversal of ileostomy with concern for left upper extremity cellulitis and infection Patient continues to have improvement in her symptoms and swelling. She is clinically stable, not requiring pressors, and has significant improvement in her erythema and edema. This appears to be mostly a significant cellulitis which continues to be responding appropriately to antibiotics. Patient is not interested in any type of surgery at this time for her left upper extremity. At this time, I would recommend continued medical management with elevation and IV antibiotics. I do not believe this warrants surgical intervention. Adriana Irving MD Oct 25, 2017 15:20
--- NOTE | 2017-10-25 18:51 | HHI.PR ---
Subjective Remarks As per Rn patient had a BM with bright red Patient had several BM's today. Denies cp/sob Objective Vitals Vital Signs Date Time Temp Pulse Resp B/P (MAP) Pulse Ox O2 Delivery O2 Flow Rate FiO2 10/25/17 16:13 Room Air 10/25/17 12:00 97.9 90 19 115/74 (88) 95 10/25/17 08:00 97.5 85 20 134/64 (87) 91 10/25/17 04:43 18 10/24/17 20:00 97.2 96 20 121/59 (79) 94 10/24/17 19:00 95 Room Air I/O 10/24/17 10/24/17 10/24/17 10/25/17 10/25/17 10/25/17 07:00 15:00 23:00 07:00 15:00 23:00 Intake Total 200 ml 240 ml 2200 ml 250 ml Output Total 750 ml 800 ml Balance -550 ml -560 ml 2200 ml 250 ml Intake Oral 240 ml IV Total 200 ml 2200 ml 250 ml Output Urine Total 750 ml 800 ml # Bowel Movements 2 1 2 1 Result Diagram: 10/24/17 0539 10/24/17 0539 Imaging Last Impressions Abdomen X-Ray 10/25/17 0000 Signed Impressions: Service Date/Time: September 10:25 - CONCLUSION: Mild to moderately dilated loops of small bowel in the midabdomen. The seen with a small bowel ileus versus partial small bowel obstruction. Abraham Laguna MD Upper Extremity Ultrasound 10/24/17 0000 Signed Impressions: Service Date/Time: Tuesday, October 24, 2017 21:34 - CONCLUSION: Acute appearing thrombus in the left basilic vein. The remaining venous structures appear patent. Nilesh Frye MD Upper Extremity CT 10/22/17 0000 Signed Impressions: Service Date/Time: Sunday, October 22, 2017 22:22 - CONCLUSION: 1. Soft tissue swelling in the left hand. No discrete abscess. No acute bony abnormalities. Garrick Ramirez MD Chest X-Ray 10/21/17 1612 Signed Impressions: Service Date/Time: Saturday, October 21, 2017 16:19 - CONCLUSION: No acute disease. Nilesh Frye MD Abdomen/Pelvis CT 10/21/17 1612 Signed Impressions: Service Date/Time: Saturday, October 21, 2017 17:47 - CONCLUSION: 1. Suspected small bowel structure with dilatation of the small bowel to the level of anastomosis suture and the distal small bowel. There is debris within the small bowel at this region in the small bowel beyond the anastomosis is decompressed. 2. Mild hiatal hernia. 3. Sigmoid colon diverticula. There is an anastomosis sutures seen in the rectum just beyond the sigmoid colon diverticula. 4. Mild left pleural effusion. 5. Consolidation at the posterior right lung base. Nilesh Frye MD Objective Remarks GENERAL: Elderly female who is laying in bed not in any acute distress. SKIN: Warm and dry, adequately perfused. There are ecchymoses on the dorsum of bilateral arms and lateral aspect of right thigh. HEAD: Normocephalic. EYES: Pupils equal and round, 2 mm reactive. No scleral icterus. No injection or drainage. ENT: No nasal bleeding or discharge. Mucous membranes dry NECK: Trachea midline. Jugular veins are flat. CARDIOVASCULAR: Tachycardic, generally regular with an occasional premature beat. No murmurs rubs or gallops. RESPIRATORY: Mildly tachypneic with shallow respirations and no accessory muscle use.. Clear to auscultation. Breath sounds equal bilaterally. GASTROINTESTINAL: Sluggish bowel sounds present. There is some mild tenderness in mid abdomen without rebound or guarding. Steri-strips are in place over prior ileostomy site in right abdomen with wound edges approximated. no drainage. MUSCULOSKELETAL: Left upper extremity with swelling, erythema and warmth, left radial pulse palpable very well. She has joint deformities of hands consistent with rheumatoid arthritis. NEUROLOGICAL: Awake and alert. No obvious cranial nerve deficits. Motor grossly within normal limits, moving all extremities without focal deficit. Normal speech. Medications and IVs Current Medications Medications (Trade) Dose Ordered Sig/Merrick Route Start Time Stop Time Status Last Admin Diltiazem HCl 125 mg/Sodium Chloride 125 ml @ 5 mls/hr TITRATE PRN IV 10/21/17 21:00 10/22/17 12:16 (Morphine Inj) 4 mg Q3H PRN IV PUSH 10/21/17 21:10/24/17 09:12 (Morphine Inj) 2 mg Q3H PRN IV PUSH 10/21/17 21:10/24/17 10:10 (NS Flush) 2 ml UNSCH PRN IV FLUSH 10/21/17 21:30 (NS Flush) 2 ml BID IV FLUSH 10/22/17 09:00 10/24/17 09:11 (Protonix Inj) 40 mg DAILY IV PUSH 10/22/17 09:00 10/25/17 11:23 (Zofran Inj) 4 mg Q6H PRN IV PUSH 10/21/17 21:30 (Albuterol Neb) 2.5 mg Q2HR NEB PRN INH 10/21/17 21:30 Miscellaneous Information 1 Q361D XX 10/21/17 21:30 (Chlorhexidine 2% Cloth) 3 pack Taper DAILY@04 TOP 10/22/17 04:00 10/18/18 03:59 10/24/17 03:27 (Chlorhexidine 2% Cloth) 3 pack UNSCH PRN TOP 10/21/17 21:30 (Naatcha-Colace) 1 tab BID PO 10/22/17 09:00 10/24/17 09:12 (Milk Of Magnesia Liq) 30 ml Q12H PRN PO 10/21/17 21:30 (Senokot) 17.2 mg Q12H PRN PO 10/21/17 21:30 (Dulcolax Supp) 10 mg DAILY PRN RECTAL 10/21/17 21:30 (Lactulose Liq) 30 ml DAILY PRN PO 10/21/17 21:30 Acetaminophen 100 ml @ 400 mls/hr Q6H IV 10/22/17 03:00 10/25/17 15:41 (SoluMEDROL INJ) 20 mg Q12H IV PUSH 10/22/17 01:00 10/25/17 13:39 (Lovenox Inj) 40 mg Q24H SQ 10/22/17 01:00 10/25/17 01:08 (Reglan Inj) 10 mg Q8HR IV PUSH 10/22/17 15:00 10/25/17 13:38 Pharmacy Profile Note 0 ml @ 0 mls/hr UNSCH OTHER 10/22/17 16:00 Vancomycin HCl 1000 mg/Sodium Chloride 250 ml @ 250 mls/hr Q24H IV 10/23/17 14:00 10/25/17 13:37 (Cepacol Extra [place] (Sugar Free)) 1 lozenge Q4HR PRN BUCCAL 10/22/17 18:45 (Hurricaine 20% Oral Spr) 1 spray Q1HR PRN OROPHARYNG 10/23/17 10:00 (Bactroban Nasal 2% Oint) 1 applic BID EACH NARE 10/24/17 21:00 10/31/17 20:59 10/25/17 11:20 Potassium Chloride 20 meq/ Dextrose/Lactated Ringer's 1,010 ml @ 65 mls/hr [id number] IV 10/25/17 04:30 10/25/17 04:42 Miscellaneous Information SPECIFIC LAB TO BE DRAWN:VANCOMYCIN TROUGH DATE TO... ONCE ONCE .XX 10/26/17 13:45 10/26/17 13:46 A/P Problem List: (1) Rheumatoid arthritis ICD Code: M06.9 - Rheumatoid arthritis, unspecified Status: Chronic (2) SVT (supraventricular tachycardia) ICD Code: I47.1 - Supraventricular tachycardia Status: Chronic (3) UTI (urinary tract infection) ICD Code: N39.0 - Urinary tract infection, site not specified Status: Acute (4) HTN (hypertension) ICD Code: I10 - Essential (primary) hypertension Status: Chronic (5) Rectal cancer ICD Code: C20 - Malignant neoplasm of rectum Status: Resolved (6) Dehydration ICD Code: E86.0 - Dehydration Status: Acute (7) Ileus ICD Code: K56.7 - Ileus, unspecified Status: Acute Assessment and Plan Pain secondary to rheumatoid arthritis Ofirmev scheduled 1 g IV every 6 hours in effort to minimize opioid requirement where possible. Morphine prn breakthrough. SVT Intermittent SVT in the emergency department. Spontaneously converted on a couple of occasions. Did receive adenosine 6 mg IV 2 doses. She previously has been managed on Cardizem. She may not have been absorbing this due to her ileus. Resume by mouth Cardizem. Off Cardizem drip currently. Rectal cancer s/p low anterior resection and diverting ileostomy. POD #8 from ileostomy reversal. Ileus GERD NG tube clamped per CRS.. CT abdomen pelvis 10/21 - Dilation of stomach and small bowel. Small bowel distal to anastamosis is decompressed. Colorectal surgery following 10/24 it is resolving. Recommended starting diet. Follow-up abdominal x-ray in a.m. 10/25 repeat x ray showed moderately dilated bowel loops. Fu colorectal surgery recommendations. Ileus resolving patient had several BM's today. FEN/RENAL: Dehydration Urinary incontinence Rasmussen inserted to maintain accurate I/O while resuscitating. ID: Rheumatoid arthritis UTI, present on admission Left upper extremity cellulitis penicillin allergy Hold methotrexate Follow-up blood and urine cultures. Received aztreonam in the ED. Will continue. IV vancomycin initiated on 10/22 for left upper extremity cellulitis. ID consulted and following. Started on IV Clindamycin 10/23. CT left upper extremity reviewed. Ortho consult noted. HEME: Rectal cancer status post low anterior resection and diverting ileostomy. Now s/ p ileostomy reversal and anastomosis 10/15/17 (Dr. Ryan) Pathology 06/11/17 - high grade poorly differentiated adenocarcinoma, focally intubating muscularis propria. Resection margins negative for malignancy. Lymph nodes negative. Has not received chemo. Monitor CBC. ENDO: Chronic prednisone use Hypothyroidism TSH low. Hold synthroid for now. Recheck 10/25 consider initiation of synthroid IV. PROPH: SCDs and Lovenox 40 mg subcutaneous daily for DVT prophylaxis. Protonix 40 mg IV daily for stress ulcer prophylaxis and history of GERD ACCESS: Peripheral IV providing adequate access at this time. Discharge Planning DC pending colorectal surgery clearance. Problem Qualifiers (1) UTI (urinary tract infection): (2) HTN (hypertension): Qualified Codes: I10 - Essential (primary) hypertension Wu Samuels MD Oct 25, 2017 18:51
[2017-10-25 20:00] VITALS: BP 138/73; PULSE 77; RESP 18; TEMP 96.5; O2SAT 94
[2017-10-25 21:11] LABS: HEMATOCRIT 32.9 % (35.0-46.0); HEMOGLOBIN 10.8 GM/DL (11.6-15.3); MEAN CELL VOLUME 97.5 FL (80.0-100.0); MEAN CORPUSCULAR HEMOGLOBIN 32.1 PG (27.0-34.0); MEAN CORPUSCULAR HGB CONC 32.9 % (32.0-36.0); MEAN PLATELET VOLUME 8.4 FL (7.0-11.0); PLATELET COUNT 266 TH/MM3 (150-450); RED BLOOD COUNT 3.38 MIL/MM3 (4.00-5.30); RED CELL DISTRIBUTION WIDTH 17.7 % (11.6-17.2); WHITE BLOOD COUNT 9.4 TH/MM3 (4.0-11.0)
[2017-10-26] VITALS (7 sets, daily range): BP systolic 120–187; BP diastolic 58–81; PULSE 69–95; RESP 18–25; TEMP 96–98.3; O2SAT 94–97
[2017-10-26] MEDS: MORPHINE SULFATE 4 MG/ML INJ IV PUSH PRN (01:50)
[2017-10-26] MEDS: CHLORHEXIDINE GLUCONATE 2 % 1 PACK (2 CLOTHS) TOP SCH (03:23)
[2017-10-26] MEDS: ACETAMINOPHEN 1000 MG/100 ML 100 ML IV SCH ×2 (03:23→09:27)
[2017-10-26] MEDS: METOCLOPRAMIDE HCL 10 MG/2 ML VIAL IV PUSH SCH (05:36)
[2017-10-26] MEDS: SODIUM CHLORIDE 0.9% FLUSH 10 ML FLUSH IV FLUSH SCH ×2 (09:00→20:21)
[2017-10-26] MEDS: MUPIROCIN 2% OINT 1 APPLIC/GM SYR EACH NARE SCH ×2 (09:00→20:20)
[2017-10-26] MEDS: DOCUSATE SODIUM 50 MG/SENNA 8.6 MG TAB PO SCH ×2 (09:26→20:20)
[2017-10-26] MEDS: PANTOPRAZOLE SODIUM 40 MG VIAL IV PUSH SCH (09:27)
[2017-10-26] MEDS: POTASSIUM CHLORIDE INJ 20 MEQ in DEXTROSE 5%-LACTATED RING INJ 1,000 ML IV SCH (11:36)
--- NOTE | 2017-10-26 12:29 | HHI.PR ---
Subjective Remarks Follow-up ileus. Complains of mild lower abdominal discomfort. She is tolerating diet. She had several bowel movements yesterday. Not been out of bed. Discussed with nursing, switch to p.o. medication possible discharge in the morning. Discharge planning with CRS and infectious disease. Objective Vitals Vital Signs Date Time Temp Pulse Resp B/P (MAP) Pulse Ox O2 Delivery O2 Flow Rate FiO2 10/26/17 08:00 97.2 95 19 141/66 (91) 94 10/26/17 08:00 Room Air 10/26/17 05:20 158/73 (101) 10/26/17 00:02 96.6 69 20 187/81 (116) 95 10/25/17 20:00 Room Air 10/25/17 20:00 96.5 77 18 138/73 (94) 94 10/25/17 16:13 Room Air I/O 10/25/17 10/25/17 10/25/17 10/26/17 10/26/17 10/26/17 07:00 15:00 23:00 07:00 15:00 23:00 Intake Total 2200 ml 350 ml 987 ml Output Total 1300 ml Balance 2200 ml 350 ml -313 ml Intake Oral 240 ml IV Total 2200 ml 350 ml 747 ml Output Urine Total 1300 ml # Bowel Movements 2 1 2 Result Diagram: 10/25/17202110/24/17 0539 Imaging Last Impressions Abdomen X-Ray 10/25/17 0000 Signed Impressions: Service Date/Time: September 10:25 - CONCLUSION: Mild to moderately dilated loops of small bowel in the midabdomen. The seen with a small bowel ileus versus partial small bowel obstruction. Abraham Laguna MD Upper Extremity Ultrasound 10/24/17 0000 Signed Impressions: Service Date/Time: Tuesday, October 24, 2017 21:34 - CONCLUSION: Acute appearing thrombus in the left basilic vein. The remaining venous structures appear patent. Nilesh Frye MD Upper Extremity CT 10/22/17 0000 Signed Impressions: Service Date/Time: Sunday, October 22, 2017 22:22 - CONCLUSION: 1. Soft tissue swelling in the left hand. No discrete abscess. No acute bony abnormalities. Garrick Ramirez MD Chest X-Ray 3/25/18 1612 Signed Impressions: Service Date/Time: Saturday, October 21, 2017 16:19 - CONCLUSION: No acute disease. Nilesh Frye MD Abdomen/Pelvis CT 10/21/171611 Signed Impressions: Service Date/Time: Saturday, October 21, 2017 17:47 - CONCLUSION: 1. Suspected small bowel structure with dilatation of the small bowel to the level of anastomosis suture and the distal small bowel. There is debris within the small bowel at this region in the small bowel beyond the anastomosis is decompressed. 2. Mild hiatal hernia. 3. Sigmoid colon diverticula. There is an anastomosis sutures seen in the rectum just beyond the sigmoid colon diverticula. 4. Mild left pleural effusion. 5. Consolidation at the posterior right lung base. Nilesh Frye MD Objective Remarks GENERAL: Elderly female who is laying in bed not in any acute distress. SKIN: There are ecchymoses on the dorsum of bilateral arms and lateral aspect of right thigh. CARDIOVASCULAR: Regular rate and rhythm. No murmurs rubs or gallops. RESPIRATORY: Clear to auscultation. Breath sounds equal bilaterally. GASTROINTESTINAL: Abdomen is distended and tympanitic without bowel sounds. There is some mild tenderness in mid abdomen without rebound or guarding. Steri- strips are in place over prior ileostomy site in right abdomen with wound edges approximated. no drainage. MUSCULOSKELETAL: Left upper extremity with improving swelling, erythema and warmth, left radial pulse palpable very well. She has joint deformities of hands consistent with rheumatoid arthritis. NEUROLOGICAL: Awake and alert. No obvious cranial nerve deficits. Motor grossly within normal limits, moving all extremities without focal deficit. Normal speech. Procedures Ileostomy reversal A/P Problem List: (1) Rheumatoid arthritis ICD Code: M06.9 - Rheumatoid arthritis, unspecified Status: Chronic (2) SVT (supraventricular tachycardia) ICD Code: I47.1 - Supraventricular tachycardia Status: Chronic (3) UTI (urinary tract infection) ICD Code: N39.0 - Urinary tract infection, site not specified Status: Acute (4) HTN (hypertension) ICD Code: I10 - Essential (primary) hypertension Status: Chronic (5) Rectal cancer ICD Code: C20 - Malignant neoplasm of rectum Status: Resolved (6) Dehydration ICD Code: E86.0 - Dehydration Status: Acute (7) Ileus ICD Code: K56.7 - Ileus, unspecified Status: Acute Assessment and Plan NEURO: Pain secondary to rheumatoid arthritis Discontinue Ofirmev and restart Lortab Morphine prn breakthrough. Dc IV sentimental and restart prednisone RESP: Nasal cannula wean as tolerated Incentive spirometry every hour awake Chest x-ray 10/21/17 CV: SVT Intermittent SVT in the emergency department. Spontaneously converted on a couple of occasions. Did receive adenosine 6 mg IV 2 doses. She previously has been managed on Cardizem. She may not have been absorbing this due to her ileus. Resume by mouth Cardizem. Off Cardizem drip currently. GI: rectal cancer hx low anterior resection and diverting ileostomy s/p ileostomy reversal. Stable Ileus. Resolved GERD. Stable NG tube clamped per CRS. CT abdomen pelvis 10/21 - Dilation of stomach and small bowel. Small bowel distal to anastomosis is decompressed. Colorectal surgery following. Restart PPI FEN/RENAL: Dehydration Urinary incontinence Rasmussen discontinued ID: Rheumatoid arthritis Enterococcus UTI, present on admission Left upper extremity cellulitis. Improving penicillin allergy Hold methotrexate Follow-up blood cultures negative today Continue IV vancomycin HEME: Rectal cancer status post low anterior resection and diverting ileostomy. Now s/ p ileostomy reversal and anastomosis 10/15/17 (Dr. Ryan) Pathology 06/11/17 - high grade poorly differentiated adenocarcinoma, focally intubating muscularis propria. Resection margins negative for malignancy. Lymph nodes negative. Has not received chemo. Monitor CBC. ENDO: Chronic prednisone use Hypothyroidism TSH low. Hold synthroid for now. Recheck 10/29 consider initiation of synthroid IV. PROPH: SCDs and Lovenox 40 mg subcutaneous daily for DVT prophylaxis. ACCESS: Peripheral IV providing adequate access at this time. Increase activity patient to be out of bed daily. Continue physical therapy Discharge Planning Possible discharge in 1-2 days back to rehab pending CRS and infectious disease clearance Problem Qualifiers (1) UTI (urinary tract infection): (2) HTN (hypertension): Qualified Codes: I10 - Essential (primary) hypertension Ba Rhdoes MD Oct 26, 2017 12:29
[2017-10-26] MEDS ORDERED: PERI PO (12:51)
[2017-10-26] MEDS ORDERED: HYDR-3516 PO (12:51)
[2017-10-26] MEDS ORDERED: BACTOIN EACH NARE (12:51)
--- NOTE | 2017-10-26 12:51 | HHI.DCPOC ---
Discharge Care Plan Diagnosis: (1) Ileus (2) Rectal cancer Your Health Problems Are: Difficulty with ADL Exercise Tolerance Goals to Promote Your Health * To prevent worsening of your condition and complications * To maintain your health at the optimal level Directions to Meet Your Goals Take your medications as prescribed Follow your dietary instruction Follow activity as directed Keep your appointments as scheduled Take your immunizations and boosters as scheduled If your symptoms worsen call your PCP, if no PCP go to Urgent Care Center or Emergency Room Smoking is Dangerous to Your Health. Avoid second hand smoke Call the 24-hour hour crisis hotline for domestic abuse at Ba Rhodes MD Oct 26, 2017 12:51
[2017-10-26 13:01] LABS: HEMATOCRIT 34.3 % (35.0-46.0); HEMOGLOBIN 11.2 GM/DL (11.6-15.3); MEAN CELL VOLUME 96.5 FL (80.0-100.0); MEAN CORPUSCULAR HEMOGLOBIN 31.4 PG (27.0-34.0); MEAN CORPUSCULAR HGB CONC 32.6 % (32.0-36.0); MEAN PLATELET VOLUME 8.6 FL (7.0-11.0); PLATELET COUNT 329 TH/MM3 (150-450); RED BLOOD COUNT 3.55 MIL/MM3 (4.00-5.30); RED CELL DISTRIBUTION WIDTH 17.8 % (11.6-17.2); WHITE BLOOD COUNT 9.1 TH/MM3 (4.0-11.0)
[2017-10-26] MEDS ORDERED: PHARMACY ORDERED LAB ONE (13:45)
[2017-10-26] MEDS: predniSONE 10 MG TAB PO SCH (14:45)
[2017-10-26] MEDS: DILTIAZEM HCL 30 MG TAB PO SCH ×3 (14:45→23:13)
[2017-10-26] MEDS: LACTOBACILLUS ACIDOPHILUS TAB PO SCH (14:45)
[2017-10-26] MEDS: VANCOMYCIN 1,000 MG/NS 250 ML IV SCH ×2 (14:46)
[2017-10-26] MEDS ORDERED: SODIUM CHLOR 0.9% 250 ML INJ 250 ML IV PRN (16:00)
--- NOTE | 2017-10-26 16:37 | HHI.PR ---
Subjective Remarks Ileus, left arm cellulitis large amount of dark blood per rectum - Nurse reports - some pain and cramping of abdomen prior Objective Vital Signs Date Time Temp Pulse Resp B/P (MAP) Pulse Ox O2 Delivery O2 Flow Rate FiO2 10/26/17 15:52 96.0 82 20 133/77 (95) 96 10/26/17 12:00 97.4 85 20 120/58 (78) 97 10/26/17 08:00 97.2 95 19 141/66 (91) 94 10/26/17 08:00 Room Air 10/26/17 05:20 158/73 (101) 10/26/17 00:02 96.6 69 20 187/81 (116) 95 10/25/17 20:00 Room Air 10/25/17 20:00 96.5 77 18 138/73 (94) 94 I/O 10/25/17 10/25/17 10/25/17 10/26/17 10/26/17 10/26/17 06:59 14:59 22:59 06:59 14:59 22:59 Intake Total 2200 ml 350 ml 987 ml Output Total 1300 ml Balance 2200 ml 350 ml -313 ml Intake Oral 240 ml IV Total 2200 ml 350 ml 747 ml Output Urine Total 1300 ml # Bowel Movements 2 1 2 Result Diagram: 10/26/17 1242 10/24/17 0539 Objective Remarks Left arm erythema still significant, significantly less edematous, Abdomen soft, nontender, mild distension Assessment and Plan Assessment and Plan No further ileus Cellulitis improving Passing old blood - agree with transfer to ICU, serial Hgb, check INR/PT complaining of inability to feed self - consult OT Eugenia Ryan MD Oct 26, 2017 16:37
[2017-10-26] MEDS: NS + KCL 20 MEQ INJ 1,000 ML IV SCH (16:38)
[2017-10-26 18:15] LABS: HEMATOCRIT 32.3 % (35.0-46.0); HEMOGLOBIN 10.6 GM/DL (11.6-15.3)
[2017-10-26 18:23] LABS: BICARBONATE 29.1 MEQ/L (21.0-32.0); CALCIUM 7.9 MG/DL (8.5-10.1); CREATININE 0.5 MG/DL (0.50-1.00)
[2017-10-26 18:24] LABS: VANCOMYCIN TROUGH 23.3 MCG/ML (5.0-10.0)
[2017-10-26 19:04] LABS: INTERNATIONAL NORMALIZED RATIO 1.1 RATIO; PROTHROMBIN TIME - PATIENT 10.7 SEC (9.8-11.6)
[2017-10-26] MEDS: METOCLOPRAMIDE HCL 10 MG TAB PO SCH (20:20)
[2017-10-26] MEDS: ACETAMINOPHEN/HYDROcodone 325 MG/5 MG TAB PO PRN (21:12)
[2017-10-27] VITALS: BP 136/63; PULSE 72; RESP 31; TEMP 97.8; O2SAT 96
[2017-10-27] LABS: HEMATOCRIT 32.6 % (35.0-46.0); HEMOGLOBIN 10.4 GM/DL (11.6-15.3)
[2017-10-27 04:00] VITALS: BP 139/64; PULSE 72; RESP 19; TEMP 97.9; O2SAT 96
[2017-10-27] MEDS: CHLORHEXIDINE GLUCONATE 2 % 1 PACK (2 CLOTHS) TOP SCH (04:00)
[2017-10-27 04:32] LABS: HEMATOCRIT 30.7 % (35.0-46.0); HEMOGLOBIN 10.1 GM/DL (11.6-15.3)
[2017-10-27] MEDS: DILTIAZEM HCL 30 MG TAB PO SCH ×3 (05:14→17:25)
[2017-10-27 08:00] VITALS: BP 143/75; PULSE 76; RESP 21; TEMP 97.7; O2SAT 97
[2017-10-27] MEDS: LACTOBACILLUS ACIDOPHILUS TAB PO SCH (08:38)
[2017-10-27] MEDS: METOCLOPRAMIDE HCL 10 MG TAB PO SCH ×2 (08:38→22:46)
[2017-10-27] MEDS: predniSONE 10 MG TAB PO SCH (08:38)
[2017-10-27] MEDS: SODIUM CHLORIDE 0.9% FLUSH 10 ML FLUSH IV FLUSH SCH ×2 (08:39→21:00)
[2017-10-27] MEDS: MUPIROCIN 2% OINT 1 APPLIC/GM SYR EACH NARE SCH ×2 (08:39→22:46)
[2017-10-27] MEDS: PANTOPRAZOLE SOD 20 MG DELAYED RELEASE TAB PO SCH (08:39)
[2017-10-27] MEDS: NS + KCL 20 MEQ INJ 1,000 ML IV SCH (08:39)
[2017-10-27] MEDS: DOCUSATE SODIUM 50 MG/SENNA 8.6 MG TAB PO SCH ×2 (08:41→22:46)
--- NOTE | 2017-10-27 10:08 | HHI.PR ---
Subjective Remarks F/U GIB. No further bleeding has no complaints dw RN. Pt does not want me to call daughter who was in the room last night Objective Vitals Vital Signs Date Time Temp Pulse Resp B/P (MAP) Pulse Ox O2 Delivery O2 Flow Rate FiO2 10/27/17 08:00 97.7 76 21 143/75 (97) 97 10/27/17 07:00 98 Room Air 21 10/27/17 04:00 97.9 72 19 139/64 (89) 96 10/27/17 00:00 97.8 72 31 136/63 (87) 96 10/26/17 22:12 20 10/26/17 20:00 98.3 75 18 130/67 (88) 96 10/26/17 19:00 97 Room Air 21 10/26/17 16:00 98.0 80 25 161/71 (101) 97 10/26/17 15:52 96.0 82 20 133/77 (95) 96 10/26/17 12:00 97.4 85 20 120/58 (78) 97 I/O 10/26/17 10/26/17 10/26/17 10/27/17 10/27/17 10/27/17 07:00 15:00 23:00 07:00 15:00 23:00 Intake Total 987 ml 850 ml 1032 ml Output Total 1300 ml 2300 ml 300 ml Balance -313 ml -1450 ml 732 ml Intake Oral 240 ml 600 ml 240 ml IV Total 747 ml 250 ml 792 ml Output Urine Total 1300 ml 800 ml 300 ml Stool Total 1500 ml # Voids 1 # Bowel Movements 2 2 Result Diagram: 10/27/17 0338 10/26/17 1742 Imaging Last Impressions Abdomen X-Ray 10/25/17 0000 Signed Impressions: Service Date/Time: September 10:25 - CONCLUSION: Mild to moderately dilated loops of small bowel in the midabdomen. The seen with a small bowel ileus versus partial small bowel obstruction. Abraham Laguna MD Upper Extremity Ultrasound 10/24/17 0000 Signed Impressions: Service Date/Time: Tuesday, October 24, 2017 21:34 - CONCLUSION: Acute appearing thrombus in the left basilic vein. The remaining venous structures appear patent. Nilesh Frye MD Upper Extremity CT 10/22/17 0000 Signed Impressions: Service Date/Time: Sunday, October 22, 2017 22:22 - CONCLUSION: 1. Soft tissue swelling in the left hand. No discrete abscess. No acute bony abnormalities. Garrick Ramirez MD Chest X-Ray 10/21/17 1612 Signed Impressions: Service Date/Time: Saturday, October 21, 2017 16:19 - CONCLUSION: No acute disease. Nilesh Frye MD Abdomen/Pelvis CT 10/21/17 1612 Signed Impressions: Service Date/Time: Saturday, October 21, 2017 17:47 - CONCLUSION: 1. Suspected small bowel structure with dilatation of the small bowel to the level of anastomosis suture and the distal small bowel. There is debris within the small bowel at this region in the small bowel beyond the anastomosis is decompressed. 2. Mild hiatal hernia. 3. Sigmoid colon diverticula. There is an anastomosis sutures seen in the rectum just beyond the sigmoid colon diverticula. 4. Mild left pleural effusion. 5. Consolidation at the posterior right lung base. Nilesh Frye MD Objective Remarks GENERAL: Elderly female who is laying in bed not in any acute distress. SKIN: There are ecchymoses on the dorsum of bilateral arms and lateral aspect of right thigh. CARDIOVASCULAR: Regular rate and rhythm. No murmurs rubs or gallops. RESPIRATORY: Clear to auscultation. Breath sounds equal bilaterally. GASTROINTESTINAL: Abdomen is distended and tympanitic without bowel sounds. There is some mild tenderness in mid abdomen without rebound or guarding. Steri- strips are in place over prior ileostomy site in right abdomen with wound edges approximated. no drainage. MUSCULOSKELETAL: Left upper extremity with improving swelling, erythema and warmth, left radial pulse palpable very well. She has joint deformities of hands consistent with rheumatoid arthritis. NEUROLOGICAL: Awake and alert. No obvious cranial nerve deficits. Motor grossly within normal limits, moving all extremities without focal deficit. Normal speech. Procedures Ileostomy reversal A/P Problem List: (1) Rheumatoid arthritis ICD Code: M06.9 - Rheumatoid arthritis, unspecified Status: Chronic (2) SVT (supraventricular tachycardia) ICD Code: I47.1 - Supraventricular tachycardia Status: Chronic (3) UTI (urinary tract infection) ICD Code: N39.0 - Urinary tract infection, site not specified Status: Acute (4) HTN (hypertension) ICD Code: I10 - Essential (primary) hypertension Status: Chronic (5) Rectal cancer ICD Code: C20 - Malignant neoplasm of rectum Status: Resolved (6) Dehydration ICD Code: E86.0 - Dehydration Status: Acute (7) Ileus ICD Code: K56.7 - Ileus, unspecified Status: Acute Assessment and Plan NEURO: Pain secondary to rheumatoid arthritis Discontinued Ofirmev and restart Lortab Morphine prn breakthrough. Dc IV solumedrol and restart prednisone RESP: Nasal cannula wean as tolerated Incentive spirometry every hour awake Chest x-ray 10/21/17 CV: SVT Intermittent SVT in the emergency department. Spontaneously converted on a couple of occasions. Did receive adenosine 6 mg IV 2 doses. She previously has been managed on Cardizem. She may not have been absorbing this due to her ileus. Resume by mouth Cardizem. Off Cardizem drip currently. GI: rectal cancer hx low anterior resection and diverting ileostomy s/p ileostomy reversal. Stable Ileus. Resolved GERD. Stable NG tube clamped per CRS. CT abdomen pelvis 10/21 - Dilation of stomach and small bowel. Small bowel distal to anastomosis is decompressed. Colorectal surgery following. Restarted PPI GIB with old blood. Hemodynamically stable dw CRS FEN/RENAL: Dehydration Urinary incontinence Rasmussen discontinued ID: Rheumatoid arthritis Enterococcus UTI, present on admission Left upper extremity cellulitis. Improving penicillin allergy Hold methotrexate Follow-up blood cultures negative today Continue IV vancomycin per ID HEME: Rectal cancer status post low anterior resection and diverting ileostomy. Now s/ p ileostomy reversal and anastomosis 10/15/17 (Dr. Ryan) Pathology 06/11/17 - high grade poorly differentiated adenocarcinoma, focally intubating muscularis propria. Resection margins negative for malignancy. Lymph nodes negative. Has not received chemo. Monitor CBC. ENDO: Chronic prednisone use Hypothyroidism TSH low. Hold synthroid for now. Recheck 10/29 consider initiation of synthroid IV. PROPH: SCDs hold Lovenox 40 mg subcutaneous 2/ GIB ACCESS: Peripheral IV providing adequate access at this time. Increase activity patient to be out of bed daily. Continue physical therapy Discharge Planning Possible discharge in 1-2 days back to rehab pending CRS and infectious disease clearance. Transfer to tele Problem Qualifiers (1) UTI (urinary tract infection): (2) HTN (hypertension): Qualified Codes: I10 - Essential (primary) hypertension Abando,Roman MD Oct 27, 2017 10:08
[2017-10-27 12:00] VITALS: BP 129/62; PULSE 70; RESP 24; TEMP 97.6; O2SAT 96
--- NOTE | 2017-10-27 13:30 | HHI.PR ---
Subjective Remarks Ileus, left arm cellulitis continues to pass fairly large amount of dark blood Objective Vital Signs Date Time Temp Pulse Resp B/P (MAP) Pulse Ox O2 Delivery O2 Flow Rate FiO2 10/27/17 08:00 97.7 76 21 143/75 (97) 97 10/27/17 07:00 98 Room Air 21 10/27/17 04:00 97.9 72 19 139/64 (89) 96 10/27/17 00:00 97.8 72 31 136/63 (87) 96 10/26/17 22:12 20 10/26/17 20:00 98.3 75 18 130/67 (88) 96 10/26/17 19:00 97 Room Air 21 10/26/17 16:00 98.0 80 25 161/71 (101) 97 10/26/17 15:52 96.0 82 20 133/77 (95) 96 I/O 10/26/17 10/26/17 10/26/17 10/27/17 10/27/17 10/27/17 07:00 15:00 23:00 07:00 15:00 23:00 Intake Total 987 ml 850 ml 1032 ml Output Total 1300 ml 2300 ml 300 ml Balance -313 ml -1450 ml 732 ml Intake Oral 240 ml 600 ml 240 ml IV Total 747 ml 250 ml 792 ml Output Urine Total 1300 ml 800 ml 300 ml Stool Total 1500 ml # Voids 1 # Bowel Movements 2 2 Result Diagram: 10/27/17 0338 10/26/17 1742 Objective Remarks Left arm cellulitis improved Abdomen soft, nontender, mild distension Assessment and Plan Assessment and Plan No further ileus Cellulitis continuing to improve Continued evidence of bleeding - most likely upper GI Will consult GI - most likely will need EGD to look for bleeding ulcer. Eugenia Ryan MD Oct 27, 2017 13:30
[2017-10-27] MEDS: VANCOMYCIN 1,000 MG/NS 250 ML IV SCH ×2 (15:02)
--- NOTE | 2017-10-27 15:05 | HHI.IDPN ---
Subjective Subjective Remarks Ms. Gupta is an 87 y/o CF with PMHx of hypothyroidism, rheumatoid arthritis on chronic methotrexate and prednisone, GERD. She was diagnosed with rectal cancer and underwent low anterior resection 06/11/[address] Ryan. She is currently postop day #6 from ileostomy reversal 10/15/[address] Ryan. She was discharged 10/19/17 to [facility]. She developed abdominal distension and had 2-3 episodes of emesis today, nonbloody nonbilious. Her daughter states she is incontinent of urine and stool and has continued to have loose bowel movements. Patient complained of some aching abdominal pain in mid abdomen upon admission. She is afebrile with temperature of 98.9. WBC is 19.9. Lactic acid 2.1. Creatinine 0.77 (baseline 0.45). Patient was seen by Critical Care over night and recd some empiric antibiotics. was called due to concern for ileus related sepsis. I received a call from for a stat consult for left upper extremity cellulitis concern for worsening infection. Upon discussion with daughter it appears patient has prior MRSA infection in her left lower extremity. Patient is seen by Dr. Bush at [facility] few months back. She also goes on to report that 2-3 days prior to admission she noticed an area of redness on the left inner aspect of the left elbow which has progressively gotten worse and at this point her entire left upper extremity appears to be swollen and edematous. She also notices that the arm is now progressively more erythematous. There is no reported pain or tenderness to suggest necrotizing fasciitis-like process. At the time of my evaluation patient is in the ISC.She has a ID band in her left wrist on the side of infection. She also has a small bore peripheral IV around the wrist. Patient is currently not on any pressors her urine output is good. She has no fevers, no rash no diarrhea. Upon discussion with Dr. Ryan it appears that there is no plan for surgery for ileus at the present time given the left upper extremity cellulitis which appears to be more concerning. Infectious disease is consulted for evaluation and management of left upper extremity cellulitis. Notes reviewed No fever Transferred to ICU for GIB Still passing maroon stools No abdominal pain No fevers No generalized rash UC with Enterococcus BC negative GI to be consulted Antibiotics Vanco IV Current Medications Medications (Trade) Dose Ordered Sig/Merrick Route Start Time Stop Time Status Last Admin (Morphine Inj) 2 mg Q3H PRN IV PUSH 10/21/17 21:00 10/24/17 10:10 (NS Flush) 2 ml UNSCH PRN IV FLUSH 10/21/17 21:30 (NS Flush) 2 ml BID IV FLUSH 10/22/17 09:00 10/27/17 08:39 (Zofran Inj) 4 mg Q6H PRN IV PUSH 10/21/17 21:30 (Albuterol Neb) 2.5 mg Q2HR NEB PRN INH 10/21/17 21:30 Miscellaneous Information 1 Q361D XX 10/21/17 21:30 (Chlorhexidine 2% Cloth) Taper DAILY@04 TOP 10/22/17 04:00 10/18/18 03:59 10/27/17 04:00 (Chlorhexidine 2% Cloth) 3 pack UNSCH PRN TOP 10/21/17 21:30 (Natacha-Colace) 1 tab BID PO 10/22/17 09:00 10/26/17 09:26 (Milk Of Magnesia Liq) 30 ml Q12H PRN PO 10/21/17 21:30 (Senokot) 17.2 mg Q12H PRN PO 10/21/17 21:30 (Dulcolax Supp) 10 mg DAILY PRN RECTAL 10/21/17 21:30 (Lactulose Liq) 30 ml DAILY PRN PO 10/21/17 21:30 Pharmacy Profile Note 0 ml @ 0 mls/hr UNSCH OTHER 10/22/17 16:00 Vancomycin HCl 1000 mg/Sodium Chloride 250 ml @ 250 mls/hr Q24H IV 10/23/17 14:00 10/26/17 14:46 (Cepacol Extra [place] (Sugar Free)) 1 lozenge Q4HR PRN BUCCAL 10/22/17 18:45 (Hurricaine 20% Oral Spr) 1 spray Q1HR PRN OROPHARYNG 10/23/17 10:00 (Bactroban Nasal 2% Oint) 1 applic BID EACH NARE 10/24/17 21:00 10/31/17 20:59 10/27/17 08:39 (Cardizem) 30 mg Q6HR PO 10/26/17 12:30 10/27/17 12:13 ([place] 5-325 Mg) 1 tab Q6H PRN PO 10/26/17 12:15 10/26/17 21:12 (Reglan) 10 mg BID PO 10/26/17 21:00 10/27/17 08:38 (Deltasone) 10 mg DAILY PO 10/26/17 13:00 10/27/17 08:38 (Lactinex) 1 tab DAILY PO 10/26/17 13:00 10/27/17 08:38 (Protonix) 20 mg DAILY PO 10/27/17 09:00 10/27/17 08:39 Potassium Chloride/Sodium Chloride 1,000 ml @ 65 mls/hr [id number] IV 10/26/17 15:15 10/27/17 08:39 Sodium Chloride 250 ml @ 250 mls/hr BOLUS PRN IV 10/26/17 16:00 Lines Line sites with no e.o infection. Past Medical History reviewed. Allergies: Coded Allergies: Sulfa (Sulfonamide Antibiotics) (Unverified Allergy, Severe, SWELLING, DIFFICULTY BREATHING, 10/21/17) celecoxib (Unverified Allergy, Severe, 10/21/17) PT IS UNABLE TO RECALL REACTION. penicillin G (Unverified Allergy, Severe, Swelling, 10/21/17) PT REPORTS REACTION WAS 50 YEARS AGO, AND IS UNABLE TO RECALL DETAILS. Uncoded Allergies: TAPE ADHESIVE/ PAPER TAPE OK (Allergy, Severe, BLISTERS, 05/01/06) Objective . Vital Signs Date Time Temp Pulse Resp B/P (MAP) Pulse Ox O2 Delivery O2 Flow Rate FiO2 10/27/17 08:00 97.7 76 21 143/75 (97) 97 10/27/17 07:00 98 Room Air 21 10/27/17 04:00 97.9 72 19 139/64 (89) 96 10/27/17 00:00 97.8 72 31 136/63 (87) 96 10/26/17 22:12 20 10/26/17 20:00 98.3 75 18 130/67 (88) 96 10/26/17 19:00 97 Room Air 21 10/26/17 16:00 98.0 80 25 161/71 (101) 97 10/26/17 15:52 96.0 82 20 133/77 (95) 96 . Laboratory Tests Test 10/25/17 20:22 10/26/17 12:42 10/26/17 17:42 10/26/17 23:45 White Blood Count 9.4 TH/MM3 9.1 TH/MM3 Red Blood Count 3.38 MIL/MM3 3.55 MIL/MM3 Hemoglobin 10.8 GM/DL 11.2 GM/DL 10.6 GM/DL 10.4 GM/DL Hematocrit 32.9 % 34.3 % 32.3 % 32.6 % Mean Corpuscular Volume 97.5 FL 96.5 FL Mean Corpuscular Hemoglobin 32.1 PG 31.4 PG Mean Corpuscular Hemoglobin Concent 32.9 % 32.6 % Red Cell Distribution Width 17.7 % 17.8 % Platelet Count 266 TH/MM3 329 TH/MM3 Mean Platelet Volume 8.4 FL 8.6 FL Test 10/27/17 03:38 Hemoglobin 10.1 GM/DL Hematocrit 30.7 % Laboratory Tests Test 10/26/17 17:42 Blood Urea Nitrogen 11 MG/DL Creatinine 0.50 MG/DL Random Glucose 108 MG/DL Calcium Level 7.9 MG/DL Sodium Level 141 MEQ/L Potassium Level 4.2 MEQ/L Chloride Level 108 MEQ/L Carbon Dioxide Level 29.1 MEQ/L Anion Gap 4 MEQ/L Estimat Glomerular Filtration Rate 116 ML/MIN Imaging Last Impressions Upper Extremity CT 10/22/17 0000 Signed Impressions: Service Date/Time: Sunday, October 22, 2017 22:22 - CONCLUSION: 1. Soft tissue swelling in the left hand. No discrete abscess. No acute bony abnormalities. Garrick Ramirez MD Chest X-Ray 10/21/17 1612 Signed Impressions: Service Date/Time: Saturday, October 21, 2017 16:19 - CONCLUSION: No acute disease. Nilesh Frye MD Abdomen/Pelvis CT 10/21/17 1612 Signed Impressions: Service Date/Time: Saturday, October 21, 2017 17:47 - CONCLUSION: 1. Suspected small bowel structure with dilatation of the small bowel to the level of anastomosis suture and the distal small bowel. There is debris within the small bowel at this region in the small bowel beyond the anastomosis is decompressed. 2. Mild hiatal hernia. 3. Sigmoid colon diverticula. There is an anastomosis sutures seen in the rectum just beyond the sigmoid colon diverticula. 4. Mild left pleural effusion. 5. Consolidation at the posterior right lung base. Nilesh Frye MD Abdomen X-Ray 10/21/17 0000 Signed Impressions: Service Date/Time: Saturday, October 21, 2017 18:43 - CONCLUSION: Nasogastric tube across the GE junction Dami Cuevas MD FACR Physical Exam GENERAL: awake and alert, frail, NAD SKIN: Multiple areas of ecchymosis noted. Cool and dry. HEAD: Atraumatic. Normocephalic. No temporal or scalp tenderness. EYES: Pupils equal round and reactive. Extraocular motions intact. No scleral icterus. No injection or drainage. ENT: Nose without bleeding, purulent drainage or septal hematoma. Throat without erythema, tonsillar hypertrophy or exudate. Uvula midline. Airway patent. NECK: Trachea midline. Supple, nontender, no meningeal signs. CARDIOVASCULAR: Regular rate and rhythm without murmurs, gallops, or rubs. RESPIRATORY: Clear to auscultation. Breath sounds equal bilaterally. No wheezes , rales, or rhonchi. GASTROINTESTINAL: Abdomen soft, non-tender, nondistended. MUSCULOSKELETAL: Multiple joints of upper and lower extremity with changes suggestive of chronic arthritis(note patient has prior history of rheumatoid arthritis). LUE with improving erythema NEUROLOGICAL: Awake and alert. Nonfocal exam Psych cooperative IV line sites with no evidence of infection. Assessment & Plan Remarks Possible sepsis in an immunocompromised patient. Ileus resolved: has had multiple BMs. Tolerated diet. Left upper extremity cellulitis. Improving Group D Enterococcus in urine: asymptomatic but will likely be covered with Vanco IV. Clinically stable. History of rectal cancer, status post low anterior resection June 11, [address] Ryan. Status post ileostomy reversal on October 15, [address] Ryan. Rheumatoid arthritis Rheumatoid arthritis on immune suppressants(methotrexate and prednisone) Penicillin allergy Sulfa allergy GIB Recommendations Continue vancomycin target trough 10-15 for cellulitis. Elevate left UE. Follow cultures Monitor progress GI to evaluate bleed Discussed with Ginger Campa MD Oct 27, 2017 15:04
[2017-10-27 16:00] VITALS: BP 125/76; PULSE 79; RESP 22; TEMP 97.8; O2SAT 98
[2017-10-27 21:15] VITALS: BP 129/62; PULSE 81; RESP 20; TEMP 97.7; O2SAT 95
[2017-10-27] MEDS: ACETAMINOPHEN/HYDROcodone 325 MG/5 MG TAB PO PRN (22:47)
[2017-10-28] VITALS (10 sets, daily range): BP systolic 108–143; BP diastolic 56–74; PULSE 66–89; RESP 17–20; TEMP 97.2–97.9; O2SAT 93–96
[2017-10-28] MEDS: NS + KCL 20 MEQ INJ 1,000 ML IV SCH ×2 (00:30→12:53)
[2017-10-28] MEDS: DILTIAZEM HCL 30 MG TAB PO SCH ×5 (00:30→22:55)
[2017-10-28] MEDS: CHLORHEXIDINE GLUCONATE 2 % 1 PACK (2 CLOTHS) TOP SCH (03:29)
[2017-10-28] MEDS: ACETAMINOPHEN/HYDROcodone 325 MG/5 MG TAB PO PRN ×3 (05:20→23:14)
[2017-10-28] MEDS: SODIUM CHLORIDE 0.9% FLUSH 10 ML FLUSH IV FLUSH SCH ×2 (09:00→22:53)
[2017-10-28] MEDS: MUPIROCIN 2% OINT 1 APPLIC/GM SYR EACH NARE SCH ×2 (09:00→22:53)
[2017-10-28] MEDS: PANTOPRAZOLE SOD 20 MG DELAYED RELEASE TAB PO SCH (09:01)
[2017-10-28] MEDS: predniSONE 10 MG TAB PO SCH (09:01)
[2017-10-28] MEDS: METOCLOPRAMIDE HCL 10 MG TAB PO SCH ×2 (09:01→22:53)
[2017-10-28] MEDS: LACTOBACILLUS ACIDOPHILUS TAB PO SCH (09:01)
[2017-10-28] MEDS: DOCUSATE SODIUM 50 MG/SENNA 8.6 MG TAB PO SCH ×2 (09:01→22:53)
[2017-10-28] MEDS: PANTOPRAZOLE SOD 40 MG DELAYED RELEASE TAB PO SCH (09:48)
--- NOTE | 2017-10-28 09:56 | MB ---
cc: Roxanne Medina MD DATE: 10/28/2017 REASON FOR CONSULTATION: Anemia, GI bleed. HISTORY OF PRESENT ILLNESS: This is a pleasant 87-year-old female, who was recently diagnosed with rectal cancer, underwent low anterior resection and ostomy placement on 06/11/[address] Ryan. She had a relatively uncomplicated course and returned to the hospital for an ileostomy reversal on 10/15/2017 and she was discharged to rehabilitation. She came back to the hospital complaining of mild abdominal discomfort, nausea, nonbloody emesis. She has been under treatment for ileus over the last several days in the Intensive Care Unit. Several days ago, she was noted to have several bouts of initially dark stools, then slowly somewhat reddish tinge bowel movement suspicious for a GI bleed. She has not required any blood transfusion yet. In the meantime, GI was consulted for further evaluation. Her most recent bowel movement was earlier this morning, which was noted to be dark brown without any overt evidence of bloody stools, per the patient transitional care liaison and nurse. She currently denies any abdominal pain, nausea, vomiting. She is tolerating a regular diet. She is in fact, having her breakfast this morning. PAST MEDICAL HISTORY: Rectal cancer, rheumatoid arthritis, hypertension, COPD. PAST SURGICAL HISTORY: LAR, cataract surgery, hysterectomy, total hip replacement, total knee replacement, tonsillectomy, breast lumpectomy, ileostomy reversal. ALLERGIES: SULFA, CELECOXIB, PENICILLIN. HOME MEDICATIONS: Methotrexate, Cardizem, hydrocodone, omeprazole, montelukast, Reglan, levothyroxine. FAMILY HISTORY: Father with history of cerebrovascular accident. No GI malignancy. SOCIAL HISTORY: Denies alcohol, tobacco or drug abuse. REVIEW OF SYSTEMS: A 12-point review of system was obtained and was negative or noncontributory except as mentioned in the HPI. PHYSICAL EXAMINATION: VITAL SIGNS: 97.4, heart rate 79, respirations 18, blood pressure 117/60, O2 saturation 94%. GENERAL: Alert, oriented. No acute distress. HEENT: Normocephalic. Oral mucosa is moist. Pupils equal, round, reactive to light. No scleral icterus noted. NECK: Supple, nontender. No carotid bruits. No JVD noted. CARDIOVASCULAR: Regular rate and rhythm. No murmurs heard. LUNGS: CTAB. No rales or wheezing, rhonchi noted. Nonlabored respirations. ABDOMEN: Soft, mildly tympanic, nontender. Right-sided ostomy scar, well healed. There is no periumbilical ecchymosis. No hepatosplenomegaly appreciated. Nontender in the epigastric region. GENITOURINARY: No CVA tenderness noted. MUSCULOSKELETAL: Equal strength upper and lower extremities. NEUROLOGIC: Alert, oriented. No focal deficits. PSYCHIATRIC: Appropriate mood and affect, somewhat forgetful but cannot recall detailed distant medical history. LABORATORY DATA: Hemoglobin 10.1, sodium 141, potassium 4.3, chloride 108, bicarbonate 29, BUN 11, creatinine 0.5. IMPRESSION: 1. Transient hematochezia, etiology unclear. The patient's previous emesis and NG output was negative for any signs of melena or bright red blood in the emesis. The bowel movements have actually improved or cleared, meaning they are less tarry and in fact a.m. bowel movement was actually brown. Her BUN and creatinine are not indicative of an upper gastrointestinal bleeding source. Currently, tolerating a regular diet. 2. Rectal cancer status post lower anterior resection with reversal of ostomy. RECOMMENDATION: 1. Because the patient's bowel movement has improved and tolerating oral intake, I recommend conservative management including increasing the Protonix to 40 mg once a day. 2. Monitor hemoglobin periodically. 3. Monitor stool for color, consistency and frequency. 4. If the patient has persistent melanotic stools or rectal bleeding or her clinical status changes, then would consider undergoing endoscopic workup. Thank you for allowing [facility] to participate in the care of the patient. Please do not hesitate to contact for further questions. MD CLEO Moore/NATHALIE , 09:14 AM , 09:55 AM YU
--- NOTE | 2017-10-28 10:46 | HHI.PR ---
Subjective Remarks F/u GIB. No further bleed overnight dw RN and ID Objective Vitals Vital Signs Date Time Temp Pulse Resp B/P (MAP) Pulse Ox O2 Delivery O2 Flow Rate FiO2 10/28/17 08:27 97.4 79 18 117/60 (79) 94 10/28/17 08:00 66 10/28/17 06:20 20 10/28/17 04:00 97.4 81 18 143/64 (90) 93 10/28/17 00:00 97.9 85 20 110/56 (74) 93 10/27/17 21:15 97.7 81 20 129/62 (84) 95 10/27/17 19:00 95 Room Air 10/27/17 16:00 97.8 79 22 125/76 (92) 98 10/27/17 12:00 97.6 70 24 129/62 (84) 96 I/O 10/27/17 10/27/17 10/27/17 10/28/17 10/28/17 10/28/17 07:00 15:00 23:00 07:00 15:00 23:00 Intake Total 1032 ml 1000 ml 1037.8 ml 240 ml Output Total 300 ml 800 ml Balance 732 ml 1000 ml 237.8 ml 240 ml Intake Oral 240 ml 180 ml 240 ml IV Total 792 ml 1000 ml 857.8 ml Output Urine Total 300 ml 800 ml # Voids 1 5 # Bowel Movements 2 2 0 Result Diagram: 10/27/17 0338 10/26/17 1742 Imaging Last Impressions Abdomen X-Ray 10/25/17 0000 Signed Impressions: Service Date/Time: September 10:25 - CONCLUSION: Mild to moderately dilated loops of small bowel in the midabdomen. The seen with a small bowel ileus versus partial small bowel obstruction. Abraham Laguna MD Upper Extremity Ultrasound 10/24/17 0000 Signed Impressions: Service Date/Time: Tuesday, October 24, 2017 21:34 - CONCLUSION: Acute appearing thrombus in the left basilic vein. The remaining venous structures appear patent. Nilesh Frye MD Upper Extremity CT 10/22/17 0000 Signed Impressions: Service Date/Time: Sunday, October 22, 2017 22:22 - CONCLUSION: 1. Soft tissue swelling in the left hand. No discrete abscess. No acute bony abnormalities. Garrick Ramirez MD Chest X-Ray 10/21/17 1612 Signed Impressions: Service Date/Time: Saturday, October 21, 2017 16:19 - CONCLUSION: No acute disease. Nilesh Frye MD Abdomen/Pelvis CT 10/21/17 1612 Signed Impressions: Service Date/Time: Saturday, October 21, 2017 17:47 - CONCLUSION: 1. Suspected small bowel structure with dilatation of the small bowel to the level of anastomosis suture and the distal small bowel. There is debris within the small bowel at this region in the small bowel beyond the anastomosis is decompressed. 2. Mild hiatal hernia. 3. Sigmoid colon diverticula. There is an anastomosis sutures seen in the rectum just beyond the sigmoid colon diverticula. 4. Mild left pleural effusion. 5. Consolidation at the posterior right lung base. Nilesh Frye MD Objective Remarks GENERAL: Elderly female who is laying in bed not in any acute distress. SKIN: There are ecchymoses on the dorsum of bilateral arms and lateral aspect of right thigh. CARDIOVASCULAR: Regular rate and rhythm. No murmurs rubs or gallops. RESPIRATORY: Clear to auscultation. Breath sounds equal bilaterally. GASTROINTESTINAL: Abdomen is distended and tympanitic without bowel sounds. There is some mild tenderness in mid abdomen without rebound or guarding. Steri- strips are in place over prior ileostomy site in right abdomen with wound edges approximated. no drainage. MUSCULOSKELETAL: Left upper extremity with improving swelling, erythema and warmth, left radial pulse palpable very well. She has joint deformities of hands consistent with rheumatoid arthritis. NEUROLOGICAL: Awake and alert. No obvious cranial nerve deficits. Motor grossly within normal limits, moving all extremities without focal deficit. Normal speech. Has not ambulated for years per pt Procedures Ileostomy reversal A/P Problem List: (1) Rheumatoid arthritis ICD Code: M06.9 - Rheumatoid arthritis, unspecified Status: Chronic (2) SVT (supraventricular tachycardia) ICD Code: I47.1 - Supraventricular tachycardia Status: Chronic (3) UTI (urinary tract infection) ICD Code: N39.0 - Urinary tract infection, site not specified Status: Acute (4) HTN (hypertension) ICD Code: I10 - Essential (primary) hypertension Status: Chronic (5) Rectal cancer ICD Code: C20 - Malignant neoplasm of rectum Status: Resolved (6) Dehydration ICD Code: E86.0 - Dehydration Status: Acute (7) Ileus ICD Code: K56.7 - Ileus, unspecified Status: Acute Assessment and Plan NEURO: Pain secondary to rheumatoid arthritis Discontinued Ofirmev and restarted Lortab Morphine prn breakthrough. Dc IV solumedrol and restarted prednisone PT RESP: Nasal cannula wean as tolerated Incentive spirometry every hour awake Chest x-ray 10/21/17 CV: SVT Intermittent SVT in the emergency department. Spontaneously converted on a couple of occasions. Did receive adenosine 6 mg IV 2 doses. She previously has been managed on Cardizem. She may not have been absorbing this due to her ileus. Resume by mouth Cardizem. Off Cardizem drip currently. GI: rectal cancer hx low anterior resection and diverting ileostomy s/p ileostomy reversal. Stable Ileus. Resolved GERD. Stable NG tube clamped per CRS. CT abdomen pelvis 10/21 - Dilation of stomach and small bowel. Small bowel distal to anastomosis is decompressed. Colorectal surgery following. Restarted PPI GIB with old blood. Hemodynamically stable dw CRS. GI recommended medical management increase Protonix to 40 daily and hold off with endoscopic workup unless active bleeding FEN/RENAL: Dehydration Urinary incontinence Rasmussen discontinued ID: Rheumatoid arthritis Enterococcus UTI, present on admission Left upper extremity cellulitis. Improving penicillin allergy Hold methotrexate Follow-up blood cultures negative to date Continue IV vancomycin per ID HEME: Rectal cancer status post low anterior resection and diverting ileostomy. Now s/ p ileostomy reversal and anastomosis 10/15/17 (Dr. Ryan) Pathology 06/11/17 - high grade poorly differentiated adenocarcinoma, focally intubating muscularis propria. Resection margins negative for malignancy. Lymph nodes negative. Has not received chemo. Monitor CBC. ENDO: Chronic prednisone use Hypothyroidism TSH low. Hold synthroid for now. Recheck / consider initiation of synthroid daily PROPH: SCDs hold Lovenox 40 mg subcutaneous 2/2 GIB ACCESS: Peripheral IV providing adequate access at this time. Increase activity patient to be out of bed daily. Continue physical therapy Discharge Planning Discharge back to rehab pending CRS and infectious disease clearance. Problem Qualifiers (1) UTI (urinary tract infection): (2) HTN (hypertension): Qualified Codes: I10 - Essential (primary) hypertension Ba Rhodes MD Oct 28, 2017 10:46
--- NOTE | 2017-10-28 11:03 | HHI.IDPN ---
Subjective Subjective Remarks Ms. Gupta is an 87 y/o CF with PMHx of hypothyroidism, rheumatoid arthritis on chronic methotrexate and prednisone, GERD. She was diagnosed with rectal cancer and underwent low anterior resection 06/11/[address] Ryan. She is currently postop day #6 from ileostomy reversal 10/15/[address] Ryan. She was discharged 10/19/17 to [facility]. She developed abdominal distension and had 2-3 episodes of emesis today, nonbloody nonbilious. Her daughter states she is incontinent of urine and stool and has continued to have loose bowel movements. Patient complained of some aching abdominal pain in mid abdomen upon admission. She is afebrile with temperature of 98.9. WBC is 19.9. Lactic acid 2.1. Creatinine 0.77 (baseline 0.45). Patient was seen by Critical Care over night and recd some empiric antibiotics. was called due to concern for ileus related sepsis. I received a call from for a stat consult for left upper extremity cellulitis concern for worsening infection. Upon discussion with daughter it appears patient has prior MRSA infection in her left lower extremity. Patient is seen by Dr. Bush at [facility] few months back. She also goes on to report that 2-3 days prior to admission she noticed an area of redness on the left inner aspect of the left elbow which has progressively gotten worse and at this point her entire left upper extremity appears to be swollen and edematous. She also notices that the arm is now progressively more erythematous. There is no reported pain or tenderness to suggest necrotizing fasciitis-like process. At the time of my evaluation patient is in the ISC.She has a ID band in her left wrist on the side of infection. She also has a small bore peripheral IV around the wrist. Patient is currently not on any pressors her urine output is good. She has no fevers, no rash no diarrhea. Upon discussion with Dr. Ryan it appears that there is no plan for surgery for ileus at the present time given the left upper extremity cellulitis which appears to be more concerning. Infectious disease is consulted for evaluation and management of left upper extremity cellulitis. Notes reviewed No fever Out of ICU GI notes reviewed Stools better No abdominal pain No fevers No generalized rash UC with Enterococcus BC negative Antibiotics Vanco IV Current Medications Medications (Trade) Dose Ordered Sig/Merrick Route Start Time Stop Time Status Last Admin (Morphine Inj) 2 mg Q3H PRN IV PUSH 10/21/17 21:00 10/24/17 10:10 (NS Flush) 2 ml UNSCH PRN IV FLUSH 10/21/17 21:30 (NS Flush) 2 ml BID IV FLUSH 10/22/17 09:00 10/27/17 08:39 (Zofran Inj) 4 mg Q6H PRN IV PUSH 10/21/17 21:30 (Albuterol Neb) 2.5 mg Q2HR NEB PRN INH 10/21/17 21:30 Miscellaneous Information 1 Q361D XX 10/21/17 21:30 (Chlorhexidine 2% Cloth) Taper DAILY@04 TOP 10/22/17 04:00 10/18/18 03:59 10/27/17 04:00 (Chlorhexidine 2% Cloth) 3 pack UNSCH PRN TOP 10/21/17 21:30 (Natacha-Colace) 1 tab BID PO 10/22/17 09:00 10/28/17 09:01 (Milk Of Magnesia Liq) 30 ml Q12H PRN PO 10/21/17 21:30 (Senokot) 17.2 mg Q12H PRN PO 10/21/17 21:30 (Dulcolax Supp) 10 mg DAILY PRN RECTAL 10/21/17 21:30 (Lactulose Liq) 30 ml DAILY PRN PO 10/21/17 21:30 Pharmacy Profile Note 0 ml @ 0 mls/hr UNSCH OTHER 10/22/17 16:00 Vancomycin HCl 1000 mg/Sodium Chloride 250 ml @ 250 mls/hr Q24H IV 10/23/17 14:00 10/27/17 15:02 (Cepacol Extra [place] (Sugar Free)) 1 lozenge Q4HR PRN BUCCAL 10/22/17 18:45 (Hurricaine 20% Oral Spr) 1 spray Q1HR PRN OROPHARYNG 10/23/17 10:00 (Bactroban Nasal 2% Oint) 1 applic BID EACH NARE 10/24/17 21:00 10/31/17 20:59 10/27/17 22:46 (Cardizem) 30 mg Q6HR PO 10/26/17 12:30 10/28/17 05:20 (Williams 5-325 Mg) 1 tab Q6H PRN PO 10/26/17 12:15 10/28/17 05:20 (Reglan) 10 mg BID PO 10/26/17 21:00 10/28/17 09:01 (Deltasone) 10 mg DAILY PO 10/26/17 13:00 10/28/17 09:01 (Lactinex) 1 tab DAILY PO 10/26/17 13:00 10/28/17 09:01 Potassium Chloride/Sodium Chloride 1,000 ml @ 65 mls/hr [id number] IV 10/26/17 15:15 10/28/17 00:30 Sodium Chloride 250 ml @ 250 mls/hr BOLUS PRN IV 10/26/17 16:00 Miscellaneous Information SPECIFIC LAB TO BE DRAWN:[facility]... ONCE ONCE .XX 10/28/17 14:45 10/28/17 14:46 (Protonix) 40 mg DAILY PO 10/28/17 10:00 Lines Line sites with no e.o infection. Past Medical History reviewed. Allergies: Coded Allergies: Sulfa (Sulfonamide Antibiotics) (Unverified Allergy, Severe, SWELLING, DIFFICULTY BREATHING, 10/21/17) celecoxib (Unverified Allergy, Severe, 10/21/17) PT IS UNABLE TO RECALL REACTION. penicillin G (Unverified Allergy, Severe, Swelling, 10/21/17) PT REPORTS REACTION WAS 50 YEARS AGO, AND IS UNABLE TO RECALL DETAILS. Uncoded Allergies: TAPE ADHESIVE/ PAPER TAPE OK (Allergy, Severe, BLISTERS, 05/01/06) Objective . Vital Signs Date Time Temp Pulse Resp B/P (MAP) Pulse Ox O2 Delivery O2 Flow Rate FiO2 10/28/17 08:27 97.4 79 18 117/60 (79) 94 10/28/17 08:00 66 10/28/17 06:20 20 10/28/17 04:00 97.4 81 18 143/64 (90) 93 10/28/17 00:00 97.9 85 20 110/56 (74) 93 10/27/17 21:15 97.7 81 20 129/62 (84) 95 10/27/17 19:00 95 Room Air 10/27/17 16:00 97.8 79 22 125/76 (92) 98 10/27/17 12:00 97.6 70 24 129/62 (84) 96 . Laboratory Tests Test 10/26/17 12:42 10/26/17 17:42 10/26/17 23:45 10/27/17 03:38 White Blood Count 9.1 TH/MM3 Red Blood Count 3.55 MIL/MM3 Hemoglobin 11.2 GM/DL 10.6 GM/DL 10.4 GM/DL 10.1 GM/DL Hematocrit 34.3 % 32.3 % 32.6 % 30.7 % Mean Corpuscular Volume 96.5 FL Mean Corpuscular Hemoglobin 31.4 PG Mean Corpuscular Hemoglobin Concent 32.6 % Red Cell Distribution Width 17.8 % Platelet Count 329 TH/MM3 Mean Platelet Volume 8.6 FL Laboratory Tests Test 10/26/17 17:42 Blood Urea Nitrogen 11 MG/DL Creatinine 0.50 MG/DL Random Glucose 108 MG/DL Calcium Level 7.9 MG/DL Sodium Level 141 MEQ/L Potassium Level 4.2 MEQ/L Chloride Level 108 MEQ/L Carbon Dioxide Level 29.1 MEQ/L Anion Gap 4 MEQ/L Estimat Glomerular Filtration Rate 116 ML/MIN Imaging Last Impressions Upper Extremity CT 10/22/17 0000 Signed Impressions: Service Date/Time: Sunday, October 22, 2017 22:22 - CONCLUSION: 1. Soft tissue swelling in the left hand. No discrete abscess. No acute bony abnormalities. Garrick Ramirez MD Chest X-Ray 10/21/17 1612 Signed Impressions: Service Date/Time: Saturday, October 21, 2017 16:19 - CONCLUSION: No acute disease. Nilesh Frye MD Abdomen/Pelvis CT 10/21/17 1612 Signed Impressions: Service Date/Time: Saturday, October 21, 2017 17:47 - CONCLUSION: 1. Suspected small bowel structure with dilatation of the small bowel to the level of anastomosis suture and the distal small bowel. There is debris within the small bowel at this region in the small bowel beyond the anastomosis is decompressed. 2. Mild hiatal hernia. 3. Sigmoid colon diverticula. There is an anastomosis sutures seen in the rectum just beyond the sigmoid colon diverticula. 4. Mild left pleural effusion. 5. Consolidation at the posterior right lung base. Nilesh Frye MD Abdomen X-Ray 10/21/17 0000 Signed Impressions: Service Date/Time: Saturday, October 21, 2017 18:43 - CONCLUSION: Nasogastric tube across the GE junction Dami Cuevas MD FACR Physical Exam GENERAL: awake and alert, frail, NAD SKIN: Multiple areas of ecchymosis noted. Cool and dry. HEAD: Atraumatic. Normocephalic. No temporal or scalp tenderness. EYES: Pupils equal round and reactive. Extraocular motions intact. No scleral icterus. No injection or drainage. ENT: Nose without bleeding, purulent drainage or septal hematoma. Throat without erythema, tonsillar hypertrophy or exudate. Uvula midline. Airway patent. NECK: Trachea midline. Supple, nontender, no meningeal signs. CARDIOVASCULAR: Regular rate and rhythm without murmurs, gallops, or rubs. RESPIRATORY: Clear to auscultation. Breath sounds equal bilaterally. No wheezes , rales, or rhonchi. GASTROINTESTINAL: Abdomen soft, non-tender, nondistended. MUSCULOSKELETAL: Multiple joints of upper and lower extremity with changes suggestive of chronic arthritis(note patient has prior history of rheumatoid arthritis). LUE with improving erythema NEUROLOGICAL: Awake and alert. Nonfocal exam Psych cooperative IV line sites with no evidence of infection. Assessment & Plan Remarks Possible sepsis in an immunocompromised patient. Ileus resolved: has had multiple BMs. Tolerated diet. Left upper extremity cellulitis. Improving Group D Enterococcus in urine: asymptomatic but will likely be covered with Vanco IV. Clinically stable. History of rectal cancer, status post low anterior resection June 11, [address] Ryan. Status post ileostomy reversal on October 15, [address] Ryan. Rheumatoid arthritis Rheumatoid arthritis on immune suppressants(methotrexate and prednisone) Penicillin allergy Sulfa allergy GIB Recommendations Continue vancomycin target trough 10-15 for cellulitis. Elevate left UE. Follow cultures Monitor progress Ginger Holloway MD Oct 28, 2017 11:03
[2017-10-28] MEDS ORDERED: PANT40TA3 PO (11:36)
[2017-10-28] MEDS: VANCOMYCIN 1,000 MG/NS 250 ML IV SCH ×2 (13:04)
--- NOTE | 2017-10-28 14:00 | HHI.PR ---
Subjective Remarks Ileus, left arm cellulitis bleeding somewhat better but still with dark blood Objective Vital Signs Date Time Temp Pulse Resp B/P (MAP) Pulse Ox O2 Delivery O2 Flow Rate FiO2 10/28/17 12:01 97.2 89 17 108/74 (85) 94 10/28/17 12:00 80 10/28/17 11:34 Room Air 10/28/17 09:15 Room Air 10/28/17 08:27 97.4 79 18 117/60 (79) 94 10/28/17 08:00 66 10/28/17 06:20 20 10/28/17 04:00 97.4 81 18 143/64 (90) 93 10/28/17 00:00 97.9 85 20 110/56 (74) 93 10/27/17 21:15 97.7 81 20 129/62 (84) 95 10/27/17 19:00 95 Room Air 10/27/17 16:00 97.8 79 22 125/76 (92) 98 I/O 10/27/17 10/27/17 10/27/17 10/28/17 10/28/17 10/28/17 07:00 15:00 23:00 07:00 15:00 23:00 Intake Total 1032 ml 1000 ml 1037.8 ml 240 ml Output Total 300 ml 800 ml Balance 732 ml 1000 ml 237.8 ml 240 ml Intake Oral 240 ml 180 ml 240 ml IV Total 792 ml 1000 ml 857.8 ml Output Urine Total 300 ml 800 ml # Voids 1 5 # Bowel Movements 2 2 0 Result Diagram: 10/27/17 0338 10/26/17 1742 Objective Remarks Left arm cellulitis about the same Abdomen soft, nontender, mild distension Assessment and Plan Assessment and Plan Cellulitis per ID - not improving as rapidly as I would like Continued evidence of bleeding - EGD in am per Eugenia Gunter MD Oct 28, 2017 14:00
[2017-10-28] MEDS ORDERED: PHARMACY ORDERED LAB ONE (14:45)
[2017-10-28 21:32] LABS: BICARBONATE 26.1 MEQ/L (21.0-32.0); CALCIUM 7.7 MG/DL (8.5-10.1); CREATININE 0.46 MG/DL (0.50-1.00); MAGNESIUM 1.6 MG/DL (1.5-2.5)
[2017-10-29] VITALS (9 sets, daily range): BP systolic 112–135; BP diastolic 57–93; PULSE 68–97; RESP 16–20; TEMP 97.4–99.5; O2SAT 92–98
[2017-10-29 00:29] LABS: AUTOMATED NEUTROPHIL # 9.4 TH/MM3 (1.8-7.7); BASOPHIL % 0.1 % (0.0-2.0); EOSINOPHIL % 0.3 % (0.0-4.0); HEMATOCRIT 25.3 % (35.0-46.0); HEMOGLOBIN 8.3 GM/DL (11.6-15.3); LYMPH % 5.7 % (9.0-44.0); LYMPHOCYTE # 0.6 TH/MM3 (1.0-4.8); MEAN CELL VOLUME 98.1 FL (80.0-100.0); MEAN CORPUSCULAR HEMOGLOBIN 32.2 PG (27.0-34.0); MEAN CORPUSCULAR HGB CONC 32.9 % (32.0-36.0); MEAN PLATELET VOLUME 8.2 FL (7.0-11.0); MONO % 4.6 % (0.0-8.0); MONOCYTE # 0.5 TH/MM3 (0-0.9); NEUT % 89.3 % (16.0-70.0); PLATELET COUNT 329 TH/MM3 (150-450); RED BLOOD COUNT 2.58 MIL/MM3 (4.00-5.30); RED CELL DISTRIBUTION WIDTH 17.8 % (11.6-17.2); WHITE BLOOD COUNT 10.5 TH/MM3 (4.0-11.0)
[2017-10-29 02:06] LABS: LYMPHOCYTES 2 % (9-44); METAMYELOCYTES 1 % (0-1); MONOCYTES 3 % (0-8); MYELOCYTES 4 % (0-0); NEUTROPHIL # MANUAL DIFF 9.9 TH/MM3 (1.8-7.7); POLYS (SEG NEUTROPHILS) 89 % (16-70)
[2017-10-29 02:12] LABS: ACANTHOCYTES OCC (NORMAL); KERATOCYTES OCC (NORMAL)
[2017-10-29] MEDS: CHLORHEXIDINE GLUCONATE 2 % 1 PACK (2 CLOTHS) TOP SCH (04:00)
[2017-10-29] MEDS: NS + KCL 20 MEQ INJ 1,000 ML IV SCH (04:51)
[2017-10-29 08:27] LABS: AUTOMATED NEUTROPHIL # 9.9 TH/MM3 (1.8-7.7); BASOPHIL % 0.3 % (0.0-2.0); EOSINOPHIL # 0.1 TH/MM3 (0-0.4); EOSINOPHIL % 1.1 % (0.0-4.0); HEMOGLOBIN 8.8 GM/DL (11.6-15.3); LYMPH % 9.1 % (9.0-44.0); LYMPHOCYTE # 1.1 TH/MM3 (1.0-4.8); MEAN CELL VOLUME 98.2 FL (80.0-100.0); MEAN CORPUSCULAR HGB CONC 32.6 % (32.0-36.0); MONO % 5.6 % (0.0-8.0); MONOCYTE # 0.7 TH/MM3 (0-0.9); NEUT % 83.9 % (16.0-70.0); PLATELET COUNT 320 TH/MM3 (150-450); RED BLOOD COUNT 2.75 MIL/MM3 (4.00-5.30); RED CELL DISTRIBUTION WIDTH 18.4 % (11.6-17.2); WHITE BLOOD COUNT 11.8 TH/MM3 (4.0-11.0)
[2017-10-29] MEDS: MUPIROCIN 2% OINT 1 APPLIC/GM SYR EACH NARE SCH ×2 (08:27→20:57)
[2017-10-29 08:49] LABS: BICARBONATE 27.5 MEQ/L (21.0-32.0); CALCIUM 7.7 MG/DL (8.5-10.1); CREATININE 0.46 MG/DL (0.50-1.00); MAGNESIUM 1.7 MG/DL (1.5-2.5)
[2017-10-29 09:28] LABS: ACANTHOCYTES OCC (NORMAL); HELMET CELLS OCC (NORMAL); OVALOCYTES 1+ (NORMAL)
[2017-10-29] MEDS: LACTOBACILLUS ACIDOPHILUS TAB PO SCH (09:28)
[2017-10-29] MEDS: predniSONE 10 MG TAB PO SCH (09:28)
[2017-10-29] MEDS: METOCLOPRAMIDE HCL 10 MG TAB PO SCH ×2 (09:28→20:57)
[2017-10-29] MEDS: DOCUSATE SODIUM 50 MG/SENNA 8.6 MG TAB PO SCH ×2 (09:28→20:57)
[2017-10-29] MEDS: PANTOPRAZOLE SOD 40 MG DELAYED RELEASE TAB PO SCH (09:28)
[2017-10-29] MEDS: SODIUM CHLORIDE 0.9% FLUSH 10 ML FLUSH IV FLUSH SCH ×2 (09:29→20:57)
--- NOTE | 2017-10-29 11:26 | PD.AMA ---
Against Medical Advice Note Pt Condition on Discharge: Stable AMA Statement Patient Olivia Gupta has decided to leave the hospital against medical advice. This patient has the capacity to refuse care and understands the risks of leaving, including permanent disability and/or , and has had an opportunity to ask questions about her condition. The patient has been informed that she may return for care at any time, and follow up has been arranged/ advised. Ba Rhodes MD Oct 29, 2017 11:26
[2017-10-29] MEDS: DILTIAZEM HCL 30 MG TAB PO SCH ×3 (11:31→23:42)
--- NOTE | 2017-10-29 11:43 | HHI.PR ---
Subjective Remarks Follow-up GI bleeding. No further bleeding overnight. Patient for EGD later today apparently had rectal bleeding late yesterday afternoon discussed with nursing Objective Vitals Vital Signs Date Time Temp Pulse Resp B/P (MAP) Pulse Ox O2 Delivery O2 Flow Rate FiO2 10/29/17 10:09 Room Air 10/29/17 08:05 97.6 88 18 135/58 (83) 92 10/29/17 04:00 97.4 78 20 118/74 (89) 93 10/29/17 00:00 75 10/29/17 00:00 98.0 83 20 122/63 (82) 94 10/28/17 23:15 96 Room Air 10/28/17 20:00 78 10/28/17 20:00 97.7 81 20 121/59 (79) 96 10/28/17 16:21 Room Air 10/28/17 16:00 85 10/28/17 15:48 97.9 83 18 138/68 (91) 95 10/28/17 12:01 97.2 89 17 108/74 (85) 94 10/28/17 12:00 80 I/O 10/28/17 10/28/17 10/28/17 10/29/17 10/29/17 10/29/17 07:00 15:00 23:00 07:00 15:00 23:00 Intake Total 240 ml Output Total 600 ml Balance 240 ml -600 ml Intake Oral 240 ml Output Urine Total 600 ml # Voids 5 2 # Bowel Movements 0 0 Result Diagram: 10/29/17 0810 10/29/17 0810 Imaging Last Impressions Abdomen X-Ray 10/25/17 0000 Signed Impressions: Service Date/Time: September 10:25 - CONCLUSION: Mild to moderately dilated loops of small bowel in the midabdomen. The seen with a small bowel ileus versus partial small bowel obstruction. Abraham Laguna MD Upper Extremity Ultrasound 10/24/17 0000 Signed Impressions: Service Date/Time: Tuesday, October 24, 2017 21:34 - CONCLUSION: Acute appearing thrombus in the left basilic vein. The remaining venous structures appear patent. Nilesh Frye MD Upper Extremity CT 10/22/17 0000 Signed Impressions: Service Date/Time: Sunday, October 22, 2017 22:22 - CONCLUSION: 1. Soft tissue swelling in the left hand. No discrete abscess. No acute bony abnormalities. Garrick Ramirez MD Chest X-Ray 10/21/17 1612 Signed Impressions: Service Date/Time: Saturday, October 21, 2017 16:19 - CONCLUSION: No acute disease. Nilesh Frye MD Abdomen/Pelvis CT 10/21/17 1612 Signed Impressions: Service Date/Time: Saturday, October 21, 2017 17:47 - CONCLUSION: 1. Suspected small bowel structure with dilatation of the small bowel to the level of anastomosis suture and the distal small bowel. There is debris within the small bowel at this region in the small bowel beyond the anastomosis is decompressed. 2. Mild hiatal hernia. 3. Sigmoid colon diverticula. There is an anastomosis sutures seen in the rectum just beyond the sigmoid colon diverticula. 4. Mild left pleural effusion. 5. Consolidation at the posterior right lung base. Nilesh Frye MD Objective Remarks GENERAL: Elderly female who is laying in bed not in any acute distress. SKIN: There are ecchymoses on the dorsum of bilateral arms and lateral aspect of right thigh. CARDIOVASCULAR: Regular rate and rhythm. No murmurs rubs or gallops. RESPIRATORY: Clear to auscultation. Breath sounds equal bilaterally. GASTROINTESTINAL: Abdomen is distended and tympanitic without bowel sounds. There is some mild tenderness in mid abdomen without rebound or guarding. Steri- strips are in place over prior ileostomy site in right abdomen with wound edges approximated. no drainage. MUSCULOSKELETAL: Left upper extremity with improving swelling, erythema and warmth, left radial pulse palpable very well. She has joint deformities of hands consistent with rheumatoid arthritis. NEUROLOGICAL: Awake and alert. No obvious cranial nerve deficits. Motor grossly within normal limits, moving all extremities without focal deficit. Normal speech. Procedures Ileostomy reversal A/P Problem List: (1) Rheumatoid arthritis ICD Code: M06.9 - Rheumatoid arthritis, unspecified Status: Chronic (2) SVT (supraventricular tachycardia) ICD Code: I47.1 - Supraventricular tachycardia Status: Chronic (3) UTI (urinary tract infection) ICD Code: N39.0 - Urinary tract infection, site not specified Status: Acute (4) HTN (hypertension) ICD Code: I10 - Essential (primary) hypertension Status: Chronic (5) Rectal cancer ICD Code: C20 - Malignant neoplasm of rectum Status: Resolved (6) Dehydration ICD Code: E86.0 - Dehydration Status: Acute (7) Ileus ICD Code: K56.7 - Ileus, unspecified Status: Acute Assessment and Plan NEURO: Pain secondary to rheumatoid arthritis Discontinued Ofirmev and restarted Lortab Morphine prn breakthrough. Dc IV solumedrol and restarted prednisone PT RESP: Nasal cannula wean as tolerated Incentive spirometry every hour awake Chest x-ray 10/21/17 CV: SVT Intermittent SVT in the emergency department. Spontaneously converted on a couple of occasions. Did receive adenosine 6 mg IV 2 doses. She previously has been managed on Cardizem. She may not have been absorbing this due to her ileus. Resume by mouth Cardizem. Off Cardizem drip currently. GI: rectal cancer hx low anterior resection and diverting ileostomy s/p ileostomy reversal. Stable Postoperative Ileus. Resolved GERD. Stable NG tube clamped per CRS. CT abdomen pelvis 10/21 - Dilation of stomach and small bowel. Small bowel distal to anastomosis is decompressed. Colorectal surgery following. Restarted PPI GIB. Hemodynamically stable dw CRS. GI increased Protonix to 40 daily and hold off with endoscopic workup initially unless active bleeding. Pt had rectal bleeding yesterday afternoon so for EGD today FEN/RENAL: Dehydration Urinary incontinence Rasmussen discontinued ID: Rheumatoid arthritis Enterococcus UTI, present on admission Left upper extremity cellulitis. Improving penicillin allergy Hold methotrexate Follow-up blood cultures negative to date Continue IV vancomycin per ID HEME: Rectal cancer status post low anterior resection and diverting ileostomy. Now s/ p ileostomy reversal and anastomosis 10/15/17 (Dr. Ryan) Pathology 06/11/17 - high grade poorly differentiated adenocarcinoma, focally intubating muscularis propria. Resection margins negative for malignancy. Lymph nodes negative. Has not received chemo. Monitor CBC. ENDO: Chronic prednisone use Hypothyroidism TSH now therapeutic will restart Synthroid at a lower dose 88 mcg daily PROPH: SCDs hold Lovenox 40 mg subcutaneous / GIB ACCESS: Peripheral IV providing adequate access at this time. Increase activity patient to be out of bed daily. Continue physical therapy Discharge Planning Discharge back to rehab pending CRS GI and infectious disease clearance. Problem Qualifiers (1) UTI (urinary tract infection): (2) HTN (hypertension): Qualified Codes: I10 - Essential (primary) hypertension Ba Rhodes MD Oct 29, 2017 11:43
[2017-10-29] MEDS ORDERED: PROPOFOL 200 MG/20 ML AMP IV ONE (12:00)
--- NOTE | 2017-10-29 13:17 | HHI.PR ---
Subjective Remarks Ileus, left arm cellulitis complains of shoulder pain Objective Vital Signs Date Time Temp Pulse Resp B/P (MAP) Pulse Ox O2 Delivery O2 Flow Rate FiO2 10/29/17 12:05 98.0 88 18 112/65 (81) 93 10/29/17 10:09 Room Air 10/29/17 08:05 97.6 88 18 135/58 (83) 92 10/29/17 04:00 97.4 78 20 118/74 (89) 93 10/29/17 00:00 75 10/29/17 00:00 98.0 83 20 122/63 (82) 94 10/28/17 23:15 96 Room Air 10/28/17 20:00 78 10/28/17 20:00 97.7 81 20 121/59 (79) 96 10/28/17 16:21 Room Air 10/28/17 16:00 85 10/28/17 15:48 97.9 83 18 138/68 (91) 95 I/O 10/28/17 10/28/17 10/28/17 10/29/17 10/29/17 10/29/17 07:00 15:00 23:00 07:00 15:00 23:00 Intake Total 240 ml Output Total 600 ml Balance 240 ml -600 ml Intake Oral 240 ml Output Urine Total 600 ml # Voids 5 2 # Bowel Movements 0 0 Result Diagram: 10/29/17 0810 10/29/17 0810 Objective Remarks Left arm cellulitis improving slowly Abdomen soft, nontender, mild distension Assessment and Plan Assessment and Plan Cellulitis per ID GI bleeding - EGD pending Eugenia Ryan MD Oct 29, 2017 13:17
--- NOTE | 2017-10-29 13:25 | HHI.IDPN ---
Subjective Subjective Remarks Ms. Gupta is an 87 y/o CF with PMHx of hypothyroidism, rheumatoid arthritis on chronic methotrexate and prednisone, GERD. She was diagnosed with rectal cancer and underwent low anterior resection 06/11/[address] Ryan. She is currently postop day #6 from ileostomy reversal 10/15/[address] Ryan. She was discharged 10/19/17 to [facility]. She developed abdominal distension and had 2-3 episodes of emesis today, nonbloody nonbilious. Her daughter states she is incontinent of urine and stool and has continued to have loose bowel movements. Patient complained of some aching abdominal pain in mid abdomen upon admission. She is afebrile with temperature of 98.9. WBC is 19.9. Lactic acid 2.1. Creatinine 0.77 (baseline 0.45). Patient was seen by Critical Care over night and recd some empiric antibiotics. was called due to concern for ileus related sepsis. I received a call from for a stat consult for left upper extremity cellulitis concern for worsening infection. Upon discussion with daughter it appears patient has prior MRSA infection in her left lower extremity. Patient is seen by Dr. Bush at [facility] few months back. She also goes on to report that 2-3 days prior to admission she noticed an area of redness on the left inner aspect of the left elbow which has progressively gotten worse and at this point her entire left upper extremity appears to be swollen and edematous. She also notices that the arm is now progressively more erythematous. There is no reported pain or tenderness to suggest necrotizing fasciitis-like process. At the time of my evaluation patient is in the ISC.She has a ID band in her left wrist on the side of infection. She also has a small bore peripheral IV around the wrist. Patient is currently not on any pressors her urine output is good. She has no fevers, no rash no diarrhea. Upon discussion with Dr. Ryan it appears that there is no plan for surgery for ileus at the present time given the left upper extremity cellulitis which appears to be more concerning. Infectious disease is consulted for evaluation and management of left upper extremity cellulitis. Notes reviewed No fever GI notes reviewed: NPO for EGD today. Stools better No abdominal pain No fevers No generalized rash UC with Enterococcus BC negative Antibiotics Vanco IV Current Medications Current Medications Medications (Trade) Dose Ordered Sig/Merrick Route Start Time Stop Time Status Last Admin (Morphine Inj) 2 mg Q3H PRN IV PUSH 10/21/17 21:00 10/24/17 10:10 (NS Flush) 2 ml UNSCH PRN IV FLUSH 10/21/17 21:30 (NS Flush) 2 ml BID IV FLUSH 10/22/17 09:00 10/29/17 09:29 (Zofran Inj) 4 mg Q6H PRN IV PUSH 10/21/17 21:30 (Albuterol Neb) 2.5 mg Q2HR NEB PRN INH 10/21/17 21:30 Miscellaneous Information 1 Q361D XX 10/21/17 21:30 (Chlorhexidine 2% Cloth) Taper DAILY@04 TOP 10/22/17 04:00 10/18/18 03:59 10/27/17 04:00 (Chlorhexidine 2% Cloth) 3 pack UNSCH PRN TOP 10/21/17 21:30 (Natacha-Colace) 1 tab BID PO 10/22/17 09:00 10/29/17 09:28 (Milk Of Magnesia Liq) 30 ml Q12H PRN PO 10/21/17 21:30 (Senokot) 17.2 mg Q12H PRN PO 10/21/17 21:30 (Dulcolax Supp) 10 mg DAILY PRN RECTAL 10/21/17 21:30 (Lactulose Liq) 30 ml DAILY PRN PO 10/21/17 21:30 Pharmacy Profile Note 0 ml @ 0 mls/hr UNSCH OTHER 10/22/17 16:00 Vancomycin HCl 1000 mg/Sodium Chloride 250 ml @ 250 mls/hr Q24H IV 10/23/17 14:00 10/28/17 13:04 (Cepacol Extra Keyon (Sugar Free)) 1 lozenge Q4HR PRN BUCCAL 10/22/17 18:45 (Hurricaine 20% Oral Spr) 1 spray Q1HR PRN OROPHARYNG 10/23/17 10:00 (Bactroban Nasal 2% Oint) 1 applic BID EACH NARE 10/24/17 21:00 10/31/17 20:59 10/28/17 22:53 (Cardizem) 30 mg Q6HR PO 10/26/17 12:30 10/28/17 22:55 (Franklin 5-325 Mg) 1 tab Q6H PRN PO 10/26/17 12:15 10/28/17 23:14 (Reglan) 10 mg BID PO 10/26/17 21:00 10/29/17 09:28 (Deltasone) 10 mg DAILY PO 10/26/17 13:00 10/29/17 09:28 (Lactinex) 1 tab DAILY PO 10/26/17 13:00 10/29/17 09:28 Potassium Chloride/Sodium Chloride 1,000 ml @ 65 mls/hr [id number] IV 10/26/17 15:15 10/28/17 00:30 Sodium Chloride 250 ml @ 250 mls/hr BOLUS PRN IV 10/26/17 16:00 (Protonix) 40 mg DAILY PO 10/28/17 10:00 10/29/17 09:28 Miscellaneous Information SPECIFIC LAB TO BE MY... ONCE ONCE .XX 10/29/17 13:45 10/29/17 13:46 (Synthroid) 88 mcg DAILY@0600 PO 10/30/17 06:00 Lines Line sites with no e.o infection. Past Medical History reviewed. Allergies: Coded Allergies: Sulfa (Sulfonamide Antibiotics) (Unverified Allergy, Severe, SWELLING, DIFFICULTY BREATHING, 10/21/17) celecoxib (Unverified Allergy, Severe, 10/21/17) PT IS UNABLE TO RECALL REACTION. penicillin G (Unverified Allergy, Severe, Swelling, 10/21/17) PT REPORTS REACTION WAS 50 YEARS AGO, AND IS UNABLE TO RECALL DETAILS. Uncoded Allergies: TAPE ADHESIVE/ PAPER TAPE OK (Allergy, Severe, BLISTERS, 05/01/06) Objective . Vital Signs Date Time Temp Pulse Resp B/P (MAP) Pulse Ox O2 Delivery O2 Flow Rate FiO2 10/29/17 12:05 98.0 88 18 112/65 (81) 93 10/29/17 10:09 Room Air 10/29/17 08:05 97.6 88 18 135/58 (83) 92 10/29/17 08:00 68 10/29/17 04:00 97.4 78 20 118/74 (89) 93 10/29/17 00:00 75 10/29/17 00:00 98.0 83 20 122/63 (82) 94 10/28/17 23:15 96 Room Air 10/28/17 20:00 78 10/28/17 20:00 97.7 81 20 121/59 (79) 96 10/28/17 16:21 Room Air 10/28/17 16:00 85 10/28/17 15:48 97.9 83 18 138/68 (91) 95 . Laboratory Tests Test 10/29/17 00:00 10/29/17 08:10 White Blood Count 10.5 TH/MM3 11.8 TH/MM3 Red Blood Count 2.58 MIL/MM3 2.75 MIL/MM3 Hemoglobin 8.3 GM/DL 8.8 GM/DL Hematocrit 25.3 % 27.0 % Mean Corpuscular Volume 98.1 FL 98.2 FL Mean Corpuscular Hemoglobin 32.2 PG 32.0 PG Mean Corpuscular Hemoglobin Concent 32.9 % 32.6 % Red Cell Distribution Width 17.8 % 18.4 % Platelet Count 329 TH/MM3 320 TH/MM3 Mean Platelet Volume 8.2 FL 8.0 FL Neutrophils (%) (Auto) 89.3 % 83.9 % Lymphocytes (%) (Auto) 5.7 % 9.1 % Monocytes (%) (Auto) 4.6 % 5.6 % Eosinophils (%) (Auto) 0.3 % 1.1 % Basophils (%) (Auto) 0.1 % 0.3 % Neutrophils # (Auto) 9.4 TH/MM3 9.9 TH/MM3 Lymphocytes # (Auto) 0.6 TH/MM3 1.1 TH/MM3 Monocytes # (Auto) 0.5 TH/MM3 0.7 TH/MM3 Eosinophils # (Auto) 0.0 TH/MM3 0.1 TH/MM3 Basophils # (Auto) 0.0 TH/MM3 0.0 TH/MM3 CBC Comment AUTO DIFF AUTO DIFF Differential Total Cells Counted 100 Neutrophils % (Manual) 89 % Lymphocytes % 2 % Monocytes % 3 % Eosinophils % 1 % Neutrophils # (Manual) 9.9 TH/MM3 Metamyelocytes 1 % Myelocytes 4 % Differential Comment FINAL DIFF MANUAL AUTO DIFF CONFIRMED Platelet Estimate NORMAL NORMAL Platelet Morphology Comment NORMAL NORMAL Polychromasia 2.0 % Del Cid-Toyei Bodies Acanthocytes OCC OCC Keratocytes OCC Ovalocytes 1+ Helmet Cells OCC Laboratory Tests Test 10/28/17 19:58 10/29/17 08:10 Blood Urea Nitrogen 8 MG/DL 6 MG/DL Creatinine 0.46 MG/DL 0.46 MG/DL Random Glucose 94 MG/DL 75 MG/DL Calcium Level 7.7 MG/DL 7.7 MG/DL Magnesium Level 1.6 MG/DL 1.7 MG/DL Sodium Level 142 MEQ/L 143 MEQ/L Potassium Level 3.9 MEQ/L 3.7 MEQ/L Chloride Level 110 MEQ/L 111 MEQ/L Carbon Dioxide Level 26.1 MEQ/L 27.5 MEQ/L Anion Gap 6 MEQ/L 5 MEQ/L Estimat Glomerular Filtration Rate 128 ML/MIN 128 ML/MIN Thyroid Stimulating Hormone 3rd Gen 1.480 uIU/ML Imaging Last Impressions Upper Extremity CT 10/22/17 0000 Signed Impressions: Service Date/Time: Sunday, October 22, 2017 22:22 - CONCLUSION: 1. Soft tissue swelling in the left hand. No discrete abscess. No acute bony abnormalities. Garrick Ramirez MD Chest X-Ray 10/21/17 1612 Signed Impressions: Service Date/Time: Saturday, October 21, 2017 16:19 - CONCLUSION: No acute disease. Nilesh Frye MD Abdomen/Pelvis CT 10/21/17 1612 Signed Impressions: Service Date/Time: Saturday, October 21, 2017 17:47 - CONCLUSION: 1. Suspected small bowel structure with dilatation of the small bowel to the level of anastomosis suture and the distal small bowel. There is debris within the small bowel at this region in the small bowel beyond the anastomosis is decompressed. 2. Mild hiatal hernia. 3. Sigmoid colon diverticula. There is an anastomosis sutures seen in the rectum just beyond the sigmoid colon diverticula. 4. Mild left pleural effusion. 5. Consolidation at the posterior right lung base. Nilesh Frye MD Abdomen X-Ray 10/21/17 0000 Signed Impressions: Service Date/Time: Saturday, October 21, 2017 18:43 - CONCLUSION: Nasogastric tube across the GE junction Dami Cuevas MD FACR Physical Exam GENERAL: awake and alert, frail, NAD SKIN: Multiple areas of ecchymosis noted. Cool and dry. HEAD: Atraumatic. Normocephalic. No temporal or scalp tenderness. EYES: Pupils equal round and reactive. Extraocular motions intact. No scleral icterus. No injection or drainage. ENT: Nose without bleeding, purulent drainage or septal hematoma. Throat without erythema, tonsillar hypertrophy or exudate. Uvula midline. Airway patent. NECK: Trachea midline. Supple, nontender, no meningeal signs. CARDIOVASCULAR: Regular rate and rhythm without murmurs, gallops, or rubs. RESPIRATORY: Clear to auscultation. Breath sounds equal bilaterally. No wheezes , rales, or rhonchi. GASTROINTESTINAL: Abdomen soft, non-tender, nondistended. MUSCULOSKELETAL: Multiple joints of upper and lower extremity with changes suggestive of chronic arthritis(note patient has prior history of rheumatoid arthritis). LUE with improving erythema. NEUROLOGICAL: Awake and alert. Nonfocal exam Psych cooperative IV line sites with no evidence of infection. Assessment & Plan Remarks Possible sepsis in an immunocompromised patient. Ileus resolved: has had multiple BMs. Tolerated diet. Left upper extremity cellulitis. Improving Group D Enterococcus in urine: asymptomatic but will likely be covered with Vanco IV. Clinically stable. History of rectal cancer, status post low anterior resection June 11, [address] Ryan. Status post ileostomy reversal on October 15, [address] Ryan. Rheumatoid arthritis Rheumatoid arthritis on immune suppressants(methotrexate and prednisone) Penicillin allergy Sulfa allergy GIB Recommendations Continue vancomycin IV for now. Will assess if change to oral doxy or oral zyvox appropriate after EGD today. Elevate left UE. dw not very motivated. Does not lift her good arm to do anything. LUE improved except fluid collection close to inner aspect of elbow likely fluid filled blister does not appear infected. Follow cultures Monitor progress dw Case management to check if [facility] will approve Zyvox. Will follow to provide DC recs/ Brandie Carnes MD Oct 29, 2017 13:25
[2017-10-29] MEDS ORDERED: PHARMACY ORDERED LAB-VANCO TROUGH ONE (13:45)
--- NOTE | 2017-10-29 14:48 | HHI.GIFU ---
GI Follow-up Note Consult Follow-up Received a call from nurse yesterday 2 PM re: change in condition. Pt apparently had another bowel movement which was bloody. Family was there so requested an endoscopy. I spoke to nurse for NPO after MN and consent for EGD. Pt was book and boarded for EGD today at 2 PM. I spoke to nurse today at 8:45 am, letting her know pt is on for EGD at 2 pm. Pt brought to OR. ready for the procedure, there is no consent in the chart. GI team attempted to contact family via telephone several times without success. Pt is unable to give consent. The procedure had to be canceled. Recommend Diet as tolerated. Continue Protonix daily It was a pleasure seeing Olivia Gupta. Thank you for this consult. Entered by: Roxanne Gil MD Oct 29, 2017 14:48
[2017-10-29] MEDS: VANCOMYCIN 1,000 MG/NS 250 ML IV SCH ×2 (15:21)
[2017-10-29] MEDS ORDERED: SYNT88TA PO (17:17)
[2017-10-30] VITALS (8 sets, daily range): BP systolic 101–118; BP diastolic 58–70; PULSE 79–95; RESP 17–22; TEMP 97.9–98.5; O2SAT 94–99
[2017-10-30] MEDS: CHLORHEXIDINE GLUCONATE 2 % 1 PACK (2 CLOTHS) TOP SCH (04:00)
[2017-10-30] MEDS: LEVOTHYROXINE SODIUM 88 MCG TAB PO SCH (05:49)
[2017-10-30] MEDS: DILTIAZEM HCL 30 MG TAB PO SCH ×4 (05:49→23:49)
[2017-10-30 06:52] LABS: AUTOMATED NEUTROPHIL # 8.5 TH/MM3 (1.8-7.7); BASOPHIL % 0.3 % (0.0-2.0); EOSINOPHIL # 0.2 TH/MM3 (0-0.4); EOSINOPHIL % 2.1 % (0.0-4.0); HEMATOCRIT 24.1 % (35.0-46.0); LYMPH % 8.2 % (9.0-44.0); LYMPHOCYTE # 0.8 TH/MM3 (1.0-4.8); MEAN CELL VOLUME 96.9 FL (80.0-100.0); MEAN CORPUSCULAR HEMOGLOBIN 32.2 PG (27.0-34.0); MEAN CORPUSCULAR HGB CONC 33.2 % (32.0-36.0); MONO % 6.5 % (0.0-8.0); MONOCYTE # 0.7 TH/MM3 (0-0.9); NEUT % 82.9 % (16.0-70.0); PLATELET COUNT 334 TH/MM3 (150-450); RED BLOOD COUNT 2.49 MIL/MM3 (4.00-5.30); RED CELL DISTRIBUTION WIDTH 18.7 % (11.6-17.2); WHITE BLOOD COUNT 10.3 TH/MM3 (4.0-11.0)
[2017-10-30 07:16] LABS: BICARBONATE 27.8 MEQ/L (21.0-32.0); CALCIUM 7.7 MG/DL (8.5-10.1); CREATININE 0.45 MG/DL (0.50-1.00); MAGNESIUM 1.6 MG/DL (1.5-2.5)
[2017-10-30] MEDS ORDERED: POTASSIUM CHLORIDE 20 MEQ CONTROLLED RELEASE TAB PO ONE (08:30)
[2017-10-30] MEDS: MUPIROCIN 2% OINT 1 APPLIC/GM SYR EACH NARE SCH ×2 (09:00→20:51)
--- NOTE | 2017-10-30 09:11 | HHI.PR ---
Subjective Remarks Ileus, left arm cellulitis complains of pain at anus Objective Vital Signs Date Time Temp Pulse Resp B/P (MAP) Pulse Ox O2 Delivery O2 Flow Rate FiO2 10/30/17 08:00 98.1 81 19 111/62 (78) 94 10/30/17 07:09 Nasal Cannula 2.00 10/30/17 04:00 Nasal Cannula 2.00 10/30/17 04:00 82 10/30/17 04:00 98.5 91 17 117/58 (77) 97 10/30/17 00:00 Nasal Cannula 2.00 10/30/17 00:00 79 10/29/17 23:27 99.5 97 16 115/57 (76) 98 10/29/17 20:00 Nasal Cannula 2.00 10/29/17 20:00 82 10/29/17 20:00 98.2 86 17 125/58 (80) 96 10/29/17 16:05 98.2 84 18 120/93 (102) 94 10/29/17 12:05 98.0 88 18 112/65 (81) 93 10/29/17 12:00 79 10/29/17 10:09 Room Air I/O 10/29/17 10/29/17 10/29/17 10/30/17 10/30/17 10/30/17 07:00 15:00 23:00 07:00 15:00 23:00 Intake Total 342 ml Output Total 600 ml 1000 ml Balance -600 ml -1000 ml 342 ml Intake Oral 342 ml Output Urine Total 600 ml 1000 ml # Voids 2 2 4 # Bowel Movements 0 1 1 Result Diagram: 10/30/17 0552 10/30/17 0552 Objective Remarks Left arm cellulitis improving slowly Abdomen soft, nontender, mild distension Assessment and Plan Assessment and Plan Cellulitis per ID No evidence of bleeding currently, but Hgb dropping again Would favor going forward with EGD Eugenia Ryan MD Oct 30, 2017 09:11
[2017-10-30] MEDS: METOCLOPRAMIDE HCL 10 MG TAB PO SCH ×2 (09:19→20:51)
[2017-10-30] MEDS: LACTOBACILLUS ACIDOPHILUS TAB PO SCH (09:19)
[2017-10-30] MEDS: PANTOPRAZOLE SOD 40 MG DELAYED RELEASE TAB PO SCH (09:19)
[2017-10-30] MEDS: predniSONE 10 MG TAB PO SCH (09:19)
[2017-10-30] MEDS: DOCUSATE SODIUM 50 MG/SENNA 8.6 MG TAB PO SCH ×2 (09:19→20:52)
[2017-10-30] MEDS: SODIUM CHLORIDE 0.9% FLUSH 10 ML FLUSH IV FLUSH SCH ×2 (09:19→20:52)
[2017-10-30 11:25] LABS: HEMATOCRIT 25.7 % (35.0-46.0); HEMOGLOBIN 8.5 GM/DL (11.6-15.3)
[2017-10-30] MEDS: VANCOMYCIN 1,000 MG/NS 250 ML IV SCH ×2 (12:31)
--- NOTE | 2017-10-30 13:36 | HHI.PR ---
Subjective Remarks Follow-up anemia. Patient feels cold. Denies dizziness, chest pain shortness of breath but states he does not get out of bed. Scheduled for EGD tomorrow because of drop in hemoglobin no active bleeding noted discussed with nursing Objective Vitals Vital Signs Date Time Temp Pulse Resp B/P (MAP) Pulse Ox O2 Delivery O2 Flow Rate FiO2 10/30/17 12:00 98.2 87 20 101/68 (79) 99 10/30/17 08:00 95 10/30/17 08:00 98.1 81 19 111/62 (78) 94 10/30/17 07:09 Nasal Cannula 2.00 10/30/17 04:00 Nasal Cannula 2.00 10/30/17 04:00 82 10/30/17 04:00 98.5 91 17 117/58 (77) 97 10/30/17 00:00 Nasal Cannula 2.00 10/30/17 00:00 79 10/29/17 23:27 99.5 97 16 115/57 (76) 98 10/29/17 20:00 Nasal Cannula 2.00 10/29/17 20:00 82 10/29/17 20:00 98.2 86 17 125/58 (80) 96 10/29/17 16:05 98.2 84 18 120/93 (102) 94 I/O 10/29/17 10/29/17 10/29/17 10/30/17 10/30/17 10/30/17 07:00 15:00 23:00 07:00 15:00 23:00 Intake Total 342 ml Output Total 600 ml 1000 ml Balance -600 ml -1000 ml 342 ml Intake Oral 342 ml Output Urine Total 600 ml 1000 ml # Voids 2 2 4 # Bowel Movements 0 1 1 Result Diagram: 10/30/17 1105 10/30/17 0552 Imaging Last Impressions Abdomen X-Ray 10/25/17 0000 Signed Impressions: Service Date/Time: September 10:25 - CONCLUSION: Mild to moderately dilated loops of small bowel in the midabdomen. The seen with a small bowel ileus versus partial small bowel obstruction. Abraham Laguna MD Upper Extremity Ultrasound 10/24/17 0000 Signed Impressions: Service Date/Time: Tuesday, October 24, 2017 21:34 - CONCLUSION: Acute appearing thrombus in the left basilic vein. The remaining venous structures appear patent. Nilesh Frye MD Upper Extremity CT 10/22/17 0000 Signed Impressions: Service Date/Time: Sunday, October 22, 2017 22:22 - CONCLUSION: 1. Soft tissue swelling in the left hand. No discrete abscess. No acute bony abnormalities. Garrick Ramirez MD Chest X-Ray 10/21/17 1612 Signed Impressions: Service Date/Time: Saturday, October 21, 2017 16:19 - CONCLUSION: No acute disease. Nilesh Frye MD Abdomen/Pelvis CT 10/21/17 1612 Signed Impressions: Service Date/Time: Saturday, October 21, 2017 17:47 - CONCLUSION: 1. Suspected small bowel structure with dilatation of the small bowel to the level of anastomosis suture and the distal small bowel. There is debris within the small bowel at this region in the small bowel beyond the anastomosis is decompressed. 2. Mild hiatal hernia. 3. Sigmoid colon diverticula. There is an anastomosis sutures seen in the rectum just beyond the sigmoid colon diverticula. 4. Mild left pleural effusion. 5. Consolidation at the posterior right lung base. Nilesh Frye MD Objective Remarks GENERAL: Elderly female who is laying in bed not in any acute distress. SKIN: There are ecchymoses on the dorsum of bilateral arms and lateral aspect of right thigh. CARDIOVASCULAR: Regular rate and rhythm. No murmurs rubs or gallops. RESPIRATORY: Clear to auscultation. Breath sounds equal bilaterally. GASTROINTESTINAL: Abdomen is distended and tympanitic without bowel sounds. There is some mild tenderness in mid abdomen without rebound or guarding. Steri- strips are in place over prior ileostomy site in right abdomen with wound edges approximated. no drainage. MUSCULOSKELETAL: Left upper extremity with improving swelling, erythema and warmth, left radial pulse palpable very well. She has joint deformities of hands consistent with rheumatoid arthritis. NEUROLOGICAL: Awake and alert. No obvious cranial nerve deficits. Motor grossly within normal limits, moving all extremities without focal deficit. Normal speech. Procedures Ileostomy reversal A/P Problem List: (1) Rheumatoid arthritis ICD Code: M06.9 - Rheumatoid arthritis, unspecified Status: Chronic (2) SVT (supraventricular tachycardia) ICD Code: I47.1 - Supraventricular tachycardia Status: Chronic (3) UTI (urinary tract infection) ICD Code: N39.0 - Urinary tract infection, site not specified Status: Acute (4) HTN (hypertension) ICD Code: I10 - Essential (primary) hypertension Status: Chronic (5) Rectal cancer ICD Code: C20 - Malignant neoplasm of rectum Status: Resolved (6) Dehydration ICD Code: E86.0 - Dehydration Status: Acute (7) Ileus ICD Code: K56.7 - Ileus, unspecified Status: Acute Assessment and Plan NEURO: Pain secondary to rheumatoid arthritis Discontinued Ofirmev and restarted Lortab Morphine prn breakthrough. Dc IV solumedrol and restarted prednisone PT RESP: Nasal cannula wean as tolerated Incentive spirometry every hour awake Chest x-ray 10/21/17 CV: SVT Intermittent SVT in the emergency department. Spontaneously converted on a couple of occasions. Did receive adenosine 6 mg IV 2 doses. She previously has been managed on Cardizem. She may not have been absorbing this due to her ileus. Resume by mouth Cardizem. Off Cardizem drip currently. GI: rectal cancer hx low anterior resection and diverting ileostomy s/p ileostomy reversal. Stable Postoperative Ileus. Resolved GERD. Stable NG tube clamped per CRS. CT abdomen pelvis 10/21 - Dilation of stomach and small bowel. Small bowel distal to anastomosis is decompressed. Colorectal surgery following. Restarted PPI GIB. Hemodynamically stable dw CRS. GI increased Protonix to 40 daily and hold off with endoscopic workup initially unless active bleeding. Pt had rectal bleeding with drop in hemoglobin for EGD tomorrow which was originally scheduled yesterday and consult because of was counseled because of inability to obtain consent discussed with nursing FEN/RENAL: Dehydration Urinary incontinence Rasmussen discontinued ID: Rheumatoid arthritis Enterococcus UTI, present on admission Left upper extremity cellulitis. Improving penicillin allergy Hold methotrexate Follow-up blood cultures negative to date Continue IV vancomycin per ID. Consider p.o. doxycycline or Zyvox. Doppler sonogram of the right upper extremity requested because of swelling will follow- up results HEME: Rectal cancer status post low anterior resection and diverting ileostomy. Now s/ p ileostomy reversal and anastomosis 10/15/17 (Dr. Ryan) Pathology 06/11/17 - high grade poorly differentiated adenocarcinoma, focally intubating muscularis propria. Resection margins negative for malignancy. Lymph nodes negative. Has not received chemo. Monitor CBC. ENDO: Chronic prednisone use Hypothyroidism TSH now therapeutic will restart Synthroid at a lower dose 88 mcg daily PROPH: SCDs hold Lovenox 40 mg subcutaneous 2/2 GIB ACCESS: Peripheral IV providing adequate access at this time. Increase activity patient to be out of bed daily. Continue physical therapy Discharge Planning Discharge back to rehab pending CRS GI and infectious disease clearance. Problem Qualifiers (1) UTI (urinary tract infection): (2) HTN (hypertension): Qualified Codes: I10 - Essential (primary) hypertension Ba Rhodes MD Oct 30, 2017 13:36
--- NOTE | 2017-10-30 15:33 | HHI.IDPN ---
Subjective Subjective Remarks Patient seen and examined with Dr. Carnes Ms. Gupta is an 87 y/o CF with PMHx of hypothyroidism, rheumatoid arthritis on chronic methotrexate and prednisone, GERD. She was diagnosed with rectal cancer and underwent low anterior resection 06/11/[address] Ryan. She is currently postop day #6 from ileostomy reversal 10/15/[address] Ryan. She was discharged 10/19/17 to [facility]. She developed abdominal distension and had 2-3 episodes of emesis today, nonbloody nonbilious. Her daughter states she is incontinent of urine and stool and has continued to have loose bowel movements. Patient complained of some aching abdominal pain in mid abdomen upon admission. She is afebrile with temperature of 98.9. WBC is 19.9. Lactic acid 2.1. Creatinine 0.77 (baseline 0.45). Patient was seen by Critical Care over night and recd some empiric antibiotics. was called due to concern for ileus related sepsis. I received a call from for a stat consult for left upper extremity cellulitis concern for worsening infection. Upon discussion with daughter it appears patient has prior MRSA infection in her left lower extremity. Patient is seen by Dr. Bush at [facility] few months back. She also goes on to report that 2-3 days prior to admission she noticed an area of redness on the left inner aspect of the left elbow which has progressively gotten worse and at this point her entire left upper extremity appears to be swollen and edematous. She also notices that the arm is now progressively more erythematous. There is no reported pain or tenderness to suggest necrotizing fasciitis-like process. At the time of my evaluation patient is in the ISC.She has a ID band in her left wrist on the side of infection. She also has a small bore peripheral IV around the wrist. Patient is currently not on any pressors her urine output is good. She has no fevers, no rash no diarrhea. Upon discussion with Dr. Ryan it appears that there is no plan for surgery for ileus at the present time given the left upper extremity cellulitis which appears to be more concerning. Infectious disease is consulted for evaluation and management of left upper extremity cellulitis. Notes reviewed No fever GI notes reviewed: NPO scheduled for yesterday for bloody BM but cancelled due to no consent. Scheduled for EGD tomorrow. Discussed with CAR PACKER at bedside, loose stools but no bloody BMs today. Hgb dropped to 8.0, now 8.5 Patient reports some RLQ pain No generalized rash UC with Enterococcus BC negative Antibiotics Vanco IV Current Medications Current Medications Medications (Trade) Dose Ordered Sig/Merrick Route Start Time Stop Time Status Last Admin (Morphine Inj) 2 mg Q3H PRN IV PUSH 10/21/17 21:00 10/24/17 10:10 (NS Flush) 2 ml UNSCH PRN IV FLUSH 10/21/17 21:30 (NS Flush) 2 ml BID IV FLUSH 10/22/17 09:00 10/29/17 09:29 (Zofran Inj) 4 mg Q6H PRN IV PUSH 10/21/17 21:30 (Albuterol Neb) 2.5 mg Q2HR NEB PRN INH 10/21/17 21:30 Miscellaneous Information 1 Q361D XX 10/21/17 21:30 (Chlorhexidine 2% Cloth) Taper DAILY@04 TOP 10/22/17 04:00 10/18/18 03:59 10/27/17 04:00 (Chlorhexidine 2% Cloth) 3 pack UNSCH PRN TOP 10/21/17 21:30 (Natacha-Colace) 1 tab BID PO 10/22/17 09:00 10/29/17 09:28 (Milk Of Magnesia Liq) 30 ml Q12H PRN PO 10/21/17 21:30 (Senokot) 17.2 mg Q12H PRN PO 10/21/17 21:30 (Dulcolax Supp) 10 mg DAILY PRN RECTAL 10/21/17 21:30 (Lactulose Liq) 30 ml DAILY PRN PO 10/21/17 21:30 Pharmacy Profile Note 0 ml @ 0 mls/hr UNSCH OTHER 10/22/17 16:00 Vancomycin HCl 1000 mg/Sodium Chloride 250 ml @ 250 mls/hr Q24H IV 10/23/17 14:00 10/28/17 13:04 (Cepacol Extra [place] (Sugar Free)) 1 lozenge Q4HR PRN BUCCAL 10/22/17 18:45 (Hurricaine 20% Oral Spr) 1 spray Q1HR PRN OROPHARYNG 10/23/17 10:00 (Bactroban Nasal 2% Oint) 1 applic BID EACH NARE 10/24/17 21:00 10/31/17 20:59 10/28/17 22:53 (Cardizem) 30 mg Q6HR PO 10/26/17 12:30 10/28/17 22:55 ([place] 5-325 Mg) 1 tab Q6H PRN PO 10/26/17 12:15 10/28/17 23:14 (Reglan) 10 mg BID PO 10/26/17 21:00 10/29/17 09:28 (Deltasone) 10 mg DAILY PO 10/26/17 13:00 10/29/17 09:28 (Lactinex) 1 tab DAILY PO 10/26/17 13:00 10/29/17 09:28 Potassium Chloride/Sodium Chloride 1,000 ml @ 65 mls/hr [id number] IV 10/26/17 15:15 10/28/17 00:30 Sodium Chloride 250 ml @ 250 mls/hr BOLUS PRN IV 10/26/17 16:00 (Protonix) 40 mg DAILY PO 10/28/17 10:00 10/29/17 09:28 Miscellaneous Information SPECIFIC LAB TO BE MY... ONCE ONCE .XX 10/29/17 13:45 10/29/17 13:46 (Synthroid) 88 mcg DAILY@0600 PO 10/30/17 06:00 Lines Line sites with no e.o infection. Past Medical History reviewed. (Deborah Lin) Allergies: Coded Allergies: Sulfa (Sulfonamide Antibiotics) (Unverified Allergy, Severe, SWELLING, DIFFICULTY BREATHING, 10/21/17) celecoxib (Unverified Allergy, Severe, 10/21/17) PT IS UNABLE TO RECALL REACTION. penicillin G (Unverified Allergy, Severe, Swelling, 10/21/17) PT REPORTS REACTION WAS 50 YEARS AGO, AND IS UNABLE TO RECALL DETAILS. Uncoded Allergies: TAPE ADHESIVE/ PAPER TAPE OK (Allergy, Severe, BLISTERS, 05/01/06) Objective . Vital Signs Date Time Temp Pulse Resp B/P (MAP) Pulse Ox O2 Delivery O2 Flow Rate FiO2 10/30/17 12:00 84 10/30/17 12:00 98.2 87 20 101/68 (79) 99 10/30/17 08:00 95 10/30/17 08:00 98.1 81 19 111/62 (78) 94 10/30/17 07:09 Nasal Cannula 2.00 10/30/17 04:00 Nasal Cannula 2.00 10/30/17 04:00 82 10/30/17 04:00 98.5 91 17 117/58 (77) 97 10/30/17 00:00 Nasal Cannula 2.00 10/30/17 00:00 79 10/29/17 23:27 99.5 97 16 115/57 (76) 98 10/29/17 20:00 Nasal Cannula 2.00 10/29/17 20:00 82 10/29/17 20:00 98.2 86 17 125/58 (80) 96 10/29/17 16:05 98.2 84 18 120/93 (102) 94 . Laboratory Tests Test 10/29/17 00:00 10/29/17 08:10 10/30/17 05:52 10/30/17 11:05 White Blood Count 10.5 TH/MM3 11.8 TH/MM3 10.3 TH/MM3 Red Blood Count 2.58 MIL/MM3 2.75 MIL/MM3 2.49 MIL/MM3 Hemoglobin 8.3 GM/DL 8.8 GM/DL 8.0 GM/DL 8.5 GM/DL Hematocrit 25.3 % 27.0 % 24.1 % 25.7 % Mean Corpuscular Volume 98.1 FL 98.2 FL 96.9 FL Mean Corpuscular Hemoglobin 32.2 PG 32.0 PG 32.2 PG Mean Corpuscular Hemoglobin Concent 32.9 % 32.6 % 33.2 % Red Cell Distribution Width 17.8 % 18.4 % 18.7 % Platelet Count 329 TH/MM3 320 TH/MM3 334 TH/MM3 Mean Platelet Volume 8.2 FL 8.0 FL 8.0 FL Neutrophils (%) (Auto) 89.3 % 83.9 % 82.9 % Lymphocytes (%) (Auto) 5.7 % 9.1 % 8.2 % Monocytes (%) (Auto) 4.6 % 5.6 % 6.5 % Eosinophils (%) (Auto) 0.3 % 1.1 % 2.1 % Basophils (%) (Auto) 0.1 % 0.3 % 0.3 % Neutrophils # (Auto) 9.4 TH/MM3 9.9 TH/MM3 8.5 TH/MM3 Lymphocytes # (Auto) 0.6 TH/MM3 1.1 TH/MM3 0.8 TH/MM3 Monocytes # (Auto) 0.5 TH/MM3 0.7 TH/MM3 0.7 TH/MM3 Eosinophils # (Auto) 0.0 TH/MM3 0.1 TH/MM3 0.2 TH/MM3 Basophils # (Auto) 0.0 TH/MM3 0.0 TH/MM3 0.0 TH/MM3 CBC Comment AUTO DIFF AUTO DIFF AUTO DIFF Differential Total Cells Counted 100 Neutrophils % (Manual) 89 % Lymphocytes % 2 % Monocytes % 3 % Eosinophils % 1 % Neutrophils # (Manual) 9.9 TH/MM3 Metamyelocytes 1 % Myelocytes 4 % Differential Comment FINAL DIFF MANUAL AUTO DIFF CONFIRMED AUTO DIFF CONFIRMED Platelet Estimate NORMAL NORMAL Platelet Morphology Comment NORMAL NORMAL Polychromasia 2.0 % Del C[place] Bodies Acanthocytes OCC OCC Keratocytes OCC Ovalocytes 1+ Helmet Cells OCC Laboratory Tests Test 10/28/17 19:58 10/29/17 08:10 10/30/17 05:52 Blood Urea Nitrogen 8 MG/DL 6 MG/DL 8 MG/DL Creatinine 0.46 MG/DL 0.46 MG/DL 0.45 MG/DL Random Glucose 94 MG/DL 75 MG/DL 66 MG/DL Calcium Level 7.7 MG/DL 7.7 MG/DL 7.7 MG/DL Magnesium Level 1.6 MG/DL 1.7 MG/DL 1.6 MG/DL Sodium Level 142 MEQ/L 143 MEQ/L 144 MEQ/L Potassium Level 3.9 MEQ/L 3.7 MEQ/L 3.6 MEQ/L Chloride Level 110 MEQ/L 111 MEQ/L 109 MEQ/L Carbon Dioxide Level 26.1 MEQ/L 27.5 MEQ/L 27.8 MEQ/L Anion Gap 6 MEQ/L 5 MEQ/L 7 MEQ/L Estimat Glomerular Filtration Rate 128 ML/MIN 128 ML/MIN 131 ML/MIN Thyroid Stimulating Hormone 3rd Gen 1.480 uIU/ML Imaging Last Impressions Upper Extremity CT 10/22/17 0000 Signed Impressions: Service Date/Time: Sunday, October 22, 2017 22:22 - CONCLUSION: 1. Soft tissue swelling in the left hand. No discrete abscess. No acute bony abnormalities. Garrick Ramirez MD Chest X-Ray 10/21/17 1612 Signed Impressions: Service Date/Time: Saturday, October 21, 2017 16:19 - CONCLUSION: No acute disease. Nilesh Frye MD Abdomen/Pelvis CT 10/21/17 1612 Signed Impressions: Service Date/Time: Saturday, October 21, 2017 17:47 - CONCLUSION: 1. Suspected small bowel structure with dilatation of the small bowel to the level of anastomosis suture and the distal small bowel. There is debris within the small bowel at this region in the small bowel beyond the anastomosis is decompressed. 2. Mild hiatal hernia. 3. Sigmoid colon diverticula. There is an anastomosis sutures seen in the rectum just beyond the sigmoid colon diverticula. 4. Mild left pleural effusion. 5. Consolidation at the posterior right lung base. Nilesh Frye MD Abdomen X-Ray 10/21/17 0000 Signed Impressions: Service Date/Time: Saturday, October 21, 2017 18:43 - CONCLUSION: Nasogastric tube across the GE junction Dami Cuevas MD FACR Physical Exam GENERAL: Frail elderly female, awake and alert, INAD SKIN: Multiple areas of ecchymosis noted. Cool and dry. HEAD: Atraumatic. Normocephalic. No temporal or scalp tenderness. EYES: Pupils equal round and reactive. Extraocular motions intact. No scleral icterus. No injection or drainage. ENT: Nose without bleeding or purulent drainage. Airway patent. MMM. Throat without exudate. No oral thrush. NECK: Trachea midline. Supple, nontender, no meningeal signs. CARDIOVASCULAR: Regular rate and rhythm without murmurs, gallops, or rubs. RESPIRATORY: Clear to auscultation. Breath sounds equal bilaterally. No wheezes , rales, or rhonchi. GASTROINTESTINAL: Abdomen distended and tympanic. (+)tenderness to palpation RLQ. Previous ileostomy site in right abdomen appears to be healing well. Steri strips in place. MUSCULOSKELETAL: Multiple joints of upper and lower extremity with changes suggestive of chronic arthritis(note patient has prior history of rheumatoid arthritis). LUE with improving erythema and fluid collection. Right upper extremity swollen and erythematous. NEUROLOGICAL: Awake and alert. Nonfocal exam Psych cooperative and calm Right UE IV site ? early cellulitis (Deborah Lin) Assessment & Plan Remarks Possible sepsis in an immunocompromised patient. Ileus resolved: has had multiple BMs. Tolerated diet. Left upper extremity cellulitis. Improving Group D Enterococcus in urine: asymptomatic but will likely be covered with Vanco IV. Clinically stable. History of rectal cancer, status post low anterior resection June 11, [address] Ryan. Status post ileostomy reversal on October 15, [address] Ryan. Rheumatoid arthritis on immune suppressants(methotrexate and prednisone) Penicillin allergy Sulfa allergy GIB, EGD cancelled yesterday due to no consent. Rescheduled for tomorrow. LUE improved except fluid collection close to inner aspect of elbow likely fluid filled blister does not appear infected. Edema and erythema RUE ? early cellulitis. Doppler US negative for DVT Recommendations Discontinue vancomycin IV D/C IV if ok with primary team 2/2 bilateral UE cellulitis Change to po Zyvox Elevate bilateral UEs. Monitor progress Will follow to provide DC recs (Deborah Lin) Remarks The exam, history, and the medical decision-making described in the above note were completed with the assistance of the mid-level provider. I reviewed and agree with the findings presented. I attest that I had a [id number] encounter with the patient on the same day, and personally performed and documented my additional H&P findings, assessment and findings in the medical record. LUE swelling and erythema noted. IV line noted. Recs: Change to po zyvox Assess need for IV lines and avoid blood draws as much as possible as these can ppt the cellulitis Elevate bilateral UE as tolerated (Brandie Carnes MD) Deborah Lin Oct 30, 2017 15:33 Brandie Carnes MD Oct 30, 2017 19:02
--- NOTE | 2017-10-30 17:21 | RADRPT ---
EXAM DATE/TIME: 10/30/2017 16:51 [place] COMPARISON: No previous studies available for comparison. INDICATIONS : Edema in the right arm. MEDICAL HISTORY : Hypertension. Rheumatoid arthritis. Methicillin-resistant Staphylococcus aureus. Clostridium Difficil e. Colon Cancer. Afib. SURGICAL HISTORY : Tonsillectomy. Appendectomy. Hysterectomy. ENCOUNTER: Initial ACUITY: 1 day PAIN SCORE: 2/10 LOCATION: Right arm. FINDINGS: There is spontaneous flow documented in the brachial, basilic, cephalic, axillary, and subclavian vei ns. The vessels are compressible and augmentation response is documented. No filling defects are se en. The flow is phasic with respiration. Direction of flow in the jugular vein is caudal. CONCLUSION: No thrombosis demonstrated right upper extremity. Nilesh Alcazar MD on October 30, 2017 at 17:19 Board Certified Radiologist. This report was verified electronically.
--- NOTE | 2017-10-30 20:07 | HHI.GIFU ---
GI Follow-up Note Consult Follow-up Subjective: Patient laying in bed comfortably, no new complaints. Had brown stool today. Discussed with pt and daughter. EGD requested. so pt on schedule for egd tomorrow. Objective: PHYSICAL EXAMINATION: Vitals signs stable No fever HEENT: Pupils round and reactive to light; normocephalic; atraumatic; no jaundice. Throat is clear. NECK: Neck is supple, no JVD, no lymphadenopathy. CHEST: Chest is clear to auscultation and percussion. CARDIAC: Regular rate and rhythm with no murmur gallop or rubs. ABDOMEN: Soft, nondistended, nontender; no hepatosplenomegaly; bowel sounds are present in all four quadrants. EXTREMITIES: No clubbing, cyanosis, or edema. SKIN: Normal; no rash; no jaundice. NON LICENSED OPERATOR: No focal deficits; alert and oriented times three. labs reviewed. ASSESSMENT/PLAN: 1. rectal bleeding 2. acute anemia of blood loss plan: 1. npo after mn 2. egd tomorrow 3. Dr peña will follow starting tomorrow. 4. Discussed with pt and daughter, answered all questions in detail. It was a pleasure seeing Olivia Gupta. Thank you for this consult. Entered by: Roxanne Gil MD Oct 30, 2017 20:07
[2017-10-30] MEDS: LINEZOLID 600 MG TAB PO SCH (20:52)
[2017-10-31] VITALS (8 sets, daily range): BP systolic 100–120; BP diastolic 55–67; PULSE 58–89; RESP 19–22; TEMP 97.4–98.4; O2SAT 94–99
[2017-10-31] MEDS: CHLORHEXIDINE GLUCONATE 2 % 1 PACK (2 CLOTHS) TOP SCH (04:00)
[2017-10-31] MEDS ORDERED: SODIUM CHLORID 0.9% 500 ML IV PRN (05:00)
[2017-10-31] MEDS ORDERED: POVIDONE IODINE 5% (ANTISEPSIS KIT) 4 APPLICATIONS EACH NARE PRN (05:00)
[2017-10-31] MEDS ORDERED: LACTATED RINGER'S 1000 ML IV PRN (05:00)
[2017-10-31] MEDS ORDERED: CHLORHEXIDINE GLUCONATE 2 % 1 PACK (2 CLOTHS) TOPICAL PRN (05:00)
[2017-10-31] MEDS: LEVOTHYROXINE SODIUM 88 MCG TAB PO SCH (05:38)
[2017-10-31] MEDS: DILTIAZEM HCL 30 MG TAB PO SCH (05:38)
[2017-10-31 07:42] LABS: AUTOMATED NEUTROPHIL # 8.1 TH/MM3 (1.8-7.7); BASOPHIL % 0.4 % (0.0-2.0); EOSINOPHIL # 0.1 TH/MM3 (0-0.4); EOSINOPHIL % 1.4 % (0.0-4.0); HEMATOCRIT 24.5 % (35.0-46.0); HEMOGLOBIN 8.2 GM/DL (11.6-15.3); LYMPHOCYTE # 0.9 TH/MM3 (1.0-4.8); MEAN CELL VOLUME 97.1 FL (80.0-100.0); MEAN CORPUSCULAR HEMOGLOBIN 32.6 PG (27.0-34.0); MEAN CORPUSCULAR HGB CONC 33.6 % (32.0-36.0); MEAN PLATELET VOLUME 7.9 FL (7.0-11.0); MONO % 7.2 % (0.0-8.0); MONOCYTE # 0.7 TH/MM3 (0-0.9); PLATELET COUNT 355 TH/MM3 (150-450); RED BLOOD COUNT 2.52 MIL/MM3 (4.00-5.30); RED CELL DISTRIBUTION WIDTH 18.9 % (11.6-17.2); WHITE BLOOD COUNT 9.9 TH/MM3 (4.0-11.0)
[2017-10-31 08:01] LABS: BICARBONATE 26.8 MEQ/L (21.0-32.0); CALCIUM 8.2 MG/DL (8.5-10.1); CREATININE 0.43 MG/DL (0.50-1.00); MAGNESIUM 1.7 MG/DL (1.5-2.5)
--- NOTE | 2017-10-31 08:41 | HHI.PR ---
Subjective Remarks left arm cellulitis thirsty - pre-procedure NPO Objective Vital Signs Date Time Temp Pulse Resp B/P (MAP) Pulse Ox O2 Delivery O2 Flow Rate FiO2 10/31/17 04:00 Nasal Cannula 2.00 10/31/17 04:00 98.4 89 20 120/55 (76) 97 10/31/17 03:57 80 10/31/17 00:00 98.3 86 22 117/61 (79) 94 10/31/17 00:00 Nasal Cannula 2.00 10/30/17 23:49 91 10/30/17 20:00 Nasal Cannula 2.00 10/30/17 20:00 97.9 90 18 116/70 (85) 97 10/30/17 19:50 95 10/30/17 16:00 91 10/30/17 16:00 98.3 95 22 118/66 (83) 97 10/30/17 12:00 84 10/30/17 12:00 98.2 87 20 101/68 (79) 99 I/O 10/30/17 10/30/17 10/30/17 10/31/17 10/31/17 10/31/17 07:00 15:00 23:00 07:00 15:00 23:00 Intake Total 342 ml 250 ml 700 ml 120 ml Output Total 800 ml 550 ml Balance 342 ml 250 ml -100 ml -430 ml Intake Oral 342 ml 700 ml 120 ml IV Total 250 ml Output Urine Total 800 ml 550 ml # Voids 4 2 # Bowel Movements 1 1 0 Result Diagram: 10/31/17 0705 10/31/17 0705 Objective Remarks Left arm cellulitis significant improvement Abdomen soft, nontender, nondistended Assessment and Plan Assessment and Plan Cellulitis per ID Hgb stable today EGD today Eugenia Ryan MD Oct 31, 2017 08:41
[2017-10-31 09:02] LABS: BANDS 1 % (0-6); LYMPHOCYTES 2 % (9-44); MYELOCYTES 2 % (0-0); NEUTROPHIL # MANUAL DIFF 9.5 TH/MM3 (1.8-7.7); POLYS (SEG NEUTROPHILS) 93 % (16-70)
[2017-10-31 09:03] LABS: ACANTHOCYTES 1+ (NORMAL); KERATOCYTES OCC (NORMAL); OVALOCYTES 1+ (NORMAL); POLYCHROMASIA 2.1 % (0.0-1.9)
[2017-10-31] MEDS: LINEZOLID 600 MG TAB PO SCH (09:37)
[2017-10-31] MEDS: predniSONE 10 MG TAB PO SCH (09:37)
[2017-10-31] MEDS: MUPIROCIN 2% OINT 1 APPLIC/GM SYR EACH NARE SCH (09:37)
[2017-10-31] MEDS: METOCLOPRAMIDE HCL 10 MG TAB PO SCH (09:37)
[2017-10-31] MEDS: PANTOPRAZOLE SOD 40 MG DELAYED RELEASE TAB PO SCH (09:37)
[2017-10-31] MEDS: SODIUM CHLORIDE 0.9% FLUSH 10 ML FLUSH IV FLUSH SCH (09:38)
--- NOTE | 2017-10-31 11:04 | HHI.PR ---
Subjective Remarks Follow-up GI bleed. No further bleeding. Complains of mild discomfort in the mid stomach. Discussed with GI for endoscopy today. Discussed with nursing, if EGD negative patient will be discharged to rehab Objective Vitals Vital Signs Date Time Temp Pulse Resp B/P (MAP) Pulse Ox O2 Delivery O2 Flow Rate FiO2 10/31/17 08:00 97.4 82 19 105/67 (80) 99 10/31/17 04:00 Nasal Cannula 2.00 10/31/17 04:00 98.4 89 20 120/55 (76) 97 10/31/17 03:57 80 10/31/17 00:00 98.3 86 22 117/61 (79) 94 10/31/17 00:00 Nasal Cannula 2.00 10/30/17 23:49 91 10/30/17 20:00 Nasal Cannula 2.00 10/30/17 20:00 97.9 90 18 116/70 (85) 97 10/30/17 19:50 95 10/30/17 16:00 91 10/30/17 16:00 98.3 95 22 118/66 (83) 97 10/30/17 12:00 84 10/30/17 12:00 98.2 87 20 101/68 (79) 99 I/O 10/30/17 10/30/17 10/30/17 10/31/17 10/31/17 10/31/17 07:00 15:00 23:00 07:00 15:00 23:00 Intake Total 342 ml 250 ml 700 ml 120 ml Output Total 800 ml 550 ml Balance 342 ml 250 ml -100 ml -430 ml Intake Oral 342 ml 700 ml 120 ml IV Total 250 ml Output Urine Total 800 ml 550 ml # Voids 4 2 # Bowel Movements 1 1 0 Result Diagram: 10/31/17 0705 10/31/17 0705 Imaging Last Impressions Upper Extremity Ultrasound 10/30/17 0000 Signed Impressions: Service Date/Time: Monday, October 30, 2017 16:51 - CONCLUSION: No thrombosis demonstrated right upper extremity. Nilesh Alcazar MD Abdomen X-Ray 10/25/17 0000 Signed Impressions: Service Date/Time: September 10:25 - CONCLUSION: Mild to moderately dilated loops of small bowel in the midabdomen. The seen with a small bowel ileus versus partial small bowel obstruction. Abraham Laguna MD Upper Extremity CT 10/22/17 0000 Signed Impressions: Service Date/Time: Sunday, October 22, 2017 22:22 - CONCLUSION: 1. Soft tissue swelling in the left hand. No discrete abscess. No acute bony abnormalities. Garrick Ramirez MD Chest X-Ray 10/21/17 1612 Signed Impressions: Service Date/Time: Saturday, October 21, 2017 16:19 - CONCLUSION: No acute disease. Nilesh Frye MD Abdomen/Pelvis CT 10/21/17 1612 Signed Impressions: Service Date/Time: Saturday, October 21, 2017 17:47 - CONCLUSION: 1. Suspected small bowel structure with dilatation of the small bowel to the level of anastomosis suture and the distal small bowel. There is debris within the small bowel at this region in the small bowel beyond the anastomosis is decompressed. 2. Mild hiatal hernia. 3. Sigmoid colon diverticula. There is an anastomosis sutures seen in the rectum just beyond the sigmoid colon diverticula. 4. Mild left pleural effusion. 5. Consolidation at the posterior right lung base. Nilesh Frye MD Objective Remarks GENERAL: Elderly female who is laying in bed not in any acute distress. SKIN: There are ecchymoses on the dorsum of bilateral arms and lateral aspect of right thigh. CARDIOVASCULAR: Regular rate and rhythm. No murmurs rubs or gallops. RESPIRATORY: Clear to auscultation. Breath sounds equal bilaterally. GASTROINTESTINAL: Abdomen is distended and tympanitic without bowel sounds. There is some mild tenderness in the epigastric area without rebound or guarding. Steri-strips are in place over prior ileostomy site in right abdomen with wound edges approximated. no drainage. MUSCULOSKELETAL: Left upper extremity with improving swelling, erythema and warmth, left radial pulse palpable very well. Right upper extremity also has swelling but no evidence of infection likely from IV infiltration. She has joint deformities of hands consistent with rheumatoid arthritis. NEUROLOGICAL: Awake and alert. No obvious cranial nerve deficits. Motor grossly within normal limits, moving all extremities without focal deficit. Normal speech. Procedures Ileostomy reversal, EGD A/P Problem List: (1) Rheumatoid arthritis ICD Code: M06.9 - Rheumatoid arthritis, unspecified Status: Chronic (2) SVT (supraventricular tachycardia) ICD Code: I47.1 - Supraventricular tachycardia Status: Chronic (3) UTI (urinary tract infection) ICD Code: N39.0 - Urinary tract infection, site not specified Status: Acute (4) HTN (hypertension) ICD Code: I10 - Essential (primary) hypertension Status: Chronic (5) Rectal cancer ICD Code: C20 - Malignant neoplasm of rectum Status: Resolved (6) Dehydration ICD Code: E86.0 - Dehydration Status: Acute (7) Ileus ICD Code: K56.7 - Ileus, unspecified Status: Acute Assessment and Plan NEURO: Pain secondary to rheumatoid arthritis Discontinued Ofirmev and restarted Lortab Morphine prn breakthrough. Dc IV solumedrol and restarted prednisone PT RESP: Nasal cannula wean as tolerated Incentive spirometry every hour awake Chest x-ray 10/21/17 CV: SVT Intermittent SVT in the emergency department. Spontaneously converted on a couple of occasions. Did receive adenosine 6 mg IV 2 doses. She previously has been managed on Cardizem. She may not have been absorbing this due to her ileus. Resume by mouth Cardizem. Off Cardizem drip currently. GI: rectal cancer hx low anterior resection and diverting ileostomy s/p ileostomy reversal. Stable Postoperative Ileus. Resolved GERD. Stable NG tube clamped per CRS. CT abdomen pelvis 10/21 - Dilation of stomach and small bowel. Small bowel distal to anastomosis is decompressed. Colorectal surgery following. Restarted PPI GIB. Hemodynamically stable dw CRS. GI increased Protonix to 40 daily and hold off with endoscopic workup initially unless active bleeding. Pt had rectal bleeding with drop in hemoglobin for EGD today FEN/RENAL: Dehydration Urinary incontinence Rasmussen discontinued ID: Rheumatoid arthritis Enterococcus UTI, present on admission Left upper extremity cellulitis. Improving penicillin allergy Hold methotrexate Follow-up blood cultures negative to date Stable continue Zyvox status post IV vancomycin. Doppler sonogram of the right upper extremity revealed no thrombosis HEME: Rectal cancer status post low anterior resection and diverting ileostomy. Now s/ p ileostomy reversal and anastomosis 10/15/17 (Dr. Ryan) Pathology 06/11/17 - high grade poorly differentiated adenocarcinoma, focally intubating muscularis propria. Resection margins negative for malignancy. Lymph nodes negative. Has not received chemo. Monitor CBC. She has anemia secondary to acute blood loss which is stable ENDO: Chronic prednisone use Hypothyroidism TSH now therapeutic will restart Synthroid at a lower dose 88 mcg daily PROPH: SCDs hold Lovenox 40 mg subcutaneous 2/2 GIB ACCESS: Peripheral IV providing adequate access at this time. Increase activity patient to be out of bed daily. Continue physical therapy Discharge Planning Discharge back to rehab Problem Qualifiers (1) UTI (urinary tract infection): (2) HTN (hypertension): Qualified Codes: I10 - Essential (primary) hypertension Ba Rhodes MD Oct 31, 2017 11:04
[2017-10-31] MEDS ORDERED: LIDOCAINE HCL 1% PF 5 ML SYRINGE OTHER ONE (12:00)
[2017-10-31] MEDS ORDERED: PROPOFOL 200 MG/20 ML AMP IV ONE (12:00)
--- NOTE | 2017-10-31 13:31 | GIPROC ---
[facility] [address] [facility]. [facility] [place], [address] EGD PROCEDURE REPORT EXAM DATE: 10/31/2017 PATIENT NAME: Olivia Gupta MR #: [id number] BIRTHDATE: 1930 ATTENDING: Ben Keys MD ORDER #: [id number] ASSISTANT LIBRARIAN: Isidro Reynaga and Zee Mcconnell STATUS: inpatient INDICATIONS: The patient is a 87 yr old female here for an EGD due to GI bleed with melena and a drop in hemoglobin, s/p reversal of an ileostomy and post-op ileus. PROCEDURE PERFORMED: EGD, diagnostic MEDICATIONS: Per Anesthesia and None. TOPICAL ANESTHETIC: none CONSENT: The patient understands the risks and benefits of the procedure and understands that these risks include, but are not limited to: sedation, allergic reaction, infection, perforation and/or bleeding. Alternative means of evaluation and treatment include, among others: physical exam, x-rays, and/or surgical intervention. The patient elects to proceed with this endoscopic procedure. medical equipment was checked for proper function. Hand hygiene and appropriate measures for infection prevention was taken. After the risks, benefits and alternatives of the procedure were thoroughly explained, Informed consent was verified, confirmed and timeout was successfully executed by the treatment team. The patient was anesthetized with topical anesthesia and the Pentax [id number] endoscope was introduced through the mouth and advanced to the . Retroflexion was performed and was normal The gastroscope was then slowly withdrawn and removed. ESOPHAGUS: A 4 cm hiatal hernia was noted. STOMACH: The mucosa of the stomach appeared normal. DUODENUM: The duodenal mucosa appeared normal. ADVERSE EVENTS: There were no complications. IMPRESSIONS: 1. 4 cm hiatal hernia 2. The mucosa of the stomach appeared normal 3. Normal duodenal mucosa 4. Retroflexion was performed and was normal RECOMMENDATIONS: Resume prior diet/medications. PATIENT CONDITION: DISPOSITION: Inpatient REPEAT EXAM: Ben Keys MD eSigned: Ben Keys MD 10/31/2017 1:31 PM cc: ana chowdary M.D. PATIENT NAME: Olivia Gupta MR#: [id number]
[2017-10-31] MEDS ORDERED: ZYVO600T PO (14:59)
--- NOTE | 2017-10-31 15:01 | HHI.IDPN ---
Subjective Subjective Remarks Patient seen and examined with Dr. Carnes Ms. Gupta is an 87 y/o CF with PMHx of hypothyroidism, rheumatoid arthritis on chronic methotrexate and prednisone, GERD. She was diagnosed with rectal cancer and underwent low anterior resection 06/11/[address] Ryan. She is currently postop day #6 from ileostomy reversal 10/15/[address] Ryan. She was discharged 10/19/17 to [facility]. She developed abdominal distension and had 2-3 episodes of emesis today, nonbloody nonbilious. Her daughter states she is incontinent of urine and stool and has continued to have loose bowel movements. Patient complained of some aching abdominal pain in mid abdomen upon admission. She is afebrile with temperature of 98.9. WBC is 19.9. Lactic acid 2.1. Creatinine 0.77 (baseline 0.45). Patient was seen by Critical Care over night and recd some empiric antibiotics. was called due to concern for ileus related sepsis. I received a call from for a stat consult for left upper extremity cellulitis concern for worsening infection. Upon discussion with daughter it appears patient has prior MRSA infection in her left lower extremity. Patient is seen by Dr. Bush at [facility] few months back. She also goes on to report that 2-3 days prior to admission she noticed an area of redness on the left inner aspect of the left elbow which has progressively gotten worse and at this point her entire left upper extremity appears to be swollen and edematous. She also notices that the arm is now progressively more erythematous. There is no reported pain or tenderness to suggest necrotizing fasciitis-like process. At the time of my evaluation patient is in the ISC.She has a ID band in her left wrist on the side of infection. She also has a small bore peripheral IV around the wrist. Patient is currently not on any pressors her urine output is good. She has no fevers, no rash no diarrhea. Upon discussion with Dr. Ryan it appears that there is no plan for surgery for ileus at the present time given the left upper extremity cellulitis which appears to be more concerning. Infectious disease is consulted for evaluation and management of left upper extremity cellulitis. Notes reviewed s/p EGD earlier today No fever WBC WNL No cough or dyspnea c/o mild abdominal soreness patient says she is hungry and wants to eat No generalized rash UC with Enterococcus BC negative Antibiotics Vanco IV Current Medications Current Medications Medications (Trade) Dose Ordered Sig/Merrick Route Start Time Stop Time Status Last Admin (Morphine Inj) 2 mg Q3H PRN IV PUSH 10/21/17 21:00 10/24/17 10:10 (NS Flush) 2 ml UNSCH PRN IV FLUSH 10/21/17 21:30 (NS Flush) 2 ml BID IV FLUSH 10/22/17 09:00 10/29/17 09:29 (Zofran Inj) 4 mg Q6H PRN IV PUSH 10/21/17 21:30 (Albuterol Neb) 2.5 mg Q2HR NEB PRN INH 10/21/17 21:30 Miscellaneous Information 1 Q361D XX 10/21/17 21:30 (Chlorhexidine 2% Cloth) Taper DAILY@04 TOP 10/22/17 04:00 10/18/18 03:59 10/27/17 04:00 (Chlorhexidine 2% Cloth) 3 pack UNSCH PRN TOP 10/21/17 21:30 (Natacha-Colace) 1 tab BID PO 10/22/17 09:00 10/29/17 09:28 (Milk Of Magnesia Liq) 30 ml Q12H PRN PO 10/21/17 21:30 (Senokot) 17.2 mg Q12H PRN PO 10/21/17 21:30 (Dulcolax Supp) 10 mg DAILY PRN RECTAL 10/21/17 21:30 (Lactulose Liq) 30 ml DAILY PRN PO 10/21/17 21:30 Pharmacy Profile Note 0 ml @ 0 mls/hr UNSCH OTHER 10/22/17 16:00 Vancomycin HCl 1000 mg/Sodium Chloride 250 ml @ 250 mls/hr Q24H IV 10/23/17 14:00 10/28/17 13:04 (Cepacol Extra Keyon (Sugar Free)) 1 lozenge Q4HR PRN BUCCAL 10/22/17 18:45 (Hurricaine 20% Oral Spr) 1 spray Q1HR PRN OROPHARYNG 10/23/17 10:00 (Bactroban Nasal 2% Oint) 1 applic BID EACH NARE 10/24/17 21:00 10/31/17 20:59 10/28/17 22:53 (Cardizem) 30 mg Q6HR PO 10/26/17 12:30 10/28/17 22:55 (Alexandria 5-325 Mg) 1 tab Q6H PRN PO 10/26/17 12:15 10/28/17 23:14 (Reglan) 10 mg BID PO 10/26/17 21:00 10/29/17 09:28 (Deltasone) 10 mg DAILY PO 10/26/17 13:00 10/29/17 09:28 (Lactinex) 1 tab DAILY PO 10/26/17 13:00 10/29/17 09:28 Potassium Chloride/Sodium Chloride 1,000 ml @ 65 mls/hr [id number] IV 10/26/17 15:15 10/28/17 00:30 Sodium Chloride 250 ml @ 250 mls/hr BOLUS PRN IV 10/26/17 16:00 (Protonix) 40 mg DAILY PO 10/28/17 10:00 10/29/17 09:28 Miscellaneous Information SPECIFIC LAB TO BE MY... ONCE ONCE .XX 10/29/17 13:45 10/29/17 13:46 (Synthroid) 88 mcg DAILY@0600 PO 10/30/17 06:00 Lines Left PIV with no e.o infection. Right PIV concerning for cellulitis Past Medical History reviewed. Allergies: Coded Allergies: Sulfa (Sulfonamide Antibiotics) (Unverified Allergy, Severe, SWELLING, DIFFICULTY BREATHING, 10/21/17) celecoxib (Unverified Allergy, Severe, 10/21/17) PT IS UNABLE TO RECALL REACTION. penicillin G (Unverified Allergy, Severe, Swelling, 10/21/17) PT REPORTS REACTION WAS 50 YEARS AGO, AND IS UNABLE TO RECALL DETAILS. Uncoded Allergies: TAPE ADHESIVE/ PAPER TAPE OK (Allergy, Severe, BLISTERS, 05/01/06) Objective . Vital Signs Date Time Temp Pulse Resp B/P (MAP) Pulse Ox O2 Delivery O2 Flow Rate FiO2 10/31/17 13:55 76 20 100/56 (71) 98 10/31/17 13:39 79 20 106/59 (75) 98 10/31/17 13:24 97.4 95 20 112/58 (76) 99 10/31/17 12:00 97.8 78 20 105/64 (78) 97 10/31/17 08:00 97.4 82 19 105/67 (80) 99 10/31/17 07:48 58 10/31/17 04:00 Nasal Cannula 2.00 10/31/17 04:00 98.4 89 20 120/55 (76) 97 10/31/17 03:57 80 10/31/17 00:00 98.3 86 22 117/61 (79) 94 10/31/17 00:00 Nasal Cannula 2.00 10/30/17 23:49 91 10/30/17 20:00 Nasal Cannula 2.00 10/30/17 20:00 97.9 90 18 116/70 (85) 97 10/30/17 19:50 95 10/30/17 16:00 91 10/30/17 16:00 98.3 95 22 118/66 (83) 97 10/31/17 10/31/17 11/01/17 15:00 23:00 07:00 Intake Total 100 ml Balance 100 ml Other 100 ml . Laboratory Tests Test 10/30/17 05:52 10/30/17 11:05 10/31/17 07:05 White Blood Count 10.3 TH/MM3 9.9 TH/MM3 Red Blood Count 2.49 MIL/MM3 2.52 MIL/MM3 Hemoglobin 8.0 GM/DL 8.5 GM/DL 8.2 GM/DL Hematocrit 24.1 % 25.7 % 24.5 % Mean Corpuscular Volume 96.9 FL 97.1 FL Mean Corpuscular Hemoglobin 32.2 PG 32.6 PG Mean Corpuscular Hemoglobin Concent 33.2 % 33.6 % Red Cell Distribution Width 18.7 % 18.9 % Platelet Count 334 TH/MM3 355 TH/MM3 Mean Platelet Volume 8.0 FL 7.9 FL Neutrophils (%) (Auto) 82.9 % 82.0 % Lymphocytes (%) (Auto) 8.2 % 9.0 % Monocytes (%) (Auto) 6.5 % 7.2 % Eosinophils (%) (Auto) 2.1 % 1.4 % Basophils (%) (Auto) 0.3 % 0.4 % Neutrophils # (Auto) 8.5 TH/MM3 8.1 TH/MM3 Lymphocytes # (Auto) 0.8 TH/MM3 0.9 TH/MM3 Monocytes # (Auto) 0.7 TH/MM3 0.7 TH/MM3 Eosinophils # (Auto) 0.2 TH/MM3 0.1 TH/MM3 Basophils # (Auto) 0.0 TH/MM3 0.0 TH/MM3 CBC Comment AUTO DIFF AUTO DIFF Differential Comment AUTO DIFF CONFIRMED FINAL DIFF MANUAL Differential Total Cells Counted 100 Neutrophils % (Manual) 93 % Band Neutrophils % 1 % Lymphocytes % 2 % Eosinophils % 2 % Neutrophils # (Manual) 9.5 TH/MM3 Myelocytes 2 % Platelet Estimate NORMAL Platelet Morphology Comment NORMAL Polychromasia 2.1 % Ovalocytes 1+ Acanthocytes 1+ Keratocytes OCC Laboratory Tests Test 10/30/17 05:52 10/31/17 07:05 Blood Urea Nitrogen 8 MG/DL 6 MG/DL Creatinine 0.45 MG/DL 0.43 MG/DL Random Glucose 66 MG/DL 82 MG/DL Calcium Level 7.7 MG/DL 8.2 MG/DL Magnesium Level 1.6 MG/DL 1.7 MG/DL Sodium Level 144 MEQ/L 142 MEQ/L Potassium Level 3.6 MEQ/L 3.9 MEQ/L Chloride Level 109 MEQ/L 108 MEQ/L Carbon Dioxide Level 27.8 MEQ/L 26.8 MEQ/L Anion Gap 7 MEQ/L 7 MEQ/L Estimat Glomerular Filtration Rate 131 ML/MIN 138 ML/MIN Imaging Last Impressions Upper Extremity CT 10/22/17 0000 Signed Impressions: Service Date/Time: Sunday, October 22, 2017 22:22 - CONCLUSION: 1. Soft tissue swelling in the left hand. No discrete abscess. No acute bony abnormalities. Garrick Ramirez MD Chest X-Ray 10/21/171611 Signed Impressions: Service Date/Time: Saturday, October 21, 2017 16:19 - CONCLUSION: No acute disease. Nilesh Frye MD Abdomen/Pelvis CT 10/21/17 161 Signed Impressions: Service Date/Time: Saturday, October 21, 2017 17:47 - CONCLUSION: 1. Suspected small bowel structure with dilatation of the small bowel to the level of anastomosis suture and the distal small bowel. There is debris within the small bowel at this region in the small bowel beyond the anastomosis is decompressed. 2. Mild hiatal hernia. 3. Sigmoid colon diverticula. There is an anastomosis sutures seen in the rectum just beyond the sigmoid colon diverticula. 4. Mild left pleural effusion. 5. Consolidation at the posterior right lung base. Nilesh Frye MD Abdomen X-Ray 10/21/17 0000 Signed Impressions: Service Date/Time: Saturday, October 21, 2017 18:43 - CONCLUSION: Nasogastric tube across the GE junction Dami Cuevas MD FACR Physical Exam GENERAL: Frail elderly female, awake and alert, INAD Lying in bed. SKIN: Multiple areas of ecchymosis noted. Cool and dry. HEAD: Atraumatic. Normocephalic. No temporal or scalp tenderness. EYES: Pupils equal round and reactive. Extraocular motions intact. No scleral icterus. No injection or drainage. ENT: Nose without bleeding or purulent drainage. Airway patent. MMM. Throat without exudate. No oral thrush. NECK: Trachea midline. Supple, nontender, no meningeal signs. CARDIOVASCULAR: Regular rate and rhythm without murmurs, gallops, or rubs. RESPIRATORY: Clear to auscultation. Breath sounds equal bilaterally. No wheezes , rales, or rhonchi. GASTROINTESTINAL: Abdomen soft, mildly distended. (+)Hypoactive BS. (+)mild diffuse tenderness to palpation. Previous ileostomy site in right abdomen appears to be healing well. Steri strips in place. MUSCULOSKELETAL: Multiple joints of upper and lower extremity with changes suggestive of chronic arthritis(note patient has prior history of rheumatoid arthritis). LUE with improving erythema and fluid collection. Right upper extremity swollen and erythematous, IV still present. NEUROLOGICAL: Awake and alert. Nonfocal exam Psych cooperative and calm Right UE IV site ? early cellulitis Left UE IV site with no e/o infection Assessment & Plan Remarks Possible sepsis in an immunocompromised patient. Ileus resolved: has had multiple BMs. Tolerated diet. Left upper extremity cellulitis. Improving Group D Enterococcus in urine: asymptomatic but will likely be covered with Vanco IV. Clinically stable. History of rectal cancer, status post low anterior resection June 11, [address] Ryan. Status post ileostomy reversal on October 15, [address] Ryan. Rheumatoid arthritis on immune suppressants(methotrexate and prednisone) Penicillin allergy Sulfa allergy GIB, s/p EGD - 4cm hiatal hernia, normal mucosa stomach and duodenum - no source of bleeding identified LUE improved except fluid collection close to inner aspect of elbow likely fluid filled blister does not appear infected. Edema and erythema RUE ? early cellulitis. Doppler US negative for DVT Recommendations Discontinue vancomycin IV D/C IV if ok with primary team 2/2 bilateral UE cellulitis Continue po Zyvox Elevate bilateral UEs. Monitor progress Will follow to provide DC Deborah De Jesus Oct 31, 2017 15:01
--- NOTE | 2017-10-31 15:04 | HHI.DS ---
Discharge Summary Admission Date Oct 21, 2017 at 18:36 Discharge Date: Oct 31, 2017 Admitting Diagnosis small bowel obstruction, uti, pneumonia, SVT, sepsis (1) Rheumatoid arthritis ICD Code: M06.9 - Rheumatoid arthritis, unspecified Diagnosis: Principal Status: Chronic (2) SVT (supraventricular tachycardia) ICD Code: I47.1 - Supraventricular tachycardia Diagnosis: Principal Status: Chronic (3) UTI (urinary tract infection) ICD Code: N39.0 - Urinary tract infection, site not specified Diagnosis: Principal Status: Acute (4) HTN (hypertension) ICD Code: I10 - Essential (primary) hypertension Diagnosis: Secondary Status: Chronic (5) Rectal cancer ICD Code: C20 - Malignant neoplasm of rectum Diagnosis: Principal Status: Resolved (6) Dehydration ICD Code: E86.0 - Dehydration Diagnosis: Principal Status: Acute (7) Ileus ICD Code: K56.7 - Ileus, unspecified Diagnosis: Principal Status: Acute Procedures Ileostomy reversal, EGD Brief History - From Admission 87 yo WF with past medical history of hypothyroidism, rheumatoid arthritis on chronic methotrexate and prednisone, GERD. She was diagnosed with rectal cancer and underwent low anterior resection 06/11/[address] Ryan. She is currently postop day #6 from ileostomy reversal 10/15/[address] Ryan. She was discharged 10/19/17 to [facility]. She developed abdominal distension and had 2-3 episodes of emesis today, nonbloody nonbilious. Her daughter states she is incontinent of urine and stool and has continued to have loose bowel movements. Patient complains of some aching abdominal pain in mid abdomen but states currently the nasal cannula is what is causing her the most discomfort. She is afebrile with temperature of 98.9. WBC is 19.9. Lactic acid 2.1. Creatinine 0.77 (baseline 0.45). CBC/BMP: 10/31/17 0705 10/31/17 0705 Significant Findings Laboratory Tests Test 10/28/17 19:58 10/29/17 00:00 10/29/17 08:10 10/29/17 15:10 Creatinine 0.46 MG/DL (0.50-1.00) 0.46 MG/DL (0.50-1.00) Calcium Level 7.7 MG/DL (8.5-10.1) 7.7 MG/DL (8.5-10.1) Chloride Level 110 MEQ/L (98-107) 111 MEQ/L (98-107) Red Blood Count 2.58 MIL/MM3 (4.00-5.30) 2.75 MIL/MM3 (4.00-5.30) Hemoglobin 8.3 GM/DL (11.6-15.3) 8.8 GM/DL (11.6-15.3) Hematocrit 25.3 % (35.0-46.0) 27.0 % (35.0-46.0) Red Cell Distribution Width 17.8 % (11.6-17.2) 18.4 % (11.6-17.2) Neutrophils (%) (Auto) 89.3 % (16.0-70.0) 83.9 % (16.0-70.0) Lymphocytes (%) (Auto) 5.7 % (9.0-44.0) Neutrophils # (Auto) 9.4 TH/MM3 (1.8-7.7) 9.9 TH/MM3 (1.8-7.7) Lymphocytes # (Auto) 0.6 TH/MM3 (1.0-4.8) Neutrophils % (Manual) 89 % (16-70) Lymphocytes % 2 % (9-44) Neutrophils # (Manual) 9.9 TH/MM3 (1.8-7.7) Myelocytes 4 % (0-0) Polychromasia 2.0 % (0.0-1.9) Acanthocytes OCC (NORMAL) OCC (NORMAL) Keratocytes OCC (NORMAL) White Blood Count 11.8 TH/MM3 (4.0-11.0) Ovalocytes 1+ (NORMAL) Blood Urea Nitrogen 6 MG/DL (7-18) Vancomycin Level Trough 13.4 MCG/ML (5.0-10.0) Test 10/30/17 05:52 10/30/17 11:05 10/31/17 07:05 Red Blood Count 2.49 MIL/MM3 (4.00-5.30) 2.52 MIL/MM3 (4.00-5.30) Hemoglobin 8.0 GM/DL (11.6-15.3) 8.5 GM/DL (11.6-15.3) 8.2 GM/DL (11.6-15.3) Hematocrit 24.1 % (35.0-46.0) 25.7 % (35.0-46.0) 24.5 % (35.0-46.0) Red Cell Distribution Width 18.7 % (11.6-17.2) 18.9 % (11.6-17.2) Neutrophils (%) (Auto) 82.9 % (16.0-70.0) 82.0 % (16.0-70.0) Lymphocytes (%) (Auto) 8.2 % (9.0-44.0) Neutrophils # (Auto) 8.5 TH/MM3 (1.8-7.7) 8.1 TH/MM3 (1.8-7.7) Lymphocytes # (Auto) 0.8 TH/MM3 (1.0-4.8) 0.9 TH/MM3 (1.0-4.8) Creatinine 0.45 MG/DL (0.50-1.00) 0.43 MG/DL (0.50-1.00) Random Glucose 66 MG/DL (74-106) Calcium Level 7.7 MG/DL (8.5-10.1) 8.2 MG/DL (8.5-10.1) Chloride Level 109 MEQ/L (98-107) 108 MEQ/L (98-107) Neutrophils % (Manual) 93 % (16-70) Lymphocytes % 2 % (9-44) Neutrophils # (Manual) 9.5 TH/MM3 (1.8-7.7) Myelocytes 2 % (0-0) Polychromasia 2.1 % (0.0-1.9) Ovalocytes 1+ (NORMAL) Acanthocytes 1+ (NORMAL) Keratocytes OCC (NORMAL) Blood Urea Nitrogen 6 MG/DL (7-18) Imaging Last Impressions Upper Extremity Ultrasound 10/30/17 0000 Signed Impressions: Service Date/Time: Monday, October 30, 2017 16:51 - CONCLUSION: No thrombosis demonstrated right upper extremity. Nilesh Alcazar MD Abdomen X-Ray 10/25/17 0000 Signed Impressions: Service Date/Time: September 10:25 - CONCLUSION: Mild to moderately dilated loops of small bowel in the midabdomen. The seen with a small bowel ileus versus partial small bowel obstruction. Abraham Laguna MD Upper Extremity CT 10/22/17 0000 Signed Impressions: Service Date/Time: Sunday, October 22, 2017 22:22 - CONCLUSION: 1. Soft tissue swelling in the left hand. No discrete abscess. No acute bony abnormalities. Garrick Ramirez MD Chest X-Ray 10/21/17 1612 Signed Impressions: Service Date/Time: Saturday, October 21, 2017 16:19 - CONCLUSION: No acute disease. Nilesh Frye MD Abdomen/Pelvis CT 10/21/17 1612 Signed Impressions: Service Date/Time: Saturday, October 21, 2017 17:47 - CONCLUSION: 1. Suspected small bowel structure with dilatation of the small bowel to the level of anastomosis suture and the distal small bowel. There is debris within the small bowel at this region in the small bowel beyond the anastomosis is decompressed. 2. Mild hiatal hernia. 3. Sigmoid colon diverticula. There is an anastomosis sutures seen in the rectum just beyond the sigmoid colon diverticula. 4. Mild left pleural effusion. 5. Consolidation at the posterior right lung base. Nilesh Frye MD PE at Discharge GENERAL: Elderly female who is laying in bed not in any acute distress. SKIN: There are ecchymoses on the dorsum of bilateral arms and lateral aspect of right thigh. CARDIOVASCULAR: Regular rate and rhythm. No murmurs rubs or gallops. RESPIRATORY: Clear to auscultation. Breath sounds equal bilaterally. GASTROINTESTINAL: Abdomen is distended and tympanitic without bowel sounds. There is some mild tenderness in the epigastric area without rebound or guarding. Steri-strips are in place over prior ileostomy site in right abdomen with wound edges approximated. no drainage. MUSCULOSKELETAL: Left upper extremity with improving swelling, erythema and warmth, left radial pulse palpable very well. Right upper extremity also has swelling but no evidence of infection likely from IV infiltration. She has joint deformities of hands consistent with rheumatoid arthritis. NEUROLOGICAL: Awake and alert. No obvious cranial nerve deficits. Motor grossly within normal limits, moving all extremities without focal deficit. Normal speech. Hospital Course NEURO: Pain secondary to rheumatoid arthritis Discontinued Ofirmev and restarted Lortab Morphine prn breakthrough. Dc IV solumedrol and restarted prednisone PT RESP: Nasal cannula wean as tolerated Incentive spirometry every hour awake Chest x-ray 10/21/17 CV: SVT Intermittent SVT in the emergency department. Spontaneously converted on a couple of occasions. Did receive adenosine 6 mg IV 2 doses. She previously has been managed on Cardizem. She may not have been absorbing this due to her ileus. Resume by mouth Cardizem. Off Cardizem drip currently. GI: rectal cancer hx low anterior resection and diverting ileostomy s/p ileostomy reversal. Stable Postoperative Ileus. Resolved GERD. Stable NG tube clamped per CRS. CT abdomen pelvis 10/21 - Dilation of stomach and small bowel. Small bowel distal to anastomosis is decompressed. Colorectal surgery following. Restarted PPI GIB. Hemodynamically stable dw CRS. GI increased Protonix to 40 daily and hold off with endoscopic workup initially unless active bleeding. Pt had rectal bleeding with drop in hemoglobin. Negative EGD FEN/RENAL: Dehydration Urinary incontinence Rasmussen discontinued ID: Rheumatoid arthritis Enterococcus UTI, present on admission Left upper extremity cellulitis. Improving penicillin allergy Hold methotrexate Follow-up blood cultures negative to date Stable continue Zyvox status post IV vancomycin. Doppler sonogram of the right upper extremity revealed no thrombosis HEME: Rectal cancer status post low anterior resection and diverting ileostomy. Now s/ p ileostomy reversal and anastomosis 10/15/17 (Dr. Ryan) Pathology 06/11/17 - high grade poorly differentiated adenocarcinoma, focally intubating muscularis propria. Resection margins negative for malignancy. Lymph nodes negative. Has not received chemo. Monitor CBC. She has anemia secondary to acute blood loss which is stable ENDO: Chronic prednisone use Hypothyroidism TSH now therapeutic will restart Synthroid at a lower dose 88 mcg daily PROPH: SCDs hold Lovenox 40 mg subcutaneous 2/2 GIB ACCESS: Peripheral IV providing adequate access at this time. Increase activity patient to be out of bed daily. Continue physical therapy Pt Condition on Discharge: Stable Discharge Disposition: Discharge to SNF Discharge Time: > 30 minutes Discharge Instructions DIET: Follow Instructions for: As Tolerated, No Restrictions, Soft Diet Activities you can perform: Regular-No Restrictions Activities to Avoid: Driving Follow up Referrals: Colorectal Surgery - 1 Week Gastroenterology - 1 Week PCP Follow-up - 1 Week New Orders: TSH 3RD GEN - 6 Weeks New Medications: Levothyroxine (Synthroid) 88 Mcg Tab 88 MCG PO DAILY@0600 for Thyroid Supplement, #30 TAB Linezolid (Zyvox) 600 Mg Tab 600 MG PO Q12HR for Infection, #10 TAB Mupirocin Nasal Oint (Bactroban Nasal Oint) 2% Oint 1 APPLIC EACH NARE BID for Infection, #1 TUBE Single-use tubes. stop date 10/31/17 Pantoprazole (Pantoprazole) 40 Mg Tab 40 MG PO DAILY for Manage Heartburn, #30 TAB Sennosides-Docusate Sodium (Gnp Senna Plus 8.6-50 mg) 8.6 Mg-50 Mg Tab 1 TAB PO BID for Prevent Constipation, #60 TAB Continued Medications: Acetaminophen (Eq Acetaminophen) 325 Mg Tab 650 MG PO Q6H PRN for PAIN SCALE 1 TO 5 for 30 Days, #240 TAB Calcium Carbonate (Antacid) (Calcium Carbonate (Antacid)) 500 Mg Chew 500 MG CHEW Q6HR PRN for HEARTBURN, TAB 0 Refills Cholecalciferol (Vitamin D3) 1,000 Unit Tab 1000 UNITS PO EVERY OTHER DAY for Nutritional Supplement, #1 BOTTLE 0 Refills Cyanocobalamin (B-12) 1,000 Mcg Subl 1000 MCG PO DAILY for Nutritional Supplement, TAB.SL 0 Refills Diltiazem (Cardizem) 30 Mg Tab 30 MG PO Q6HR for HEart for 30 Days, TAB Hydrocodone/Acetaminophen (Hydrocodone-Acetamin 5-325 mg) 5 Mg-325 Mg Tablet 1 TAB PO Q6H PRN for pain 1-10 for 5 Days, #20 TAB (This prescription has been renewed) Lactobacillus Rhamnosus (GG) (Culturelle) 10 Billion Cell Cap 1 CAP PO DAILY for Nutritional Supplement, CAP 0 Refills Metoclopramide (Metoclopramide) 10 Mg Tab 10 MG PO BID, TAB 0 Refills Montelukast (Montelukast) 10 Mg Tab 10 MG PO HS, #30 TAB 0 Refills Multiple Vitamin (Multiple Vitamin) 1 Tab 1 TAB PO DAILY for Nutritional Supplement, TAB 0 Refills Prednisone (Prednisone) 10 Mg Tab 10 MG PO DAILY, TAB 0 Refills Ba Rhodes MD Oct 31, 2017 15:04
== END 2017-10-31 17:09 | DRG 388 ==
LOC: NEPC 15:38 → NEDA 18:36 → N03B 22:29 → HOCB 10-24 21:07 → HIME 10-26 17:00 → N04B 10-27 21:01
PROVIDERS: ADMIT Hospitalist; ATTEND Hospitalist
PROC: 0DJ08ZZ Inspection of Upper Intestinal Tract, Via Natural or Artificial Opening Endoscopic (ICD-10-PCS; principal; 2017-10-31 13:10)
DX: K91.31 Postprocedural partial intestinal obstruction (principal); A41.9 Sepsis, unspecified organism; J44.9 Chronic obstructive pulmonary disease, unspecified; I47.1 Supraventricular tachycardia; N30.00 Acute cystitis without hematuria; D62 Acute posthemorrhagic anemia; K92.1 Melena; L03.114 Cellulitis of left upper limb; E86.0 Dehydration; M06.9 Rheumatoid arthritis, unspecified; I10 Essential (primary) hypertension; E03.9 Hypothyroidism, unspecified; K21.9 Gastro-esophageal reflux disease without esophagitis; Z96.642 Presence of left artificial hip joint; Z96.652 Presence of left artificial knee joint; Y83.2 Surgical operation with anastomosis, bypass or graft as the cause of abnormal reaction of the patient, or of later complication, without mention of misadventure at the time of the procedure; B95.2 Enterococcus as the cause of diseases classified elsewhere; K44.9 Diaphragmatic hernia without obstruction or gangrene; K57.30 Diverticulosis of large intestine without perforation or abscess without bleeding; Z88.0 Allergy status to penicillin; Z79.52 Long term (current) use of systemic steroids; Z85.048 Personal history of other malignant neoplasm of rectum, rectosigmoid junction, and anus; Z86.14 Personal history of Methicillin resistant Staphylococcus aureus infection; Z88.2 Allergy status to sulfonamides
CPT/HCPCS: 71045; 73201; 74018; 74019; 74177; 76937; 80048; 80053; 80202; 81001; 82550; 83605; 83690; 83735; 84100; 84443; 84484; 85007; 85014; 85018; 85025; 85027; 85610; 85730; 86850; 86900; 86901; 87040; 87077; 87086; 87186; 87641; 93005; 93971; 94150; 96361; 96374; 96375; C9113; J0131; J0153; J1650; J2270; J2405; J2765; J2920; J3370; J3480; J7030; J7050; J7121; J7512; Q9967

== ENCOUNTER 2017-11-03 00:09 | Emergency (ER) | payer MEDICARE ==
[~2017-11-03] VITALS: Ht 154.9 cm; Wt 55.0 kg
[~2017-11-03 00:09] MED LIST changes: -APLI5INJ2 I-DERMAL; +BACTOIN EACH NARE; -FLOR250C PO; -MEGE40SU PO; +MULTTAB67 PO; +PANT40TA3 PO; +PERI PO; -PROSTAB PO; +SYNT88TA PO; -TRAM50 PO; +ZYVO600T PO
[2017-11-03 00:15] VITALS: BP 112/58; PULSE 89; RESP 20; TEMP 97.8; O2SAT 100
--- NOTE | 2017-11-03 00:19 | PD ---
HPI . sent for low hgb Chief Complaint: low hgb Time Seen by Provider: 00:16 Travel History International Travel<30 days: No Contact w/Intl Traveler<30days: No History of Present Illness HPI * EMS brings Pt from [facility] rod a 87 female recent ostomy take down surgery and her Hgb is lower to 7.6 on last lab draw and they send her in to Er for the decrease , No bleeding located no source no melena or coffee ground emesis noted as per EMS report, pt vitals are normal no tachy no hypotension.. PT IS GOOD HISTORIAN AND AWARE OF HER MEDICAL COURSE & CAN GIVE DETAILS . PT DENIES ABDO PAIN , NO vomit , only reason for transfer back is Hgb level PFSH Past Medical History Arthritis: Yes Atrial Fibrillation: Yes Blood Disorders: No Heart Rhythm Problems: Yes Cancer: Yes (colon ca) Cardiovascular Problems: Yes (Afib when pt was septic) High Cholesterol: No Chest Pain: Yes Congestive Heart Failure: No Diabetes: No Diminished Hearing: No Endocrine: No Gastrointestinal Disorders: Yes (COLON CANCER) GERD: Yes Genitourinary: No Hepatitis: No Hiatal Hernia: Yes Hypertension: Yes Immune Disorder: No Musculoskeletal: Yes (RA) Neurologic: No Psychiatric: No Reproductive: No Respiratory: No Thyroid Disease: Yes (hypothyroid) Menopausal: Yes : 3 Para: 3 Past Surgical History Abdominal Surgery: Yes AICD: No Arteriovenous Shunt: No Cardiac Surgery: No Ear Surgery: No Endocrine Surgery: No Eye Surgery: Yes (LEFT CATARACT) Genitourinary Surgery: No Gynecologic Surgery: Yes (COMPLETE HYSTERECTOMY) Hysterectomy: Yes Insulin Pump: No Joint Replacement: Yes Oral Surgery: Yes (TONSILLECTOMY) Pacemaker: No Thoracic Surgery: Yes (RIGHT LUMPECTOMY) Other Surgery: Yes (COLOSTOMY ) Social History Alcohol Use: No Tobacco Use: No Substance Use: No Allergies-Medications (Allergen,Severity, Reaction): Coded Allergies: Sulfa (Sulfonamide Antibiotics) (Unverified Allergy, Severe, SWELLING, DIFFICULTY BREATHING, 11/03/17) celecoxib (Unverified Allergy, Severe, 11/03/17) PT IS UNABLE TO RECALL REACTION. penicillin G (Unverified Allergy, Severe, Swelling, 11/03/17) PT REPORTS REACTION WAS 50 YEARS AGO, AND IS UNABLE TO RECALL DETAILS. Uncoded Allergies: TAPE ADHESIVE/ PAPER TAPE OK (Allergy, Severe, BLISTERS, 05/01/06) Reported Meds & Prescriptions Reported Meds & Active Scripts Active Zyvox (Linezolid) 600 Mg Tab 600 Mg PO Q12HR Synthroid (Levothyroxine Sodium) 88 Mcg Tab 88 Mcg PO DAILY@0600 Pantoprazole (Pantoprazole Sodium) 40 Mg Tab 40 Mg PO DAILY Gnp Senna Plus 8.6-50 mg (Sennosides-Docusate Sodium) 8.6 Mg-50 Mg Tab 1 Tab PO BID Bactroban Nasal Oint (Mupirocin Nasal Oint) 2% Oint 1 Applic EACH NARE BID Single-use tubes. stop date 10/31/17 Hydrocodone-Acetamin 5-325 mg (Hydrocodone/Acetaminophen) 5 Mg-325 Mg Tablet 1 Tab PO Q6H PRN 5 Days Cardizem (Diltiazem HCl) 30 Mg Tab 30 Mg PO Q6HR 30 Days Eq Acetaminophen (Acetaminophen) 325 Mg Tab 650 Mg PO Q6H PRN 30 Days Reported Melatonin 5 Mg Tab 3 Mg PO HS Buspirone (Buspirone HCl) 5 Mg Tab 5 Mg PO BID PRN Multiple Vitamin 1 Tab 1 Tab PO DAILY Methotrexate 2.5 Mg Tab 2.5 Mg PO EVERY SUNDAY Culturelle (Lactobacillus Rhamnosus (GG)) 10 Billion Cell Cap 1 Cap PO DAILY Omeprazole 20 Mg Tab 20 Mg PO DAILY Calcium Carbonate (Antacid) 500 Mg Chew 500 Mg CHEW Q6HR PRN Metoclopramide (Metoclopramide HCl) 10 Mg Tab 10 Mg PO BID B-12 (Cyanocobalamin) 1,000 Mcg Subl 1,000 Mcg PO DAILY Vitamin D3 (Cholecalciferol) 1,000 Unit Tab 1,000 Units PO EVERY OTHER DAY Montelukast (Montelukast Sodium) 10 Mg Tab 10 Mg PO HS Prednisone 10 Mg Tab 10 Mg PO DAILY Review of Systems Except as stated in HPI: all other systems reviewed are Neg (denies pain no N /V/D) Physical Exam Narrative rectal GUAIC negative BACK pain in sacrum no break down, sacral bone very sharp and palpable thru thin skin GENERAL: awake alert axo3 good historian SKIN: Warm and dry. HEAD: Atraumatic. Normocephalic. EYES: Pupils equal and round. No scleral icterus. No injection or drainage. ENT: No nasal bleeding or discharge. Mucous membranes pink and moist. NECK: Trachea midline. No JVD. CARDIOVASCULAR: Regular rate and rhythm. RESPIRATORY: No accessory muscle use. Clear to auscultation. Breath sounds equal bilaterally. GASTROINTESTINAL: Abdomen well healed linear surgical scar right lower abdo soft, non-tender, nondistended. Hepatic and splenic margins not palpable. MUSCULOSKELETAL: Extremities without clubbing, cyanosis, or edema. No obvious deformities. NEUROLOGICAL: Awake and alert. No obvious cranial nerve deficits. Motor grossly within normal limits. Five out of 5 muscle strength in the arms and legs. Normal speech. PSYCHIATRIC: Appropriate mood and affect; insight and judgment normal. Data Data Last Documented VS Vital Signs Date Time Temp Pulse Resp B/P (MAP) Pulse Ox O2 Delivery O2 Flow Rate FiO2 11/03/17 09:53 11/03/17 07:05 98.0 86 20 99 Room Air Orders Orders Complete Blood Count With Diff (11/03/17 01:03) Comprehensive Metabolic Panel (11/03/17 01:03) Prothrombin Time / Inr (Pt) (11/03/17 01:03) Type And Screen (11/03/17 01:03) Abdomen, Flat & Upright (11/03/17 ) Ed Discharge Order (11/03/17 06:32) Labs Laboratory Tests Test 11/03/17 01:07 White Blood Count 11.6 TH/MM3 Red Blood Count 2.58 MIL/MM3 Hemoglobin 8.1 GM/DL Hematocrit 25.1 % Mean Corpuscular Volume 97.1 FL Mean Corpuscular Hemoglobin 31.5 PG Mean Corpuscular Hemoglobin Concent 32.5 % Red Cell Distribution Width 18.4 % Platelet Count 370 TH/MM3 Mean Platelet Volume 8.0 FL Neutrophils (%) (Auto) 85.0 % Lymphocytes (%) (Auto) 5.4 % Monocytes (%) (Auto) 7.8 % Eosinophils (%) (Auto) 1.5 % Basophils (%) (Auto) 0.3 % Neutrophils # (Auto) 9.9 TH/MM3 Lymphocytes # (Auto) 0.6 TH/MM3 Monocytes # (Auto) 0.9 TH/MM3 Eosinophils # (Auto) 0.2 TH/MM3 Basophils # (Auto) 0.0 TH/MM3 CBC Comment DIFF FINAL Differential Comment Prothrombin Time 9.9 SEC Prothromb Time International Ratio 1.0 RATIO Blood Urea Nitrogen 11 MG/DL Creatinine 0.62 MG/DL Random Glucose 118 MG/DL Total Protein 5.0 GM/DL Albumin 2.1 GM/DL Calcium Level 8.0 MG/DL Alkaline Phosphatase 31 U/L Aspartate Amino Transf (AST/SGOT) 23 U/L Alanine Aminotransferase (ALT/SGPT) 33 U/L Total Bilirubin 0.1 MG/DL Sodium Level 143 MEQ/L Potassium Level 3.7 MEQ/L Chloride Level 107 MEQ/L Carbon Dioxide Level 31.1 MEQ/L Anion Gap 5 MEQ/L Estimat Glomerular Filtration Rate 91 ML/MIN MDM Medical Decision Making Medical Screen Exam Complete: Yes Emergency Medical Condition: Yes Differential Diagnosis i reviewed past HX DDx SBO re-occurence vs anemia of GI bleed vs ileus , vs post operative bleeding . vs chronic anemia of old age and chronic illness other Narrative Course Guaic negative and hgb relatively stable 8.1 close to last few reading I reviewed in here recent history > pt feels fine and her made complaint is sacral pain and I examined her sacral area no break down and guaic negative , Her skin is thinning near sacrum has sharp point felt on palpation , no need for intervention safe for close folllow up at [facility] facility Diagnosis Primary Impression: Anemia, chronic disease Patient Instructions: Anemia (ED), General Instructions Anthony Mcmahan MD Nov 03, 2017 00:19
[2017-11-03] MEDS ORDERED: BUSP5TAB PO (00:48)
[2017-11-03] MEDS ORDERED: MELA5 PO (00:48)
[2017-11-03 01:30] VITALS: BP 107/63; PULSE 74; RESP 18; O2SAT 100
[2017-11-03 01:32] LABS: AUTOMATED NEUTROPHIL # 9.9 TH/MM3 (1.8-7.7); BASOPHIL % 0.3 % (0.0-2.0); EOSINOPHIL # 0.2 TH/MM3 (0-0.4); EOSINOPHIL % 1.5 % (0.0-4.0); HEMATOCRIT 25.1 % (35.0-46.0); HEMOGLOBIN 8.1 GM/DL (11.6-15.3); LYMPH % 5.4 % (9.0-44.0); LYMPHOCYTE # 0.6 TH/MM3 (1.0-4.8); MEAN CELL VOLUME 97.1 FL (80.0-100.0); MEAN CORPUSCULAR HEMOGLOBIN 31.5 PG (27.0-34.0); MEAN CORPUSCULAR HGB CONC 32.5 % (32.0-36.0); MONO % 7.8 % (0.0-8.0); MONOCYTE # 0.9 TH/MM3 (0-0.9); PLATELET COUNT 370 TH/MM3 (150-450); RED BLOOD COUNT 2.58 MIL/MM3 (4.00-5.30); RED CELL DISTRIBUTION WIDTH 18.4 % (11.6-17.2); WHITE BLOOD COUNT 11.6 TH/MM3 (4.0-11.0)
[2017-11-03 01:47] LABS: PROTHROMBIN TIME - PATIENT 9.9 SEC (9.8-11.6)
[2017-11-03 01:48] LABS: ALBUMIN 2.1 GM/DL (3.4-5.0); ALT (GPT) 33 U/L (10-53); AST (GOT) 23 U/L (15-37); BICARBONATE 31.1 MEQ/L (21.0-32.0); BLOOD UREA NITROGEN 11 MG/DL (7-18); CHLORIDE 107 MEQ/L (98-107); CREATININE 0.62 MG/DL (0.50-1.00); GLOMERULAR FILTRATION RATE 91 ML/MIN (>89); GLUCOSE,RANDOM 118 MG/DL (74-106); SODIUM (NA) 143 MEQ/L (136-145)
[2017-11-03 01:51] LABS: ALKALINE PHOSPHATASE 31 U/L (45-117); TOTAL BILIRUBIN ADULT 0.1 MG/DL (0.2-1.0)
--- NOTE | 2017-11-03 02:16 | RADRPT ---
EXAM DATE/TIME: 11/03/2017 01:41 [facility] COMPARISON: ABDOMEN FLAT & UPRIGHT, October 25, 2017, 10:25. INDICATIONS : Abdominal pain for 3 days MEDICAL HISTORY : Carcinoma, colon. Hypertension SURGICAL HISTORY : reversal of ileostomy ENCOUNTER: Initial ACUITY: 3 days PAIN SCORE: 5/10 LOCATION: Bilateral lower quadrant FINDINGS: Supine and upright views of the abdomen were performed. Scattered gas is seen in colon and small bow el small bowel distention is decreased when compared to the prior study of 10/25/2017. No evidence of free air. Degenerative findings lumbar spine. Phleboliths in the pelvis. Left total hip prosthesis. CONCLUSION: Nonspecific bowel gas pattern with mild air-filled distention of loops of mid to lower abdominal smal l bowel. Distention is less prominent than on the comparison study of 10/25/17. Corky Estrada MD on November 03, 2017 at 2:09 Board Certified Radiologist. This report was verified electronically.
[2017-11-03 07:05] VITALS: BP 114/61; PULSE 86; RESP 20; TEMP 98; O2SAT 99
[2017-11-09] MEDS ORDERED: NORC5TAB PO (14:34)
[2017-11-09] MEDS ORDERED: QUES4POW PO (14:34)
== END 2017-11-03 10:08 ==
LOC: NEPC 00:09
DX: D64.9 Anemia, unspecified (principal); M53.3 Sacrococcygeal disorders, not elsewhere classified; I48.91 Unspecified atrial fibrillation; K21.9 Gastro-esophageal reflux disease without esophagitis; I10 Essential (primary) hypertension; E03.9 Hypothyroidism, unspecified; M06.9 Rheumatoid arthritis, unspecified; Z85.038 Personal history of other malignant neoplasm of large intestine
CPT/HCPCS: 74019; 80053; 85025; 85610; 86850; 86900; 86901; 99284